=== PATIENT | female | born 1935 | race Caucasian/White ===

== ENCOUNTER 2016-03-25 11:39 | Emergency (ER) | payer MEDICARE ==
[~2016-03-25] VITALS: Ht 165.1 cm; Wt 92.7 kg
[~2016-03-25 11:39] MED LIST: ALBU8.5H2 INHALATION; DOCU250C2 PO; ESTR1TAB24 PO; HYDR25SU10 RC; LEVO175T5 PO; LORA0.5T PO; NYST1POW23 MC; OLME20TA3 PO; OMEP20CA11 PO; ONDA4TAB12 PO; OXYC10TA69 PO; OXYC30TA77 PO; POLY17PO6 PO; POTA20TA16 PO; RANI150T11 PO; SACC250C8 PO; SYMINH INHALATION; TORS10TA5 PO; VENL150C98 PO; ZOLP5TAB6 PO
[2016-03-25 11:41] VITALS: BP 115/54; PULSE 71; RESP 18; O2SAT 100
[2016-03-25] MEDS ORDERED: TORS20TA3 PO (12:02)
--- NOTE | 2016-03-25 13:01 | ED.REPORT ---
HPI-Trauma Minor / Fall Date of Service Mar 25, 2016 ED Provider: Henok Donato PA-C Ms. Spencer is a 80-year-old female who presents with a chief complaint of ground -level fall. Patient reports that she was brought in by brush maker following a ground -level fall at her assisted living facility. She reports that she stood up, became dizzy and fell over striking her face on a carpeted floor denies loss of consciousness, headache, dizziness, nausea/vomiting, seizure, behavior change, neck pain, numbness/tingling, use of blood thinners. She reports lacerations to her left knee and upper lip. History of CHF, nonhealing leg wounds, renal insufficiency, bilateral total knee arthroplasty, knee pain. Incidental complaint of abdominal pain, that has been ongoing, is being followed by her primary care physician, and is unchanged from baseline. Nursing Notes Stated Complaint: GLF Chief Complaint: Multiple Trauma/Fall Nursing Notes Reviewed: Yes Allergies: Coded Allergies: No Known Allergies (Unverified , 02/23/16) Scheduled Budesonide/Formoterol 160-4.5 mcg Inh (Symbicort 160-4.5 mcg Inh) 120 Puff Inhaler 2 PUFF INHALATION BID Estradiol (Estradiol) 1 Mg Tablet 1 MG PO DAILY Levothyroxine (Levothyroxine) 175 Mcg Tablet 175 MCG PO DAILY Olmesartan (Benicar) 20 Mg Tablet 20 MG PO DAILY Omeprazole (Omeprazole) 20 Mg Capsule.dr 20 MG PO BID Oxycodone ER (Oxycontin) 10 Mg Tab.er.12h 10 MG PO BID Oxycodone ER (Oxycontin) 30 Mg Tab.er.12h 30 MG PO BID Potassium Chloride (Potassium Chloride) 20 Meq Tab.er.prt 20 MEQ PO DAILY TAKE WITH FOOD Ranitidine (Zantac) 150 Mg Tablet 150 MG PO QPM Saccharomyces Boulardii (Digestive Probiotic) 250 Mg Capsule 250 MG PO BID Torsemide (Torsemide) 20 Mg Tablet 20 MG PO DAILY Venlafaxine ER (Venlafaxine ER) 150 Mg Cap.er.24h 150 MG PO DAILY Scheduled PRN Albuterol HFA (Proair HFA) 8.5 Gm Hfa.aer.ad 2 PUFFS INHALATION q4-6 hours PRN PRN For Shortness of Breath Docusate Sodium (Docusate Sodium) 250 Mg Capsule 250 MG PO BID PRN PRN For Constipation Hydrocortisone Acetate (Anucort-Hc) 25 Mg Supp.rect 25 MG RC DAILY PRN PRN For Pain Lorazepam (Lorazepam) 0.5 Mg Tablet 0.5 MG PO BID PRN PRN For Anxiety Nystatin (Nystatin) 1 Each Powder.ea. 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 Alcohol Use: Denies alcohol use Drug Use: Denies drug use Ambulatory Status Independent Review of Systems General: Denies fever, chills, malaise. HEENT: Denies congestion, headache, sore throat. Respiratory: Denies dyspnea, cough, shortness of breath, wheezing. Cardiovascular: Denies chest pain, palpitations. Gastrointestinal: Admits abdominal pain. Denies vomiting, diarrhea. Genitourinary: Denies frequency, urgency, dysuria, hematuria. Otherwise as noted in HPI. Physical Exam General: Well developed, well nourished, no acute distress. Head: Atraumatic, normocephalic. No mastoid tenderness. Eyes: No scleral icterus or injection. No discharge. PERRL. EOMI. Vision grossly intact. Ears: Pinna and tragus nontender with manipulation. External auditory canal patent, atraumatic and without discharge. Tympanic membrane harris, shiny and translucent without fluid, bulging, retraction or perforation. Hearing grossly intact. Nose: Symmetrical, nares patent without discharge. No frontal or maxillary sinus tenderness. Mouth/pharynx: normal dentition, mucus membranes moist. Tonsils 2+ and symmetrical, uvula midline. Pharynx noninjected, no cobblestoning or discharge. Voice clear. Neck: No tenderness or lymphadenopathy. Trachea midline. Respiratory: Regular rate and rhythm. Breath sounds present, clear to auscultation and equal bilaterally. Cardiovascular: Regular rate and rhythm, without murmur, gallop or rub. 1+ pedal edema bilaterally Gastrointestinal: Abdomen flat and non-tender without guarding or rebound. Bowel sounds normoactive. Skin: One and a half centimeter, through and through laceration to the midline upper lip. 3 cm laceration over the patella of left knee, with moderate hematoma inferior. Basic laceration visualized, no intrusion into the joint capsule. Left knee: Laceration and hematoma as noted above. No apprehension sign. Tender over patella, medial and lateral joint line, tibial tuberosity. Active range of motion limited. Neurological: Grossly nonfocal. Psychological: alert and oriented. Speech appropriate, linear and logical. Behavior appropriate. Initial Vital Signs Vital Signs (First) Date Time Temp Pulse Resp B/P Pulse Ox O2 Delivery O2 Flow Rate FiO2 03/25/16 11:41 36.5 71 18 115/54 100 Room Air Initial VS: Reviewed Interpretation & Diagnostics Lab Results Interpretation Test 03/25/16 13:30 Hold Urine Received (Received) Procedures Laceration Management Procedure Performed by: Allied health pract Consent / Setup / Site Prep: Informed consent provided, Consent from patient , Hand hygiene observed, Stand sterile technique Location of Wound: Center upper lip, through and through Wound Length: 2 cm Local Anesthesia: Lidocaine w epi 1%, 4cc, 27g needle Wound Preparation: Shurclens, Normal saline Irrigation: 50 cc Foreign Body Explore / Removal: Explored for foreign body Repair Skin: Prolene (6-0) # Sutures - Skin: 3 Closure Layers: 1 Suture Technique: Simple Post-Procedure / Complications: Antibiotic oint applied, Dressing applied, No complications, Condition improved, Tolerated procedure well, Patient stable Procedure Performed by: Allied health pract Consent / Setup / Site Prep: Informed consent provided, Consent from patient , Hand hygiene observed, Stand sterile technique Location of Wound: Midline patella left knee. Well-visualized no indication of intrusion into the joint capsule. Wound Length: 3 cm Local Anesthesia: Lidocaine w epi 1%, 4cc, 27g needle Wound Preparation: Shurclens, Normal saline Debridement: None Irrigation: 150 cc Foreign Body Explore / Removal: Explored for foreign body Repair Skin: Nylon (5-0) # Sutures - Skin: 3 Suture Technique: Mattress Post-Procedure / Complications: Antibiotic oint applied, Dressing applied, No complications, Condition improved, Tolerated procedure well, Patient stable Re-Eval/Medical Decision Med Decision/Clinical Course Discussed the case with Dr. Garza. Advised ordering knee x-rays based on Horner knee rules. Discussed the case with Dr. iqbal. He advised treating her pain with 10 mg of oxycodone by mouth, road testing to determine her confidence In brief this is a 80-year-old female with a history of CHF, nonhealing leg wounds, renal insufficiency, bilateral total knee arthroscopy, who presents today following a ground-level fall. She reports standing up becoming dizzy and falling down on a carpeted floor. Orthostatic hypotension thought to be more likely cause than MS, CVA, PE. She struck her face. No indication of intracranial or cervical injury. She has a 2 cm through and through laceration near the midline of her upper lip, and no dental trauma. She also has a 3 cm laceration over the patella left knee, with no indication of intrusion into the joint capsule. She reports significant bilateral knee pain. Performed three-view x-rays indicated by auto and knee rule (age>55 years, trauma, pain) which were negative. Successfully closed lacerations. Patient wasinitially hesitant to be discharged to home, but with sufficient pain control and successful ambulation in the emergency department she and her mother were comfortable with her being sent home. Provided wound care instructions, analgesics instructions and follow-up instructions. Discharge & Departure Impression: Primary Impression: Lip laceration Encounter type: initial encounter Qualified Code: S01.511A - Laceration without foreign body of lip, initial encounter Additional Impression: Laceration of knee, left Encounter type: initial encounter Qualified Code: S81.012A - Laceration without foreign body, left knee, initial encounter Disposition: Home Discharge Condition All VS Reviewed: Yes Condition: Stable Patient Instructions: Suture Care (ED) Additional Instructions: Evaluation following a ground level fall in the ED today. History physical are reassuring that there is no brain or neck injury. X-ray revealed no fractures or damage to your artificial knees. You did have 1 cm, through and through laceration to your upper lip, but no tenderness or looseness in front teeth or damage to your jaw. you also have a 3 cm laceration to right knee, with no indication of intrusion into the joint space. Pain is controlled and he were able to ambulate in the emergency department. You were given a tetanus booster because he could not remember when your last was. Stable and safe for discharge to home. I recommend keeping your wounds covered and dry for the next 24 hours. After that you can change the dressings and wash the areas with soap and water and reapply antibiotic ointment. Do not swim or soak in a bath until stitches are removed. I recommend rinsing your mouth with slightly salty water after eating to keep the laceration of your inner lip clean. Stick to your usual pain medication regimen to control pain, if he finds this is not enough I suggest adding 400 mg of ibuprofen up to every 6 hours. Please follow up with your primary care provider in 3 days to be sure the recovery is progressing as expected. Follow up with your primary care provider in 5 days to consider removing the stitches in your upper lip. The stitches in your left knee should stay in place for 10-14 days. Return to emergency department for any new or worsening symptoms including fever, increasing pain, redness, swelling or discharge from either injury. Referrals: NOPCP (PCP) EDSupervising Provider for APC: Eduard Iqbal MD Attending Statement Attending attestation: I saw this patient in conjunction with Henok Donato PA-C. I was present for all rose portions of the history taking and physical examination. I agree with the workup, evaluation, treatment and disposition. Henok Plasencia MD, PA-C Mar 25, 2016 13:00 Eduard Iqbal MD Mar 25, 2016 21:33
--- NOTE | 2016-03-25 14:07 | DRSVH ---
PROCEDURE: X-RAY LEFT KNEE, THREE VIEWS ([id number]) INDICATIONS: knee pain, fall, age greater than 55 years TECHNIQUE: 3 views of the knee were acquired. COMPARISON: 03/24/2016 FINDINGS: Bones: No fractures or dislocations. No suspicious bony lesions. Status post total knee arthroplast y, components appearing intact. Soft tissues: No joint effusion. No suspicious soft tissue calcifications. IMPRESSION: No acute bony abnormality. Postoperative changes. Dictated by: Jose Stern M.D. on 03/25/2016 at 14:05 Approved by: Jose Stern M.D. on 03/25/2016 at 14:05
--- NOTE | 2016-03-25 14:14 | DRSVH ---
PROCEDURE: X-RAY RIGHT KNEE, THREE VIEWS ([id number]) INDICATIONS: fall, knee pain, age>55yo TECHNIQUE: 3 views of the knee were acquired. COMPARISON: [facility], CR, XR KNEE 3VW LT, 03/25/2016, 13:28. FINDINGS: Bones: Postsurgical changes compatible prior right knee arthroplasty noted. Small bone fragment noted adjacent to the lateral margin of the femoral component of the knee prosthesis which could represent heterotopic ossification versus old avulsion injury. No acute fracture identified. Soft tissues: No joint effusion. No suspicious soft tissue calcifications. IMPRESSION: No acute fracture. No acute osseous lesion. If symptoms and/or clinical suspicion for pa thology persists, further assessment with repeat radiographs or advanced imaging (e.g. CT, MRI or bon e scan) may be helpful for further assessment. Dictated by: Karly Baker MD, PhD on 03/25/2016 at 14:12 Approved by: Karly Baker MD, PhD on 03/25/2016 at 14:12
[2016-03-25] MEDS ORDERED: TdaP Vaccine 0.5 mL Inj IM ONE (16:50)
[2016-03-25 17:23] VITALS: BP 115/49; PULSE 74; RESP 18; O2SAT 99
[2016-07-06] MEDS ORDERED: ZOLP5TAB6 PO (10:50)
[2016-07-08] MEDS ORDERED: RANI150T11 PO (17:57)
[2016-07-08] MEDS ORDERED: POLY17PO6 PO (17:57)
[2016-07-08] MEDS ORDERED: ONDA4TAB6 PO (17:57)
[2016-07-08] MEDS ORDERED: SACC250C9 PO (17:57)
[2016-07-08] MEDS ORDERED: QUET25TA73 PO (17:57)
[2016-07-08] MEDS ORDERED: HYDR-656 PO (17:57)
[2016-07-08] MEDS ORDERED: TORS10TA5 PO (17:57)
== END 2016-03-25 17:24 | disposition home or self-care (01) ==
LOC: SED 11:39 → EDUNIT# 11:39 → EDBD 11:39 → SED 17:24
DX: S01.511A Laceration without foreign body of lip, initial encounter (principal); S81.012A Laceration without foreign body, left knee, initial encounter; W18.30XA Fall on same level, unspecified, initial encounter; Y93.89 Activity, other specified; Y92.129 Unspecified place in nursing home as the place of occurrence of the external cause; Y99.8 Other external cause status; I11.0 Hypertensive heart disease with heart failure; I50.9 Heart failure, unspecified; I48.91 Unspecified atrial fibrillation; E07.9 Disorder of thyroid, unspecified; Z23 Encounter for immunization

== ENCOUNTER 2016-06-05 14:57 | Inpatient (IN) | payer MEDICARE ==
[~2016-06-05] VITALS: Ht 162.6 cm; Wt 100.5 kg
[2016-06-05] VITALS (8 sets, daily range): BP systolic 93–114; BP diastolic 52–70; PULSE 69–114; RESP 17–22; O2SAT 94–100
[~2016-06-05 14:57] MED LIST changes: -TORS10TA5 PO; +TORS20TA3 PO
--- NOTE | 2016-06-05 15:48 | DRSVH ---
PROCEDURE: X-RAY CHEST, TWO VIEWS ([id number]) INDICATIONS: shortness of breath TECHNIQUE: 2 views of the chest were acquired. COMPARISON: [facility], CR, XR CHEST 1VW (PORTABLE), 02/23/2016, 12:20. [facility], CR, XR CHEST 2VW, 02/18/2016, 10:44. FINDINGS: Surgical changes and devices: None. Lungs and pleura: Left basilar infiltrate suspicious for pneumonia. No pleural effusions or pneumoth orax. Mediastinum: Mediastinal contours are normal. Heart size is normal. Bones and chest wall: No suspicious bony abnormalities. Soft tissues appear unremarkable. IMPRESSION: Suspect left basilar pneumonia. Dictated by: Stephanie Escobar M.D. on 06/05/2016 at 15:45 Approved by: Stephanie Escobar M.D. on 06/05/2016 at 15:46
--- NOTE | 2016-06-05 16:12 | ED.REPORT ---
HPI-Dyspnea / Wheezing Date of Service Jun 05, 2016 ED Provider: Dr. Pearl Pt is a 80 y/o female w/ a hx of HTN, CHF, a-fib presenting to the ED c/o gradually worsening SOB onset about 1 week ago. She c/o associated productive cough, dyspnea on exertion, 8 lb weight gain in the last week which she attributes to lower extremity edema despite increased Torsemide treatment. Pt denies fever, chills, CP, abdominal pain, vomiting, diarrhea, dysuria, change in orthopnea, rash. Her BP normally runs about 120 systolic. Cardiology: Dr. Peck Nursing Notes Stated Complaint: SOB SENT FROM URGENT Chief Complaint: Respiratory Distress Nursing Notes Reviewed: Yes Allergies: Coded Allergies: No Known Allergies (Unverified , 06/05/16) Scheduled Budesonide/Formoterol 160-4.5 mcg Inh (Symbicort 160-4.5 mcg Inh) 120 Puff Inhaler 2 PUFF INHALATION BID Estradiol (Estradiol) 1 Mg Tablet 1 MG PO DAILY Levothyroxine (Levothyroxine) 175 Mcg Tablet 175 MCG PO DAILY Olmesartan (Benicar) 20 Mg Tablet 20 MG PO DAILY Omeprazole (Omeprazole) 20 Mg Capsule.dr 20 MG PO BID Oxycodone ER (Oxycontin) 10 Mg Tab.er.12h 10 MG PO BID Oxycodone ER (Oxycontin) 30 Mg Tab.er.12h 30 MG PO BID Potassium Chloride (Potassium Chloride) 20 Meq Tab.er.prt 20 MEQ PO DAILY TAKE WITH FOOD Ranitidine (Zantac) 150 Mg Tablet 150 MG PO QPM Saccharomyces Boulardii (Digestive Probiotic) 250 Mg Capsule 250 MG PO BID Torsemide (Torsemide) 20 Mg Tablet 20 MG PO DAILY Venlafaxine ER (Venlafaxine ER) 150 Mg Cap.er.24h 150 MG PO DAILY Scheduled PRN Albuterol HFA (Proair HFA) 8.5 Gm Hfa.aer.ad 2 PUFFS INHALATION q4-6 hours PRN PRN For Shortness of Breath Docusate Sodium (Docusate Sodium) 250 Mg Capsule 250 MG PO BID PRN PRN For Constipation Hydrocortisone Acetate (Anucort-Hc) 25 Mg Supp.rect 25 MG RC DAILY PRN PRN For Pain Lorazepam (Lorazepam) 0.5 Mg Tablet 0.5 MG PO BID PRN PRN For Anxiety Nystatin (Nystatin) 1 Each Powder.ea. 1 EACH MC BID PRN PRN rash Ondansetron ODT (Ondansetron ODT) 4 Mg Tab.rapdis 4 MG PO q4-6 hours PRN PRN For Nausea Polyethylene Glycol 3350 (Miralax) 17 Gm Powd.pack 17 GM PO BID PRN PRN For Constipation Zolpidem (Zolpidem) 5 Mg Tablet 5 MG PO HS PRN PRN For Insomnia General Time Seen by MD: 16:12 Chief Complaint Shortness of breath Hx Obtained From: Patient Arrived By: Walk-in Sudden in Onset?: No Onset Occurred: 1 week ago Symptom Duration: Since onset Severity: Current: No pain currently Severity: Maximum: No pain Recent Healthcare: Previous diagnosis Similar Sx Previous: Yes Past Medical History Past Medical History Notes: Cardiology: Dr. 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 Alcohol Use: Denies alcohol use Drug Use: Denies drug use Ambulatory Status Independent Review of Systems Constitutional: Denies: Chills, Fever Respiratory: Reports: Prod cough, green, Prod cough, yellow, Shortness of breath, Denies: Pleuritic pain Cardiovascular: Reports: Dyspnea on exertion, Edema, Denies: Chest pain, Orthopnea Skin: Denies Itching, Denies Rash Complete sys rev & neg: except as marked. GI: Denies: Abdominal pain, Diarrhea, Nausea, Vomiting Female: Denies: Dysuria, Urinary frequency Physical Exam Initial Vital Signs Vital Signs (First) Date Time Temp Pulse Resp B/P Pulse Ox O2 Delivery O2 Flow Rate FiO2 06/05/16 15:04 36.3 73 22 95/59 97 Room Air Initial VS: Reviewed, Vital signs abnormal Head / Eyes: Atraumatic, Normocephalic, PERRL ENT: Mucous membranes moist, Conjunctiva normal, No scleral icterus Abdomen / GI: Soft, Non-tender Extremities: Vascular intact, Neuro intact, No tenderness Skin: Warm, Dry, No cyanosis Neurologic: Alert, Oriented, Nonfocal Psychiatric: Mood/affect normal, Behavior normal, Normal thought content General/Constitutional: Awake, Alert, No acute distress, Cooperative, Not toxic appearing Neck: Atraumatic, Supple, No meningismus, Full range of motion, No JVD Respiratory / Chest: Atraumatic, No respiratory distress, No retractions, No stridor, No chest tenderness, No chest wall deformity, No crepitus Rales left lung base Cardiovascular: Heart rate NL, Regular rhythm, Heart sounds NL, No gallop, No murmurs, No rubs, Cap refill not delayed, Peripheral circulation NL Lower Ext Edema: Positive: Bilateral 3+ Interpretation & Diagnostics Lab Results Interpretation Result Diagram: 06/05/16 1619 06/05/16 1619 Test 06/05/16 16:19 06/05/16 17:49 White Blood Count 5.0th/mm3 (3.8-10.1) Red Blood Count 3.23mil/mm3 (3.90-5.20) Hemoglobin 9.2g/dL (12.0-15.6) Hematocrit 28.4% (35.0-46.0) Mean Corpuscular Volume 87.9fL (81-100) Mean Corpuscular Hemoglobin 28.5pg (27.0-35.0) Mean Corpuscular Hemoglobin Concent 32.4% (32.0-37.0) Red Cell Distribution Width 14.8% (12.3-15.4) Platelet Count 275bil/L (150-400) Neutrophils (%) (Auto) 58.4% (40-74) Lymphocytes (%) (Auto) 21.3% (14-46) Monocytes (%) (Auto) 12.1% (4-12) Eosinophils (%) (Auto) 6.6% (0-5) Basophils (%) (Auto) 1.6% (0-3) Sodium Level 126mEq/L (134-144) Potassium Level 4.5mEq/L (3.5-5.2) Chloride Level 90mEq/L (97-108) Carbon Dioxide Level 19mmol/L (18-29) Blood Urea Nitrogen 39mg/dL (8-27) Creatinine 1.43mg/dL (0.57-1.00) Estimat Glomerular Filtration Rate 51mL/min (>59) Glucose Level 118mg/dL (60-99) Calcium Level 8.5mg/dL (8.5-10.1) Total Bilirubin 0.3mg/dL (0.0-1.2) Aspartate Amino Transf (AST/SGOT) 32U/L (0-50) Alanine Aminotransferase (ALT/SGPT) 21U/L (0-32) Alkaline Phosphatase 99U/L (25-165) Troponin T < 0.010ug/L (0.0-0.011) Pro-B-Type Natriuretic Peptide 812.8pg/mL (0-738) Total Protein 7.5g/dL (6.4-8.4) Albumin 3.9g/dL (3.4-5.0) Hold Bhakta Top Tube Received (Received) ECG Interpretation ECG Interpretation: Sinus rhythm rate 67 RBBB Time: 16:00 Interpreted by: ED physician Normal ECG Interpretation: No acute ischemic changes X-Ray Chest Interpretation Chest Xray Interpretation: IMPRESSION: Suspect left basilar pneumonia. Dictated by: Stephanie Escobar M.D. on 06/05/2016 at 15:45 Approved by: Stephanie Escobar M.D. on 06/05/2016 at 15:46 View: Portable, AP & lat Interpretation / Wet Read by: Interpret - Radiologist Re-Eval/Medical Decision Med Decision/Clinical Course Likely pneumonia with profound hyponatremia and acute kidney injury. Mild hypotension that responded to IV fluids. Patient will be admitted. Re-Evaluation/Progress : Time of Eval: 17:12 Re-Evaluation/Progress Note: Pt rechecked. Informed pt of need for admission for further evaluation. Pt understands and agrees with plan for admission. All questions addressed. Consultation : Consulted With: Hospitalist Call Returned at: 17:13 Back Tender Fourdrinier: Will see patient, Agrees with eval, Agrees with plan, Accepts admit Counseled Regarding: Diagnosis, Lab results, Need for admission Discharge & Departure Impression: Primary Impression: Left lower lobe pneumonia Pneumonia type: due to unspecified organism Qualified Code: J18.9 - Pneumonia, unspecified organism Additional Impression: Dehydration Disposition: ADMITTED TO HOSPITAL Discharge Condition All VS Reviewed: Yes Condition: Stable Referrals: Enrique Muller DO (PCP) Tirso Peck MD Scribe Attestation Portions of this note were transcribed by Familia Kaiser. IDr. Pearl personally performed the history, physical exam and medical decision-making; I reviewed and confirmed the accuracy of the information in the transcribed note. Signed by Govind Abdul, 06/05/16 3 copies to: Tirso Peck MD; Enrique Muller Timothy S DO Jun 05, 2016 16:12 FAMILIA K[facility]ISER Jun 05, 2016 16:18
[2016-06-05 16:37] LABS: BASOPHILS % (AUTO) 1.6 % (0-3); EOSINOPHILS % (AUTO) 6.6 % (0-5); MONOCYTES % (AUTO) 12.1 % (4-12); Mean Corpuscular Hemoglobin 28.5 pg (27.0-35.0); Mean Corpuscular Volume 87.9 fL (81-100); NEUTROPHILS % (AUTO) 58.4 % (40-74); Platelet Count 275 bil/L (150-400)
[2016-06-05] MEDS ORDERED: 0.9% Sodium Chloride 1,000 ML IV ONE (16:55)
[2016-06-05 17:00] LABS: TROPONIN T < 0.010 ug/L (0.0-0.011)
[2016-06-05] MEDS ORDERED: cefTRIAXone Inj 2,000 MG in Dextrose 5% Minibag Plus 50 ML IV ONE (17:05)
[2016-06-05] MEDS ORDERED: Azithromycin Inj 500 MG in Dextrose 5% w/Vial Mate 250 ML IV ONE (17:05)
[2016-06-05] MEDS ORDERED: 0.9% Sodium Chloride 1,000 ML IV SCH (17:14)
[2016-06-05] MEDS ORDERED: Ondansetron 2 mg/mL 2 mL Inj IVPUSH PRN (17:15)
[2016-06-05] MEDS ORDERED: Alum-Mag Hydrox-Simeth 30 mL Suspension PO PRN ×2 (17:15→20:10)
[2016-06-05] MEDS ORDERED: Polyethylene Glycol (PEG) 17 Gm Powder PO PRN ×2 (20:10→20:40)
--- NOTE | 2016-06-05 20:24 | PCM.HPMED ---
Subjective Date of Service Jun 05, 2016 Primary Provider: Admitting Physician: Neelam Isaac MD Primary Care Physician: Enrique Muller DO Attending Physician: Neelam Isaac MD Admit Status: From the Emergency Department Chief Complaint: Fatigue, shortness of breath, weight gain, increasing edema, productive cough History of Present Illness: About a week ago she noted onset of shortness of breath which might have seemed somewhat sudden, it has been increasing since then. It is worse with exertion, does not occur at night but she has a hospital bed at home and raises the head of bed. She has done this for several months but now the last 2 weeks has increased it further but is attributing this to nasal congestion. She has gained 8 pounds in the last week which has not improved in spite of increasing her torsemide from 2 to 2 and a half tablets each day. She is also noting some increase in abdominal girth. 2 months ago her physician had instructed her to increase torsemide from 1 tablet to 2 tablets daily and told her if her swelling was worse, or weight increased, could increase to 2-1/2 tablets daily for a week at a time. She is also noting mild cough which is productive which is for her, the sputum is slightly yellow color. No fever chills or sweats. No chest pain or other pain. Review of Systems: Unremarkable except as above Allergies Coded Allergies: No Known Allergies (Unverified , 06/05/16) Home Medications Albuterol inhaler 2 puffs every 4-6 hours when necessary, usually twice a day before Symbicort Symbicort [id number] 2 puffs twice a day DOS 250 mg twice a day when necessary, usually daily Estradiol 1 mg daily AnuCort 25 mg daily when necessary usually twice a week Levothyroxine 175 g daily Benicar 20 mg daily Omeprazole 20 mg twice a day Zofran 4 mg every 4-6 hours when necessary Oxycodone ER 40 mg twice a day MiraLAX 17 g each evening Potassium chloride 20 mEq daily Zantac 150 mg each evening Venlafaxine ER 150 mg each morning Zolpidem 5 mg at bedtime when necessary but uses daily Coreg 6.25 mg twice a day Torsemide 10 mg, 2.5 tablets each morning PMH Congestive heart failure, was admitted in February with acute on chronic diastolic congestive heart failure Hyponatremia, sodium of 128 noted on the February 2016 admission for congestive heart failure and improved with treatment, 134 at the time of discharge Severe mitral regurgitation by echo February 2016 normal left ventricular function Hypertension Atrial fibrillation Cardiac ablation for some other type of tachycardia Hypothyroidism Surgical History Nodule removed from left elbow (CT follow-up scheduled tomorrow as outpatient) Bilateral knee replacement 2 C-sections and with the second one she states that she had a hysterectomy Appendectomy Cholecystectomy Family History Father Age 86 when he "gave up" Mother of a GI bleed related to long-term cortisone therapy No family history of heart disease cancer or diabetes Social History 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 Hx Alcohol Use: Yes (2 glasses of wine per day) Hx Substance Use: No Hx Tobacco Use: No Smoking Status: Never Smoker Living Arrangement: Independent Intermediate Additional Information Lives with her friend and reservoir caretaker in independent senior housing, is been living in a higher level of care, has been for 57 years Has 3 children all living in this area 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 [place] Exam Vital Signs Vital Sign - Last Date Time Temp Pulse Resp B/P Pulse Ox O2 Delivery O2 Flow Rate FiO2 06/05/16 18:51 35.5 78 18 106/70 98 Room Air Exam General: Alert and oriented, no acute distress HEENT: Unremarkable Neck: No JVD Heart: Regular Lungs: Clear except a few somewhat coarse crackles in the left base Abdomen: Soft, non-tender Extremities: Chronic stasis changes, 2+ pitting edema below the knee Neuro: Strong and equal, able to raise both legs off the bed against resistance Lab and Diagnostics Result Diagram: 06/05/16 1619 06/05/16 1619 Assessment & Plan # Pneumonia, recent increase in cough and left lower lobe infiltrate noted on chest x-ray - IV ceftriaxone and Zithromax - Blood Cultures were obtained # Dyspnea, weight gain, increased edema, elevated BNP (she is quite comfortable at rest in bed) - Probable subacute exacerbation of chronic diastolic congestive heart failure - Was felt to be volume depleted by ED physician and has received a liter of saline - Re-evaluate in the morning including labs, may need to change to IV diuretics instead of her usual oral dose # Hyponatremia, this was also noted during her February admission and with treatment of her CHF - Recheck in the morning # Elevated creatinine, has increased from 1.0-1.4 -Question of whether this is volume depletion from some increase in diuretic therapy versus related to CHF - Recheck in the morning, has gotten slightly over a liter of normal saline IV from what I can tell # Anemia, presumed chronic - Hemoglobin 9.2 today but had been 9.0 in February 2016 # History of Atrial fibrillation per chart - EKG today was normal sinus rhythm Neelam Isaac MD Jun 05, 2016 20:24
[2016-06-05] MEDS ORDERED: HYDROCORTISONE ACETATE 25 MG RC PRN (20:40)
[2016-06-05] MEDS ORDERED: OXYCODONE 30 MG PO SCH (20:40)
[2016-06-05] MEDS ORDERED: oxyCODONE ER 10 mg ER12 Tablet PO SCH ×2 (20:40→21:14)
[2016-06-05] MEDS ORDERED: Albuterol HFA 60 Puff 8 Gm Inhaler INHALATION PRN (20:40)
[2016-06-05] MEDS ORDERED: Non-Formulary Medication (Nystatin 1 EACH) MC PRN (20:40)
[2016-06-05] MEDS ORDERED: Non-Formulary Medication (Ranitidine (Zantac) 150 MG) PO SCH (20:40)
[2016-06-05] MEDS ORDERED: Albuterol 2.5 mg/3 mL Inhalation Solution NEB PRN (21:10)
[2016-06-05] MEDS ORDERED: Furosemide 10 mg/mL 4 mL Inj IVPUSH ONE (23:45)
[2016-06-06] VITALS (8 sets, daily range): BP systolic 92–119; BP diastolic 57–74; PULSE 74–85; RESP 18; O2SAT 93–99
[2016-06-06] MEDS: Ondansetron 2 mg/mL 2 mL Inj IVPUSH PRN ×2 (00:32→20:08)
[2016-06-06] MEDS: Sodium Chloride LOK Flush 10 mL Syringe IVFLUSH SCH ×4 (00:32→23:20)
[2016-06-06 00:47] LABS: APPEARANCE,URINE CLEAR (CLEAR,HAZY); COLOR,URINE STRAW (YELLOW); OCCULT BLOOD,URINE NEGATIVE (NEGATIVE); PH,URINE 5.5 (5.0-8.0); UROBILINOGEN,URINE NORMAL (NORMAL); YEAST,URINE FEW (NONE SEEN)
--- NOTE | 2016-06-06 06:19 | NUR ---
Anxiety/SOB Pt had an episode of anxiety that causes sob. Instruct pt of pursed lip breathing. Calm environment provided, HS meds administered as scheduled. Has been having episodes of back pain and leg pain and cramps. PRN morphine administered for control of pain. Hourly rounding done, VSS and has been afebrile overnight. Will continue to monitor.
[2016-06-06 06:52] LABS: Mean Corpuscular Hemoglobin 28.5 pg (27.0-35.0); Mean Corpuscular Volume 89.3 fL (81-100)
[2016-06-06] MEDS: Venlafaxine XR 75 mg ER24 Capsule PO SCH (08:24)
[2016-06-06] MEDS: Pantoprazole 20 mg ER24 Tablet PO SCH ×2 (08:24→16:48)
[2016-06-06] MEDS: Potassium Chloride 20 mEq SR Tablet PO SCH (08:25)
[2016-06-06] MEDS: Fluticasone-Salmererol 250-50 Inhaler INHALATION SCH ×2 (08:25→20:32)
[2016-06-06] MEDS: oxyCODONE ER 40 mg ER12 Tablet PO SCH ×2 (08:26→20:34)
[2016-06-06] MEDS ORDERED: OLMESARTAN 20 MG PO SCH (08:30)
[2016-06-06] MEDS ORDERED: Non-Formulary Medication (Venlafaxine ER 150 MG) PO SCH (08:30)
[2016-06-06] MEDS ORDERED: Non-Formulary Medication (Levothyroxine 175 MCG) PO SCH (08:30)
[2016-06-06] MEDS ORDERED: Budesonide-Formot 160-4.5 mCg 6.9 Gm Inhaler INHALATION SCH (08:30)
[2016-06-06] MEDS ORDERED: TORS10TA5 PO (09:40)
[2016-06-06] MEDS ORDERED: CARV6.252 PO (09:41)
--- NOTE | 2016-06-06 11:41 | NUR ---
Evaluation completed. Please go to "Notes" then click on "Assessments and Notes" (bottom left corner of screen). Then select appropriate discipline tab on top of screen.
[2016-06-06] MEDS: Furosemide 10 mg/mL 4 mL Inj IVPUSH SCH (13:06)
--- NOTE | 2016-06-06 14:38 | NUR ---
Back pain Pt reports back pain has increased. 650 mg PO Tylenol offered and administered. Pain reassessment, pt reports pain level decreased to tolerable level. Frequent rounding in place, will continue to monitor.
--- NOTE | 2016-06-06 15:08 | NUR ---
Social Work-initial assessment: Data:See initial assessment. Pt is a 80 y/o female who was admitted on 06/05/16 for Pneumonia, MICAH, Hyponatremia per H&P. Pt's insurance is Medicare and AARP Supplemental and PCP is Enrique Muller MD. EMR Reviewed. Pt's readmission score is 3-high risk. SW met with pt, Daughter Tania [phone] to discuss discharge planning, SW role explained. Pt is alert and oriented x3. Pt resides at home alone at [facility]. Pt remains independent with basic ADLs and has a caregiver Sultana [phone] who comes 5 days a week to assist patient. Home has no stairs. Pt uses a 4ww at baseline and does not drive. Pt has a history with [facility] but no SNF history. Pt reports she has completed DPOA/Advanced Directive paperwork and has provided hospital with a copy. Pt has no jail care or VA benefits. PT saw pt today and cleared pt to return home with no needs. Pt ambulated 300 feet with walker. Pt declines further home assistance at this time. Pt's caregiver Sultana will provide transport home at discharge. SW provided phone number and plan on white board in room. SW will continue to follow. Assessment:Pt who resides at home alone. Plan:Pt to likely discharge back to [facility] with no needs. Pt has a caregiver at home and declines further home assistance at this time. SW will continue to follow. CARL Leon Addendum: 06/06/16 at 1518 by JOHANN HARDIN Amended: Links added.
--- NOTE | 2016-06-06 15:48 | PCM.PNMED ---
Subjective Date of Service Jun 06, 2016 Subjective 80-year-old female with past medical history CHF, hypertension, A. fib, and hypothyroidism presents with progressively worsening shortness of breath over the last week. Hospital day 2 Overnight: The patient had an episode of anxiety that was treated nonpharmacologically. She complains of back pain, leg pain, and cramps; when necessary IV morphine given for pain control. This morning: Patient reports having an increase in her chronic back pain. She is still having SOB but no abdominal pain or chest pain. She is very pleased that she is down 6 lbs from her morning weight yesterday. Exam Vital Signs Vital Sign - Last Date Time Temp Pulse Resp B/P Pulse Ox O2 Delivery O2 Flow Rate FiO2 06/06/16 06:11 36.4 79 18 119/74 97 Nasal Cannula 2.00 Intake and Output 06/05/16 06/05/16 06/06/16 Cumulative From/Thru 15:00 23:00 07:00 06/05/16 15:04 - 06/06/16 06:12 Intake Total 1000 ml 1000 ml Balance 1000 ml 1000 ml Intake IV Total 1000 ml 1000 ml Exam General: No acute distress, well-developed, well-nourished, appropriately interactive HEENT: Normocephalic, atraumatic. External ears without defect. Anicteric sclerae, moist conjunctivae, and no lid lag. Oropharynx with moist mucosa. Neck: Supple with full range of motion. No lymphadenopathy or thyromegaly. Cardiovascular: Regular rate and rhythm with no murmurs, rubs, or gallops appreciated Pulmonary: bilateral diffuse crackles and wheezes, no rhonchi. Normal respiratory effort with no use of accessory muscles. Abdomen: Bowel tones present. Soft, nontender, nondistended. No hepatosplenomegaly or masses appreciated. Extremities: No clubbing or cyanosis, mild edema up to the knee with slight erythema and scaling of skin, no lymphadenopathy appreciated. Skin: Normal temperature, turgor, and texture; no rash, ulcers, or subcutaneous nodules appreciated other than noted above. Neurological: Cranial nerves grossly intact.No known gait impairment. Psychiatric: Normal mood and affect. Alert and oriented to person, place, and time. Lab and Diagnostics Result Diagram: 06/05/16 1619 06/05/16 1619 X-Rays, CTs and MRIs PROCEDURE: X-RAY CHEST, TWO VIEWS ([id number]) IMPRESSION: Suspect left basilar pneumonia. Dictated by: Stephanie Escobar M.D. on 06/05/2016 at 15:45 Assessment & Plan 80-year-old female with past medical history CHF, hypertension, A. fib, and hypothyroidism presents with progressively worsening shortness of breath over the last week. Hospital day 2 1. Unlikely Pneumonia, viral upper respiratory infection, present on admission , acute - recent increase in cough - suspect left lower lobe pneumonia on chest x-ray was not convincing in light of negative Procalcitonin and normal white blood cell count - IV ceftriaxone and Zithromax discontinued - Blood Cultures pending - Viral respiratory PCR positive for rhinovirus/enterovirus - Provide supportive management as needed - Continue Advair, when necessary albuterol nebulizer 2. Probable subacute exacerbation of chronic diastolic congestive heart failure - Dyspnea, weight gain, increased edema, elevated BNP (though she is quite comfortable at rest in bed) - Was felt to be volume depleted by ED physician and has received a liter of saline - Patient received 1 dose of IV Lasix overnight. This morning patient's status has improved with improved kidney function, decrease in weight by 2.8 kg - Patient given home dose of torsemide this a.m., IV Lasix given early in the afternoon. Continue IV Lasix daily, hold torsemide - Monitor ins and outs, daily standing weights, blood pressure 3. Hypervolemic Hyponatremia, this was also noted during her February admission and with treatment of her CHF - 126 upon presentation to the emergency department, 131 this morning. - Continue to follow CMP in the a.m. 4. Elevated creatinine, present on admission, acute - has increased from 1.0-1.4 upon presentation, down to 1.12 this morning - Question of whether this is volume depletion from some increase in diuretic therapy versus related to CHF - Recheck in the morning, has gotten slightly over a liter of normal saline. 5. Anemia, presumed chronic - Hemoglobin 9.2 today but had been 9.0 in February 2016 6. History of Atrial fibrillation per chart - EKG today was normal sinus rhythm - Patient on telemetry 7. Chronic low back pain, present on admission, active - Continue home dose of OxyContin for chronic pain - Pain has worsened since been in the hospital, likely related to being sedentary and primarily in bed for the last week - Physical therapy consultation for evaluation and treatment of low back pain Patient was admitted under inpatient status with expected length of stay greater than 2 midnights, likely to discharge in 1-3 days due to severity of presenting symptoms, risk of adverse event, and complexity of treatment plan. Pain Evaluation: Adequate Pain Control GI Prophylaxis: Proton Pump Inhibitor VTE Prophylaxis: Sub-Q Enoxaparin VTE Mechanical Devices: Intermittant Pneumatic CD Resuscitation Status: Limited Interventions Limited Interventions: Intubation w Mech Vent, BiPAP, Medications and IV Fluid Time spent 25 minutes Attending Statement I have seen and evaluated patient in addition to directly supervising care provided by resident physician. I agree with above documentation. Sherice Strong DO Jun 06, 2016 06:59 Jacinto Teixeira DO Jun 07, 2016 05:59
[2016-06-06] MEDS ORDERED: Azithromycin Inj 500 MG in Dextrose 5% w/Vial Mate 250 ML IV SCH (17:00)
[2016-06-06] MEDS ORDERED: cefTRIAXone Inj 1,000 MG in Dextrose 5% Minibag Plus 50 ML IV SCH (18:00)
--- NOTE | 2016-06-06 22:51 | NUR ---
Activity Pt up OOB with walker. Her legs are swollen and heavy. She is able to lift them in and out of the bed. Given oxycontin earlier for back pain. Pt states that the pain relief helps her "move a little more easily" Will cont to monitor
[2016-06-07] VITALS (10 sets, daily range): BP systolic 105–120; BP diastolic 55–74; PULSE 68–89; RESP 18–20; O2SAT 94–98
[2016-06-07] MEDS: Ondansetron 2 mg/mL 2 mL Inj IVPUSH PRN (04:17)
[2016-06-07 07:27] LABS: Mean Corpuscular Hemoglobin 28.4 pg (27.0-35.0); Mean Corpuscular Volume 90.7 fL (81-100)
[2016-06-07] MEDS: Venlafaxine XR 75 mg ER24 Capsule PO SCH (07:52)
[2016-06-07] MEDS: Furosemide 10 mg/mL 4 mL Inj IVPUSH SCH (07:52)
[2016-06-07] MEDS: Fluticasone-Salmererol 250-50 Inhaler INHALATION SCH ×2 (07:52→21:02)
[2016-06-07] MEDS: Potassium Chloride 20 mEq SR Tablet PO SCH (07:53)
[2016-06-07] MEDS: oxyCODONE ER 40 mg ER12 Tablet PO SCH ×2 (07:54→21:10)
[2016-06-07] MEDS: Pantoprazole 20 mg ER24 Tablet PO SCH ×2 (08:10→16:04)
[2016-06-07] MEDS: Sodium Chloride LOK Flush 10 mL Syringe IVFLUSH SCH ×2 (08:31→16:04)
[2016-06-07] MEDS ORDERED: Furosemide 10 mg/mL 2 mL Inj IVPUSH ONE (10:00)
--- NOTE | 2016-06-07 12:21 | NUR ---
Social Work-readiness for discharge: Data:EMR Reviewed. Pt is on day 2 of hospitalization for pneumonia per H&P. Pt is likely to be ready to discharge tomorrow. PT has cleared pt for home with no needs, ambulating 300ft. Pt resides at [facility] and uses a fww at baseline. Pt has caregiver that comes in to assist her 5 days a week. Pt's caregiver to provide transport home. No anticipated discharge needs. SW will continue to follow if needs arise. Assessment:Pt who is independent at baseline. Plan:Pt to discharge back to [facility] when medically stable via POV. No anticipated discharge needs. SW will continue to follow if needs arise. CARL Rodriguez
[2016-06-07] MEDS: guaiFENesin 600 mg ER12 Tablet PO SCH ×2 (12:44→21:11)
--- NOTE | 2016-06-07 17:59 | PCM.PNMED ---
Subjective Date of Service Jun 07, 2016 Subjective 80-year-old female with past medical history CHF, hypertension, A. fib, and hypothyroidism presents with progressively worsening shortness of breath over the last week. Hospital day 2 Overnight: No acute events reported This morning patient reports doing well, she is disappointed that she had only lost 1 pound overnight as opposed to this 6 she lost the prior night. She does complain of some cough and congestion. No worsening of her shortness of breath, her chronic back pain is stable. She feels as if though her legs are still swollen and they are less tight. Exam Vital Signs Vital Sign - Last Date Time Temp Pulse Resp B/P Pulse Ox O2 Delivery O2 Flow Rate FiO2 06/07/16 04:24 36.6 89 20 120/74 98 Nasal Cannula 1.00 Intake and Output 06/06/16 06/06/16 06/07/16 Cumulative From/Thru 15:00 23:00 07:00 06/05/16 15:04 - 06/07/16 05:01 Intake Total 960 ml 1400 ml 400 ml 3760 ml Output Total 2100 ml 1300 ml 3400 ml Balance -1140 ml 100 ml 400 ml 360 ml Intake Oral 960 ml 1400 ml 400 ml 2760 ml IV Total 1000 ml Output Urine Total 2100 ml 1300 ml 3400 ml # Voids 2 4 6 # Bowel Movements 0 0 Exam General: No acute distress, well-developed, well-nourished, appropriately interactive HEENT: Normocephalic, atraumatic. External ears without defect. Anicteric sclerae, moist conjunctivae, and no lid lag. Oropharynx with moist mucosa. Neck: Supple with full range of motion. No lymphadenopathy or thyromegaly. Cardiovascular: Regular rate and rhythm with no murmurs, rubs, or gallops appreciated Pulmonary: Bilateral diffuse crackles and wheezes primarily in the bases, no rhonchi. Normal respiratory effort with no use of accessory muscles. Abdomen: Bowel tones present. Soft, nontender, nondistended. No hepatosplenomegaly or masses appreciated. Extremities: No clubbing or cyanosis, mild edema up to the knee with slight erythema and scaling of skin, no lymphadenopathy appreciated. Skin: Normal temperature, turgor, and texture; no rash, ulcers, or subcutaneous nodules appreciated other than noted above. Neurological: Cranial nerves grossly intact.No known gait impairment. Psychiatric: Normal mood and affect. Alert and oriented to person, place, and time. Lab and Diagnostics Result Diagram: 06/07/16 0701 06/06/16 0625 X-Rays, CTs and MRIs PROCEDURE: X-RAY CHEST, TWO VIEWS ([id number]) IMPRESSION: Suspect left basilar pneumonia. Dictated by: Stephanie Escobar M.D. on 06/05/2016 at 15:45 Assessment & Plan 80-year-old female with past medical history CHF, hypertension, A. fib, and hypothyroidism presents with progressively worsening shortness of breath over the last week. Hospital day 2 1. Viral upper respiratory infection, present on admission, acute - Viral respiratory PCR positive for rhinovirus/enterovirus - recent increase in cough - suspect left lower lobe pneumonia on chest x-ray was not convincing in light of negative Procalcitonin and normal white blood cell count - IV ceftriaxone and Zithromax discontinued - Blood Cultures show no growth after 24 hours - Provide supportive management as needed including guaifenesin - Continue Advair, when necessary albuterol nebulizer 2. Congestive Heart Failure, Diastolic Dysfunction, Acute Exacerbation, Present on Admission - Dyspnea, weight gain, increased edema, elevated BNP (though she is quite comfortable at rest in bed) - Was felt to be volume depleted by ED physician and has received a liter of saline - Patient received 1 dose of IV Lasix overnight. This morning patient's status has improved with improved kidney function, decrease in weight by 2.8 kg - Patient given additional dose of IV Lasix, then discontinue - Restart home torsemide at 25 mg daily - Monitor ins and outs, daily standing weights, blood pressure 3. Hypervolemic Hyponatremia, present on admission, subacute - this was also noted during her February admission and with treatment of her CHF - 126 upon presentation to the emergency department, 136 this morning. - Continue to follow CMP in the a.m. 4. Elevated creatinine, present on admission, acute - has increased from 1.0-1.4 upon presentation, down to 1.12 this morning - Question of whether this is volume depletion from some increase in diuretic therapy versus related to CHF - Recheck in the morning, has gotten slightly over a liter of normal saline. 5. Anemia, presumed chronic - Hemoglobin 9.8 today but had been 9.0 in February 2016 - Stable, continue to monitor with CBC 6. History of Atrial fibrillation per chart - EKG today was normal sinus rhythm - Patient on telemetry 7. Chronic low back pain, present on admission, active - Continue home dose of OxyContin for chronic pain - Pain has worsened since been in the hospital, likely related to being sedentary and primarily in bed for the last week - Physical therapy consultation for evaluation and treatment of low back pain Patient was admitted under inpatient status with expected length of stay greater than 2 midnights, likely to discharge in 1-2 more days GI Prophylaxis: Proton Pump Inhibitor VTE Prophylaxis: Sub-Q Enoxaparin VTE Mechanical Devices: Intermittant Pneumatic CD Resuscitation Status: Limited Interventions Limited Interventions: Intubation w Mech Vent, BiPAP, Medications and IV Fluid Attending Statement The patient was seen and examined together with Dr. Strong on 06/07/2016 and I agree with the history, exam and plan as outlined in the note above. Sherice Strong DO Jun 07, 2016 07:52 Antwan Moartaya MD Jun 08, 2016 09:09
[2016-06-07] MEDS: Lidocaine Topical 5% Patch TOPICAL SCH (18:41)
[2016-06-07] MEDS ORDERED: guaiFENesin 600 mg ER12 Tablet PO SCH (20:30)
[2016-06-08] MEDS: Sodium Chloride LOK Flush 10 mL Syringe IVFLUSH SCH ×3 (00:30→17:05)
[2016-06-08 00:50] VITALS: BP 118/68; PULSE 76; RESP 18; O2SAT 97
[2016-06-08 05:10] VITALS: BP 131/72; PULSE 74; RESP 2; O2SAT 96
[2016-06-08 07:18] LABS: BASOPHILS % (AUTO) 1.1 % (0-3); EOSINOPHILS % (AUTO) 4.2 % (0-5); MONOCYTES % (AUTO) 12.9 % (4-12); Mean Corpuscular Hemoglobin 28.3 pg (27.0-35.0); Mean Corpuscular Volume 91.1 fL (81-100); NEUTROPHILS % (AUTO) 60.3 % (40-74); Platelet Count 237 bil/L (150-400)
[2016-06-08] MEDS: guaiFENesin 600 mg ER12 Tablet PO SCH ×2 (07:41→20:01)
[2016-06-08] MEDS: Pantoprazole 20 mg ER24 Tablet PO SCH ×2 (07:41→17:05)
[2016-06-08] MEDS: Potassium Chloride 20 mEq SR Tablet PO SCH (07:42)
[2016-06-08] MEDS: oxyCODONE ER 40 mg ER12 Tablet PO SCH ×2 (07:43→20:03)
[2016-06-08] MEDS: Fluticasone-Salmererol 250-50 Inhaler INHALATION SCH ×2 (07:53→20:01)
[2016-06-08] MEDS: Venlafaxine XR 75 mg ER24 Capsule PO SCH (07:54)
[2016-06-08] MEDS: Furosemide 10 mg/mL 4 mL Inj IVPUSH SCH (08:29)
--- NOTE | 2016-06-08 10:03 | NUR ---
anxiety pt states that she had a "terrible night"- she was quite upset about her husbands health and possible surgery. Caregiver stops this RN in the hallway to report that the pt usually drinks about one bottle of wine a night to "drown her sorrows". Caregiver is hoping we can treat pt's anxiety tonight
[2016-06-08 10:20] VITALS: BP 108/68; PULSE 79; RESP 18; O2SAT 95
[2016-06-08 11:31] VITALS: PULSE 80
--- NOTE | 2016-06-08 13:03 | PCM.PNMED ---
Subjective Date of Service Jun 08, 2016 Subjective 80-year-old female with past medical history CHF, hypertension, A. fib, and hypothyroidism presents with progressively worsening shortness of breath over the last week. Hospital day 3 Patient reports having a very difficult night with little sleep. This morning she states that she is tired. She continues to have some shortness of breath. She has chronic back pain. She appears emotional and per nursing notes her may need surgery which is upsetting to her. Exam Vital Signs Vital Sign - Last Date Time Temp Pulse Resp B/P Pulse Ox O2 Delivery O2 Flow Rate FiO2 06/08/16 12:18 Supplement Oxygen 06/08/16 11:31 80 06/08/16 10:20 36.4 18 108/68 95 06/07/16 04:24 1.00 Intake and Output 06/07/16 06/07/16 06/08/16 Cumulative From/Thru 15:00 23:00 07:00 06/05/16 15:04 - 06/08/16 06:36 Intake Total 836 ml 700 ml 5296 ml Output Total 2 ml 3402 ml Balance 834 ml 700 ml 1894 ml Intake Oral 836 ml 700 ml 4296 ml IV Total 1000 ml Output Urine Total 3400 ml Stool Total 2 ml 2 ml # Voids 2 4 12 # Bowel Movements 0 Exam General: Tired, no acute distress, well-developed, well-nourished, appropriately interactive HEENT: Normocephalic, atraumatic. External ears without defect. Anicteric sclerae, moist conjunctivae, and no lid lag. Oropharynx with moist mucosa. Neck: Supple with full range of motion. No lymphadenopathy or thyromegaly. Cardiovascular: Regular rate and rhythm with no murmurs, rubs, or gallops appreciated Pulmonary: Bilateral diffuse crackles and wheezes in the bases, no rhonchi. Normal respiratory effort with no use of accessory muscles. Abdomen: Bowel tones present. Soft, nontender, nondistended. No hepatosplenomegaly or masses appreciated. Extremities: No clubbing or cyanosis, mild edema up to the knee with slight erythema and scaling of skin, no lymphadenopathy appreciated. Skin: Normal temperature, turgor, and texture; no rash, ulcers, or subcutaneous nodules appreciated other than noted above. Neurological: Cranial nerves grossly intact.No known gait impairment. Psychiatric: Normal mood and affect. Alert and oriented to person, place, and time. Lab and Diagnostics Result Diagram: 06/08/16 0649 06/08/16 0649 X-Rays, CTs and MRIs PROCEDURE: X-RAY CHEST, TWO VIEWS ([id number]) IMPRESSION: Suspect left basilar pneumonia. Dictated by: Stephanie Escobar M.D. on 06/05/2016 at 15:45 Assessment & Plan 80-year-old female with past medical history CHF, hypertension, A. fib, and hypothyroidism presents with progressively worsening shortness of breath over the last week. Hospital day 2 1. Viral upper respiratory infection, present on admission, acute - Viral respiratory PCR positive for rhinovirus/enterovirus - recent increase in cough - suspect left lower lobe pneumonia on chest x-ray was not convincing in light of negative Procalcitonin and normal white blood cell count - IV ceftriaxone and Zithromax discontinued - Blood Cultures show no growth after 24 hours - Provide supportive management as needed including guaifenesin, Acapella, discussed stretching and mobilizing rib cage with patient. - Continue Advair, when necessary albuterol nebulizer - titrate O2 down 2. Congestive Heart Failure, Diastolic Dysfunction, Acute Exacerbation, Present on Admission - Dyspnea, weight gain, increased edema, elevated BNP (though she is quite comfortable at rest in bed) - Was felt to be volume depleted by ED physician and has received a liter of saline - Patient received 1 dose of IV Lasix overnight. This morning patient's status has improved with improved kidney function, decrease in weight by 2.8 kg - Patient given additional dose of IV Lasix this morning, then discontinue - Restart home torsemide at 25 mg daily - Monitor ins and outs, daily standing weights, blood pressure - CXR this morning- final read pending 3. Hypervolemic Hyponatremia, present on admission, subacute - this was also noted during her February admission and with treatment of her CHF - 126 upon presentation to the emergency department, 131 this morning. - Continue to follow CMP in the a.m. 4. Elevated creatinine, present on admission, acute - has increased from 1.0-1.4 upon presentation, down to 1.03 this morning - Question of whether this is volume depletion from some increase in diuretic therapy versus related to CHF - Recheck in the morning, has gotten slightly over a liter of normal saline upon admission but continues to diurese 5. Anemia, presumed chronic - Hemoglobin 9.8 today but had been 9.0 in February 2016 - Stable, continue to monitor with CBC 6. History of Atrial fibrillation per chart - EKG today was normal sinus rhythm - Patient on telemetry 7. Chronic low back pain, present on admission, active - Continue home dose of OxyContin for chronic pain - Pain has worsened since been in the hospital, likely related to being sedentary and primarily in bed for the last week - Physical therapy consultation for evaluation and treatment of low back pain 8. Probable obstructive sleep apnea, present on admission - Recommend outpatient sleep study evaluation for HERRERA Patient was admitted under inpatient status with expected length of stay greater than 2 midnights, likely to discharge tomorrow. Pain Evaluation: Adequate Pain Control GI Prophylaxis: Proton Pump Inhibitor VTE Prophylaxis: Sub-Q Enoxaparin VTE Mechanical Devices: Venous Foot Pump Resuscitation Status: Limited Interventions Limited Interventions: Intubation w Mech Vent, BiPAP, Medications and IV Fluid Attending Statement The patient was seen and examined together with Dr. Strong on 06/08/2016 and I agree with the history, exam and plan as outlined in the note above. Sherice Strong DO Jun 08, 2016 13:03 Antwan Morataya MD Jun 09, 2016 09:20
--- NOTE | 2016-06-08 13:27 | DRSVH ---
PROCEDURE: X-RAY CHEST ONE VIEW, PORTABLE ([id number]) INDICATIONS: CHF exacerbation status TECHNIQUE: One view of the chest was acquired. COMPARISON: [facility], CR, XR CHEST 1VW (PORTABLE), 02/23/2016, 12:20. 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 Lungs and pleura: No pleural effusions or pneumothorax. Lungs are clear. Mediastinum: Mediastinal contours appear normal. Heart size is moderately increased. Bones and chest wall: No suspicious bony lesions. Overlying soft tissues appear unremarkable. Super ior left shoulder joint degeneration. IMPRESSION: Cardiomegaly redemonstrated. No definite acute cardiopulmonary process seen. Dictated by: Foster العلي RRA Interpreted: Karly Baker MD on 06/08/2016 at 13:26 Transcribed by: CHAU on 06/08/2016 at 13:27 Approved by: Karly Baker MD, PhD on 06/08/2016 at 16:15
--- NOTE | 2016-06-08 15:48 | NUR ---
ambulating pt walking the halls with [employer], tolerating well.
[2016-06-08] MEDS ORDERED: LORazepam 0.5 mg Tablet PO ONE (17:40)
--- NOTE | 2016-06-08 18:20 | NUR ---
Ativan/Lidocaine patch pt would like to wait until closer to her bedtime to take these two medications. Advised pt to let the night nurse know when she would like to take these medications.
[2016-06-08 18:35] VITALS: BP 134/77; PULSE 77; RESP 20; O2SAT 95
[2016-06-08 20:23] VITALS: BP 127/81; PULSE 67; RESP 18; O2SAT 96
[2016-06-09 00:30] VITALS: BP 132/76; PULSE 62; RESP 18; O2SAT 97
[2016-06-09] MEDS: Ondansetron 2 mg/mL 2 mL Inj IVPUSH PRN (02:08)
[2016-06-09 06:04] VITALS: PULSE 78
--- NOTE | 2016-06-09 06:44 | NUR ---
HEADACHE/NAUSEA Pt complained of headache 6/10 during the night. Administered Tylenol 650mg PO and Zofran 4mg IV push. Headache pain decreased 5/10. Nausea resolved. Will continue to monitor. Pt in bed resting eyes. No s/sx of pain or discomfort at this time. Pt reports, "feeling better tonight." Call light within reach, using appropriately. Pleasant and cooperative with care.
[2016-06-09 07:15] LABS: BASOPHILS % (AUTO) 1.1 % (0-3); EOSINOPHILS % (AUTO) 6.3 % (0-5); MONOCYTES % (AUTO) 15.2 % (4-12); Mean Corpuscular Hemoglobin 28.7 pg (27.0-35.0); Mean Corpuscular Volume 91.8 fL (81-100); NEUTROPHILS % (AUTO) 52.3 % (40-74); Platelet Count 261 bil/L (150-400)
[2016-06-09] MEDS: Lidocaine Topical 5% Patch TOPICAL SCH ×2 (07:45→09:07)
[2016-06-09 08:00] VITALS: PULSE 81
[2016-06-09] MEDS: Sodium Chloride LOK Flush 10 mL Syringe IVFLUSH SCH ×2 (08:30→09:04)
[2016-06-09 08:54] VITALS: BP 133/67; PULSE 68; RESP 21; O2SAT 95
[2016-06-09] MEDS: Fluticasone-Salmererol 250-50 Inhaler INHALATION SCH (09:01)
[2016-06-09] MEDS: Pantoprazole 20 mg ER24 Tablet PO SCH (09:02)
[2016-06-09] MEDS: guaiFENesin 600 mg ER12 Tablet PO SCH (09:02)
[2016-06-09] MEDS: Venlafaxine XR 75 mg ER24 Capsule PO SCH (09:03)
[2016-06-09] MEDS: Potassium Chloride 20 mEq SR Tablet PO SCH (09:03)
[2016-06-09] MEDS: oxyCODONE ER 40 mg ER12 Tablet PO SCH (09:04)
--- NOTE | 2016-06-09 12:26 | NUR ---
Social Work: Discharge Data: Pt is on day 4 of hospitalization. EMR reviewed. D/C orders are in. No d/c planning needs at this time. ANTIQUE FINISHER will continue to follow if needs arise. Assessment: Pt who is independent at baseline. Plan: Pt will d/c home via POV today. No d/c planning needs at this time. ANTIQUE FINISHER will continue to follow if needs arise. CARL Cornejo
[2016-06-09] MEDS ORDERED: TORS10TA5 PO (12:35)
[2016-06-09] MEDS ORDERED: GUAI600T86 PO (12:35)
[2016-06-09] MEDS ORDERED: GABA-500 PO (12:35)
--- NOTE | 2016-06-09 12:46 | PCM.DIMED ---
Sherice Strong DO 06/08/16 0700: Discharge Instructions Date of Service Jun 09, 2016 Dates of Hospitalization Jun 05, 2016 at 18:06 Discharge Diagnosis Discharge Diagnosis 1. Viral upper respiratory infection, present on admission, acute 2. Exacerbation of chronic diastolic congestive heart failure 3. Hypervolemic Hyponatremia, present on admission, subacute 4. Elevated creatinine, present on admission, acute 5. Anemia, presumed chronic 6. History of Atrial fibrillation 7. Chronic low back pain, present on admission, active Medication Instructions Continue to take the medication with the exception of: Torsemide has been increased to 25 mg daily I recommended you not take the zolpidem at night especially if you are also drinking alcohol. You had been given a dose of gabapentin for nerve pain which was very helpful for you. You will be given a prescription for this medication to take in the evening. You have been given a prescription for 5 more days of Mucinex tablets. Diet Heart Healthy Activity Home Health Phyical Therapy Call your provider Fever or Chills, Shortness of breath, Chest pain, Excessive diarrhea, Weakness ( unilateral) Patient Instructions Follow-up with your primary care provider within the next 2 weeks. Continue to elevate your legs while at rest, continue to point and flex them. Continue to stretch and exercise to keep yourself strong. Follow-up Provider: Enrique Muller DO Follow-up with PCP in: 1 week CHF Clinic: 1 week Antwan Morataya MD 06/10/16 1132: Sherice Strong DO Jun 08, 2016 07:00 Antwan Morataya MD Jun 10, 2016 11:32
[2016-06-09 12:52] VITALS: BP 104/60; PULSE 82; RESP 20; O2SAT 93
--- NOTE | 2016-06-09 14:46 | NUR ---
Discharge Reviewed d/c instructions with pt and caregiver in room including new prescriptions and care notes, pt signed and given original, copies to chart. IV d/c intact, tele removed. VS stable at d/c. All belongings packed by pt and cargiver in room and taken with them. Pt taken off unit via WC by MAINT MECHANIC to car below where caregiver will drive home.
--- NOTE | 2016-06-09 20:07 | PCM.DC.MED ---
Discharge Summary Date of Service Jun 09, 2016 Dates of Hospitalization Date of Hospital Admission Jun 05, 2016 at 18:06 Date of Discharge: Jun 09, 2016 Providers: Admitting Physician: Neelam Isaac MD Primary Care Physician: Enrique Muller DO Attending Physician: Neelam Isaac MD Diagnosis at Time of Discharge Diagnosis at Time of Discharge 1. Viral upper respiratory infection, present on admission, acute 2. Exacerbation of chronic diastolic congestive heart failure 3. Hypervolemic Hyponatremia, present on admission, subacute 4. Elevated creatinine, present on admission, acute 5. Anemia, presumed chronic 6. History of Atrial fibrillation 7. Chronic low back pain, present on admission, active Procedures XRay, CTs & MRIs PROCEDURE: X-RAY CHEST, TWO VIEWS ([id number]) IMPRESSION: Suspect left basilar pneumonia. Dictated by: Stephanie Escobar M.D. on 06/05/2016 at 15:45 PROCEDURE: X-RAY CHEST ONE VIEW, PORTABLE ([id number]) IMPRESSION: Cardiomegaly redemonstrated. No definite acute cardiopulmonary process seen. Dictated by: Foster العلي [facility] Interpreted: Karly Baker MD on 06/08/2016 at 13:26 Brief History History of present illness upon admission by Dr. Isaac: About a week ago she noted onset of shortness of breath which might have seemed somewhat sudden, it has been increasing since then. It is worse with exertion, does not occur at night but she has a hospital bed at home and raises the head of bed. She has done this for several months but now the last 2 weeks has increased it further but is attributing this to nasal congestion. She has gained 8 pounds in the last week which has not improved in spite of increasing her torsemide from 2 to 2 and a half tablets each day. She is also noting some increase in abdominal girth. 2 months ago her physician had instructed her to increase torsemide from 1 tablet to 2 tablets daily and told her if her swelling was worse, or weight increased, could increase to 2-1/2 tablets daily for a week at a time. She is also noting mild cough which is productive which is for her, the sputum is slightly yellow color. No fever chills or sweats. No chest pain or other pain. Hospital Course 80-year-old female with past medical history CHF, hypertension, A. fib, and hypothyroidism presents with progressively worsening shortness of breath over the last week. 1. Viral upper respiratory infection, present on admission, acute - Viral respiratory PCR positive for rhinovirus/enterovirus - recent increase in cough - suspect left lower lobe pneumonia on chest x-ray was not convincing in light of negative Procalcitonin and normal white blood cell count - IV ceftriaxone and Zithromax given for one dose and then discontinued - Blood Cultures show no growth at 2 days - Provided supportive management as needed including guaifenesin, Acapella, discussed stretching and mobilizing rib cage with patient. - Continued Advair, when necessary albuterol nebulizer - titrated O2 down 2. Congestive Heart Failure, Diastolic Dysfunction, Acute Exacerbation, Present on Admission - Dyspnea, weight gain, increased edema, elevated BNP (though she is quite comfortable at rest in bed) - Was felt to be volume depleted by ED physician and has received a liter of saline - Patient received 1 dose of IV Lasix overnight. - Patient given 2 additional doses of IV Lasix - Restart home torsemide at 25 mg daily - Monitored ins and outs, daily standing weights, blood pressure - Patient's weight decreased the 3 kg over the course of her stay 3. Hypervolemic Hyponatremia, present on admission, subacute - this was also noted during her February admission and with treatment of her CHF - 126 upon presentation to the emergency department, 135 the morning of discharge. 4. Elevated creatinine, present on admission, acute - has increased from 1.0-1.4 upon presentation, down to 1.03 the day of discharge - Question of whether this was volume depletion from some increase in diuretic therapy versus related to CHF - Recheck in the morning, has gotten slightly over a liter of normal saline upon admission but continues to diurese 5. Anemia, presumed chronic - Hemoglobin 9.5 today but had been 9.0 in February 2016 6. History of Atrial fibrillation per chart - EKG today was normal sinus rhythm - Patient on telemetry 7. Chronic low back pain, present on admission, active - Continue home dose of OxyContin for chronic pain - Patient started on 200 mg by mouth nightly gabapentin, she had good response to 300 mg in the hospital. - Pain has worsened since been in the hospital, likely related to being sedentary and primarily in bed for the last week - Physical therapy consultation for evaluation and treatment of low back pain 8. Probable obstructive sleep apnea, present on admission - Recommend outpatient sleep study evaluation for HERRERA Patient was discharged home in stable condition Exam Vital Signs (Last) Date Time Temp Pulse Resp B/P Pulse Ox O2 Delivery O2 Flow Rate FiO2 06/09/16 12:52 36.4 82 20 104/60 93 Room Air 06/07/16 04:24 1.00 Exam General: Awake and alert, no acute distress, well-developed, well-nourished, appropriately interactive HEENT: Normocephalic, atraumatic. External ears without defect. Anicteric sclerae, moist conjunctivae, and no lid lag. Oropharynx with moist mucosa. Neck: Supple with full range of motion. No lymphadenopathy or thyromegaly. Cardiovascular: Regular rate and rhythm with no murmurs, rubs, or gallops appreciated Pulmonary: Lungs clear to auscultation bilaterally, no rhonchi, wheezes, or crackles. Normal respiratory effort with no use of accessory muscles. Abdomen: Bowel tones present. Soft, nontender, nondistended. No hepatosplenomegaly or masses appreciated. Extremities: No clubbing or cyanosis, mild edema up to the knee with slight erythema and scaling of skin, no lymphadenopathy appreciated. Skin: Normal temperature, turgor, and texture; no rash, ulcers, or subcutaneous nodules appreciated other than noted above. Neurological: Cranial nerves grossly intact. No known gait impairment. Psychiatric: Normal mood and affect. Alert and oriented to person, place, and time. Test 06/05/16 16:19 06/05/16 17:49 06/06/16 00:20 06/06/16 06:25 Troponin T < 0.010ug/L (0.0-0.011) Hold Bhakta Top Tube Received (Received) Lactic Acid Level 1.0mmol/L (0.4-2.0) Urine Color Straw (YELLOW) Urine Appearance Clear (CLEAR,HAZY) Urine pH 5.5 (5.0-8.0) Urine Specific [place] 1.005 (1.003-1.035) Urine Protein Negativemg/dL (NEG,TRACE) Urine Glucose (UA) Negativemg/dL (NEGATIVE) Urine Ketones Negativemg/dL (NEGATIVE) Urine Occult Blood Negative (NEGATIVE) Urine Nitrite Negative (NEGATIVE) Urine Bilirubin Negative (NEGATIVE) Urine Urobilinogen Normalmg/dL (NORMAL) Urine Leukocyte Esterase Negative (NEGATIVE) Urine RBC 0-2/hpf (0-2) Urine WBC 0-5/hpf (0-5) Urine Epithelial Cells Few/hpf (NONE-MOD) Urine Crystals None seen (NONE SEEN) Urine Bacteria None/hpf (NONE-FEW) Urine Hyaline Casts None/lpf (NONE) Urine Granular Casts None seen (NONE SEEN) Urine Waxy Casts None seen (NONE SEEN) Urine Red Blood Cell Casts None seen (NONE SEEN) Urine White Blood Cell Casts None seen (NONE SEEN) Urine Mucus None seen (None Seen) Urine Trichomonas None seen (NONE SEEN) Urine Yeast Few (NONE SEEN) Urinalysis Comment None Urine Culture Reflexed Not indicated Pro-B-Type Natriuretic Peptide 805.2pg/mL (0-738) Test 06/08/16 06:49 06/09/16 06:45 Procalcitonin 0.05ng/mL (0.00-0.08) White Blood Count 4.4th/mm3 (3.8-10.1) Red Blood Count 3.31mil/mm3 (3.90-5.20) Hemoglobin 9.5g/dL (12.0-15.6) Hematocrit 30.4% (35.0-46.0) Mean Corpuscular Volume 91.8fL (81-100) Mean Corpuscular Hemoglobin 28.7pg (27.0-35.0) Mean Corpuscular Hemoglobin Concent 31.3% (32.0-37.0) Red Cell Distribution Width 15.2% (12.3-15.4) Platelet Count 261bil/L (150-400) Neutrophils (%) (Auto) 52.3% (40-74) Lymphocytes (%) (Auto) 24.9% (14-46) Monocytes (%) (Auto) 15.2% (4-12) Eosinophils (%) (Auto) 6.3% (0-5) Basophils (%) (Auto) 1.1% (0-3) Sodium Level 135mEq/L (134-144) Potassium Level 4.5mEq/L (3.5-5.2) Chloride Level 96mEq/L (97-108) Carbon Dioxide Level 27mmol/L (18-29) Blood Urea Nitrogen 21mg/dL (8-27) Creatinine 1.03mg/dL (0.57-1.00) Estimat Glomerular Filtration Rate 74mL/min (>59) Glucose Level 111mg/dL (60-99) Calcium Level 8.9mg/dL (8.5-10.1) Total Bilirubin 0.2mg/dL (0.0-1.2) Aspartate Amino Transf (AST/SGOT) 30U/L (0-50) Alanine Aminotransferase (ALT/SGPT) 21U/L (0-32) Alkaline Phosphatase 91U/L (25-165) Total Protein 6.9g/dL (6.4-8.4) Albumin 3.7g/dL (3.4-5.0) Microbiology Results Viral respiratory PCR positive for rhinovirus/enterovirus Discharge Medications Discharge Medications Budesonide/Formoterol 160-4.5 mcg Inh (Symbicort 160-4.5 mcg Inh) 120 Puff Inhaler 2 PUFF INHALATION BID (Reported) Carvedilol (Carvedilol) 6.25 Mg Tablet 6.25 MG PO BID (Reported) Docusate Sodium (Docusate Sodium) 250 Mg Capsule 250 MG PO HS (Reported) Estradiol (Estradiol) 1 Mg Tablet 1 MG PO QAM (Reported) Gabapentin (Gabapentin) 100 Mg Capsule 200 MG PO HS Prescribed by: NERIS BRANDT DO Guaifenesin (Guaifenesin ER) 600 Mg Tab.er.12h 1,200 MG PO Q12 Prescribed by: NERIS BRANDT DO Levothyroxine (Levothyroxine) 175 Mcg Tablet 175 MCG PO QAM (Reported) Olmesartan (Benicar) 20 Mg Tablet 20 MG PO DAILY (Reported) Omeprazole (Omeprazole) 20 Mg Capsule.dr 20 MG PO BID (Reported) Oxycodone ER (Oxycontin) 10 Mg Tab.er.12h 10 MG PO BID (Reported) Oxycodone ER (Oxycontin) 30 Mg Tab.er.12h 30 MG PO BID (Reported) Polyethylene Glycol 3350 (Miralax) 17 Gm Powd.pack 17 GM PO HS (Reported) Potassium Chloride (Potassium Chloride) 20 Meq Tab.er.prt 20 MEQ PO DAILY ( Reported) TAKE WITH FOOD Ranitidine (Zantac) 150 Mg Tablet 150 MG PO DAILYWD (Reported) Saccharomyces Boulardii (Digestive Probiotic) 250 Mg Capsule 250 MG PO BID ( Reported) Torsemide (Torsemide) 10 Mg Tablet 25 MG PO DAILY Prescribed by: NERIS BRANDT DO Venlafaxine ER (Venlafaxine ER) 150 Mg Cap.er.24h 150 MG PO QAM (Reported) As needed Albuterol HFA (Proair HFA) 8.5 Gm Hfa.aer.ad 2 PUFFS INHALATION q4-6 hours PRN PRN For Shortness of Breath (Reported) Hydrocortisone Acetate (Anucort-Hc) 25 Mg Supp.rect 25 MG RC DAILY PRN PRN For Pain (Reported) Nystatin (Nystatin) 1 Each Powder.ea. 1 EACH MC BID PRN PRN rash (Reported) Ondansetron ODT (Ondansetron ODT) 4 Mg Tab.rapdis 4 MG PO q4-6 hours PRN PRN For Nausea (Reported) Additional med instructions Continue to take the medication with the exception of: Torsemide has been increased to 25 mg daily I recommended you not take the zolpidem at night especially if you are also drinking alcohol. You had been given a dose of gabapentin for nerve pain which was very helpful for you. You will be given a prescription for this medication to take in the evening. You have been given a prescription for 5 more days of Mucinex tablets. Followup Plan Disposition: Patient discharged home in stable condition Follow-up plan Follow-up at the residency clinic within 2 weeks, monitor daily weight, continue to keep leg elevated while seated. Notify your primary care provider if you have any concerns or have weight gain. Discharge Diet: Heart Healthy Discharge Activity: Home Health Phyical Therapy Patient Instructions Follow-up with your primary care provider within the next 2 weeks. Continue to elevate your legs while at rest, continue to point and flex them. Continue to stretch and exercise to keep yourself strong. Follow-up Provider: Enrique Muller DO Follow-up with PCP in: 1 week CHF Clinic: 1 week Time spent 40 minutes Attending Statement The patient was seen and examined together with Dr. Brandt on 06/09/2016 and I agree with the history, exam and plan as outlined in the note above. copies to: Enrique Muller Erika R DO Jun 09, 2016 16:37 Antwan Morataya MD Jun 10, 2016 11:32
[2016-07-06] MEDS ORDERED: ZOLP5TAB6 PO (10:50)
[2016-07-08] MEDS ORDERED: TORS10TA5 PO (17:57)
[2016-07-08] MEDS ORDERED: QUET25TA73 PO (17:57)
[2016-07-08] MEDS ORDERED: HYDR-656 PO (17:57)
[2016-07-08] MEDS ORDERED: ONDA4TAB6 PO (17:57)
[2016-07-08] MEDS ORDERED: RANI150T11 PO (17:57)
[2016-07-08] MEDS ORDERED: POLY17PO6 PO (17:57)
[2016-07-08] MEDS ORDERED: SACC250C9 PO (17:57)
== END 2016-06-09 14:34 | disposition home or self-care (01) | DRG 292 ==
LOC: SED 14:57 → MPC 18:06
PROVIDERS: ADMIT Internal Medicine; ATTEND Internal Medicine
DX: I50.33 Acute on chronic diastolic (congestive) heart failure (principal); E87.1 Hypo-osmolality and hyponatremia; E86.0 Dehydration; R63.5 Abnormal weight gain; M54.5 Low back pain; J06.9 Acute upper respiratory infection, unspecified; B97.10 Unspecified enterovirus as the cause of diseases classified elsewhere; G47.33 Obstructive sleep apnea (adult) (pediatric); D53.9 Nutritional anemia, unspecified

== ENCOUNTER 2016-06-23 06:52 | Emergency (ER) | payer MEDICARE ==
[~2016-06-23] VITALS: Ht 165.1 cm; Wt 101.4 kg
[~2016-06-23 06:52] MED LIST changes: +CARV6.252 PO; +GABA-500 PO; +GUAI600T86 PO; -LORA0.5T PO; +TORS10TA5 PO; -TORS20TA3 PO; -ZOLP5TAB6 PO
--- NOTE | 2016-06-23 06:54 | ED.REPORT ---
HPI-General Illness Date of Service Jun 23, 2016 ED Provider: Victor M Vergara MD The patient is a 80 year old female with history of chronic back pain, hypertension, congestive heart failure, atrial fibrillation, thyroid disease, and chronic lower extremity edema/erythema, who presents to the emergency department by EMS complaining of anxiety and shortness of breath that started earlier this morning. She has been out of her OxyContin for the last 4 days. She normally takes 40 mg twice daily. Her prescription was not refilled on Monday like she had expected. Her caregiver went to the clinic to get the prescription on Monday but the prescription was not ready. She has called the clinic everyday this week and they have told her that they are working on it and it will be filled soon. She has also noticed shakiness and abdominal cramping. She denies diarrhea, vomiting or diaphoresis. Nursing Notes Stated Complaint: ANXIETY Nursing Notes Reviewed: Yes Allergies: Coded Allergies: No Known Allergies (Unverified , 06/05/16) Scheduled Budesonide/Formoterol 160-4.5 mcg Inh (Symbicort 160-4.5 mcg Inh) 120 Puff Inhaler 2 PUFF INHALATION BID Carvedilol (Carvedilol) 6.25 Mg Tablet 6.25 MG PO BID Docusate Sodium (Docusate Sodium) 250 Mg Capsule 250 MG PO HS Estradiol (Estradiol) 1 Mg Tablet 1 MG PO QAM Gabapentin (Gabapentin) 100 Mg Capsule 200 MG PO HS Guaifenesin (Guaifenesin ER) 600 Mg Tab.er.12h 1,200 MG PO Q12 Levothyroxine (Levothyroxine) 175 Mcg Tablet 175 MCG PO QAM Olmesartan (Benicar) 20 Mg Tablet 20 MG PO DAILY Omeprazole (Omeprazole) 20 Mg Capsule.dr 20 MG PO BID Oxycodone ER (Oxycontin) 10 Mg Tab.er.12h 10 MG PO BID Oxycodone ER (Oxycontin) 30 Mg Tab.er.12h 30 MG PO BID Polyethylene Glycol 3350 (Miralax) 17 Gm Powd.pack 17 GM PO HS Potassium Chloride (Potassium Chloride) 20 Meq Tab.er.prt 20 MEQ PO DAILY TAKE WITH FOOD Ranitidine (Zantac) 150 Mg Tablet 150 MG PO DAILYWD Saccharomyces Boulardii (Digestive Probiotic) 250 Mg Capsule 250 MG PO BID Torsemide (Torsemide) 10 Mg Tablet 25 MG PO DAILY Venlafaxine ER (Venlafaxine ER) 150 Mg Cap.er.24h 150 MG PO QAM Scheduled PRN Albuterol HFA (Proair HFA) 8.5 Gm Hfa.aer.ad 2 PUFFS INHALATION q4-6 hours PRN PRN For Shortness of Breath Hydrocortisone Acetate (Anucort-Hc) 25 Mg Supp.rect 25 MG RC DAILY PRN PRN For Pain Nystatin (Nystatin) 1 Each Powder.ea. 1 EACH MC BID PRN PRN rash Ondansetron ODT (Ondansetron ODT) 4 Mg Tab.rapdis 4 MG PO q4-6 hours PRN PRN For Nausea General Time Seen by MD: 06:54 Chief Complaint Other (anxiety) Hx Obtained From: Patient, EMS Arrived By: Ambulance Sudden in Onset?: Yes Onset Occurred: 1 - 4 hours ago Context of Onset: Ran out of medication Symptom Duration: Since onset Severity: Current: Moderate Severity: Maximum: Moderate Recent Healthcare: No recent hospitalization Similar Sx Previous: Yes Past Medical History Past Medical History Notes: Cardiology: Dr. Peck Past Medical History Chronic lower extremity edema and erythema of unclear etiology Chronic back pain from a skiing injury Arthritis Reports: Congestive heart failure, Hypertension Reports: Atrial fibrillation, Thyroid disease Past Surgical History Lung nodule removal on left lung Bilateral knee surgery Ablation Family History Noncontributory Smoking History Never Smoker Social History Resides at [facility], independent living with postpartum rn caregiver. Alcohol Use: Denies alcohol use Drug Use: Denies drug use Other Social History: Local resident Ambulatory Status Independent Review of Systems Full Review of Systems Respiratory: Reports: Shortness of breath GI: Reports: Abdominal pain (cramping), Denies: Diarrhea, Vomiting Musculoskeletal: Reports: Extremity pain (chronic), Extremity swelling (chronic ) Skin: Denies Diaphoresis Neurologic: Reports: Shaking Psychiatric: Reports: Anxiety Complete sys rev & neg: except as marked. Physical Exam Vital Signs Vital Signs Date Time Temp Pulse Resp B/P Pulse Ox O2 Delivery O2 Flow Rate FiO2 06/23/16 07:33 81 21 122/61 95 Room Air 06/23/16 06:56 36.5 79 21 114/69 98 Room Air Initial VS: Reviewed Head / Eyes: Atraumatic, Normocephalic, PERRL ENT: Mucous membranes moist, Conjunctiva normal, No scleral icterus Neck: Supple, Non-tender, Full range of motion Respiratory: Breath sounds normal, Clear to auscultation, No respiratory distress Cardiovascular: Regular rate & rhythm, Heart sounds normal, Intact distal pulses Abdomen / GI: Soft, Non-tender, No guarding, No rebound, No distention Lymphatic: No lymphadenopathy Extremities: Vascular intact, Neuro intact, No tenderness Skin: Warm, Dry, No cyanosis Neurologic: Alert, Oriented, Nonfocal Psychiatric: Mood/affect normal, Behavior normal, Normal thought content General/Constitutional: Awake, Alert, Cooperative Lower Extremity / Pelvis / MS: Neurologic intact, Vascular intact Chronic 2+ lower extremity edema. Interpretation & Diagnostics Lab Results Interpretation Test 06/23/16 07:20 Hold Urine Received (Received) Re-Eval/Medical Decision Source of Hx: Old records, EMS Re-Evaluation/Progress Note: Rechecked the patient. Discussed plan for discharge. All questions were addressed. Consultation : Referral / Consult Name: Enrique Muller DO Consulted With: Primary care physician Call Returned at: 09:36 Note: The patient's prescriptions are available at the residency clinic as of this morning. There is no phone record of her calling for the prescriptions. Counseled Regarding: Diagnosis, Need for follow-up, When/why to return to ED Discharge & Departure Primary Impression: Has run out of medications Disposition: Home Discharge Condition All VS Reviewed: Yes Condition: Stable Additional Instructions: Thank you for entrusting us with your care today. Your symptoms are most likely due to being out of your OxyContin. Your prescriptions are available at the residency clinic. Followup with your primary care provider as needed. Return to the emergency department for any new or concerning symptoms. Referrals: Enrique Muller DO (PCP) Scribe Attestation Portions of this note were transcribed by Rebekah Cummings. I, Dr. Vergara personally performed the history, physical exam and medical decision-making; I reviewed and confirmed the accuracy of the information in the transcribed note. Signed by: Govind Brice, 06/23/2016 at 1000. copies to: Enrique Muller Kirk H MD Jun 23, 2016 06:54 Rebekah Cummings Jun 23, 2016 07:03
[2016-06-23 06:56] VITALS: BP 114/69; PULSE 79; RESP 21; O2SAT 98
[2016-06-23 07:33] VITALS: BP 122/61; PULSE 81; RESP 21; O2SAT 95
[2016-06-23 09:51] VITALS: BP 130/87; PULSE 80; RESP 20; O2SAT 95
[2016-07-06] MEDS ORDERED: ZOLP5TAB6 PO (10:50)
[2016-07-08] MEDS ORDERED: HYDR-656 PO (17:57)
[2016-07-08] MEDS ORDERED: TORS10TA5 PO (17:57)
[2016-07-08] MEDS ORDERED: ONDA4TAB6 PO (17:57)
[2016-07-08] MEDS ORDERED: RANI150T11 PO (17:57)
[2016-07-08] MEDS ORDERED: SACC250C9 PO (17:57)
[2016-07-08] MEDS ORDERED: POLY17PO6 PO (17:57)
[2016-07-08] MEDS ORDERED: QUET25TA73 PO (17:57)
== END 2016-06-23 09:52 | disposition home or self-care (01) ==
LOC: SED 06:52
DX: R06.02 Shortness of breath (principal); F41.9 Anxiety disorder, unspecified; R10.9 Unspecified abdominal pain; M54.9 Dorsalgia, unspecified; G89.29 Other chronic pain; I10 Essential (primary) hypertension; I50.9 Heart failure, unspecified; I48.91 Unspecified atrial fibrillation; E07.9 Disorder of thyroid, unspecified; R60.0 Localized edema

== ENCOUNTER 2016-07-01 18:51 | Emergency (ER) | payer MEDICARE ==
[~2016-07-01] VITALS: Ht 165.1 cm; Wt 99.1 kg
[2016-07-01 18:55] VITALS: BP 103/61; PULSE 74; RESP 16; O2SAT 99
[2016-07-01 20:03] LABS: EOSINOPHILS % (AUTO) 5.6 % (0-5); MONOCYTES % (AUTO) 11.6 % (4-12); Mean Corpuscular Hemoglobin 28.3 pg (27.0-35.0); Mean Corpuscular Volume 89.1 fL (81-100); NEUTROPHILS % (AUTO) 65.8 % (40-74); Platelet Count 273 bil/L (150-400)
--- NOTE | 2016-07-01 21:33 | ED.REPORT ---
HPI-Extremity Problem Lower Date of Service Jul 01, 2016 ED Provider: Shelton Rivera MD Lupe Spencer is a pleasant 80-year-old woman with history of congestive heart failure, hypertension, lower extremity edema, severe mitral regurgitation, occipital neuralgia, presents to the [facility] emergency department from urgent care with a complaint of worsening pain in her right lower extremity, increased warmth and redness over the last 24 hours. Over the past couple of months she has claimed to been having bugs crawling on her at her residence at [facility] and being bitten, which she has been picking at , her room has been clogged twice, patient states that others have seen bugs, but according to outpatient record staff at her assisted living community save that it was black lint and other debris not past and has been given the diagnosis of formication. Yesterday evening she states she began to feel pain at the anterior distal tibia area, and the appearance of what appeared to be a small abscess, she states that it remains very tender without being touched, her caregiver said yesterday there was no redness or warmth, and over the course of today the redness has increased, and ascended to her mid pretibial area. She denies fevers, chills, lightheadedness, dizziness, nausea/vomiting/ diarrhea, no constipation, no dysuria, she states she is on a diuretic and this causes her to have polyuria, she denies any weight gain, any known allergies. Nursing Notes Stated Complaint: SKIN ISSUES Chief Complaint: Skin Rash/Abscess Nursing Notes Reviewed: Yes Allergies: Coded Allergies: No Known Allergies (Unverified , 07/01/16) Scheduled Budesonide/Formoterol 160-4.5 mcg Inh (Symbicort 160-4.5 mcg Inh) 120 Puff Inhaler 2 PUFF INHALATION BID Carvedilol (Carvedilol) 6.25 Mg Tablet 6.25 MG PO BID Docusate Sodium (Docusate Sodium) 250 Mg Capsule 250 MG PO HS Estradiol (Estradiol) 1 Mg Tablet 1 MG PO QAM Gabapentin (Gabapentin) 100 Mg Capsule 200 MG PO HS Guaifenesin (Guaifenesin ER) 600 Mg Tab.er.12h 1,200 MG PO Q12 Levothyroxine (Levothyroxine) 175 Mcg Tablet 175 MCG PO QAM Olmesartan (Benicar) 20 Mg Tablet 20 MG PO DAILY Omeprazole (Omeprazole) 20 Mg Capsule.dr 20 MG PO BID Oxycodone ER (Oxycontin) 10 Mg Tab.er.12h 10 MG PO BID Oxycodone ER (Oxycontin) 30 Mg Tab.er.12h 30 MG PO BID Polyethylene Glycol 3350 (Miralax) 17 Gm Powd.pack 17 GM PO HS Potassium Chloride (Potassium Chloride) 20 Meq Tab.er.prt 20 MEQ PO DAILY TAKE WITH FOOD Ranitidine (Zantac) 150 Mg Tablet 150 MG PO DAILYWD Saccharomyces Boulardii (Digestive Probiotic) 250 Mg Capsule 250 MG PO BID Torsemide (Torsemide) 10 Mg Tablet 25 MG PO DAILY Venlafaxine ER (Venlafaxine ER) 150 Mg Cap.er.24h 150 MG PO QAM Scheduled PRN Albuterol HFA (Proair HFA) 8.5 Gm Hfa.aer.ad 2 PUFFS INHALATION q4-6 hours PRN PRN For Shortness of Breath Hydrocortisone Acetate (Anucort-Hc) 25 Mg Supp.rect 25 MG RC DAILY PRN PRN For Pain Nystatin (Nystatin) 1 Each Powder.ea. 1 EACH MC BID PRN PRN rash Ondansetron ODT (Ondansetron ODT) 4 Mg Tab.rapdis 4 MG PO q4-6 hours PRN PRN For Nausea General Time Seen by MD: 20:47 Chief Complaint Other (skin infection to right foot) Similar Sx Previous: No Past Medical History Past Medical History Notes: Cardiology: Dr. 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 Alcohol Use: Denies alcohol use Drug Use: Denies drug use Other Social History: Local resident Ambulatory Status Independent Review of Systems Complete sys rev & neg: except as marked. Physical Exam General: Laying in bed, no apparent distress. Obese HEENT: Normocephalic, atraumatic, EOMI grossly, there is red annular lesions, vesicles on roof of mouth/hard palate. Mucous membranes moist, neck supple without lymphadenopathy, conjunctiva pink. Cardiovascular: Regular rate and rhythm, 3 out of 6 blowing systolic murmur. Radial pulses 2/4 equal bilaterally, unable to appreciate dorsal pedalis BL. Pulmonary: Clear to auscultation bilaterally, no W/R/R. Abdominal: Soft to palpation, bowel sounds present 4, no hepatosplenomegaly. Negative rebound. Extremities: Bilateral lower extremity edema, right greater than left, right lower extremity has redness and warmth from the mid pretibial down extending into the distal phalanges, there is tenderness to palpation, severe pitting bilaterally to the level of the knee. No crepitus appreciated. Multiple lesions , granulation tissue and excoriations. Neuro: Neurologically grossly intact, strength is equal bilaterally upper and lower extremities. MSK: Uses walker, 5 out of 5 strength upper and lower extremities, right lower extremity MSK exam limited by tenderness to ankle. Initial Vital Signs Vital Signs (First) Date Time Temp Pulse Resp B/P Pulse Ox O2 Delivery O2 Flow Rate FiO2 07/01/16 18:55 36.0 74 16 103/61 99 Room Air Initial VS: Reviewed Interpretation & Diagnostics Lab Results Interpretation Result Diagram: 07/01/16192907/01/161929 Test 07/01/16 19:30 White Blood Count 6.1th/mm3 (3.8-10.1) Red Blood Count 3.50mil/mm3 (3.90-5.20) Hemoglobin 9.9g/dL (12.0-15.6) Hematocrit 31.2% (35.0-46.0) Mean Corpuscular Volume 89.1fL (81-100) Mean Corpuscular Hemoglobin 28.3pg (27.0-35.0) Mean Corpuscular Hemoglobin Concent 31.7% (32.0-37.0) Red Cell Distribution Width 14.2% (12.3-15.4) Platelet Count 273bil/L (150-400) Neutrophils (%) (Auto) 65.8% (40-74) Lymphocytes (%) (Auto) 15.8% (14-46) Monocytes (%) (Auto) 11.6% (4-12) Eosinophils (%) (Auto) 5.6% (0-5) Basophils (%) (Auto) 1.0% (0-3) Sodium Level 132mEq/L (134-144) Potassium Level 4.7mEq/L (3.5-5.2) Chloride Level 94mEq/L (97-108) Carbon Dioxide Level 23mmol/L (18-29) Blood Urea Nitrogen 35mg/dL (8-27) Creatinine 1.29mg/dL (0.57-1.00) Estimat Glomerular Filtration Rate 57mL/min (>59) Glucose Level 101mg/dL (60-99) Calcium Level 9.2mg/dL (8.5-10.1) Hold Bhakta Top Tube Received (Received) Lab Results Interpretation: Anemia Mild hyponatremia Elevated creatinine and BUN Normal white count without left shift X-Ray Interpretation Xray Interpretation: Right tibia/fibula x-ray IMPRESSION: No fractures. Diffuse soft tissue swelling. Dictated by: Stephanie Escobar M.D. on 07/01/2016 at 22:01 Right foot x-ray IMPRESSION: 1. No acute fractures of the second, third, and fourth metatarsal necks. 2. Hallux valgus and metatarsus adductus. 3. Marked dorsal soft tissue swelling and possible soft tissue gas in the distal right foot. 4. Irregular Achilles tendon suspicious for tendon tear. Recommend clinical correlation. Dictated by: Stephanie Escobar M.D. on 07/01/2016 at 21:57 Interpretation / Wet Read by: Interpret - Radiologist Re-Eval/Medical Decision Med Decision/Clinical Course History and presentation consistent with cellulitis, x-rays of the right lower extremity did not demonstrate any signs of osteomyelitis or necrotizing fasciitis. Line of demarcation was drawn at beginning of visit and stamped with date and time. There was no progression past the line during time in the emergency department. Patient was given 500 mL of normal saline for elevated creatinine, and mildly decreased sodium, is given 900 mg of clindamycin IV, with 10 day prescription of oral clindamycin with strict return precautions, and follow-up at the residency clinic. Patient and caregiver both stated understanding and agreement. Discharge & Departure Impression: Primary Impression: Cellulitis Site of cellulitis: extremity Site of cellulitis of extremity: lower extremity Laterality: right Qualified Code: L03.115 - Cellulitis of right lower limb Disposition: Home Discharge Condition All VS Reviewed: Yes Condition: Stable Patient Instructions: Cellulitis (ED) Additional Instructions: Thank you for entrusting us with her care. Evaluation today is consistent with cellulitis. This is an infection of your skin. We evaluated the underlying tissues of the leg to make sure that it was isolated to your skin, which it was. He received IV antibiotics in the emergency department, you are to take the medication you are being given to take home, clindamycin, as prescribed. I have marked your legs at the area of current infection, if the redness goes above that line please return to the emergency department immediately. Please make sure you are staying hydrated drinking at least 2 L of water a day, it is also necessary that you continue to take your furosemide religiously. If you develop a fever, chills, lightheadedness or dizziness, chest pain, shortness of breath, or you start to become confused her very tired please return to the emergency department immediately or call 911. It is essential that you stop picking at your skin. Breaks in her skin can give the opportunity for bacteria to get into the tissues under your skin, which can cause disease to the rest your body which may require hospitalization to treat. Please follow-up with the residency clinic. Referrals: Enrique Muller DO (PCP) Attending Statement The patient was seen and examined together with Dr. Enrique Muller and I agree with the history, exam and plan as outlined in the note above. copies to: [facility] Enrique Muller DO Jul 01, 2016 21:33 Shelton Rivera MD Jul 02, 2016 05:10
[2016-07-01] MEDS ORDERED: 0.9% Sodium Chloride 500 ML IV ONE (21:40)
--- NOTE | 2016-07-01 22:02 | DRSVH ---
PROCEDURE: X-RAY RIGHT FOOT, TWO VIEWS ([id number]) INDICATIONS: Cellulitis/Ankle pain TECHNIQUE: 2 views of the foot were acquired. COMPARISON: None. FINDINGS: Bones: There are no acute fractures involving the second, third, and fourth metatarsal necks with lat eral angulation. There is metatarsus adductus and hallux valgus deformity. No suspicious bony lesion s. Soft tissues: No tibiotalar joint effusion. Achilles tendon appears thickened and irregular. There is marked dorsal soft tissue swelling and possible soft tissue gas in the distal right foot. IMPRESSION: 1. No acute fractures of the second, third, and fourth metatarsal necks. 2. Hallux valgus and metatarsus adductus. 3. Marked dorsal soft tissue swelling and possible soft tissue gas in the distal right foot. 4. Irregular Achilles tendon suspicious for tendon tear. Recommend clinical correlation. Dictated by: Stephanie Escobar M.D. on 07/01/2016 at 21:57 Approved by: Stephanie Escobar M.D. on 07/01/2016 at 22:00
--- NOTE | 2016-07-01 22:02 | DRSVH ---
PROCEDURE: X-RAY RIGHT TIBIA/FIBULA, TWO VIEWS ([id number]) INDICATIONS: Cellulitis/Ankle pain TECHNIQUE: 2 views of the tibia and fibula were acquired. COMPARISON: None. FINDINGS: Bones: No fractures or dislocations. No suspicious bony lesions. There is a right knee prosthesis. Soft tissues: No suspicious soft tissue calcifications or masses. Diffuse soft tissue swelling. IMPRESSION: No fractures. Diffuse soft tissue swelling. Dictated by: Stephanie Escobar M.D. on 07/01/2016 at 22:01 Approved by: Stephanie Escobar M.D. on 07/01/2016 at 22:01
[2016-07-01] MEDS ORDERED: Clindamycin Inj 900 MG in IV Premix 1 EACH IV ONE (22:45)
[2016-07-01 23:40] VITALS: BP 124/86; PULSE 83; RESP 16; O2SAT 97
[2016-07-02] MEDS ORDERED: _Clindamycin 150 mg Capsule PO SCH (08:30)
[2016-07-06] MEDS ORDERED: ZOLP5TAB6 PO (10:50)
[2016-07-08] MEDS ORDERED: ONDA4TAB6 PO (17:57)
[2016-07-08] MEDS ORDERED: QUET25TA73 PO (17:57)
[2016-07-08] MEDS ORDERED: RANI150T11 PO (17:57)
[2016-07-08] MEDS ORDERED: HYDR-656 PO (17:57)
[2016-07-08] MEDS ORDERED: TORS10TA5 PO (17:57)
[2016-07-08] MEDS ORDERED: SACC250C9 PO (17:57)
[2016-07-08] MEDS ORDERED: POLY17PO6 PO (17:57)
== END 2016-07-01 23:40 | disposition home or self-care (01) ==
LOC: SED 18:51
DX: L03.115 Cellulitis of right lower limb (principal); I11.0 Hypertensive heart disease with heart failure; I48.91 Unspecified atrial fibrillation
CPT/HCPCS: 36415; 73590; 73620; 80048; 85025; 96365; 99284; G0463; J7040

== ENCOUNTER 2016-07-07 10:42 | Day surgery (SDC) | payer MEDICARE ==
[~2016-07-07] VITALS: Ht 165.1 cm; Wt 96.0 kg
[~2016-07-07 10:42] MED LIST changes: +Lactated Ringer's 1,000 ML IV SCH; +MetoCLOpramide 5 mg/mL 2 mL Inj IVPUSH PRN; +Ondansetron 2 mg/mL 2 mL Inj IVPUSH PRN; +ZOLP5TAB6 PO
[2016-07-07] MEDS ORDERED: Propofol 10,000 mCg/mL 20 mL Inj ONE (10:43)
[2016-07-07 11:06] VITALS: BP 119/59; PULSE 72; RESP 16; O2SAT 67
--- NOTE | 2016-07-07 11:50 | PCM.HPANE ---
Patient Data Surgeon Admitting Provider: Attending Provider:Candace Ruiz MD Primary Care Physician:Enrique Muller DO Other Provider:Vesna Machado Anesthesia Reason for Visit Adenomatous Polyp Of Colon Ht/WT & BMI Height (Feet): 5 Height (Inches): 5 Weight (Kilograms): 96 Body Mass Index 35.00 Allergies Coded Allergies: No Known Allergies (Unverified , 07/07/16) Past Anesthesia History Anesthesia History: Denies:: Abnormal Airway, Anesthesia Reactions (Yvette), Difficult Intubation, Fam Anesthesia Reaction, Fam Malignant Hypertherm, Malignant Hyperthermia Diabetes History Hx Diabetes?: No MRSA MRSA: No Medications Home Meds Incl Beta Lexie: Yes Date Beta Lexie Taken: Jul 07, 2016 Time Beta Lexie Taken: 0600 Active Scripts Torsemide 10 Mg Ptmudf43 Mg PO DAILY #75 TABLET Prov:Sherice Strong DO 06/09/16 Reported Medications Zolpidem 5 Mg Tablet5 Mg PO HS PRN For Insomnia Ref 0 07/06/16 Carvedilol 6.25 Mg Tablet6.25 Mg PO BID 06/06/16 Saccharomyces Boulardii (Digestive Probiotic)250 Mg Nxhvjwq012 Mg PO BID 02/23/16 Nystatin 1 Each Powder.ea.1 Each MC BID PRN rash 02/23/16 Venlafaxine ER 150 Mg Cap.er.56h693 Mg PO QAM 02/23/16 Budesonide/Formoterol 160-4.5 mcg Inh (Symbicort 160-4.5 mcg Inh)120 Puff Inhaler2 Puff INHALATION BID 02/23/16 Potassium Chloride 20 Meq Tab.er.prt20 Meq PO DAILY TAKE WITH FOOD 02/23/16 Oxycodone ER (Oxycontin)30 Mg Tab.er.12h30 Mg PO BID 02/23/16 Oxycodone ER (Oxycontin)10 Mg Tab.er.12h10 Mg PO BID 02/23/16 Omeprazole 20 Mg Capsule.dr20 Mg PO BID 02/23/16 Levothyroxine 175 Mcg Yxkegn122 Mcg PO QAM 02/23/16 Estradiol 1 Mg Tablet1 Mg PO QAM 02/23/16 Docusate Sodium 250 Mg Cbiadjn452 Mg PO HS 02/23/16 Olmesartan (Benicar)20 Mg Uufxnx08 Mg PO DAILY 02/23/16 Hydrocortisone Acetate (Anucort-Hc)25 Mg Supp.rect25 Mg RC DAILY PRN For Pain 02/23/16 Albuterol HFA (Proair HFA)8.5 Gm Hfa.aer.ad2 Puffs INHALATION q4-6 hours PRN For Shortness of Breath 02/23/16 Discontinued Reported Medications Ondansetron ODT 4 Mg Tab.rapdis4 Mg PO q4-6 hours PRN For Nausea 02/23/16 Ranitidine (Zantac)150 Mg Kvkikv358 Mg PO DAILYWD 02/23/16 Polyethylene Glycol 3350 (Miralax)17 Gm Powd.pack17 Gm PO HS For Constipation 02/23/16 Discontinued Scripts Gabapentin 100 Mg Ipwstnf142 Mg PO HS #30 CAPSULE Ref 0 Prov:Sherice Strong DO 06/09/16 Guaifenesin (Guaifenesin ER)600 Mg Tab.er.12h1,200 Mg PO Q12 #10 TABLET Prov:Sherice Strong DO 06/09/16 Last Time Dose Received Took oxycontin and carvedilol today History History of ENT Problems?: Yes HEENT History: Positive for:: Cataracts (Cataract removed ) Denies:: Abnormal Airway Difficult Intubation Dysphagia Hearing Problem Sinus Problem Denture Type: None Teeth Condition: Within Normal Limits Hx of Heart Problems?: Yes Cardiovascular History: Positive for:: Atrial Fibrillation (Hx of afib with ablation) Cardiac Surgery (ablasion for rhythm) Congestive Heart Failure Edema (lower extremety edema ) Hypertension Valvular Heart Disease (Mitral valve regurgitation) Denies:: AICD Chest Pain Heart Murmur Pacemaker Thrombophlebitis Other History/Comments TTE reviewed Hx of Respiratory Problem?: Yes Respiratory History: Positive for:: Asthma COPD Chest Surgery (encapsulated lung surgery - 5 years ago) Dyspnea Pneumonia Denies:: Emphysema Hemoptysis Tuberculosis Other History/Comment Pulmonary status stable. Hx Neurologic Problems?: No Neurological History: Positive for:: Dizziness Headaches Denies:: Alzheimer's Disease CVA Dementia Parkinson's Disease Seizures Hx of GI Problems?: Yes Gastrointestinal History: Positive for:: Gall Bladder Disease (Yvette) Gastroesphageal Reflux Heartburn Denies:: Gastrointestinal Bleeding Hepatitis Hiatal Hernia Rectal Bleeding Hx of Problems?: No Genitourinary History: Denies:: HX of Hemodialysis Kidney Stones Urinary Tract Infection HX of Peritoneal Dialysis: No Female Hx: Denies:: Currently Pelvic Inflammatory Problems with Breasts? Hx Musculoskeletal Problems?: Yes Musculoskeletal History: Positive for:: Back Injury (Chronic back pain, ) Joint Replacement (Bilateral knees TKA) Denies:: Fibromyalgia Hx of Psycho/Social Problems?: Yes Psycho Social History: Positive for:: Anxiety Hx Depression Hx Surgeries?: Yes (C sections, right shoulder, tin TKA, heart ablation, tonsils, cataracts, ) Hx Any Other Health Problems?: Yes Other History: Positive for:: Thyroid Disease Denies:: Cancer History Blood Transfusions: Denies:: Blood Transfuse Reaction Blood Transfusions Hx Diabetes: No Hx Alcohol Use: Yes (2 glasses of wine daily)Hx Substance Use: No Smoking Status: Never Smoker Have You Smoked inLast 12 mo: No Stop/Bang Treated for Sleep Apnea?: No Do You Have a CPAP Machine?: No S-Snoring: Do You Snore Loudly: Yes T-Tired: feel tired, fatigued: Yes O-Obsered: Observed not breath: Yes P-Blood Pressure: treated: Yes B- Body Mass Index > 35 kg/m2: Yes A- Age over 50: Yes N- Neck Large Circumference: Yes G- Gender Male: No HERRERA Total Score: 7 Risk Assessment Category Category 1A: Patient has history of documented sleep apnea, and HAS NOT received any narcotic, sedative or anesthesia administration during this stay. Category 1B: Patient has history of documented sleep apnea, and HAS received any narcotic , sedative or anesthesia administration during this stay Category 2: Patient has SUSPECTED Obstructive Sleep Apnea, and HAS received any narcotic , sedative or anesthesia administration during this stay. Category 3: Patient has SUSPECTED Obstructive Sleep Apnea and HAS NOT received narcotic, sedative or anesthesia administration during this stay. Category 4: Outpatient in Procedural Areas with known sleep apnea or who screen positive for High Risk via the STOP/BANG questionnaire. Exam Exam Vital Signs Vital Signs Date Time Temp Pulse Resp B/P Pulse Ox O2 Delivery O2 Flow Rate FiO2 07/07/16 11:06 36.1 72 16 119/59 67 Room Air General Appearance: Alert, Oriented X3 HEENT/AIRWAY: MP 3, Neck Movement (FROM) Lungs: Clear to Auscultation, Clear to Percussion Heart: Exam Unremarkable, Regular Rate/Rhythm Plan Impression Patient chart reviewed, patient interviewed and anesthestic plan with risks, benefits, and alternatives discussed, and informed consent obtained. ASA Physical Status: ASA3 Severe Disease Anesthetic Plan: MAC Bene/Risks/Altern/Consents: Yes HP Complete Prior to Induction: Yes Jaden Mayo MD Jul 07, 2016 11:50
[2016-07-07] MEDS: Lactated Ringer's 1,000 ML IV ONE ×2 (12:02→12:03)
[2016-07-07 12:27] VITALS: BP 109/65; PULSE 70; RESP 14; O2SAT 95
--- NOTE | 2016-07-07 12:28 | PCM.ANEP1 ---
Post Anesthesia Phase 1 PACU Phase 1 Assessment Vital Signs Vital Signs Date Time Temp Pulse Resp B/P Pulse Ox O2 Delivery O2 Flow Rate FiO2 07/07/16 12:27 36.3 70 14 109/65 95 Room Air 07/07/16 11:06 36.1 72 16 119/59 67 Room Air Anesthetic Administered: MAC Level of Alertness: Awake, talking VALENCIA's with Equal Strength: Yes Pain: No Nausea or Vomiting: No Oxygen Delivery: Room Air Lungs: Clear to Auscultation, Clear to Percussion Comments See anesth record for PACU VS. PACU VSS Jaden Mayo MD Jul 07, 2016 12:28
[2016-07-07 12:37] VITALS: BP 111/58; PULSE 68; RESP 16; O2SAT 97
[2016-07-07 12:47] VITALS: BP 106/68; PULSE 68; RESP 16; O2SAT 93
[2016-07-07 12:57] VITALS: BP 111/61; PULSE 74; RESP 16; O2SAT 92
--- NOTE | 2016-07-07 22:32 | ENDO ---
[address] [address] ENDOSCOPY PROCEDURE PATIENT: JOHANN PETERSON : 1935 MR#: [id number] ADMIT: 07/07/2016 JOB ID: [id number] INDICATIONS: Patient with a history of colon polyps. The patient's ASA classification and Mallampati score and medications are as per anesthesia note. INSTRUMENT USED: PCF H 180 AL. PREPARATION QUALITY: Fair. PROCEDURE DETAILS: After informed consent was obtained, the patient was brought into the GI suite, where she was placed on oxygen via nasal cannula and monitored with continuous pulse oximeter, telemetry, and blood pressure monitoring. A time-out was performed. Then, she was placed in the left lateral decubitus position and medications were administered for sedation. Digital rectal exam was performed and was unremarkable. The colonoscope was then inserted into the rectum and advanced under direct visualization to the cecum, which was identified by the presence of the ileocecal valve and appendiceal orifice. Once the cecum was reached, the colonoscope was withdrawn back into the rectum and mucosa and lumen were examined. In the rectum, retroflexion was performed. Following retroflexion, remaining air in the rectum was suctioned and procedure was completed. FINDINGS: 1. In the transverse colon, there were two polyps. The larger polyp measured approximately 8 mm and was removed with a hot snare. 2. The smaller polyp measured approximately 4-5 mm and was sessile and was removed with a hot snare. IMPRESSION: Two transverse colon polyps. RECOMMENDATIONS: 1. No NSAIDs or anticoagulants for 72 hours. 2. Repeat colonoscopy pending polyp pathology results. COMPLICATIONS: None. ESTIMATED BLOOD LOSS: Less than 5 mL.
--- NOTE | 2016-07-08 15:51 | PATH ---
SURGICAL PATHOLOGY Attending Physician:Weston Sandoval CASE STATUS: Signed Out PATIENT NAME: JOHANN PETERSON PID: [id number] : 1935 DATE COLLECTED:07/07/2016 20:21 SPECIMEN: Colon, Biopsy CLINICAL HISTORY: COLON POLYPS 1). TRANSVERSE COLON POLYPS FINAL DIAGNOSIS: Transverse Colon, Polyps, Biopsy: Portions of tubular adenoma x4; negative for high-grade dysplasia. Superficial portions of colorectal mucosa x2 with no significant histomorphologic abnormality. ICD10: K63.5 GROSS DESCRIPTION: The specimen is received in one formalin filled container labeled with the patient's name, sublabeled "transverse colon polyps" and consists of multiple portions of tissue which aggregate to 0.5 x 0.5 x 0.5 CM. The specimen is entirely submitted in one cassette. 07/07/2016 [facility] ICD-9 CODES: CPT CODES: 1: 64302 Electronically Signed Out Chelo Hatch MD [facility] Pathology [facility] [address], [place] [address] Technical component performed at [facility], [facility] [address], [place], [address]
[2016-07-08] MEDS ORDERED: QUET25TA73 PO (17:57)
[2016-07-08] MEDS ORDERED: TORS10TA5 PO (17:57)
[2016-07-08] MEDS ORDERED: SACC250C9 PO (17:57)
[2016-07-08] MEDS ORDERED: HYDR-656 PO (17:57)
[2016-07-08] MEDS ORDERED: RANI150T11 PO (17:57)
[2016-07-08] MEDS ORDERED: POLY17PO6 PO (17:57)
[2016-07-08] MEDS ORDERED: ONDA4TAB6 PO (17:57)
== END 2016-07-07 23:59 | disposition home or self-care (01) ==
LOC: END 10:42
PROVIDERS: ATTEND Internal Medicine Gastroenterology
DX: Z12.11 Encounter for screening for malignant neoplasm of colon (principal); D12.3 Benign neoplasm of transverse colon; Z86.010 Personal history of colon polyps; I11.0 Hypertensive heart disease with heart failure; I50.32 Chronic diastolic (congestive) heart failure; J44.9 Chronic obstructive pulmonary disease, unspecified; F41.9 Anxiety disorder, unspecified; E03.9 Hypothyroidism, unspecified; I27.2 Other secondary pulmonary hypertension; Z79.891 Long term (current) use of opiate analgesic; Z79.51 Long term (current) use of inhaled steroids
CPT/HCPCS: 45385; 88305; J2405; J7120

== ENCOUNTER 2016-10-04 13:57 | Inpatient (IN) | payer MEDICARE ==
[2016-10-04] VITALS (8 sets, daily range): BP systolic 99–118; BP diastolic 61–67; PULSE 61–74; RESP 14–20; O2SAT 95–99
[~2016-10-04] VITALS: Ht 157.5 cm; Wt 96.4 kg
[~2016-10-04 13:57] MED LIST changes: -GABA-500 PO; -GUAI600T86 PO; +HYDR-656 PO; -Lactated Ringer's 1,000 ML IV SCH; -MetoCLOpramide 5 mg/mL 2 mL Inj IVPUSH PRN; -ONDA4TAB12 PO; +ONDA4TAB6 PO; -Ondansetron 2 mg/mL 2 mL Inj IVPUSH PRN; +QUET25TA73 PO; +SACC250C9 PO
[2016-10-04 14:56] LABS: BASOPHILS % (AUTO) 0.6 % (0-3); EOSINOPHILS % (AUTO) 3.4 % (0-5); MONOCYTES % (AUTO) 8.5 % (4-12); Mean Corpuscular Hemoglobin 27.3 pg (27.0-35.0); Mean Corpuscular Volume 83.1 fL (81-100); NEUTROPHILS % (AUTO) 71.4 % (40-74); Platelet Count 232 bil/L (150-400)
--- NOTE | 2016-10-04 15:04 | DRSVH ---
PROCEDURE: X-RAY CHEST, TWO VIEWS ([id number]) INDICATIONS: dyspnea TECHNIQUE: 2 views of the chest were acquired. COMPARISON: [facility], CR, XR CHEST 1VW (PORTABLE), 06/08/2016, 9:12. FINDINGS: Surgical changes and devices: Right humeral arthroplasty. Lungs and pleura: No pleural effusions or pneumothorax. Lungs are clear. Mediastinum: Mediastinal contours are normal. Heart size is normal. Bones and chest wall: No suspicious bony abnormalities. Soft tissues appear unremarkable. IMPRESSION: No acute pulmonary process. Dictated by: Myra Castro M.D. on 10/04/2016 at 15:02 Approved by: Myra Castro M.D. on 10/04/2016 at 15:02
--- NOTE | 2016-10-04 15:30 | ED.REPORT ---
HPI-General Illness Date of Service Oct 04, 2016 ED Provider: RyanenIsaiah Mora DO 81 y/o female with a hx of pulmonary hypertension, CHF and severe mitral regurgitation is sent to the ED by her strapping machine tender due to fluid retention despite being on a high furosemide dose for a few days. She has gained 8 pounds in the past 4 days. Associated sx include shortness of breath, fatigue and somnolence. The pt sleeps with her bed propped up due to dyspnea. She denies chest pain, abdominal pain, vomiting, diarrhea and cough. The pt states she is able to walk about 12 steps maximum without feeling exhausted. Her labs at [facility] show BUN of 41 and Creatinine of 1.17. Nursing Notes Stated Complaint: WEIGHT GAIN Chief Complaint: General Complaint Nursing Notes Reviewed: Yes Allergies: Coded Allergies: No Known Allergies (Unverified , 10/04/16) Scheduled Budesonide/Formoterol 160-4.5 mcg Inh (Symbicort 160-4.5 mcg Inh) 120 Puff Inhaler 2 PUFF INHALATION BID Carvedilol (Carvedilol) 6.25 Mg Tablet 6.25 MG PO BID Docusate Sodium (Docusate Sodium) 250 Mg Capsule 250 MG PO HS Estradiol (Estradiol) 1 Mg Tablet 1 MG PO QAM Levothyroxine (Levothyroxine) 175 Mcg Tablet 175 MCG PO QAM Olmesartan (Benicar) 20 Mg Tablet 20 MG PO DAILY Omeprazole (Omeprazole) 20 Mg Capsule.dr 20 MG PO BID Oxycodone ER (Oxycontin) 10 Mg Tab.er.12h 10 MG PO BID Oxycodone ER (Oxycontin) 30 Mg Tab.er.12h 30 MG PO BID Polyethylene Glycol 3350 (Miralax) 17 Gm Powd.pack 17 GM PO BID Potassium Chloride (Potassium Chloride) 20 Meq Tab.er.prt 20 MEQ PO DAILY TAKE WITH FOOD Quetiapine Fumarate (Quetiapine Fumarate) 25 Mg Tablet 12.5 MG PO HS Ranitidine (Zantac) 150 Mg Tablet 150 MG PO DAILY Saccharomyces Boulardii (Digestive Probiotic) 250 Mg Capsule 250 MG PO BID Saccharomyces Boulardii (Probiotic) 250 Mg Capsule 250 MG PO DAILY Torsemide (Torsemide) 10 Mg Tablet 30 MG PO DAILY Venlafaxine ER (Venlafaxine ER) 150 Mg Cap.er.24h 150 MG PO QAM Scheduled PRN Albuterol HFA (Proair HFA) 8.5 Gm Hfa.aer.ad 2 PUFFS INHALATION q4-6 hours PRN PRN For Shortness of Breath Hydrocortisone Acetate (Anucort-Hc) 25 Mg Supp.rect 25 MG RC DAILY PRN PRN For Pain Nystatin (Nystatin) 1 Each Powder.ea. 1 EACH MC BID PRN PRN rash Ondansetron (Zofran) 4 Mg Tablet 4 MG PO Q4H PRN PRN For Nausea Zolpidem (Zolpidem) 5 Mg Tablet 5 MG PO HS PRN PRN For Insomnia hydrOXYzine Hcl (HydrOXYzine Hcl) 25 Mg Tablet 25 MG PO HS PRN PRN Insomnia General Time Seen by MD: 15:29 Chief Complaint Other (fluid retention) Hx Obtained From: Patient Sudden in Onset?: No Onset Occurred: 4 days ago Symptom Duration: Since onset Severity: Current: No pain currently Severity: Maximum: No pain Recent Healthcare: Recent doctor visit Past Medical History Past Medical History Notes: Cardiology: Dr. 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 Alcohol Use: Denies alcohol use Drug Use: Denies drug use Other Social History: Local resident Ambulatory Status Independent Review of Systems Reports: weight gain due to fluid retention Reports: somnolence Full Review of Systems Constitutional: Reports: Fatigue Respiratory: Reports: Shortness of breath, Denies: Non-productive cough Cardiovascular: Denies: Chest pain GI: Denies: Abdominal pain, Diarrhea, Vomiting Complete sys rev & neg: except as marked. Physical Exam Vital Signs Vital Signs Date Time Temp Pulse Resp B/P Pulse Ox O2 Delivery O2 Flow Rate FiO2 10/04/16 17:35 73 16 99/63 98 Room Air 10/04/16 16:31 61 18 99/63 96 Room Air 10/04/16 14:05 36.3 69 20 109/67 95 Room Air Initial VS: Reviewed Head / Eyes: Atraumatic, Normocephalic Neck: Supple, Non-tender, Full range of motion Respiratory: Breath sounds normal, Clear to auscultation, No respiratory distress Abdomen / GI: Soft, Non-tender Extremities: Vascular intact, Neuro intact, No swelling, No tenderness Skin: Warm, Dry, No cyanosis Neurologic: Alert, Oriented, Nonfocal General/Constitutional: Awake, Alert, Cooperative Cardiovascular: Heart rate NL, Regular rhythm, Heart sounds NL, No gallop, No rubs Heart Sounds / Murmur: Positive: Systolic murmur present.. (I/; most prominent at the apex of the heart) Lower Ext Edema: Positive: Bilateral 2+, Pitting Venous stenosis changes. Interpretation & Diagnostics Lab Results Interpretation Result Diagram: 10/04/16 1452 10/04/16 1452 Test 10/04/16 14:52 White Blood Count 6.2th/mm3 (3.8-10.1) Red Blood Count 3.55mil/mm3 (3.90-5.20) Hemoglobin 9.7g/dL (12.0-15.6) Hematocrit 29.5% (35.0-46.0) Mean Corpuscular Volume 83.1fL (81-100) Mean Corpuscular Hemoglobin 27.3pg (27.0-35.0) Mean Corpuscular Hemoglobin Concent 32.9% (32.0-37.0) Red Cell Distribution Width 16.6% (12.3-15.4) Platelet Count 232bil/L (150-400) Neutrophils (%) (Auto) 71.4% (40-74) Lymphocytes (%) (Auto) 15.9% (14-46) Monocytes (%) (Auto) 8.5% (4-12) Eosinophils (%) (Auto) 3.4% (0-5) Basophils (%) (Auto) 0.6% (0-3) Sodium Level 133mEq/L (134-144) Potassium Level 4.3mEq/L (3.5-5.2) Chloride Level 94mEq/L (97-108) Carbon Dioxide Level 22mmol/L (18-29) Blood Urea Nitrogen 47mg/dL (8-27) Creatinine 1.34mg/dL (0.57-1.00) Estimat Glomerular Filtration Rate 55mL/min (>59) Glucose Level 115mg/dL (60-99) Calcium Level 8.6mg/dL (8.5-10.1) Total Bilirubin 0.2mg/dL (0.0-1.2) Aspartate Amino Transf (AST/SGOT) 21U/L (0-50) Alanine Aminotransferase (ALT/SGPT) 17U/L (0-32) Alkaline Phosphatase 98U/L (25-165) Troponin T < 0.010ug/L (0.0-0.011) Pro-B-Type Natriuretic Peptide 942.4pg/mL (0-738) Total Protein 7.4g/dL (6.4-8.4) Albumin 3.8g/dL (3.4-5.0) Hold Bhakta Top Tube Received (Received) Lab Results Interpretation: From [facility]: BUN = 41 Creatinine = 1.17 ECG Interpretation ECG Interpretation: Normal sinus rhythm. Rate 62 IVCD, consider atypical RBBB Time: 15:21 Interpreted by: ED physician X-Ray Chest Interpretation Chest Xray Interpretation: IMPRESSION: No acute pulmonary process. Dictated by: Myra Castro M.D. on 10/04/2016 at 15:02 Approved by: yMra Castro M.D. on 10/04/2016 at 15:02 View: Portable, AP & lat Interpretation / Wet Read by: Interpret - ED physician Re-Eval/Medical Decision Med Decision/Clinical Course Findings suggestive of CHF despite increasing both beta tsering and diuretic therapy, will plan to admit the patient for IV diuretics. Time of Eval: 15:41 Re-Evaluation/Progress Note: Discussed the plan to consult the strapping machine tender and discharge or admit the pt accordingly. She understands and agrees with the plan. All questions answered. Time of Eval: 17:07 Re-Evaluation/Progress Note: Rechecked pt. Discussed lab results, imaging results, diagnosis and plan to admit. Pt understands and agrees with the plan for admission. All questions addressed. Consultation #1: Referral / Consult Name: Asiya Armas MD Consulted With: Cardiology Call Returned at: 16:18 Note: Recommends consulting Dr. Peck Consultation #2: Referral / Consult Name: Tirso Peck MD Consulted With: Cardiology Call Returned at: 16:38 Supervisor Product Inspection: Agrees with eval, Agrees with plan Note: Dr. Peck states she has severe mitral regurgitation and will eventualy need a mitral valve clip. She should be admitted and diuresed with IV diuretics. Consultation #3: Referral / Consult Name: Ryen Robbins MD Consulted With: Hospitalist Call Returned at: 16:55 Supervisor Product Inspection: Will see patient, Agrees with eval, Agrees with plan, Accepts admit Note: Dr. Robbins accepted the admit but noted that the pt's care would go to the night hospitalist. Counseled Regarding: Diagnosis, Lab results, Need for admission Discharge & Departure Primary Impression: Fluid retention Disposition: ADMITTED TO HOSPITAL Discharge Condition All VS Reviewed: Yes Referrals: Enrique Muller DO (PCP) Scribe Attestation Portions of this note were transcribed by Anrulfo Rodriguez. I,, personally performed the history, physical exam and medical decision-making;I reviewed and confirmed the accuracy of the information in the transcribed note. Signed by Govind Bazan. 10/04/16 18:07 copies to: Enrique Muller Timothy S DO Oct 04, 2016 15:30 Arnulfo Rodriguez Oct 04, 2016 15:41
[2016-10-04 15:31] LABS: TROPONIN T < 0.010 ug/L (0.0-0.011)
[2016-10-04] MEDS ORDERED: Furosemide 10 mg/mL 4 mL Inj IVPUSH ONE (16:40)
[2016-10-04] MEDS ORDERED: Ondansetron 2 mg/mL 2 mL Inj IVPUSH PRN ×2 (18:15→20:10)
[2016-10-04] MEDS ORDERED: Alum-Mag Hydrox-Simeth 30 mL Suspension PO PRN ×2 (18:15→20:10)
[2016-10-04] MEDS ORDERED: CARV12.5 PO (19:49)
[2016-10-04] MEDS ORDERED: RANI150T11 PO (19:49)
[2016-10-04] MEDS ORDERED: OXYC40TA46 PO (19:49)
[2016-10-04] MEDS ORDERED: OXYC30TA77 PO (19:49)
[2016-10-04] MEDS ORDERED: OLME20TA3 PO (19:49)
[2016-10-04] MEDS ORDERED: Polyethylene Glycol (PEG) 17 Gm Powder PO PRN (20:10)
[2016-10-04] MEDS ORDERED: Senna-Docusate 8.6-50 mg Tablet PO PRN (20:10)
[2016-10-04] MEDS ORDERED: Non-Formulary Medication (Venlafaxine ER 150 MG) PO SCH (20:20)
[2016-10-04] MEDS ORDERED: Non-Formulary Medication (Levothyroxine 175 MCG) PO SCH (20:20)
[2016-10-04] MEDS ORDERED: Albuterol HFA 60 Puff 8 Gm Inhaler INHALATION PRN (20:20)
--- NOTE | 2016-10-04 20:20 | PCM.HPMED ---
Subjective Date of Service Oct 04, 2016 Primary Provider: Admitting Physician: Primary Care Physician: Enrique Muller DO Attending Physician: Chief Complaint: Shortness of breath History of Present Illness: Lindy Spencer is an 81 year old woman with past medical history significant for pulmonary hypertension, severe mitral regurgitation currently under evaluation at [facility] for a clip, diastolic heart failure who presented to the [facility] emergency department today at the behest of her pearl fisherman due to continuing fluid retention despite increased dose of diuretic for the last few days. The patient also notes worsening shortness of breath, fatigue and somnolence. Patient also notes orthopnea and needs to nearly sit up to avoid dyspnea. She denies any chest pain, vomiting, nausea, diarrhea, cough. Patient is unable to walk 12 steps before becoming short of breath and fatigued. The patient has gained 8 pounds over this week. Patient weighs herself every morning to keep track of her dry weight. The patient has also noticed increased abdominal girth which was of great concern to her. Patient denies any recent changes in diet, any increased salt intake, any missed medications. Patient is under evaluation for a mitral valve clip due to severe regurgitation and per patient it appears that the plan is to proceed with surgery after more information is gathered by . In emergency department vital signs were notable for blood pressure 109/67 and 95% saturation on room air. She was given 40 mg of IV Lasix. She feels that her breathing has improved since the dose of IV Lasix was given. Emergency department physician contacted Dr. Peck physician the patient be admitted for IV diuresis. Review of Systems: A comprehensive review of systems was conducted with the patient and found to be negative except as above in the History of Present Illness. Allergies Coded Allergies: No Known Allergies (Unverified , 10/04/16) Home Medications Lindy Spencer [phone] 1935 08/17/2016 02:10 PM 03/25 Start Date Medication Directions Stop Date 02/05/2016 albuterol sulfate HFA 90 mcg/actuation aerosol inhaler inhale 2 puff by inhalation route every 4 - 6 hours as needed 04/27/2016 Anucort-HC 25 mg suppository insert 1 suppository by rectal route 2 times every day for 2 weeks prn 04/28/2016 Benicar 20 mg tablet take 1 tablet by oral route every day 04/28/2016 carvedilol 6.25 mg tablet take 1 tablet by oral route 2 times every day with food clindamycin 75 mg capsule take 2 capsule by oral route every 6 hours 01/29/2016 docusate sodium 250 mg capsule take 1 capsule by oral route two times every day as needed 06/12/2016 Estradiol Oral Tablet 1 MG TAKE ONE TABLET BY MOUTH ONE TIME DAILY 05/26/2016 levothyroxine 175 mcg tablet take 1 tablet by oral route every day 01/29/2016 Miralax 17 gram oral powder packet take 1 packet by oral route 2 times every day mixed with 8 oz. water, juice, soda, coffee or tea 06/10/2016 Mucus Relief ER 600 mg tablet,extended release take 2 tablet by oral route every 12 hours as needed nystatin apply by topical route 2 times every day to the affected area(s) 05/30/2016 omeprazole 20 mg capsule,delayed release take 1 capsule by oral route 2 times every day before a meal (Hold 40 mg daily dose for now) 03/02/2016 ondansetron HCl 4 mg tablet take 1 Tablet by oral route every 4 - 6 hours as needed for nausea and vomiting 08/17/2016 OxyContin 10 mg tablet,crush resistant,extended release take 1 tablet by oral route once a day as needed for pain. 09/13/2016 08/17/2016 OxyContin 30 mg tablet,crush resistant,extended release take 1 tablet by oral route every 12 hours 09/13/2016 08/09/2016 potassium chloride ER 20 mEq tablet,extended release take 1 tablet by oral route every day with food Probiotic (S.boulardii) 250 mg capsule 02/05/2016 Space Chamber Plus Use as directed with inhalers 07/05/2016 Suprep Bowel Prep Kit 17.5 gram-3.13 gram-1.6 gram oral solution take as directed by Oral route 05/30/2016 Symbicort 160 mcg-4.5 mcg/actuation HFA aerosol inhaler inhale 2 puff by inhalation route 2 times every day in the morning and evening 06/15/2016 torsemide 10 mg tablet take 3 tablet by oral route every morning venlafaxine ER 150 mg tablet,extended release 24 hr take 1 tablet by oral route every day in the morning at the same time each day with food 06/12/2016 Zantac Oral Tablet 150 MG TAKE ONE TABLET BY MOUTH ONE TIME DAILY 07/26/2016 zolpidem 5 mg tablet take 1 tablet by ORAL route every day at bedtime as needed PMH 1. Mitral regurgitation. Transesophageal echocardiogram on July 11 showed moderately thickened mitral valve leaflets, with moderate to severe regurgitation including two regurgitant jets. 2. Pulmonary hypertension. 3. Atrial fibrillation, status post ablation. 4. Congestive heart failure. 5. Hypothyroidism. 6. Chronic anxiety. 7. Essential hypertension. 8. Chronic bilateral leg edema, occasionally associated with intermittent cellulitis. Surgical History 1. VATS superior segmentectomy of left lower lobe in June 2015, for lung cancer. 2. Atrial fibrillation ablation. 3. Cholecystectomy. 4. Bilateral knee replacements. Family History Mother had blood disorder. Social History Hx Alcohol Use: Yes (2 GLASSES FOR 40+YEARS) Hx Substance Use: No Hx Tobacco Use: No Smoking Status: Never Smoker Exam Vital Signs Vital Sign - Last Date Time Temp Pulse Resp B/P Pulse Ox O2 Delivery O2 Flow Rate FiO2 10/04/16 17:35 73 16 99/63 98 Room Air 10/04/16 14:05 36.3 Exam General: No acute distress, well-developed, well-nourished, appropriately interactive HEENT: Normocephalic, atraumatic. External ears without defect. Pupils equal, round, and reactive to light and accommodation. Anicteric sclerae, moist conjunctivae, and no lid lag. Oropharynx free of erythema and cobble stoning with moist mucosa. Neck: Supple with full range of motion. No jugular venous distension. No lymphadenopathy or thyromegaly. Cardiovascular: Regular rate and rhythm with holosystolic murmur appreciated Pulmonary: Clear to auscultation bilaterally with no crackles, wheezes, or rhonchi. Normal respiratory effort with no use of accessory muscles. Abdomen: Bowel tones present. Soft, nontender, nondistended. No hepatosplenomegaly or masses appreciated. Extremities: No clubbing, cyanosis. Significant bilateral lower extremity edema that is pitting up to mid thigh. Associated stasis dermatitis. Skin: Normal temperature, turgor, and texture; no rash, ulcers, or subcutaneous nodules appreciated. Neurological: Cranial nerves grossly intact. Normal muscle strength, tone, and bulk. Reflexes, coordination, and sensory function within normal limits. No known gait impairment. Psychiatric: Normal mood and affect. Alert and oriented to person, place, and time. Lab and Diagnostics Result Diagram: 10/04/16 1452 10/04/16 1452 X-Rays, CTs and MRIs X-RAY CHEST, TWO VIEWS IMPRESSION: No acute pulmonary process. Dictated by: Myra Castro M.D. on 10/04/2016 at 15:02 Assessment & Plan Lindy Spencer is an 81 year old woman with past medical history significant for pulmonary hypertension, severe mitral regurgitation currently under evaluation at [facility] for a clip, diastolic heart failure who presented to the [facility] emergency department today at the behest of her pearl fisherman due to continuing fluid retention despite increased dose of diuretic for the last few days. Acute on chronic congestive diastolic heart failure, present on admission, active -Likely complicated by patient's severe MR. No other exacerbating factors are identified. -Daily weights, strict I&O's, low-salt diet, fluid restriction to 2 L -Continue diuresis with 40 mg IV Lasix 4 times a day -Continue outpatient medications: Benicar, Carvedilol -Telemetry Chronic issues, present remission, stable: Mitral regurgitation, pulmonary admission, active -Under evaluation by [facility] for mitral clip Chronic anxiety -Continue patient's home medications GERD -Continue patient's home medications Hypothyroidism -Continue levothyroxine Chronic pain -Continue patient's OxyContin Hypertension -Medication as above CODE STATUS: Patient's pulse form apparently states that she is DO NOT RESUSCITATE/DO NOT INTUBATE however upon discussing CODE STATUS with patient she decided to continue to be full code at this time. Patient is admitted under inpatient status with expected length of stay greater than 2 midnights due to severity of presenting symptoms, risk of adverse event, and complexity of treatment plan. VTE Prophylaxis: Sub-Q Heparin (Unfractionated) Resuscitation Status: CPR: Attempt Resuscitation Attending Statement The patient was seen and examined together with Dr. Han on 10/04 and I agree with the history, exam and plan as outlined in the note above. Ana Han DO Oct 04, 2016 19:05 Suraj Whitlock MD Oct 04, 2016 20:45
[2016-10-04] MEDS ORDERED: Budesonide-Formot 160-4.5 mCg 6.9 Gm Inhaler INHALATION SCH (20:30)
[2016-10-04] MEDS ORDERED: Albuterol 2.5 mg/3 mL Inhalation Solution NEB PRN (20:35)
[2016-10-04] MEDS: oxyCODONE ER 10 mg ER12 Tablet PO SCH (21:00)
[2016-10-04] MEDS ORDERED: OXYCODONE 30 MG PO SCH (21:00)
[2016-10-04 22:18] LABS: APPEARANCE,URINE CLEAR (CLEAR,HAZY); COLOR,URINE YELLOW (YELLOW); OCCULT BLOOD,URINE NEGATIVE (NEGATIVE); PH,URINE 5.5 (5.0-8.0); UROBILINOGEN,URINE NORMAL (NORMAL)
[2016-10-04] MEDS: Furosemide 10 mg/mL 4 mL Inj IVPUSH SCH (22:37)
[2016-10-05] VITALS (10 sets, daily range): BP systolic 87–113; BP diastolic 46–75; PULSE 60–78; RESP 16–18; O2SAT 96–100
[2016-10-05] MEDS: Heparin 5,000 Unit/mL Inj SUBQ SCH ×3 (01:03→16:30)
[2016-10-05] MEDS: Sodium Chloride LOK Flush 10 mL Syringe IVFLUSH SCH ×4 (01:04→23:31)
--- NOTE | 2016-10-05 01:24 | NUR ---
Pt rec'd from ED by this designer writer at 1999, having taken evening dose of oxycontin from personal supply as OK'd by Dr. Singh. Pt walked from [facility] to bed with personal FWW. VS, height, standing wt obtained. VS WNL. Pt oriented to call light/menu/visiting hours. Pt had a ziploc bag of assorted loose pills in her purse, sent to pharmacy by this designer writer with pt signature. PM meds given, care continues.
[2016-10-05] MEDS: Furosemide 10 mg/mL 4 mL Inj IVPUSH SCH ×4 (06:31→21:06)
[2016-10-05] MEDS ORDERED: OLMESARTAN 20 MG PO SCH (08:00)
[2016-10-05] MEDS ORDERED: oxyCODONE ER 40 mg ER12 Tablet PO SCH (08:30)
[2016-10-05] MEDS: Fluticasone-Salmeterol 500-50 Inhaler INHALATION SCH ×2 (08:30→21:03)
[2016-10-05] MEDS: Venlafaxine XR 75 mg ER24 Capsule PO SCH (08:36)
[2016-10-05] MEDS: oxyCODONE ER 20 mg ER12 Tablet PO SCH (08:36)
[2016-10-05] MEDS: Pantoprazole 20 mg ER24 Tablet PO SCH ×2 (08:37→21:15)
[2016-10-05] MEDS: Potassium Chloride 20 mEq SR Tablet PO SCH (08:37)
--- NOTE | 2016-10-05 15:05 | PCM.PNMED ---
Subjective Date of Service Oct 05, 2016 Subjective Overnight there were no acute events. Ms. Spencer says her breathing is getting better but she feels as if her legs are still swollen. She denies any fever/chills, chest pain, palpitations, nausea /vomiting, dysuria. Exam Vital Signs Vital Sign - Last Date Time Temp Pulse Resp B/P Pulse Ox O2 Delivery O2 Flow Rate FiO2 10/05/16 12:44 36.4 60 18 102/69 99 Room Air Intake and Output 10/04/16 10/04/16 10/05/16 Cumulative From/Thru 15:00 23:00 07:00 10/04/16 14:05 - 10/05/16 06:01 Intake Total 400 ml 558 ml 958 ml Output Total 350 ml 1600 ml 1950 ml Balance 50 ml -1042 ml -992 ml Intake Oral 400 ml 558 ml 958 ml Output Urine Total 350 ml 1600 ml 1950 ml Exam General: Age-appropriate female in NAD, well-developed, well-nourished, appropriately interactive HEENT: Normocephalic, atraumatic. External ears without defect. Pupils equal, round, and reactive to light and accommodation. Oropharynx free of erythema and cobble stoning with moist mucosa. Neck: Supple with full range of motion. No jugular venous distension or thyromegaly. Cardiovascular: RRR with holosystolic murmur, no rubs/clicks/gallops Pulmonary: Coarse breath sounds at the bases bilaterally but otherwise clear; no wheezing/rales/rhonchi Abdomen: Soft, nontender, nondistended. No hepatosplenomegaly or masses appreciated.Bowel tones present. Extremities: No clubbing, cyanosis. Severely edematous to just above her knees bilaterally, with associated chronic skin stasis changes Skin: Normal temperature, turgor, and texture; no rash, ulcers, or subcutaneous nodules appreciated. Neurological: Cranial nerves grossly intact. Normal muscle strength, tone, and bulk. Reflexes, coordination, and sensory function within normal limits. No known gait impairment. Psychiatric: Normal mood and affect. Alert and oriented to person, place, and time. IVs and Medications Medications Reviewed: Medications were reviewed in detail Lab and Diagnostics Result Diagram: 10/04/16 1452 10/05/16 0400 X-Rays, CTs and MRIs X-RAY CHEST, TWO VIEWS IMPRESSION: No acute pulmonary process. Dictated by: Myra Castro M.D. 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 Acute on chronic congestive diastolic heart failure, present on admission, active -Likely complicated by patient's severe MR -Daily weights, strict I&O's, low-salt diet, fluid restriction to 2 L -Continue diuresis with 40 mg IV Lasix 4 times a day; consider Torsemide if she is not responding appropriately -Continue outpatient medications: Benicar, Carvedilol -Ongoing telemetry monitoring Chronic issues, present remission, stable: Mitral regurgitation, present on admission, active -Under evaluation by [facility] for mitral clip procedure Chronic anxiety -Continue patient's home medications GERD -Continue patient's home medications Hypothyroidism -Continue levothyroxine Chronic pain -Continue patient's OxyContin Hypertension -Medication as above Disposition: Patient will likely be here for the next couple days depending on her response to diuresis and continued improvement medically. VTE Prophylaxis: Sub-Q Heparin (Unfractionated) Resuscitation Status: CPR: Attempt Resuscitation Attending Statement The patient was seen and examined together with Dr. Juarez on 10/05/2016 and I agree with the history, exam and plan as outlined in the note above. . Seth Juarez DO Oct 05, 2016 15:05 Ryne Robbins MD Oct 08, 2016 16:42
[2016-10-05] MEDS ORDERED: HYDROmorphone 0.5 mg/0.5 mL iSecure Syringe IVPUSH PRN (16:35)
--- NOTE | 2016-10-05 18:03 | NUR ---
Pain/Mobility The pt reports consistent pain partially relieved by scheduled PO pain meds BID. An order for 0.5 dilaudid has been ordered for breakthrough pain with good results. A new bed was obtained for the pt, and the pt reports a reduction in pain. The new bed is higher than the old one, and the pt now requires assistance getting in and out. A stepstool is at the bedside. IV lasix is being administered with good effects.
[2016-10-05] MEDS: oxyCODONE ER 10 mg ER12 Tablet PO SCH (21:04)
[2016-10-06] VITALS (9 sets, daily range): BP systolic 97–119; BP diastolic 63–76; PULSE 66–75; RESP 16–18; O2SAT 94–99
[2016-10-06] MEDS: Heparin 5,000 Unit/mL Inj SUBQ SCH ×3 (00:30→18:20)
[2016-10-06 02:47] LABS: BASOPHILS % (AUTO) 0.9 % (0-3); EOSINOPHILS % (AUTO) 4.9 % (0-5); MONOCYTES % (AUTO) 11.9 % (4-12); Mean Corpuscular Hemoglobin 26.9 pg (27.0-35.0); Mean Corpuscular Volume 85.2 fL (81-100); NEUTROPHILS % (AUTO) 63.2 % (40-74); Platelet Count 212 bil/L (150-400)
--- NOTE | 2016-10-06 06:15 | NUR ---
Pain/cardiac Pt denies pain this shift, reports restful sleep after switch to bariatric bed. AM weight indicates 3kg loss since admit, pt states abdominal girth has improved. No hypotension this shift, urine output responsive to IVP lasix. Care continues.
[2016-10-06] MEDS: Furosemide 10 mg/mL 4 mL Inj IVPUSH SCH ×4 (06:26→21:05)
--- NOTE | 2016-10-06 09:55 | PCM.PNMED ---
Subjective Date of Service Oct 06, 2016 Subjective Overnight there were no acute events. Ms. Spencer is feeling better in regards to her breathing and her lower extremity swelling. She denies any further shortness of breath, chest pain, palpitations, dysuria, orthopnea, fever/chills. Exam Vital Signs Vital Sign - Last Date Time Temp Pulse Resp B/P Pulse Ox O2 Delivery O2 Flow Rate FiO2 10/06/16 05:33 70 10/06/16 04:07 16 119/76 94 Room Air 10/05/16 23:44 36.2 Intake and Output 10/05/16 10/05/16 10/06/16 Cumulative From/Thru 15:00 23:00 07:00 10/04/16 14:05 - 10/06/16 06:22 Intake Total 1217 ml 580 ml 2755 ml Output Total 1900 ml 2380 ml 6230 ml Balance -683 ml -1800 ml -3475 ml Intake Oral 1217 ml 580 ml 2755 ml Output Urine Total 1900 ml 2380 ml 6230 ml Exam General: Age-appropriate female in NAD, well-developed, well-nourished, appropriately interactive sitting upright eating breakfast HEENT: Normocephalic, atraumatic. External ears without defect. Pupils equal, round, and reactive to light and accommodation. Oropharynx free of erythema and cobble stoning with moist mucosa. Neck: Supple with full range of motion. No jugular venous distension or thyromegaly. Cardiovascular: RRR with holosystolic murmur, no rubs/clicks/gallops Pulmonary: CTA bilaterally; no wheezing/rales/rhonchi Abdomen: Soft, nontender, nondistended. No hepatosplenomegaly or masses appreciated.Bowel tones present. Extremities: No clubbing, cyanosis. Severely edematous up to her knees, with associated chronic skin changes Skin: Normal temperature, turgor, and texture; no rash, ulcers, or subcutaneous nodules appreciated. Neurological: Cranial nerves grossly intact. Normal muscle strength, tone, and bulk. Reflexes, coordination, and sensory function within normal limits. No known gait impairment. Psychiatric: Normal mood and affect. Alert and oriented to person, place, and time. IVs and Medications Medications Reviewed: Medications were reviewed in detail Lab and Diagnostics Result Diagram: 10/06/16 0230 10/06/16 0230 X-Rays, CTs and MRIs X-RAY CHEST, TWO VIEWS IMPRESSION: No acute pulmonary process. Dictated by: Myra Castro M.D. 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 Acute on chronic congestive diastolic heart failure, present on admission, active -Likely complicated by patient's severe MR -Daily weights, strict I&O's, low-salt diet, fluid restriction to 2 L -Continue diuresis with 40 mg IV Lasix 4 times a day as she is responding adequately (-1.8L since yesterday) -Continue outpatient medications: Benicar, Carvedilol -Ongoing telemetry monitoring - Will discuss case with Cardiology as to plans/medications needed to bridge her until the mitral clip procedure Chronic issues, present remission, stable: Mitral regurgitation, pulmonary admission, active -Under evaluation by [facility] for mitral clip procedure - I will contact to see when the procedure is scheduled Chronic anxiety -Continue patient's home medications GERD -Continue patient's home medications Hypothyroidism -Continue levothyroxine Chronic pain -Continue patient's OxyContin - Discontinued breakthrough pain medication to get back to home regimen only Hypertension - Pressures continue to be stable with diuresis - Continue medications as above Disposition: Patient will likely be here for the next couple days depending on her response to diuresis and continued improvement medically. Pain Evaluation: Adequate Pain Control VTE Prophylaxis: Sub-Q Heparin (Unfractionated) Resuscitation Status: CPR: Attempt Resuscitation Attending Statement The patient was seen and examined together with Dr. Juarez on 10/06/2016 and I agree with the history, exam and plan as outlined in the note above. . Seth Juarez DO Oct 06, 2016 09:55 Ryne Robbins MD Oct 08, 2016 16:43
[2016-10-06] MEDS: oxyCODONE ER 20 mg ER12 Tablet PO SCH (10:33)
--- NOTE | 2016-10-06 10:33 | NUR ---
Social Work: Initial Assessment/Multidisciplinary Rounds D: Per EMR review, pt is an 81 year old female admitted for CHF. Pt is Medicare with AARP supplement; pt has no LTC insurance or VA benefits. PCP is Enrique Muller DO. NOK is Denver Spencer, son [phone]. Advanced directives requested for chart. Readmit score is high, 5/8. Pt discussed in am rounds. Pt anticipated to require admission for 1-2 more days. Pt is followed by Cardiology as an outpatient and may require follow up at the CHF clinic as an outpatient. No other d/c needs identified. No concerns about pt's capacity for self care. BARN OPERATOR met with the patient at bedside. Sw role explained, contact information and discharge planning checklist provided. Pt lives at [facility]. pt has a PP Caregiver who assists her with chores, medications and showers. Pt uses a 4WW at baseline, does not drive and has never had HH or skilled rehab. Pt anticipates discharge home when ready and is receptive to d/c planning if needed. Pt states that her CG comes 5x a week and she has no concerns about discharge back home. A: Pt who lives at [facility] P: Anticipate pt to discharge back to [facility] once medically stable; BARN OPERATOR to continue to follow to assess for needs. CARL Rodriguez Addendum: 10/06/16 at 1039 by MAGGI PORTILLO Amended: Links added.
[2016-10-06] MEDS: Sodium Chloride LOK Flush 10 mL Syringe IVFLUSH SCH ×3 (10:42→21:06)
[2016-10-06] MEDS: Fluticasone-Salmeterol 500-50 Inhaler INHALATION SCH ×2 (10:42→21:05)
[2016-10-06] MEDS: Potassium Chloride 20 mEq SR Tablet PO SCH (10:43)
[2016-10-06] MEDS: Venlafaxine XR 75 mg ER24 Capsule PO SCH (10:43)
[2016-10-06] MEDS: Pantoprazole 20 mg ER24 Tablet PO SCH ×2 (10:43→21:04)
--- NOTE | 2016-10-06 19:38 | NUR ---
Ativan 0930 - Discussed her care with Dr. Fisher, Dr. Robbins, and the rest of the multidisciplinary care team during morning rounds. 1100 - Spoke to Dr. Juarez who said she would likely discharge tomorrow when her caregiver returned from a trip. 1223 - She had been complaining since earlier in the morning of tingling that started in her toes and jeannette to her head. She was visibly distraught about this as she was crying. She was also talking about family issues at home she was struggling with. Called Pharmacist Valdo Vaz who did a medication check at 1340 and could not find any medication that would be causing the tingling. Paged Dr. Juarez and asked if Ativan might be tried. It was ordered and she was given 0.5 mg of IV Ativan. Upon rechecking her she said she was feeling much better and appeared calm and relaxed. 1345 - Updated Dr. Juarez who then ordered Ativan as a prn medication. She has not complained of the tingling since. Care continues.
[2016-10-06] MEDS: oxyCODONE ER 10 mg ER12 Tablet PO SCH (21:04)
[2016-10-07] VITALS (7 sets, daily range): BP systolic 91–119; BP diastolic 58–71; PULSE 60–74; RESP 16–18; O2SAT 97–99
[2016-10-07] MEDS: Heparin 5,000 Unit/mL Inj SUBQ SCH ×3 (00:30→18:39)
--- NOTE | 2016-10-07 03:02 | NUR ---
IV for Lasix/Pain/Mobility Pt's IV access had to be redressed due to the catheter coming out and being bent. The IV access site is now patent and working again with smooth flow. Pt continues to respond well to the IVP Lasix diuresis. Pt still continues to c/o pain which was relieved by the scheduled oxycontin. Pt mobility improving. Pt says it is not as hard to get up and move around as it had before and pt's SOB with activity has improved.
[2016-10-07 03:06] LABS: BASOPHILS % (AUTO) 0.9 % (0-3); EOSINOPHILS % (AUTO) 4.9 % (0-5); MONOCYTES % (AUTO) 16.3 % (4-12); Mean Corpuscular Volume 85.6 fL (81-100); NEUTROPHILS % (AUTO) 54.6 % (40-74); Platelet Count 217 bil/L (150-400)
[2016-10-07] MEDS: Furosemide 10 mg/mL 4 mL Inj IVPUSH SCH ×3 (06:32→18:39)
[2016-10-07] MEDS: Potassium Chloride 20 mEq SR Tablet PO SCH (08:07)
[2016-10-07] MEDS: Sodium Chloride LOK Flush 10 mL Syringe IVFLUSH SCH ×2 (08:07→14:10)
[2016-10-07] MEDS: Pantoprazole 20 mg ER24 Tablet PO SCH ×2 (08:07→21:39)
[2016-10-07] MEDS: Venlafaxine XR 75 mg ER24 Capsule PO SCH (08:07)
[2016-10-07] MEDS: oxyCODONE ER 20 mg ER12 Tablet PO SCH (08:07)
[2016-10-07] MEDS: Fluticasone-Salmeterol 500-50 Inhaler INHALATION SCH ×2 (08:12→21:38)
--- NOTE | 2016-10-07 13:06 | NUR ---
Social Work: Multidisciplinary Rounds Pt discussed in am rounds; sw status remains unchanged. Anticipate discharge back to [facility] when medically stable. SLEEVE SEWER to continue to follow to assess for further d/c needs CARL Rodriguez
--- NOTE | 2016-10-07 17:46 | PCM.PNMED ---
Subjective Date of Service Oct 07, 2016 Subjective Overnight there was some anxiety about her heart situation but otherwise stable. Ms. Spencer continues to diurese well and her only complaint is that it feels like her legs are heavy. She denies any fever/chills, nausea/vomiting, chest pain, palpitations or weakness. Exam Vital Signs Vital Sign - Last Date Time Temp Pulse Resp B/P Pulse Ox O2 Delivery O2 Flow Rate FiO2 10/07/16 16:22 36.6 72 18 99/63 99 Room Air Intake and Output 10/06/16 10/06/16 10/07/16 Cumulative From/Thru 15:00 23:00 07:00 10/04/16 14:05 - 10/07/16 03:37 Intake Total 976 ml 3731 ml Output Total 1700 ml 7930 ml Balance -724 ml -4199 ml Intake Oral 976 ml 3731 ml Output Urine Total 1700 ml 7930 ml Exam General: Age-appropriate female in NAD, well-developed, well-nourished, appropriately interactive HEENT: Normocephalic, atraumatic. External ears without defect. Pupils equal, round, and reactive to light and accommodation. Oropharynx free of erythema and cobble stoning with moist mucosa. Neck: Supple with full range of motion. No jugular venous distension or thyromegaly. Cardiovascular: RRR with holosystolic murmur, no rubs/clicks/gallops Pulmonary: CTA bilaterally; no wheezing/rales/rhonchi Abdomen: Soft, nontender, nondistended. No hepatosplenomegaly or masses appreciated.Bowel tones present. Extremities: No clubbing, cyanosis. Severely edematous to her knees, with associated chronic skin changes Skin: Normal temperature, turgor, and texture; no rash, ulcers, or subcutaneous nodules appreciated. Neurological: Cranial nerves grossly intact. Normal muscle strength, tone, and bulk. Reflexes, coordination, and sensory function within normal limits. No known gait impairment. Psychiatric: Normal mood and affect. Alert and oriented to person, place, and time. IVs and Medications Medications Reviewed: Medications were reviewed in detail Lab and Diagnostics Result Diagram: 10/07/1624410/07/16244 X-Rays, CTs and MRIs X-RAY CHEST, TWO VIEWS IMPRESSION: No acute pulmonary process. Dictated by: Myra Castro M.D. on 10/04/2016 at 15:02 Assessment & Plan Lindy Spencer is an 81 year old woman with past medical history significant for pulmonary hypertension, severe mitral regurgitation currently under evaluation at [facility] for a clip, and diastolic heart failure who presented to the [facility] emergency department at the behest of her graduate fellow due to continuing fluid retention despite increased doses of her diuretic for the last few days. Acute on chronic congestive diastolic heart failure, present on admission. Improving. - Likely complicated by patient's severe MR - Daily weights, strict I&O's, low-salt diet, fluid restriction to 2 L - Continue diuresis with 40 mg IV Lasix 4 times a day as she is responding adequately (-2.5L since yesterday, 4.1L total) - Continue outpatient medications: Benicar, Carvedilol - Continue telemetry monitoring - Will discuss case with Cardiology as to plans/medications needed to bridge her until the mitral clip procedure Chronic issues, present remission, stable: Mitral regurgitation, pulmonary admission, active -Under evaluation by [facility] for mitral clip procedure -Contact was made with Dr. Mitchell's office via his RN; as he is out of the office, she will contact me for medication changes as her procedure is tentatively scheduled for the first week of October Chronic anxiety -Continue Ativan 0.5-1mg PRN GERD -Continue patient's home medications Hypothyroidism -Continue levothyroxine Chronic pain -Continue patient's OxyContin - Discontinued breakthrough pain medication to get back to home regimen only Hypertension - Pressures continue to be stable with diuresis - Continue medications as above Disposition: Patient will likely be here for the next couple days depending on her response to diuresis and continued improvement medically. Pain Evaluation: Adequate Pain Control VTE Prophylaxis: Sub-Q Heparin (Unfractionated) Resuscitation Status: CPR: Attempt Resuscitation Attending Statement The patient was seen and examined together with Dr. Juarez on 10/07/2016 and I agree with the history, exam and plan as outlined in the note above. . Seth Juarez DO Oct 07, 2016 17:46 Ryne Robbins MD Oct 08, 2016 16:44
--- NOTE | 2016-10-07 18:47 | NUR ---
Multidisciplinary Communication [id number] - Discussed her care with Dr. Pinedo, Dr. Robbins, and the rest of the multidisciplinary care team during morning rounds. Care continues.
[2016-10-07] MEDS: oxyCODONE ER 10 mg ER12 Tablet PO SCH (21:38)
[2016-10-08] MEDS: Furosemide 10 mg/mL 4 mL Inj IVPUSH SCH ×3 (00:20→11:30)
[2016-10-08] MEDS: Heparin 5,000 Unit/mL Inj SUBQ SCH ×2 (00:21→09:21)
[2016-10-08] MEDS: Sodium Chloride LOK Flush 10 mL Syringe IVFLUSH SCH ×2 (00:21→09:19)
[2016-10-08 02:30] VITALS: BP 123/80; PULSE 76; RESP 24; O2SAT 97
[2016-10-08 03:26] VITALS: BP 98/63; PULSE 67; RESP 22; O2SAT 94
[2016-10-08 04:10] LABS: MONOCYTES % (AUTO) 11.9 % (4-12); Mean Corpuscular Volume 85.6 fL (81-100); NEUTROPHILS % (AUTO) 60.1 % (40-74); Platelet Count 232 bil/L (150-400)
[2016-10-08 06:13] VITALS: PULSE 70
--- NOTE | 2016-10-08 08:17 | NUR ---
Fall/Skin/PT Request Pt had a fall when trying to get back into the bed. Pt did not use call light to get assistance out of and into bed and when pt tried to get back into the bed after going to the restroom the pt lost balance and fell. Fall was witnessed by pit laborer and pit laborer tried to catch pt and assist the pt in falling but was unsuccessful. Pt did get an abrasion on her left elbow as a result from the fall. Pt said that they felt that they had hit their head on something but was unsure. Pt's head was checked out and there is no bruise, abrasion, or swelling where pt said that they bumped their head. Pt did not c/o pain when the site where they said their head was bumped was touched while being examined. Per pit laborer the pit laborer was able to get her legs behind the pt to prevent the pt's head and back from hitting on the floor. Pt has been rechecked for any s/s of headache, pain, or dizziness. Pt does not c/o a headache, pain, or dizziness. was notified and a form was filled out.
[2016-10-08 08:53] VITALS: PULSE 76
[2016-10-08 08:56] VITALS: BP 122/80; PULSE 73; RESP 20; O2SAT 96
[2016-10-08] MEDS: Fluticasone-Salmeterol 500-50 Inhaler INHALATION SCH (09:19)
[2016-10-08] MEDS: Potassium Chloride 20 mEq SR Tablet PO SCH (09:20)
[2016-10-08] MEDS: Pantoprazole 20 mg ER24 Tablet PO SCH (09:20)
[2016-10-08] MEDS: oxyCODONE ER 20 mg ER12 Tablet PO SCH (09:20)
[2016-10-08] MEDS: Venlafaxine XR 75 mg ER24 Capsule PO SCH (09:20)
--- NOTE | 2016-10-08 10:48 | PCM.DIMED ---
Seth Juarez DO 10/08/16 1040: Discharge Instructions Date of Service Oct 08, 2016 Dates of Hospitalization Oct 04, 2016 at 20:11 Discharge Diagnosis Discharge Diagnosis Acute on chronic congestive diastolic heart failure Mitral regurgitation Chronic anxiety GERD Hypothyroidism Chronic pain Hypertension Diet Discharge Diet: Low fat, Low Sodium, Heart Healthy Call your provider Call your provider for: Shortness of breath, Chest pain, Other (Wt gain) Patient Instructions Patient Instructions I discussed your medication with Dr. Peck, who recommended the following: Increase Torsemide to 40mg daily Start Spironolactone 12.5mg daily I want you to call the [facility] Residency clinic ([phone]) on Monday to check your potassium and kidney function with a BMP. I'd also recommend a repeat BMP on Sunday 10/15 to ensure smooth transition to your mitral clip procedure the following week. Please call Dr. Mitchell's office ([phone]) on Monday for information regarding your upcoming mitral clip procedure and any further medication adjustment they may find necessary beforehand. Follow-up Provider: [facility] Follow-up with PCP in: 1 week ([facility] residency clinic TI[place] (Monday if poss) with BMP prior; usually sees Dr. Muller) Provider: Jimmy Mitchell MD Follow-up in: 2 weeks (Mitral clip procedure; call office monday) Ryne Robbins MD 10/08/16 1645: Discharge Instructions Attending's Statement The patient was seen and examined together with Dr. Juarez on 10/08/2016 and I agree with the history, exam and plan as outlined in the note above. . Seth Juarez DO Oct 08, 2016 10:40 Ryne Robbins MD Oct 08, 2016 16:45
[2016-10-08] MEDS ORDERED: TORS10TA5 PO (10:50)
[2016-10-08] MEDS ORDERED: SPIR25TA3 PO (10:50)
[2016-10-08] MEDS ORDERED: TORS20TA3 PO (10:55)
--- NOTE | 2016-10-08 12:43 | PCM.DC.MED ---
Discharge Summary Date of Service Oct 08, 2016 Dates of Hospitalization Date of Hospital Admission Oct 04, 2016 at 20:11 Date of Discharge: Oct 08, 2016 Providers: Admitting Physician: Suraj Whitlock MD Primary Care Physician: Enrique Muller DO Attending Physician: Ryne Robbins MD Diagnosis at Time of Discharge Diagnosis at Time of Discharge Acute on chronic congestive diastolic heart failure Mitral regurgitation Chronic anxiety GERD Hypothyroidism Chronic pain Hypertension Procedures XRay, CTs & MRIs X-RAY CHEST, TWO VIEWS IMPRESSION: No acute pulmonary process. Dictated by: Myra Castro M.D. on 10/04/2016 at 15:02 Brief History Lindy Spencer is an 81 year old woman with past medical history significant for pulmonary hypertension, severe mitral regurgitation currently under evaluation at [facility] for a clip, diastolic heart failure who presented to the [facility] emergency department after speaking with her barn and property manager, Dr. Peck, due to continuing fluid retention despite increased dose of diuretic for the last few days. The patient also notes worsening shortness of breath unless sitting upright, being unable to walk 12 steps before becoming short of breath and fatigued. She has gained 8 pounds over this week. Patient denies any recent changes in diet, any increased salt intake, any missed medications.She denied any chest pain, vomiting, nausea, diarrhea, cough. Ms. Spencer was admitted to the hospital for aggressive diuresis. She was put on 40mg IV Lasix four times daily with eventual diuresis of over 6L. Her breathing , mobility, and kidney function improved daily. I contacted her physician's office, Dr. Mitchell, for any medication recommendations prior to her procedure (scheduled for October) but did not receive any specific instructions at this time. After a discussion with her Assistant Women'S Soccer Coach here, Dr. Peck, he recommended transitioning her to 40mg PO Torsemide daily and 12.5mg Spironolactone. She will follow up in the [facility] Residency clinic on Monday for a BMP with another BMP to be done Sunday 10/15 so that any abnormalities can be evaluated prior to her procedure the following week. Hospital Course Lindy Spencer is an 81 year old woman with past medical history significant for pulmonary hypertension, severe mitral regurgitation currently under evaluation at [facility] for a clip, and diastolic heart failure who presented to the [facility] emergency department per Dr. Peck's recommendation due to continuing fluid retention and weight gain despite increased doses of her diuretic. Acute on chronic congestive diastolic heart failure, present on admission. Improved. - Likely complicated by patient's severe MR - Recommend she continue 2L fluid restriction up until her procedure date - Continue home Benicar, Carvedilol - Increased Torsemide to 40mg daily and started Spironolactone 12.5mg daily - Follow up with [facility] Residency clinic Monday for BMP (kidney function, potassium ) with another BMP to be done on Sunday 10/15 Mitral regurgitation, pulmonary admission, active -Under evaluation by [facility] for mitral clip procedure -Patient will contact Dr. Mitchell on Monday for further medication recommendations prior to her procedure Chronic anxiety - Continue home regimen GERD -Continue home reigmen Hypothyroidism -Continue levothyroxine Chronic pain -Continue patient's OxyContin regimen Hypertension - Spironolactone, Torsemide as above - BMP follow up as above Disposition: Patient was discharged in stable and improved condition. She expressed understanding of her medication changes, ongoing treatment plan, and under what conditions she is to return to the hospital. PCP FOLLOW UP: Blood pressure, potassium, and kidney function TIARA; if borderline, consider another BMP Monday Exam Vital Signs (Last) Date Time Temp Pulse Resp B/P Pulse Ox O2 Delivery O2 Flow Rate FiO2 10/08/16 08:56 36.4 73 20 122/80 96 Room Air Exam General: Age-appropriate female in NAD, well-developed, well-nourished, appropriately interactive HEENT: Normocephalic, atraumatic. External ears without defect. Pupils equal, round, and reactive to light and accommodation. Oropharynx free of erythema and cobble stoning with moist mucosa. Neck: Supple with full range of motion. No jugular venous distension or thyromegaly. Cardiovascular: RRR with holosystolic murmur, no rubs/clicks/gallops Pulmonary: CTA bilaterally; no wheezing/rales/rhonchi Abdomen: Soft, nontender, nondistended. No hepatosplenomegaly or masses appreciated.Bowel tones present. Extremities: No clubbing, cyanosis. Severely edematous to just below her knees with chronic skin stasis changes. Skin: Normal temperature, turgor, and texture; no rash, ulcers. Neurological: Cranial nerves grossly intact. Normal muscle strength, tone, and bulk. Reflexes, coordination, and sensory function within normal limits. No known gait impairment. Psychiatric: Normal mood and affect. Alert and oriented to person, place, and time. Test 10/04/16 14:52 10/04/16 19:18 10/04/16 21:13 10/05/16 04:00 Magnesium Level 2.0mg/dL (1.6-2.6) Troponin T < 0.010ug/L (0.0-0.011) Pro-B-Type Natriuretic Peptide 942.4pg/mL (0-738) Hold Bhakta Top Tube Received (Received) Hold Urine Received (Received) Urine Color Yellow (YELLOW) Urine Appearance Clear (CLEAR,HAZY) Urine pH 5.5 (5.0-8.0) Urine Specific [place] 1.007 (1.003-1.035) Urine Protein Negativemg/dL (NEG,TRACE) Urine Glucose (UA) Negativemg/dL (NEGATIVE) Urine Ketones Negativemg/dL (NEGATIVE) Urine Occult Blood Negative (NEGATIVE) Urine Nitrite Negative (NEGATIVE) Urine Bilirubin Negative (NEGATIVE) Urine Urobilinogen Normalmg/dL (NORMAL) Urine Leukocyte Esterase Negative (NEGATIVE) Urine RBC 0-2/hpf (0-2) Urine WBC 0-5/hpf (0-5) Urine Epithelial Cells Occasional/hpf (NONE-MOD) Urine Crystals None seen (NONE SEEN) Urine Bacteria None/hpf (NONE-FEW) Urine Hyaline Casts None/lpf (NONE) Urine Granular Casts None seen (NONE SEEN) Urine Waxy Casts None seen (NONE SEEN) Urine Red Blood Cell Casts None seen (NONE SEEN) Urine White Blood Cell Casts None seen (NONE SEEN) Urine Mucus None seen (None Seen) Urine Trichomonas None seen (NONE SEEN) Urine Yeast None (NONE SEEN) Urinalysis Comment None Urine Culture Reflexed Not indicated Triglycerides Level 128mg/dL (0-149) Cholesterol Level 165mg/dL (100-199) LDL Cholesterol, Calculated 52.400mg/dL (0-99) VLDL Cholesterol 25.600mg/dL HDL Cholesterol 87mg/dL (>39) Cholesterol/HDL Ratio 1.90 (0.0-4.4) Test 10/08/16 03:50 White Blood Count 5.2th/mm3 (3.8-10.1) Red Blood Count 3.82mil/mm3 (3.90-5.20) Hemoglobin 10.3g/dL (12.0-15.6) Hematocrit 32.7% (35.0-46.0) Mean Corpuscular Volume 85.6fL (81-100) Mean Corpuscular Hemoglobin 27.0pg (27.0-35.0) Mean Corpuscular Hemoglobin Concent 31.5% (32.0-37.0) Red Cell Distribution Width 16.6% (12.3-15.4) Platelet Count 232bil/L (150-400) Neutrophils (%) (Auto) 60.1% (40-74) Lymphocytes (%) (Auto) 21.8% (14-46) Monocytes (%) (Auto) 11.9% (4-12) Eosinophils (%) (Auto) 5.0% (0-5) Basophils (%) (Auto) 1.0% (0-3) Sodium Level 136mEq/L (134-144) Potassium Level 4.0mEq/L (3.5-5.2) Chloride Level 93mEq/L (97-108) Carbon Dioxide Level 28mmol/L (18-29) Blood Urea Nitrogen 37mg/dL (8-27) Creatinine 1.05mg/dL (0.57-1.00) Estimat Glomerular Filtration Rate 72mL/min (>59) Glucose Level 116mg/dL (60-99) Calcium Level 8.8mg/dL (8.5-10.1) Total Bilirubin 0.2mg/dL (0.0-1.2) Aspartate Amino Transf (AST/SGOT) 43U/L (0-50) Alanine Aminotransferase (ALT/SGPT) 24U/L (0-32) Alkaline Phosphatase 100U/L (25-165) Total Protein 7.6g/dL (6.4-8.4) Albumin 3.6g/dL (3.4-5.0) Discharge Medications Discharge Medications Budesonide/Formoterol 160-4.5 mcg Inh (Symbicort 160-4.5 mcg Inh) 120 Puff Inhaler 2 PUFF INHALATION BID (Reported) Carvedilol (Coreg) 12.5 Mg Tablet 12.5 MG PO BID (Reported) Estradiol (Estradiol) 1 Mg Tablet 1 MG PO QAM (Reported) Levothyroxine (Levothyroxine) 175 Mcg Tablet 175 MCG PO QAM (Reported) Olmesartan (Benicar) 20 Mg Tablet 20 MG PO DAILYWM (Reported) Omeprazole (Omeprazole) 20 Mg Capsule.dr 20 MG PO BID (Reported) Oxycodone ER (Oxycontin) 30 Mg Tab.er.12h 30 MG PO HS (Reported) Oxycodone ER (Oxycontin) 40 Mg Tab.er.12h 40 MG PO MORNING (Reported) Potassium Chloride (Potassium Chloride) 20 Meq Tab.er.prt 20 MEQ PO DAILY ( Reported) TAKE WITH FOOD Ranitidine (Zantac) 150 Mg Tablet 150 MG PO DAILYWD (Reported) Saccharomyces Boulardii (Digestive Probiotic) 250 Mg Capsule 250 MG PO BID ( Reported) Spironolactone (Spironolactone) 25 Mg Tablet 12.5 MG PO DAILY Prescribed by: ALE JUAREZ DO Torsemide (Torsemide) 20 Mg Tablet 40 MG PO DAILY Prescribed by: ALE JUAREZ DO Venlafaxine ER (Venlafaxine ER) 150 Mg Cap.er.24h 150 MG PO QAM (Reported) As needed Albuterol HFA (Proair HFA) 8.5 Gm Hfa.aer.ad 2 PUFFS INHALATION q4-6 hours PRN PRN For Shortness of Breath (Reported) Zolpidem (Zolpidem) 5 Mg Tablet 5 MG PO HS PRN PRN For Insomnia (Reported) Followup Plan Discharge Diet: Low fat, Low Sodium, Heart Healthy Patient Instructions I discussed your medication with Dr. Peck, who recommended the following: Increase Torsemide to 40mg daily Start Spironolactone 12.5mg daily I want you to call the [facility] Residency clinic ([phone]) on Monday to check your potassium and kidney function with a BMP. I'd also recommend a repeat BMP on Sunday 10/15 to ensure smooth transition to your mitral clip procedure the following week. Please call Dr. Mitchell's office ([phone]) on Monday for information regarding your upcoming mitral clip procedure and any further medication adjustment they may find necessary beforehand. Follow-up Provider: [facility] Follow-up with PCP in: 1 week ([facility] residency clinic [place] (Monday if poss) with BMP prior; usually sees Dr. Muller) Provider: Jimmy Mitchell MD Follow-up in: 2 weeks (Mitral clip procedure; call office monday) Time spent Greater than 30 minutes was spent in preparation of discharge with greater than 50% of that time dedicated to patient counseling and coordination of care. . Attending Statement The patient was seen and examined together with Dr. Juarez on 10/08/2016 and I agree with the history, exam and plan as outlined in the note above. . copies to: Tirso Peck MD; Enrique Muller Jeffery S DO Oct 08, 2016 12:43 Ryne Robbins MD Oct 08, 2016 16:48
--- NOTE | 2016-10-08 14:21 | NUR ---
Social Work- Discharge/Multidisciplinary Rounds Data: EMR reviewed. Pt is medically ready for discharge. MD feels that HH is not medically indicated at this time. SW met with pt at bedside. Pt agreeable to return home today. Pt's caregiver will transport. No additional needs. Assessment: Pt who has caregivers at home. Plan: Pt to discharge home today with caregiver to transport via POV. No additional needs. CARL Cerda
--- NOTE | 2016-10-08 14:46 | NUR ---
Discharge pt ordered for discharge, pt aware and agreeable. discharge instructions and medications reviewed with patient. home medications retrieved from pharmacy and given to patient. pt escorted to front lobby via wheelchair at about 1430 with all belongings.
== END 2016-10-08 14:25 | disposition home or self-care (01) | DRG 292 ==
LOC: SED 13:57 → PCC 20:11
PROVIDERS: ADMIT Hospitalist; ATTEND Internal Medicine
DX: I50.33 Acute on chronic diastolic (congestive) heart failure (principal); F11.20 Opioid dependence, uncomplicated; I34.0 Nonrheumatic mitral (valve) insufficiency; I10 Essential (primary) hypertension; F41.8 Other specified anxiety disorders; F41.9 Anxiety disorder, unspecified; E03.9 Hypothyroidism, unspecified; Z79.51 Long term (current) use of inhaled steroids; Z86.03 Personal history of neoplasm of uncertain behavior

== ENCOUNTER 2016-10-26 13:38 | Inpatient (IN) | payer MEDICARE ==
[~2016-10-26] VITALS: Ht 165.1 cm; Wt 95.5 kg
[~2016-10-26 13:38] MED LIST changes: +CARV12.5 PO; -CARV6.252 PO; -DOCU250C2 PO; -HYDR-656 PO; -HYDR25SU10 RC; -NYST1POW23 MC; -ONDA4TAB6 PO; -OXYC10TA69 PO; +OXYC40TA46 PO; -POLY17PO6 PO; -QUET25TA73 PO; -SACC250C9 PO; +SPIR25TA3 PO; -TORS10TA5 PO; +TORS20TA3 PO
[2016-10-26 13:49] VITALS: BP 101/43; PULSE 79; RESP 18; O2SAT 96
--- NOTE | 2016-10-26 14:06 | ED.REPORT ---
HPI-General Illness Date of Service Oct 26, 2016 ED Provider: Eduard Iqbal MD The patient is an 81 year old female with a history of pulmonary hypertension, lung cancer (in remission), atrial fibrillation, CHF and severe mitral regurgitation who presents to the ED with SOB that became increasingly worse this afternoon. She was recently seen in the ED for fluid retention and was admitted discharged with 30mg of Torsemide QD and spirolactone on 10/08. Patient reports recent weight gain (approx. 13 lbs)and lower leg edema that began 10 days ago but has become increasingly worse since discharge. Patient currently has a mitral valve clip placement scheduled for later this month. She denies cough, fever, chest pain, or urinary retention. Nursing Notes Stated Complaint: SOB Chief Complaint: Respiratory Distress Nursing Notes Reviewed: Yes Allergies: Coded Allergies: No Known Allergies (Unverified , 10/04/16) Scheduled Budesonide/Formoterol 160-4.5 mcg Inh (Symbicort 160-4.5 mcg Inh) 120 Puff Inhaler 2 PUFF INHALATION BID Carvedilol (Coreg) 12.5 Mg Tablet 12.5 MG PO BID Estradiol (Estradiol) 1 Mg Tablet 1 MG PO QAM Levothyroxine (Levothyroxine) 175 Mcg Tablet 175 MCG PO QAM Olmesartan (Benicar) 20 Mg Tablet 20 MG PO DAILY Omeprazole (Omeprazole) 20 Mg Capsule.dr 20 MG PO BID Oxycodone ER (Oxycontin) 30 Mg Tab.er.12h 30 MG PO HS Oxycodone ER (Oxycontin) 40 Mg Tab.er.12h 40 MG PO MORNING Potassium Chloride (Potassium Chloride) 20 Meq Tab.er.prt 20 MEQ PO DAILY TAKE WITH FOOD Ranitidine (Zantac) 150 Mg Tablet 150 MG PO DAILYWD Saccharomyces Boulardii (Digestive Probiotic) 250 Mg Capsule 250 MG PO BID Spironolactone (Spironolactone) 25 Mg Tablet 12.5 MG PO HS Torsemide (Torsemide) 10 Mg Tablet 30 MG PO DAILY Venlafaxine ER (Venlafaxine ER) 150 Mg Cap.er.24h 150 MG PO QAM Zolpidem (Zolpidem) 5 Mg Tablet 5 MG PO HS Scheduled PRN Albuterol HFA (Proair HFA) 8.5 Gm Hfa.aer.ad 2 PUFFS INHALATION q4-6 hours PRN PRN For Shortness of Breath Docusate Sodium (Docusate Sodium) 250 Mg Capsule 250 MG PO BID PRN PRN For Constipation Hydrocortisone Acetate (Anucort-Hc) 25 Mg Supp.rect 25 MG HI BID PRN PRN HEMORRHOIDS Nystatin (Nystatin) 1 Each Powder.ea. 1 APPLIC TOP DAILY PRN PRN YEAST INFECTION Polyethylene Glycol 3350 (Miralax) 17 Gm Powd.pack 17 GM PO DAILY PRN PRN For Constipation General Time Seen by MD: 13:59 Chief Complaint Other (SOB) Hx Obtained From: Patient Arrived By: Walk-in Sudden in Onset?: No Onset Occurred: Just prior to arrival Symptom Duration: Since onset Associated with: Reports: Shortness of breath Pertinent Negative: Pt denies other symptoms Recent Healthcare: Recent doctor visit, Recent hospitalization (10/08 ) Past Medical History Past Medical History Notes: Cardiology: Dr. 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 Alcohol Use: Denies alcohol use Drug Use: Denies drug use Other Social History: Good social support, Local resident Ambulatory Status Independent Review of Systems + 13 lbs weight gain + Abdominal distention Full Review of Systems Respiratory: Reports: Shortness of breath, Denies: Non-productive cough Cardiovascular: Reports: Edema (LE), Denies: Chest pain Female: Denies: Urination decreased Complete sys rev & neg: except as marked. Physical Exam Vital Signs Vital Signs Date Time Temp Pulse Resp B/P Pulse Ox O2 Delivery O2 Flow Rate FiO2 10/26/16 15:02 73 20 95/49 94 Room Air 10/26/16 13:49 36.8 79 18 101/43 96 Room Air Initial VS: Reviewed Neck: Supple, Non-tender, Full range of motion Skin: Warm, Dry, No cyanosis Neurologic: Alert, Oriented, Nonfocal Psychiatric: Mood/affect normal, Behavior normal, Normal thought content General/Constitutional: Awake, Alert, No acute distress, Well appearing, Well developed Head / Eyes: Atraumatic, Normocephalic, PERRL ENT: Atraumatic, Airway patent Mouth: Positive: Mucous membranes dry Respiratory / Chest: Atraumatic, Breath sounds = bilat, No respiratory distress Bibaisilar crackles Good air movement Cardiovascular: Heart rate NL, Regular rhythm, Heart sounds NL, No gallop, No murmurs, No rubs Lower Ext Edema: Positive: Pitting (Severe pitting edema - Extends up to the thighs) Abdomen: Atraumatic, Soft, Non-tender, BS normoactive, No distention Upper Extremities Upper Extremity / MS: Atraumatic, Non-tender, Neurologic intact, Vascular intact Lower Extremity / Pelvis / MS: Atraumatic, Non-tender, Neurologic intact, Vascular intact Interpretation & Diagnostics Lab Results Interpretation Result Diagram: 10/26/16 1440 10/26/16 1440 Test 10/26/16 14:40 White Blood Count 6.3th/mm3 (3.8-10.1) Red Blood Count 3.50mil/mm3 (3.90-5.20) Hemoglobin 9.3g/dL (12.0-15.6) Hematocrit 29.4% (35.0-46.0) Mean Corpuscular Volume 84.0fL (81-100) Mean Corpuscular Hemoglobin 26.6pg (27.0-35.0) Mean Corpuscular Hemoglobin Concent 31.6% (32.0-37.0) Red Cell Distribution Width 16.6% (12.3-15.4) Platelet Count 243bil/L (150-400) Neutrophils (%) (Auto) 69.0% (40-74) Lymphocytes (%) (Auto) 16.4% (14-46) Monocytes (%) (Auto) 10.7% (4-12) Eosinophils (%) (Auto) 3.3% (0-5) Basophils (%) (Auto) 0.6% (0-3) Sodium Level 132mEq/L (134-144) Potassium Level 4.7mEq/L (3.5-5.2) Chloride Level 94mEq/L (97-108) Carbon Dioxide Level 20mmol/L (18-29) Blood Urea Nitrogen 43mg/dL (8-27) Creatinine 1.59mg/dL (0.57-1.00) Estimat Glomerular Filtration Rate 45mL/min (>59) Glucose Level 107mg/dL (60-99) Calcium Level 8.3mg/dL (8.5-10.1) Total Bilirubin 0.2mg/dL (0.0-1.2) Aspartate Amino Transf (AST/SGOT) 20U/L (0-50) Alanine Aminotransferase (ALT/SGPT) 12U/L (0-32) Alkaline Phosphatase 94U/L (25-165) Troponin T < 0.010ug/L (0.0-0.011) Pro-B-Type Natriuretic Peptide 1140pg/mL (0-738) Total Protein 7.4g/dL (6.4-8.4) Albumin 3.6g/dL (3.4-5.0) Hold Bhakta Top Tube Received (Received) ECG Interpretation ECG Interpretation: Sinus Rhythm Rate 68 Normal axis Normal intervals No acute ST changes Unchanged from prior dated 10/04/16 Time: 14:01 Interpreted by: ED physician X-Ray Chest Interpretation Chest Xray Interpretation: IMPRESSION: No acute pulmonary process. Dictated by: Myra Castro M.D. on 10/26/2016 at 13:59 Interpretation / Wet Read by: Interpret - Radiologist Re-Eval/Medical Decision Med Decision/Clinical Course The patient is an 81 year old female with a history of pulmonary hypertension, lung cancer (in remission), atrial fibrillation, CHF and severe mitral regurgitation who presents to the ED with SOB that became increasingly worse this afternoon. She was recently seen in the ED for fluid retention and was admitted discharged with 30mg of Torsemide QD and spirolactone on 10/08. Patient reports recent weight gain (approx. 13 lbs)and lower leg edema that began 10 days ago but has become increasingly worse since discharge. Patient currently has a mitral valve clip placement scheduled for later this month. She denies cough, fever, chest pain, or urinary retention. Here in the emergency department the patient is hemodynamically stable and afebrile with examination as above. Interventions: 80 mg IV Lasix EKG Sinus Rhythm Rate 68 Normal axis Normal intervals No acute ST changes Unchanged from prior dated 10/04/16 Labs CBC no leukocytosis Hct - 29.4 (near baseline) BUN - 43 Creat 1.59 elevated from base Na 140.2 K 4.7 Trop neg BNP 1140 Chest IMPRESSION: No acute pulmonary process. Overall presentation consistent with acute congestive heart failure exacerbation. Overall presentation unconvincing for acute coronary syndrome or pulmonary embolism. Patient has been treated with IV diuretics though she is also noted to have some acute kidney injury. She was discussed with admitting hospitalist and accepted for further management. Time of Eval: 14:13 Re-Evaluation/Progress Note: She is informed of the likely plan to admit for IV diuretics. Consultation : Referral / Consult Name: Mauro Ambrose Consulted With: Hospitalist Call Returned at: 15:43 Sack Cleaning Hand: Will see patient, Agrees with eval, Agrees with plan, Accepts admit Counseled Regarding: Diagnosis, Lab results, Need for admission Discharge & Departure Primary Impression: CHF exacerbation Congestive heart failure type: unspecified congestive heart failure type Qualified Code: I50.9 - Heart failure, unspecified Additional Impressions: Respiratory distress Bilateral lower extremity edema Acute kidney injury Disposition: ADMITTED TO HOSPITAL Discharge Condition All VS Reviewed: Yes Condition: Stable Referrals: Enrique Muller DO (PCP) Crit Care Except Billable Proc Time Spent: 75-104 minutes Services Performed: Patient management by me, Time spent at bedside, Reviewing test results, Reviewing imaging, Discussing patient care, Documentation in record, Time with fam/surrogate Scribe Attestation Portions of this note were transcribed by Michelle Magana. I, Dr. Iqbal personally performed the history, physical exam and medical decision-making; I reviewed and confirmed the accuracy of the information in the transcribed note. copies to: Tirso Peck MD; Enrique Muller Beck O MD Oct 26, 2016 14:06 MICHELLE MAGANA Oct 26, 2016 14:12
[2016-10-26] MEDS ORDERED: Alum-Mag Hydrox-Simeth 30 mL Suspension PO PRN ×2 (14:30→15:05)
[2016-10-26] MEDS ORDERED: Ondansetron 2 mg/mL 2 mL Inj IVPUSH PRN ×2 (14:30→15:05)
[2016-10-26] MEDS ORDERED: Furosemide 10 mg/mL 10 mL Inj IVPUSH ONE (14:30)
[2016-10-26 14:44] LABS: BASOPHILS % (AUTO) 0.6 % (0-3); EOSINOPHILS % (AUTO) 3.3 % (0-5); MONOCYTES % (AUTO) 10.7 % (4-12); Mean Corpuscular Hemoglobin 26.6 pg (27.0-35.0); Platelet Count 243 bil/L (150-400)
[2016-10-26 15:02] VITALS: BP 95/49; PULSE 73; RESP 20; O2SAT 94
--- NOTE | 2016-10-26 15:02 | DRSVH ---
PROCEDURE: X-RAY CHEST ONE VIEW, PORTABLE ([id number]) INDICATIONS: dyspnea TECHNIQUE: One view of the chest was acquired. COMPARISON: [facility], CR, XR CHEST 2VW, 10/04/2016, 14:39. FINDINGS: Surgical changes and devices: Right humeral arthroplasty. Lungs and pleura: No pleural effusions or pneumothorax. Lungs are clear. Mediastinum: Mediastinal contours appear normal. Heart size is normal. Bones and chest wall: No suspicious bony lesions. Overlying soft tissues appear unremarkable. IMPRESSION: No acute pulmonary process. Dictated by: Myra Castro M.D. on 10/26/2016 at 13:59 Approved by: Myra Castro M.D. on 10/26/2016 at 14:00
[2016-10-26] MEDS ORDERED: Senna-Docusate 8.6-50 mg Tablet PO PRN (15:05)
[2016-10-26] MEDS ORDERED: TORS10TA5 PO (15:07)
[2016-10-26] MEDS ORDERED: SPIR25TA3 PO (15:07)
[2016-10-26] MEDS ORDERED: POLY17PO6 PO (15:07)
[2016-10-26] MEDS ORDERED: NYST1POW23 TOP (15:07)
[2016-10-26] MEDS ORDERED: HYDR25SU10 PR (15:07)
[2016-10-26] MEDS ORDERED: DOCU250C2 PO (15:07)
[2016-10-26 15:10] LABS: TROPONIN T < 0.010 ug/L (0.0-0.011)
--- NOTE | 2016-10-26 15:17 | PCM.HPMED ---
Subjective Date of Service Oct 26, 2016 Primary Provider: Admitting Physician: Primary Care Physician: Enrique Muller DO Attending Physician: Admit Status: From the Emergency Department, Admit to [place] Team Chief Complaint: Shortness of breath and lower extremity edema History of Present Illness: Lindy Spencer is an 81 year old woman with past medical history significant for pulmonary hypertension, severe mitral regurgitation currently under evaluation at [facility] for a clip, HFpEF who presented to the [facility] emergency department at the advise of her caregiver, who reports increased lower extremity edema for the past week and increased fatigue and shortness of breath the last 3 days. Patient reports her blood pressure has been running low for the past week at 100's / 70's and was 80's / 50's today. She was recently seen in the ED for fluid retention and was admitted discharged with 30mg of Torsemide QD and spirolactone on 10/08. She reports some mild dizziness, increased lower extremity edema that is 2x normal size and difficulty putting on shoes for the past week, 13 lb weight gain since previous admission, and increased fatigue and mild decreased urination. She reports being fully compliant with medication regimen. She denies syncope, chest pain, cough, nausea, vomiting, fever, chills, abdominal pain, dysuria, constipation diarrhea. 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 Patient and caregiver note that her Torsemide was adjusted to 30 mg QD following her discharge from the hosp last time. Pt felt better initially but her symptoms have gotten worse for the last one week or so. Vitals in the ED. She was given 80 mg of IV Lasix. Review of Systems: A comprehensive review of systems was conducted with the patient and found to be negative except as above in the History of Present Illness. Allergies Coded Allergies: No Known Allergies (Unverified , 10/04/16) Home Medications Scheduled Budesonide/Formoterol 160-4.5 mcg Inh (Symbicort 160-4.5 mcg Inh) 120 Puff Inhaler 2 PUFF INHALATION BID Carvedilol (Coreg) 12.5 Mg Tablet 12.5 MG PO BID Estradiol (Estradiol) 1 Mg Tablet 1 MG PO QAM Levothyroxine (Levothyroxine) 175 Mcg Tablet 175 MCG PO QAM Olmesartan (Benicar) 20 Mg Tablet 20 MG PO DAILY Spironolactone (Spironolactone) 25 Mg Tablet 12.5 MG PO HS Torsemide (Torsemide) 10 Mg Tablet 30 MG PO DAILY Potassium Chloride (Potassium Chloride) 20 Meq Tab.er.prt 20 MEQ PO DAILY TAKE WITH FOOD Oxycodone ER (Oxycontin) 30 Mg Tab.er.12h 30 MG PO HS Oxycodone ER (Oxycontin) 40 Mg Tab.er.12h 40 MG PO MORNING Ranitidine (Zantac) 150 Mg Tablet 150 MG PO DAILYWD Omeprazole (Omeprazole) 20 Mg Capsule.dr 20 MG PO BID Saccharomyces Boulardii (Digestive Probiotic) 250 Mg Capsule 250 MG PO BID Venlafaxine ER (Venlafaxine ER) 150 Mg Cap.er.24h 150 MG PO QAM Zolpidem (Zolpidem) 5 Mg Tablet 5 MG PO HS Scheduled PRN Albuterol HFA (Proair HFA) 8.5 Gm Hfa.aer.ad 2 PUFFS INHALATION q4-6 hours PRN PRN For Shortness of Breath Docusate Sodium (Docusate Sodium) 250 Mg Capsule 250 MG PO BID PRN PRN For Constipation Hydrocortisone Acetate (Anucort-Hc) 25 Mg Supp.rect 25 MG [place] BID PRN PRN HEMORRHOIDS Nystatin (Nystatin) 1 Each Powder.ea. 1 APPLIC TOP DAILY PRN PRN YEAST INFECTION Polyethylene Glycol 3350 (Miralax) 17 Gm Powd.pack 17 GM PO DAILY PRN PRN For Constipation PMH Mitral regurgitation. Transesophageal echocardiogram on July 11 showed moderately thickened mitral valve leaflets, with moderate to severe regurgitation including two regurgitant jets. Pulmonary hypertension. Atrial fibrillation, status post ablation. Congestive heart failure. Hypothyroidism. Chronic anxiety. Essential hypertension. Chronic bilateral leg edema, occasionally associated with intermittent cellulitis. Surgical History VATS superior segmentectomy of left lower lobe in June 2015, for lung cancer. Atrial fibrillation ablation. cholecystectomy. Bilateral knee replacements. Family History Mother had blood disorder. Social History Hx Alcohol Use: Yes Hx Substance Use: No Hx Tobacco Use: No Smoking Status: Never Smoker Exam Vital Signs Vital Sign - Last Date Time Temp Pulse Resp B/P Pulse Ox O2 Delivery O2 Flow Rate FiO2 10/26/16 15:02 73 20 95/49 94 Room Air 10/26/16 13:49 36.8 Exam General: No acute distress, well-developed, well-nourished, appropriately interactive HEENT: Normocephalic, atraumatic. External ears without defect. Pupils equal, round, and reactive to light and accommodation. Anicteric sclerae, moist conjunctivae, and no lid lag. Oropharynx free of erythema and cobble stoning with moist mucosa. Neck: Supple with full range of motion. jugular venous distension R>L. No lymphadenopathy or thyromegaly. Cardiovascular: Regular rate and rhythm with holosystolic murmur appreciated Pulmonary: Clear to auscultation bilaterally with no crackles, wheezes, or rhonchi. Normal respiratory effort with no use of accessory muscles. Abdomen: Bowel tones present. Soft, nontender, nondistended. No hepatosplenomegaly or masses appreciated. Extremities: No clubbing, cyanosis. Significant bilateral lower extremity edema that is pitting up to mid thigh. Associated stasis dermatitis. Skin: Normal temperature, turgor, and texture; no rash, ulcers, or subcutaneous nodules appreciated. Neurological: Cranial nerves grossly intact. Normal muscle strength, tone, and bulk. Reflexes, coordination, and sensory function within normal limits. No known gait impairment. Psychiatric: Normal mood and affect. Alert and oriented to person, place, and time. Lab and Diagnostics Result Diagram: 10/26/16 1440 Cardiac Echo Impressions Echocardiogram Report Interpretation Summary The left ventricle is normal in size. Left ventricular systolic function is normal without focal wall motion abnormalities. The ejection fraction is estimated to be 65-70%. There is moderate tricuspid regurgitation. The right ventricular systolic pressure is estimated at 74 mmHg assuming a right atrial pressure of 8 mm Hg. Compared to the prior echo exam, there has been no change in the severity of pulmonary hypertension. Echocardiogram Report Interpretation Summary The mitral valve leaflets appear moderately thickened, but open well. There is moderate to severe mitral regurgitation. There are two regurgitant jets with one more severe than the other. The left ventricle is normal in size, wall thickness, and systolic function without any focal wall motion abnormalities. The ejection fraction is estimated to be 65-70%. The right ventricular systolic pressure is estimated at 66 mmHg assuming a right atrial pressure of 8 mm Hg. CVP was determined to be 8 mmHg during a limited echocardiogram which followed the SARA. The tricuspid valve is normal in structure but is abnormal in function. There is moderate tricuspid regurgitation. There is no other significant valvular heart disease. The aortic root is normal size. The dimensions of the ascending aorta are normal. Assessment & Plan Ms. Lindy Spencer is an 81 year old woman with past medical history significant for pulmonary hypertension, severe mitral regurgitation currently scheduled for Mitral clip 11/15 at [facility], diastolic heart failure who presented to the [facility] emergency department today for CHF exacerbation. Acute on chronic HFpEF, present on admission, active - Likely complicated by patient's severe MR. 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 - Daily weights, strict I&O's, low-salt diet, fluid restriction to 2 L - 80 IV Lasix received in the ED. - Lasix 40 mg IV Q8H ordered by Dr. Sofia - Nitro PRN - Holding home antihypertensives for now with the exception of coreg. - On Remote Telemetry - Prior ECHO and SARA from 07/11/16 as above. - Cardiology consulted, recommendations and expertise appreciated. Acute Kidney Injury, present on admission. Active. - Suspect early Cardiorenal, decreased urination, Creatnine on admission 1.59, baseline ~ 1.1. - Nephrology consulted, recommendations and expertise appreciated. Chronic issues, present remission, stable: Mitral regurgitation, present on admission, active - Under evaluation by [facility] for mitral clip, scheduled for November 15. - Will obtain records from Dr. Duran Hypothyroidism chronic stable -Continue levothyroxine Chronic pain chronic stable -Continue patient's OxyContin (~ 70mg Oxy daily) Chronic anxiety chronic stable -Continue patient's home medications chronic Depression stable- Continue home med Effexor GERD chronic stable -Continue patient's home medications Hypertension chronic stable -Medication as above Insomnia chronic stable - Continue Ambien home med CODE STATUS: Full code. POA: Son and Daughter Patient is admitted under inpatient status with expected length of stay greater than 2 midnights due to severity of presenting symptoms, risk of adverse event, and complexity of treatment plan. Pain Evaluation: Adequate Pain Control Resuscitation Status: CPR: Attempt Resuscitation Time spent 40 min Attending Statement The patient was seen and examined together with Dr. Mendoza on 10/26/16 and I agree with the history, exam and plan as outlined in the note above. . SENAIT MENDOZA DO Oct 26, 2016 15:17 Dee Velez DO Oct 26, 2016 19:02
[2016-10-26 15:49] VITALS: PULSE 75
[2016-10-26 15:53] VITALS: BP 119/73; PULSE 76; RESP 20; O2SAT 98
[2016-10-26] MEDS: Sodium Chloride LOK Flush 10 mL Syringe IVFLUSH SCH (16:34)
--- NOTE | 2016-10-26 16:36 | NUR ---
Admit Patient admitted to room via [facility] from ED accompanied by friend/caregiver. Admission documentation completed including med rec. Patient is saline locked-IV is intact and patent. Telemetry is in place. Patient was able to void and UA was sent to lab. Transferred from [facility] to bed SBA/1 person with the use of her personal four wheeled walker. Resident in to see patient. Call light within reach, patient oriented to room, career development director/friend at bedside.
[2016-10-26 16:40] LABS: COLOR,URINE STRAW (YELLOW)
[2016-10-26 16:41] LABS: APPEARANCE,URINE CLEAR (CLEAR,HAZY); OCCULT BLOOD,URINE NEGATIVE (NEGATIVE); PH,URINE 5.5 (5.0-8.0); UROBILINOGEN,URINE NORMAL (NORMAL)
[2016-10-26] MEDS ORDERED: Non-Formulary Medication (Levothyroxine 175 MCG) PO SCH (18:50)
[2016-10-26] MEDS ORDERED: Albuterol 2.5 mg/3 mL Inhalation Solution NEB PRN (19:09)
[2016-10-26 19:26] VITALS: BP 108/65; PULSE 80; RESP 20; O2SAT 97
[2016-10-26] MEDS: oxyCODONE ER 10 mg ER12 Tablet PO SCH (21:30)
[2016-10-26] MEDS: Pantoprazole 40 mg ER24 Tablet PO SCH (21:34)
[2016-10-26] MEDS: Fluticasone-Salmeterol 500-50 Inhaler INHALATION SCH (22:25)
[2016-10-27] VITALS (8 sets, daily range): BP systolic 95–138; BP diastolic 51–81; PULSE 62–80; RESP 18–21; O2SAT 96–99
[2016-10-27] MEDS: Sodium Chloride LOK Flush 10 mL Syringe IVFLUSH SCH ×3 (00:47→18:15)
[2016-10-27] MEDS: Furosemide 10 mg/mL 4 mL Inj IVPUSH SCH ×3 (00:47→21:07)
--- NOTE | 2016-10-27 05:42 | NUR ---
NOC/Activity Pt denies chest pain, sob, n/v or abd discomfort. Has been pleasant and cooperative with care. VSS and is WNL. IV lasix administered as ordered. HS meds administered as scheduled. Intentional hourly rounding done and pt has slept most of the night.
[2016-10-27] MEDS: Pantoprazole 40 mg ER24 Tablet PO SCH (07:51)
[2016-10-27] MEDS: oxyCODONE ER 40 mg ER12 Tablet PO SCH (08:30)
[2016-10-27] MEDS: Potassium Chloride 20 mEq SR Tablet PO SCH (08:31)
[2016-10-27] MEDS: Venlafaxine XR 75 mg ER24 Capsule PO SCH (08:34)
[2016-10-27] MEDS: Fluticasone-Salmeterol 500-50 Inhaler INHALATION SCH ×2 (08:35→21:06)
[2016-10-27] MEDS ORDERED: Darbepoetin Alfa 60 mCg/0.3 mL Inj SUBQ ONE (11:05)
--- NOTE | 2016-10-27 11:50 | NUR ---
Social Work-initial assessment: Data:See initial assessment. P tis a 81 y/o female who was admitted on 10/26/16 for CHF exacerbation per H&P. Pt's insurance is [employer] and PCP Is Enrique Muller. EMR reviewed. Pt's readmission score is 5-high risk. SW met with pt at bedside, SW role explained. Pt is alert and oriented x3. Pt resides at [facility] where she remains independent with basic ADLS. Pt does not drive and uses a fww at baseline. Pt has history with , but has never been to SNF. Pt has caregiver Sultana [phone] who assists pt 5 days a week. Pt has no long-term care insurance or VA benefit. SW discussed DPOA/ advanced directive, pt confirms this has been completed, SW encouraged a copy to be brought in. Pt discussed in morning rounds, pt does have caregiver support to assist with her own ability for self care. Pt confirms her caregiver will likely provide transport home. SW provided discharge planning checklist and encouraged them to call with any questions, phone number provided. SW will continue to follow. Assessment:Pt who has caregiver support. Plan:Pt to discharge back to [facility] when medically stable. Pt has caregiver support 5 days a week. SW will continue to follow. CARL Rodriguez Addendum: 10/27/16 at 1155 by ELLIS ANGULO SS Amended: Links added.
--- NOTE | 2016-10-27 11:51 | CONS ---
[address] [address] CONSULTATION REPORT PATIENT: JOHANN PETERSON : 1935 MR#: [id number] ADMIT: 10/26/2016 JOB ID: [id number] DATE OF SERVICE: 10/27/2016 PRIMARY CARE PHYSICIAN: Enrique Muller DO HISTORY OF PRESENT ILLNESS: The patient is a very pleasant 81-year-old white female, who was well known to me from a previous consultation in February 2016. She was admitted to [facility] for acute decompensated congestive heart failure with preserved ejection fraction and acute kidney injury. Renal consultation is being sought for further evaluation of her acute kidney injury. She has a very extensive past medical history including severe mitral regurgitation, and tricuspid regurgitation. She is scheduled to have a clip procedure on her mitral valve later in this month in [place]. I had seen the patient in February when she presented with a similar picture and hyponatremia. At that time she was also found to be anemic, and I started her on Aranesp. There was no follow up in our office and this is the first time I have seen her since February. She states that over the last month or so she has had progressive increase in the size of her legs, increasing abdominal girth, severe orthopnea, resting dyspnea and dyspnea with minimal exertion. She has also had episodes of paroxysmal nocturnal dyspnea, but denies any chest pain. She states that she has been compliant with her medication and sodium restriction. On further questioning, she denies the intake of any nonsteroidal anti-inflammatories, uhmh-juz-vyrftuh medications, or herbal preparations. On admission, she was started on intravenous furosemide and has had a prompt diuresis with 1800 mL of urine out this morning. At time of admission her creatinine was 1.59 and this is also improved to a level of 1.29. She has been taking omeprazole for some time, and I am concerned that this may be adding to her chronic kidney disease. She denies any difficulty with urination, hematuria, proteinuria, recurrent urinary tract infection, renal lithiasis, history of diabetes or lupus. PAST MEDICAL HISTORY: Significant for mitral regurgitation and acute decompensated congestive heart failure with a preserved ejection fraction as detailed above. She also has a history of hypertension which had been under good control, COPD, hypothyroidism, GERD, atrial fibrillation, status post ablation, pulmonary hypertension, chronic lower extremity edema. She also was recently diagnosed with stage 1 adenocarcinoma of the lung and underwent a resection. She states that she did not require any followup radiation or chemotherapy. PAST SURGICAL HISTORY: Significant for a VATS procedure of the left lower lobe is detailed above, ablation of atrial fibrillation, cholecystectomy, bilateral knee replacements. ALLERGIES: She is not allergic to food or any medication. SOCIAL HISTORY: She denies use of tobacco or illicit drugs. She states she drinks 1-2 glasses of wine per evening. FAMILY HISTORY: Noncontributory. REVIEW OF SYSTEMS: As detailed above. Otherwise, she states that she has had some nausea and anorexia, but no vomiting, constipation, diarrhea, fever, or chills. PHYSICAL EXAMINATION: Revealed a mildly obese, 81-year-old, white female, who was alert and oriented x3, in no distress at time of my evaluation. Her blood pressure was 97/63 with a pulse rate of 80. HEENT examination is remarkable for pale sclerae. Cornea, conjunctiva, pupils, and extraocular muscles were within normal limits. Neck is supple without adenopathy or thyromegaly. There was some moderate jugular venous distention at 45 degrees elevation. Lungs showed a few bibasilar rales. Heart was irregular with a questionable diastolic rumble noted. Abdomen is distended with a free fluid wave noted. There was no tenderness, rebound, or guarding noted. There were some hepatic fullness and the liver was pulsatile with a mild hepatojugular reflux noted. Extremities showed extensive mild to moderate pitting edema in both proximal and distal lower extremities. There is also some evidence of solar keratosis along with almost cobblestone-like appearance of the subcutaneous tissue. She also has multiple excoriations on her distal lower extremities with circumferential erythema. There is also evidence of half and half nails, but no clubbing or cyanosis is noted. Skin turgor is good. IMPRESSION: 1. Acute kidney injury secondary to acute decompensated congestive heart failure with preserved ejection fraction, which is resolving. 2. Mitral regurgitation and tricuspid regurgitation. 3. Anasarca. 4. Cardiorenal syndrome. 5. Acute interstitial nephritis versus chronic interstitial nephritis secondary to proton pump inhibitor use. 6. Anemia which appears to be multifactorial. RECOMMENDATION: I would like to get an ultrasound of both kidneys. I would also like a survey of the abdomen to evaluate the ascites. I would also recommend bilateral venous Dopplers of the lower extremities. I would also like to get an iron, TIBC. I would also urge stopping any and all of the proton pump inhibitors as I feel this may be aggravating her acute and chronic kidney issues. I would also recommend cutting back on her furosemide to every 12 hours and adding 12.5 mg of chlorthalidone. I will also give her a dose of 60 mg of Aranesp. Once again, I would like to thank you for allowing me to participate in the care of this most pleasant, but somewhat unfortunate patient. I will be following her closely with you.
--- NOTE | 2016-10-27 12:07 | DRSVH ---
[facility] [address] [place] [address] Echocardiogram Report Name: JOHANN PETERSON HStlorenzo Vega e: 10/27/2016 Height: 65 in Hospital Exam Location: [facility] Weight: 223 lb Gender: Female BSA: 2.1 m2 : 1935 Age: 81 yrs BP: 131/81 mmHg Reason For Study: MR, PHTN Ordering Physician: Performed By: Josue Hidalgo Interpretation Summary The left ventricle is normal in size. Left ventricular systolic function is normal. The ejection fraction is estimated to be 60-65%. There has been no significant change since the previous study. Paradoxical septal motion is consistent with right ventricular volume overload. The right ventricle is mildly dilated. The right ventricular systolic function is normal. The right ventricular systolic pressure is estimated at 53 mmHg assuming a right atrial pressure of 8 mm Hg. Compared to the prior echo exam, there has been a decrease in the severity of pulmonary hypertension. The left atrium is moderately dilated. The right atrium is mildly dilated. There is moderate to severe mitral regurgitation. Compared to the prior echo study, there has been no change in the severity of mitral regurgitation. There is moderate tricuspid regurgitation. There is no other significant valvular heart disease. The ascending aorta is mild-moderately enlarged. Procedure: A two-dimensional transthoracic echocardiogram with color flow and Doppler was performed. The study quality was technically adequate. Comparison is made with the echocardiogram of 07/11/16. The patient was in normal sinus rhythm during the exam. Left Ventricle: The left ventricle is normal in size. Left ventricular systolic function is normal. The ejection fraction is estimated to be 60-65%. There has been no significant change since the previous study. Paradoxical septal motion is consistent with right ventricular volume overload. Diastolic function could not be accurately assessed due to confounding valvular disease. Right Ventricle: The right ventricle is mildly dilated. The right ventricular systolic function is normal. Atria: The left atrium is moderately dilated. The right atrium is mildly dilated. The interatrial septum is intact with no evidence for an atrial septal defect. Mitral Valve: The mitral valve leaflets are mildly calcified. The mitral valve mean gradient is 6 mmHg. There is moderate to severe mitral regurgitation. Compared to the prior echo study, there has been no change in the severity of mitral regurgitation. Aortic Valve: The aortic valve is not well visualized. There is no hemodynamically significant valvular aortic stenosis. No aortic regurgitation is present. Tricuspid Valve: The tricuspid valve is not well visualized, but is grossly normal. There is moderate tricuspid regurgitation. The right ventricular systolic pressure is estimated at 53 mmHg assuming a right atrial pressure of 8 mm Hg. Compared to the prior echo exam, there has been a decrease in the severity of pulmonary hypertension. Pulmonic Valve: The pulmonic valve is not well visualized. There is a trace or physiologic amount of pulmonic regurgitation. There is no other significant valvular heart disease. Great Vessels: The aortic root is normal size. The ascending aorta is mild- moderately enlarged. The pulmonary artery is not well visualized, but is probably normal size. The IVC is of normal diameter and collapses less than 50% with a sniff. This suggests a right atrial pressure of 8 mm Hg. Pericardium/ Pleura There is no pericardial effusion. There is no pleural effusion. MMode/2D Measurements & Calculations LVIDd: 5.4 cm RA long axis asc Aorta LVIDs: 4.2 cm LA A2 area: 29.0 cm Diam: 4.0 cm FS: 23.4 % LA A4 area: 28.3 cm RA area LA length (vol): 6.9 cm LA vol: 101.8 ml : 20.9 cm LA vol index RA vol: 64.1 ml RA : 31.0 mm2 IVC diam: 2.0 cm LV leong. diameter/BSA LV sys. diameter/BSA TAPSE: 2.1 cm (cm/m^2): 2.6 (cm/m^2): 2.0 Doppler Measurements & Calculations Ao V2 max MV E max gideon MV E/A: 1.4 TR max gideon : 161.6 cm/sec : 191.1 cm/sec Med Peak E' Gideon : 335.6 cm/sec Ao max PG MV A max gideon TR max P.0 mmHg : 10.4 mmHg : 141.4 cm/sec E/E' med: 33.7 Ao mean PG Lat Peak E' Gideon MR ERO: 0.41 cm2 LVOT Max Gideon E/E' lat: 37.6 : 127.4 cm/sec E/e' average sev ratio: 0.85 MV V2 mean Ao V2 mean LV V1 max PG MR flow rate : 118.6 cm/sec : 107.6 cm/sec MV mean PG Ao V2 VTI: 31.6 cm LV V1 VTI: 27.0 cm : 173.3 cm3/sec MR PISA radius MV V2 VTI: 53.7 cm : 0.89 cm MV dec time : 0.31 sec Reading Physician:SABRINA
--- NOTE | 2016-10-27 14:46 | DRSVH ---
PROCEDURE: US VENOUS LEG DUPLEX BILATERAL INDICATIONS: Venous stasis, edema TECHNIQUE: Real-time imaging, as well as color and pulse Doppler interrogation, were performed of the deep veins of both legs from the inguinal ligament to the popliteal fossa. COMPARISON: None. FINDINGS: The deep veins are normally compressible, and free of intraluminal thrombus. Color and pu lse Doppler demonstrate normal phasic intravascular flow. There is normal augmentation response to d istal compression maneuver. IMPRESSION: No DVT found. Dictated by: Valdo Nieto M.D. on 10/27/2016 at 14:45 Approved by: Valdo Nieto M.D. on 10/27/2016 at 14:45
--- NOTE | 2016-10-27 16:14 | PCM.PNMED ---
Subjective Date of Service Oct 27, 2016 Subjective Patient is getting an KYLEE study in the room, she states that she is feeling fine. She has no complaints. Exam Vital Signs Vital Sign - Last Date Time Temp Pulse Resp B/P Pulse Ox O2 Delivery O2 Flow Rate FiO2 10/27/16 12:26 35.6 71 20 108/70 96 Room Air Intake and Output 10/26/16 10/26/16 10/27/16 Cumulative From/Thru 15:00 23:00 07:00 10/26/16 13:49 - 10/27/16 06:33 Intake Total 600 ml 380 ml 980 ml Output Total 800 ml 1800 ml 2600 ml Balance -200 ml -1420 ml -1620 ml Intake Oral 600 ml 380 ml 980 ml Output Urine Total 800 ml 1800 ml 2600 ml # Bowel Movements 0 0 Exam General: No acute distress, well-developed, well-nourished, appropriately interactive HEENT: Normocephalic, atraumatic. External ears without defect. Cardiovascular: Regular rate and rhythm with holosystolic murmur appreciated Pulmonary: Clear to auscultation bilaterally with no crackles, wheezes, or rhonchi. Normal respiratory effort with no use of accessory muscles. Abdomen: Bowel tones present. Soft, nontender, nondistended. No hepatosplenomegaly or masses appreciated. Extremities: No clubbing, cyanosis. Significant bilateral lower extremity edema that is pitting. Associated stasis dermatitis. Skin: Normal temperature Neurological: No focal deficits Psychiatric: Normal mood and affect. Alert and oriented to person, place, and time. IVs and Medications IV Fluids None Medications Reviewed: Medications were reviewed in detail Lab and Diagnostics Result Diagram: 10/26/16 1440 10/27/16 0640 Cardiac Echo Impressions Echocardiogram Report Interpretation Summary The left ventricle is normal in size. Left ventricular systolic function is normal without focal wall motion abnormalities. The ejection fraction is estimated to be 65-70%. There is moderate tricuspid regurgitation. The right ventricular systolic pressure is estimated at 74 mmHg assuming a right atrial pressure of 8 mm Hg. Compared to the prior echo exam, there has been no change in the severity of pulmonary hypertension. Echocardiogram Report Interpretation Summary The mitral valve leaflets appear moderately thickened, but open well. There is moderate to severe mitral regurgitation. There are two regurgitant jets with one more severe than the other. The left ventricle is normal in size, wall thickness, and systolic function without any focal wall motion abnormalities. The ejection fraction is estimated to be 65-70%. The right ventricular systolic pressure is estimated at 66 mmHg assuming a right atrial pressure of 8 mm Hg. CVP was determined to be 8 mmHg during a limited echocardiogram which followed the SARA. The tricuspid valve is normal in structure but is abnormal in function. There is moderate tricuspid regurgitation. There is no other significant valvular heart disease. The aortic root is normal size. The dimensions of the ascending aorta are normal. Assessment & Plan Ms. Lindy Spencer is an 81 year old woman with past medical history significant for pulmonary hypertension, severe mitral regurgitation currently scheduled for Mitral clip 11/15 at [facility], diastolic heart failure who presented to the [facility] emergency department today for CHF exacerbation. Acute on chronic HFpEF, present on admission, active - Likely complicated by patient's severe MR. 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 - Daily weights, strict I&O's, low-salt diet, fluid restriction to 2 L. patient is adequately diuresing based on ins and outs - 80 IV Lasix received in the ED. - Lasix 40 mg IV Q8H ordered by Dr. Sofia, dose changed to every [address] Burrell - Nitro PRN - Holding home antihypertensives for now with the exception of coreg. - On Remote Telemetry - Prior ECHO and SARA from 07/11/16 as above. - Cardiology consulted, recommendations and expertise appreciated. Acute Kidney Injury, present on admission. Active. - Suspect early Cardiorenal, decreased urination, Creatnine on admission 1.59, baseline ~ 1.1. - Nephrology consulted, recommendations and expertise appreciated. -- Nephrology has changed Lasix dose as above, added chlorthalidone, they would like for us to avoid omeprazole -- "I would like to get an ultrasound of both kidneys. I would also like a survey of the abdomen to evaluate the ascites. I would also recommend bilateral venous Dopplers of the lower extremities. I would also like to get an iron, TIBC. I would also urge stopping any and all of the proton pump inhibitors as I feel this may be aggravating her acute and chronic kidney issues. I would also recommend cutting back on her furosemide to every 12 hours and adding 12.5 mg of chlorthalidone. I will also give her a dose of 60 mg of Aranesp. Chronic issues, present remission, stable: Mitral regurgitation, present on admission, active - Under evaluation by [facility] for mitral clip, scheduled for November 15. - Obtained and reviewed records from Dr. Duran, Dr. Yarbrough also reviewed the records states that there is no definite reason to believe that her mitral valve regurgitation is severe. He would like for cardiology to reevaluate right heart catheter procedure probably on Monday. Hypothyroidism chronic stable -Continue levothyroxine Chronic pain chronic stable -Continue patient's OxyContin (~ 70mg Oxy daily) Chronic anxiety chronic stable -Continue patient's home medications chronic Depression stable- Continue home med Effexor GERD chronic stable -Continue patient's home medications Hypertension chronic stable -Medication as above Insomnia chronic stable - Continue Ambien home med CODE STATUS: Full code. POA: Son and Daughter Patient is admitted under inpatient status with expected length of stay greater than 2 midnights due to severity of presenting symptoms, risk of adverse event, and complexity of treatment plan. Resuscitation Status: CPR: Attempt Resuscitation Time spent 20 minutes Dee Velez DO Oct 27, 2016 14:47
--- NOTE | 2016-10-27 16:27 | CONS ---
[address] [address] CONSULTATION REPORT PATIENT: JOHANN PETERSON : 1935 MR#: [id number] ADMIT: 10/26/2016 JOB ID: [id number] DATE OF SERVICE: 10/27/2016 CARDIOLOGY CONSULTATION: The patient is an 88-year-old with a complex history over the last couple of years that I have been asked to see to evaluate recurrent issues with progressive weight gain associated with progressively severe dyspnea, orthopnea, PND and anasarca. This patient had an echocardiogram in April of 2015 which demonstrated mild mitral insufficiency and normal pulmonary artery pressures as well as normal left and right heart function. 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 Over the course of the last eight months, she has had problems with recurrent severe lower extremity edema associated with symptoms of weight gain and dyspnea. She presented to the emergency department initially in January 2016 with dyspnea and severe lower extremity edema with some venous ulcerations. Notable at that time was the fact that her BNP was only 366 and her creatinine was normal. She returned to the emergency department in February 2016 with weight gain, lower extremity edema, dyspnea and orthopnea. She was notably anemic at that time with a hemoglobin of 8.7, and her creatinine was 1.1. ProBNP again was only mildly abnormal at 1025 with an upper limits of normal of 738. Notable is the fact that she had an echocardiogram in the hospital showing normal ventricular function but her right ventricular systolic pressure was estimated at 70 mmHg. Her echo suggested the presence of significant mitral regurgitation but the left atrium was reportedly only mildly enlarged. She was sent home on torsemide and her weight during the hospitalization fell from 105 kg down to 98 kg. She has had recurrent hospitalizations since treated with variable doses of torsemide. She has had variations in her serum creatinine and significant intermittent hyponatremia but has had a persistent moderate anemia, and despite all of these symptoms, again her BNP value has not been significantly elevated. A transesophageal echocardiogram was performed in June of this year by Dr. Peck. Mitral valve leaflets appeared fairly unremarkable but there was evidence of moderate or moderately severe mitral regurgitation with two separate regurgitant jets associated with a slight amount of prolapse of anterior leaflets. Right ventricular systolic pressure again estimated at 66 mmHg and there was evidence of moderate tricuspid regurgitation. Left ventricular chamber size was normal with normal ventricular function. An etiology of the mitral regurgitation has never been very clearly defined. Based on that, she was sent to the [facility] for evaluation and was seen by Dr. Mitchell and Dr. Hernandez in September of this year. A repeat echocardiogram done at the [facility] reported only moderate amount of mitral regurgitation and certainly not severe mitral regurgitation, but because of this patient's compelling symptoms and history, it was felt that the echocardiogram may well have underestimated the severity of mitral regurgitation and that she may be indeed a good candidate to consider for mitral clip procedure. She was readmitted to the hospital yesterday again because of progressive dyspnea and edema and a reported weight gain of about 13 pounds over the past week or two weeks. MEDICATIONS ON ADMISSION: Included: 1. Carvedilol 12.5 mg b.i.d. 2. Estradiol. 3. Levothyroxine. 4. Olmesartan 20 mg daily. 5. Omeprazole 20 mg b.i.d. 6. She takes oxycodone for chronic pain in addition to potassium 20 mEq daily. 7. Torsemide 30 mg daily. 8. Spironolactone 12.5 mg daily. 9. She also takes venlafaxine 150 mg daily. 10. Zolpidem 5 mg at h.s. in addition to some inhalers. 11. She has been treated with intravenous diuretics over the course of the past 24 hours and is diuresing nicely with a negative 1400 cc yesterday and a weight reduction of about 2 kg. Her breathing is better. The patient is lying comfortably in bed during my visit today with her head up about 30 degrees. Her heart rates have been in the 60s and 70s and normal sinus rhythm with a right bundle branch block and her blood pressures have been ranging in the low 100 range. Her examination is notable for prominent jugular venous distention with the neck veins visible at the earlobe in the sitting position with a CVP probably at least 15-20 mmHg. Lungs do not demonstrate any obvious rales or rhonchi or wheezing. Heart tones are somewhat distant. S2 is very slightly split. P2 is somewhat prominent. There is a soft murmur of mitral insufficiency audible at the apex and a soft tricuspid regurgitation murmur at the left lower sternal border. I do not feel a right ventricular heave. The patient is obese and is 5 feet 5 inches tall and weighs 223 pounds for a body mass index of 37.9. She has a somewhat diffuse macular papular rash over most of her body it seems, but her legs show scaling and a prominent maculopapular irritation as well as chronic venous stasis changes and 4+ edema up to her hips. Abdomen is obese. I am not sure that I can detect any evidence of ascites. No obvious organomegaly. No focal musculoskeletal or neurologic findings. She has no evidence of acrocyanosis or clubbing. LABORATORY: Her laboratory again is notable for a ProBNP of 1140 and again the upper limits of normal is around 738, so this is a very modest elevation compared with her symptoms and her fluid congestion. Blood work is also notable for her chronic anemia and her hemoglobin measures 9.3. She has a normal white cell count and normal platelet count. Her creatinine on admission was 1.59, but that has improved to 1.29 today. Blood sugar is mildly elevated. Liver function tests are normal and troponin is normal. A 12-lead EKG shows normal sinus rhythm with a right bundle branch block. Chest x-ray is reviewed and shows her heart size not significantly enlarged. Pulmonary vasculature is somewhat prominent but I do not see much in the way of redistribution. Chest CT scan is reviewed from October of 2015, May of 2016 and July of 2016. She has some nodular scarring in the right upper lobe. Her most recent CT scan from July shows fairly significant ground glass interstitial changes at both lung bases, perhaps more prominent at the left lung base. Pulmonary function studies were done by Dr. Morales who saw this patient in consultation in July. The pulmonary function studies from June of this year demonstrate some degree of restrictive pulmonary disease but also show a reduced diffusion capacity of just 53% of normal. DISCUSSION: This patient presents with symptoms of progressive exertional dyspnea, functional class III with nocturnal pulmonary congestion, weight gain and severe edema. She appears to have developed significant pulmonary hypertension between April 2015 and February 2016 when her echocardiogram showed marked increase in right ventricular systolic pressure and evidence at that time of significant mitral regurgitation. It is difficult for me to blame all of this on her mitral regurgitation, and on my review of her echocardiograms including her transesophageal echocardiogram, I get the impression that her mitral regurgitation is moderately severe but not severe. This would correspond with the echocardiogram done at the [facility] as well. In addition, what is notable is the fact that she has had this now for close to eight months or longer and her left atrium is not significantly enlarged, and on each of her hospital admissions, her BNP value was only minimally elevated and not substantially elevated as we might expect. With her abnormal pulmonary function studies and previous lung cancer diagnosis and surgery, I just am puzzled as to whether or not she may have some intrinsic interstitial pulmonary disease to account for her reduced diffusion capacity and secondary pulmonary hypertension and whether or not that has a lot to do with her symptomatic dyspnea. PLAN: I am going to recommend that this patient continue with intravenous diuretic therapy over the weekend with the hope of getting her down about 10 kg from her admission weight. I would send her home at least on 40 mg of torsemide daily. It is reasonable to consider the possibility of cardiac catheterization perhaps by Dr. Peck on Monday with a right heart catheter to look at pulmonary capillary wedge pressure tracings to determine if that is consistent with severe mitral regurgitation and to review thermodilution cardiac outputs and right heart pressures, and at the same time, a ventriculogram with cardiac output calculated by ventriculography might give you some impression of what the regurgitant volume truly is and a ventriculogram could also demonstrate angiographically the severity of the mitral regurgitation. If these are all consistent with severe mitral regurgitation, then it may be perfectly reasonable for this patient to undergo the proposed mitral clip procedure at the [facility]. If there is evidence to suggest that the mitral regurgitation is not severe, then I would be interested in Dr. Morales's followup to determine if there is some intrinsic pulmonary component to her right heart failure and symptoms of dyspnea and it may be also that a three dimensional SARA examination at the [facility] could be helpful in better or clearly defining the severity of her mitral regurgitation. I will speak with Dr. Peck about these thoughts and recommendations. Dr. Armas will be assuming the hospital service tomorrow and I will ask him to followup on her progress.
[2016-10-27] MEDS: Polyethylene Glycol (PEG) 17 Gm Powder PO PRN (18:26)
--- NOTE | 2016-10-27 18:37 | NUR ---
Pain Pt c/o 09/26 left shoulder and back pain X2. Administered 650mg Tylenol and then scheduled oxy which brought patients pain level to 4/10.
--- NOTE | 2016-10-27 20:42 | DRSVH ---
PROCEDURE: US ABDOMEN, LIMITED ([id number]) INDICATIONS: MICAH with probable ascities TECHNIQUE: Real-time focused scanning was performed of the abdomen, with image documentation. COMPARISON: [facility], , ABDOMEN LTD, 02/25/2016, 14:03. FINDINGS: No ascites within all 4 quadrants of the abdomen. IMPRESSION: No ascites. Dictated by: Foster العلي RRAsh Interpreted: Jaden Ortiz MD on 10/27/2016 at 15:28 Approved by: Jaden Ortiz M.D. on 10/27/2016 at 20:41
--- NOTE | 2016-10-27 20:51 | DRSVH ---
PROCEDURE: US RENAL SONOGRAM INDICATIONS: MICAH with probable ascities TECHNIQUE: Real-time scanning was performed of the kidneys and bladder, with image documentation. COMPARISON: None. FINDINGS: Kidneys: Kidneys are normal in size. Right kidney measures 9.7 cm long; left kidney measures 11.0 c m long. Right renal cortical thickness is 1.0 cm; left renal cortical thickness is 1.5 cm. Renal co rtical echotexture is normal. No hydronephrosis or nephrolithiasis. No suspicious solid mass lesion s. Bladder: Pre-void bladder volume is 124 mL. Post-void residual cannot be assessed as the patient wa s unable to void. Pre-void images demonstrate no intraluminal masses or stones. On pre-void images, neither ureteral jets are noted with color Doppler interrogation. (Of note, ureteral jets may not b e detectable in up to 25% of cases due to insufficient differences in specific gravity between ureter al and bladder urine). Miscellaneous: No free pelvic fluid. IMPRESSION: 1. Minimal renal cortical thinning involving the right kidney, otherwise grossly normal appearance of the kidneys. Dictated by: Foster العلي [facility] Interpreted: Jaden Ortiz MD on 10/27/2016 at 15:41 Approved by: Jaden Ortiz M.D. on 10/27/2016 at 20:49
[2016-10-27] MEDS: oxyCODONE ER 10 mg ER12 Tablet PO SCH (21:15)
[2016-10-28] VITALS (8 sets, daily range): BP systolic 93–134; BP diastolic 60–81; PULSE 65–86; RESP 18–20; O2SAT 94–97
[2016-10-28] MEDS: Sodium Chloride LOK Flush 10 mL Syringe IVFLUSH SCH ×3 (00:30→16:38)
[2016-10-28 07:51] LABS: Unsaturated Iron Binding 465.7 ug/dL
[2016-10-28] MEDS: Fluticasone-Salmeterol 500-50 Inhaler INHALATION SCH ×2 (09:07→21:48)
[2016-10-28] MEDS: Furosemide 10 mg/mL 4 mL Inj IVPUSH SCH ×2 (09:08→18:01)
[2016-10-28] MEDS: Venlafaxine XR 75 mg ER24 Capsule PO SCH (09:10)
[2016-10-28] MEDS: Potassium Chloride 20 mEq SR Tablet PO SCH (09:10)
[2016-10-28] MEDS: oxyCODONE ER 40 mg ER12 Tablet PO SCH (09:11)
--- NOTE | 2016-10-28 09:30 | DRSVH ---
PROCEDURE: US DUPLEX DOPPLER BILATERAL LEG ARTERIES ([id number]) INDICATIONS: EDEMA TECHNIQUE: Color and pulse Doppler interrogation was performed of both lower extremity arterial systems, with im age documentation. COMPARISON: None. FINDINGS: Right lower extremity: Vascular Ultrasound Procedure Report Findings(Artery of Lower Extremity)(Right) Common Femoral Artery(Distal) Velocity: 104.10 cm/s Profunda Femoris Artery(Proximal) Velocity: 66.50 cm/s Superficial Femoral Artery(Proximal) Velocity: 86.80 cm/s Superficial Femoral Artery(Mid-longitudinal) Velocity: 101.20 cm/s Superficial Femoral Artery(Distal) Velocity: 109.90 cm/s, 97.60 cm/s Popliteal Artery(Mid-longitudinal) Velocity: 120.70 cm/s Posterior Tibial Artery(Distal) Velocity: 131.40 cm/s Dorsalis Pedis Artery(Distal) Velocity: 59.80 cm/s Greyscale findings: Minimal plaque. Left lower extremity: Vascular Ultrasound Procedure Report Findings(Artery of Lower Extremity)(Left) Common Femoral Artery(Distal) Velocity: 92.50 cm/s Profunda Femoris Artery(Proximal) Velocity: 54.70 cm/s Superficial Femoral Artery(Proximal) Velocity: 115 cm/s, 134.20 cm/s Superficial Femoral Artery(Mid-longitudinal) Velocity: 149.90 cm/s Superficial Femoral Artery(Distal) Velocity: 129.60 cm/s Popliteal Artery(Mid-longitudinal) Velocity: 93.50 cm/s Posterior Tibial Artery(Distal) Velocity: 92.50 cm/s Dorsalis Pedis Artery(Distal) Velocity: 81.60 cm/s Greyscale findings: Minimal plaque. IMPRESSION: Minimal plaque and no hemodynamically significant peripheral arterial stenosis. Dictated by: Foster RODRIGUEZ Interpreted: Lillian Garcia MD on 10/28/2016 at 8:54 Approved by: Lillian Garcia M.D. on 10/28/2016 at 9:20
--- NOTE | 2016-10-28 11:36 | PCM.PNNEPH ---
AMANDO CHAVIS DO 10/28/16 1136: Subjective Date of Service Oct 28, 2016 Subjective Overnight patient complained of some left shoulder and back pain which was relieved with pain medications. Vital signs remained stable, continues to have good urinary output 3.4 L yesterday 1.6 L thus far today. Overall patient states she feels much improved, is able to breathe without difficulty as her primary concern. Continues to receive IV diuretics, spironolactone and chlorthalidone. Sodium levels normalized, BUN and creatinine continued to trend down. Iron studies showed 5% saturation Exam Vital Signs Vital Sign - Last Date Time Temp Pulse Resp B/P Pulse Ox O2 Delivery O2 Flow Rate FiO2 10/28/16 09:49 86 10/28/16 09:15 36.1 111/72 96 Room Air 111/72 10/28/16 05:45 20 Intake and Output 10/27/16 10/27/16 10/28/16 Cumulative From/Thru 15:00 23:00 07:00 10/26/16 13:49 - 10/28/16 05:38 Intake Total 1500 ml 2480 ml Output Total 1575 ml 4175 ml Balance -75 ml -1695 ml Intake Oral 1500 ml 2480 ml Output Urine Total 1575 ml 4175 ml # Bowel Movements 0 0 Exam General: Awake and alert standing next to hospital bed in no acute distress, well-developed, well-nourished, appropriately interactive HEENT: Normocephalic, atraumatic. External ears without defect. Pupils equal, round, and reactive to light and accommodation. Moist mucosa. Neck: Supple with full range of motion. No jugular venous distension. Cardiovascular: Regular rate and rhythm with soft systolic murmur Pulmonary: Clear to auscultation bilaterally with no crackles. Normal respiratory effort with no use of accessory muscles. Abdomen: Soft, nontender, nondistended. Extremities: No clubbing, cyanosis. Bilateral lower extremity pitting edema extending to mid thigh. Skin: Diffuse macular papular rash over upper and lower extremities as well as the neck. Excoriations on the lower extremities. Venous stasis changes Neurological: Cranial nerves grossly intact. Psychiatric: Normal mood and affect. Alert and oriented to person, place, and time. Lab and Diagnostics Result Diagram: 10/26/16 1440 10/28/16 0702 X-Rays, CTs and MRIs . X-RAY CHEST ONE VIEW, PORTABLE IMPRESSION: No acute pulmonary process. Dictated by: Myra Castro M.D US VENOUS LEG DUPLEX BILATERAL IMPRESSION: No DVT found. Dictated by: Valdo Nieto M.D. US RENAL SONOGRAM IMPRESSION: 1. Minimal renal cortical thinning involving the right kidney, otherwise grossly normal appearance of the kidneys. Dictated by: Foster RODRIGUEZ Interpreted: Jaden Ortiz MD US ABDOMEN, LIMITED IMPRESSION: No ascites. Dictated by: Foster RODRIGUEZ Interpreted: Jaden Ortiz MD US DUPLEX DOPPLER BILATERAL LEG ARTERIES IMPRESSION: Minimal plaque and no hemodynamically significant peripheral arterial stenosis. Dictated by: Fsoter RODRIGUEZ Interpreted: Lillian Garcia MD Cardiac Echo Impressions Echocardiogram Report Interpretation Summary The left ventricle is normal in size. Left ventricular systolic function is normal without focal wall motion abnormalities. The ejection fraction is estimated to be 65-70%. There is moderate tricuspid regurgitation. The right ventricular systolic pressure is estimated at 74 mmHg assuming a right atrial pressure of 8 mm Hg. Compared to the prior echo exam, there has been no change in the severity of pulmonary hypertension. Echocardiogram Report Interpretation Summary The mitral valve leaflets appear moderately thickened, but open well. There is moderate to severe mitral regurgitation. There are two regurgitant jets with one more severe than the other. The left ventricle is normal in size, wall thickness, and systolic function without any focal wall motion abnormalities. The ejection fraction is estimated to be 65-70%. The right ventricular systolic pressure is estimated at 66 mmHg assuming a right atrial pressure of 8 mm Hg. CVP was determined to be 8 mmHg during a limited echocardiogram which followed the SARA. The tricuspid valve is normal in structure but is abnormal in function. There is moderate tricuspid regurgitation. There is no other significant valvular heart disease. The aortic root is normal size. The dimensions of the ascending aorta are normal. Plan Impression 1. Acute kidney injury secondary to acute decompensated congestive heart failure with preserved ejection fraction, which is resolving. 2. Mitral regurgitation and tricuspid regurgitation. 3. Anasarca. 4. Cardiorenal syndrome. 5. Acute interstitial nephritis versus chronic interstitial nephritis secondary to proton pump inhibitor use. 6. Anemia which appears to be multifactorial. Plan: Continue furosemide 40 mg IV every 12 Continue chlorthalidone 12.5 mg daily Continue Aldactone 12.5 mg daily Continue potassium replacement Patient received 1 dose of Aranesp, repeat H&H Continue to monitor Fluid status and urinary output Jimmy Burrell DO 10/28/16 1204: Exam Lab and Diagnostics Result Diagram: 10/26/16 1440 10/28/16 0702 Plan Plan: Nephrology attending: Patient has continued to improve with adjustments in her diuretic therapy. I have thoroughly reviewed the note and discussed the case with Dr. Chavis as detailed above. Her transferrin saturation is 5% and I will go ahead and order also hasresolved. Intravenous iron. She will need ongoing erythropoietin therapy and follow up in our office. AMANDO CHAVIS DO Oct 28, 2016 11:36 Jimmy Burrell DO Oct 28, 2016 12:04
[2016-10-28] MEDS ORDERED: Ferric Sod Gluc Complex Inj 125 MG in 0.9% Sodium Chloride 100 ML IV ONE (12:05)
[2016-10-28] MEDS ORDERED: 0.9% Sodium Chloride 250 ML ONE (13:40)
--- NOTE | 2016-10-28 17:46 | NUR ---
Respiratory Woke up with brief SOB. AM inhalers admin. Distress relieved. HOB slightly elevated. Reports tolerating diureses well and overall improvement.
--- NOTE | 2016-10-28 20:43 | PCM.PNMED ---
Subjective Date of Service Oct 28, 2016 Subjective Patient is seen and examined. She complained of cellulitis in her legs but they appeared to be improved. Exam Vital Signs Vital Sign - Last Date Time Temp Pulse Resp B/P Pulse Ox O2 Delivery O2 Flow Rate FiO2 10/28/16 20:36 36.1 71 18 134/81 96 Room Air Intake and Output 10/27/16 10/27/16 10/28/16 Cumulative From/Thru 15:00 23:00 07:00 10/26/16 13:49 - 10/28/16 05:38 Intake Total 1500 ml 2480 ml Output Total 1575 ml 4175 ml Balance -75 ml -1695 ml Intake Oral 1500 ml 2480 ml Output Urine Total 1575 ml 4175 ml # Bowel Movements 0 0 Exam General: No acute distress, well-developed, well-nourished, appropriately interactive HEENT: Normocephalic, atraumatic. External ears without defect. Cardiovascular: Regular rate and rhythm with holosystolic murmur appreciated Pulmonary: left lobe lobar crackles. Normal respiratory effort with no use of accessory muscles. Abdomen: Bowel tones present. Soft, nontender, nondistended. No hepatosplenomegaly or masses appreciated. Extremities: No clubbing, cyanosis. Significant bilateral lower extremity edema that is pitting. Associated stasis dermatitis. Negative for cellulitic changes and warmth and tenderness Skin: Normal temperature Neurological: No focal deficits Psychiatric: Normal mood and affect. Alert and oriented to person, place, and time. IVs and Medications Medications Reviewed: Medications were reviewed in detail Lab and Diagnostics Result Diagram: 10/28/16 1213 10/28/16 0702 X-Rays, CTs and MRIs . X-RAY CHEST ONE VIEW, PORTABLE IMPRESSION: No acute pulmonary process. Dictated by: Myra Castro M.D US VENOUS LEG DUPLEX BILATERAL IMPRESSION: No DVT found. Dictated by: Valdo Nieto M.D. US RENAL SONOGRAM IMPRESSION: 1. Minimal renal cortical thinning involving the right kidney, otherwise grossly normal appearance of the kidneys. Dictated by: Foster RODRIGUEZ Interpreted: Jaden Ortiz MD US ABDOMEN, LIMITED IMPRESSION: No ascites. Dictated by: Foster RODRIGUEZ Interpreted: Jaden Ortiz MD US DUPLEX DOPPLER BILATERAL LEG ARTERIES IMPRESSION: Minimal plaque and no hemodynamically significant peripheral arterial stenosis. Dictated by: Foster RODRIGUEZ Interpreted: Lillian Garcia MD Cardiac Echo Impressions Echocardiogram Report Interpretation Summary The left ventricle is normal in size. Left ventricular systolic function is normal without focal wall motion abnormalities. The ejection fraction is estimated to be 65-70%. There is moderate tricuspid regurgitation. The right ventricular systolic pressure is estimated at 74 mmHg assuming a right atrial pressure of 8 mm Hg. Compared to the prior echo exam, there has been no change in the severity of pulmonary hypertension. Echocardiogram Report Interpretation Summary The mitral valve leaflets appear moderately thickened, but open well. There is moderate to severe mitral regurgitation. There are two regurgitant jets with one more severe than the other. The left ventricle is normal in size, wall thickness, and systolic function without any focal wall motion abnormalities. The ejection fraction is estimated to be 65-70%. The right ventricular systolic pressure is estimated at 66 mmHg assuming a right atrial pressure of 8 mm Hg. CVP was determined to be 8 mmHg during a limited echocardiogram which followed the SARA. The tricuspid valve is normal in structure but is abnormal in function. There is moderate tricuspid regurgitation. There is no other significant valvular heart disease. The aortic root is normal size. The dimensions of the ascending aorta are normal. Assessment & Plan Ms. Lindy Spencer is an 81 year old woman with past medical history significant for pulmonary hypertension, severe mitral regurgitation currently scheduled for Mitral clip 11/15 at [facility], diastolic heart failure who presented to the [facility] emergency department today for CHF exacerbation. Acute on chronic HFpEF, present on admission, active - Likely complicated by patient's severe MR. Dr. Peck is patients dixonac operator. - Daily weights, strict I&O's, low-salt diet, fluid restriction to 2 L. patient is adequately diuresing based on ins and outs - 80 IV Lasix received in the ED. - Lasix 40 mg IV Q8H ordered by Dr. Sofia, dose changed to every [address] Burrell - Nitro PRN - Holding home antihypertensives for now with the exception of coreg. - On Remote Telemetry - Prior ECHO and SARA from 07/11/16 as above. - Cardiology consulted, recommendations and expertise appreciated. -- "It is reasonable to consider the possibility of cardiac catheterization perhaps by Dr. Peck on Monday with a right heart catheter to look at pulmonary capillary wedge pressure tracings to determine if that is consistent with severe mitral regurgitation and to review thermodilution cardiac outputs andright heart pressures, and at the same time, a ventriculogram with cardiac output calculated by ventriculography might give you some impression of whatthe regurgitant volume truly is and a ventriculogram could also demonstrate angiographically the severity of the mitral regurgitation. If these are all consistent with severe mitral regurgitation, then it may be perfectly reasonable for this patient to undergo the proposed mitral clip procedure atthe [facility]. If there is evidence to suggest that the mitral regurgitation is not severe, then I would be interested in Dr. Morales's followup to determine if there is some intrinsic pulmonary component to her right heart failure and symptoms of dyspnea and it may be also that a threedimensional SARA examination at the [facility] could be helpful in better or clearly defining the severity of her mitral regurgitation. I will speak with Dr. Peck about these thoughts and recommendations. Dr. Zheng be assuming the hospital service tomorrow and I will ask him to followup on her progress. Acute Kidney Injury, present on admission. Active. - Suspect early Cardiorenal, decreased urination, Creatnine on admission 1.59, baseline ~ 1.1. - Nephrology consulted, recommendations and expertise appreciated. -- "Continue furosemide 40 mg IV every 12 Continue chlorthalidone 12.5 mg daily Continue Aldactone 12.5 mg daily Continue potassium replacement Patient received 1 dose of Aranesp, repeat H&H Continue to monitor Fluid status and urinary output Patient has continued to improve with adjustments in her diuretic therapy. I have thoroughly reviewed the note and discussed the case with Dr. Chavis as detailed above. Her transferrin saturation is 5% and I will go ahead and order also Intravenous iron. She will need ongoing erythropoietin therapy and follow up in our office." Chronic issues, present remission, stable: Mitral regurgitation, present on admission, active - Under evaluation by [facility] for mitral clip, scheduled for November 15. - Obtained and reviewed records from Dr. Duran, Dr. Yarbrough also reviewed the records states that there is no definite reason to believe that her mitral valve regurgitation is severe. He would like for cardiology to reevaluate right heart catheter procedure probably on Sumit. Hypothyroidism chronic stable -Continue levothyroxine Chronic pain chronic stable -Continue patient's OxyContin (~ 70mg Oxy daily) Chronic anxiety chronic stable -Continue patient's home medications chronic Depression stable- Continue home med Effexor GERD chronic stable -Continue patient's home medications Hypertension chronic stable -Medication as above Insomnia chronic stable - Continue Ambien home med CODE STATUS: Full code. POA: Son and Daughter Patient is admitted under inpatient status with expected length of stay greater than 2 midnights due to severity of presenting symptoms, risk of adverse event, and complexity of treatment plan. Disposition: Patient will be kept through Monday reach Dr. Peck can come and address possible right heart catheterization make a decision on whether she actually needs mitral valve clip procedure Pain Evaluation: Adequate Pain Control Resuscitation Status: CPR: Attempt Resuscitation Time spent 25 minutes Dee Velez DO Oct 28, 2016 20:43
[2016-10-28] MEDS: oxyCODONE ER 10 mg ER12 Tablet PO SCH (21:48)
[2016-10-29] VITALS (7 sets, daily range): BP systolic 99–121; BP diastolic 61–76; PULSE 66–83; RESP 18–20; O2SAT 94–97
[2016-10-29] MEDS: Sodium Chloride LOK Flush 10 mL Syringe IVFLUSH SCH ×3 (03:58→16:36)
[2016-10-29] MEDS: Potassium Chloride 20 mEq SR Tablet PO SCH (08:28)
[2016-10-29] MEDS: oxyCODONE ER 40 mg ER12 Tablet PO SCH (08:28)
[2016-10-29] MEDS: Fluticasone-Salmeterol 500-50 Inhaler INHALATION SCH ×2 (08:29→21:09)
[2016-10-29] MEDS: Furosemide 10 mg/mL 4 mL Inj IVPUSH SCH ×2 (08:29→15:19)
[2016-10-29] MEDS: Venlafaxine XR 75 mg ER24 Capsule PO SCH (08:30)
--- NOTE | 2016-10-29 09:05 | NUR ---
ABEL signed CARL Cornejo
--- NOTE | 2016-10-29 11:28 | PCM.PNNEPH ---
Subjective Date of Service Oct 29, 2016 Subjective Patient's urine output continues to do well. In the last 24 hour she has had a 35 in and 2650 out. Blood pressures ranged in the 90s to low 130s. She is breathing considerably better and overall feels well. There is no current lab on the chart today. Exam Vital Signs Vital Sign - Last Date Time Temp Pulse Resp B/P Pulse Ox O2 Delivery O2 Flow Rate FiO2 10/29/16 06:17 77 10/29/16 04:23 36.4 18 114/72 97 Room Air Intake and Output 10/28/16 10/28/16 10/29/16 Cumulative From/Thru 15:00 23:00 07:00 10/26/16 13:49 - 10/29/16 06:13 Intake Total 75 ml 460 ml 3015 ml Output Total 1650 ml 1000 ml 6825 ml Balance -1575 ml -540 ml -3810 ml Intake Oral 75 ml 400 ml 2955 ml IV Total 60 ml 60 ml Output Urine Total 1650 ml 1000 ml 6825 ml # Bowel Movements 1 1 Exam HEENT examination is remarkable for pale sclera. Neck is supple without adenopathy, thyromegaly, or jugular venous distention. Lungs are clear with somewhat diminished. Heart is regular and rhythmical with a soft systolic murmur. Abdomen is soft without any tenderness rebound guarding masses or hepatosplenomegaly. Abdomen is soft without any tenderness, rebound, guarding, masses, or hepatosplenomegaly. Extremities still show some generalized edema but this appears to be somewhat less. Lab and Diagnostics Result Diagram: 10/28/16 1213 10/29/16 0755 X-Rays, CTs and MRIs . X-RAY CHEST ONE VIEW, PORTABLE IMPRESSION: No acute pulmonary process. Dictated by: Myra Castro M.D US VENOUS LEG DUPLEX BILATERAL IMPRESSION: No DVT found. Dictated by: Valdo Nieto M.D. US RENAL SONOGRAM IMPRESSION: 1. Minimal renal cortical thinning involving the right kidney, otherwise grossly normal appearance of the kidneys. Dictated by: Foster RODRIGUEZ Interpreted: Jaden Ortiz MD US ABDOMEN, LIMITED IMPRESSION: No ascites. Dictated by: Foster RODRIGUEZ Interpreted: Jaden Ortiz MD US DUPLEX DOPPLER BILATERAL LEG ARTERIES IMPRESSION: Minimal plaque and no hemodynamically significant peripheral arterial stenosis. Dictated by: Foster RODRIGUEZ Interpreted: Lillian Garcia MD Cardiac Echo Impressions Echocardiogram Report Interpretation Summary The left ventricle is normal in size. Left ventricular systolic function is normal without focal wall motion abnormalities. The ejection fraction is estimated to be 65-70%. There is moderate tricuspid regurgitation. The right ventricular systolic pressure is estimated at 74 mmHg assuming a right atrial pressure of 8 mm Hg. Compared to the prior echo exam, there has been no change in the severity of pulmonary hypertension. Echocardiogram Report Interpretation Summary The mitral valve leaflets appear moderately thickened, but open well. There is moderate to severe mitral regurgitation. There are two regurgitant jets with one more severe than the other. The left ventricle is normal in size, wall thickness, and systolic function without any focal wall motion abnormalities. The ejection fraction is estimated to be 65-70%. The right ventricular systolic pressure is estimated at 66 mmHg assuming a right atrial pressure of 8 mm Hg. CVP was determined to be 8 mmHg during a limited echocardiogram which followed the SARA. The tricuspid valve is normal in structure but is abnormal in function. There is moderate tricuspid regurgitation. There is no other significant valvular heart disease. The aortic root is normal size. The dimensions of the ascending aorta are normal. Plan Impression Impression #1 acute on chronic kidney injury which is resolving. #2 acute decompensated congestive heart failure with preserved ejection fraction #3 mitral regurg and tricuspid regurgitation number for anasarca #5 coronary renal syndrome #6 anemia which is probably multifactorial. Recommendations number 1O Adam for another dose of IV iron. From my point of view she can probably go in a day or so on depending upon the primary team. This is important that she does follow up in office in about a month. However continue to follow her during this admission. Jimmy Burrell DO Oct 29, 2016 11:28
[2016-10-29] MEDS ORDERED: Ferric Sod Gluc Complex Inj 125 MG in 0.9% Sodium Chloride 100 ML IV ONE (11:30)
--- NOTE | 2016-10-29 12:12 | PCM.PNCARD ---
Subjective Date of service Oct 29, 2016 Chief Complaint dyspnea, anasarca History of Present Illness 81-year-old woman admitted history of resected left lower lung adenocarcinoma in 2016 admitted with right-sided heart failure in the setting of moderate mitral regurgitation. Subjective: In the past 24 hours, patient continued to diurese well. She feels better but still not back to her baseline from breathing standpoint. Her legs feel less heavy and have less edema. 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 Exam Vital Signs Vital Sign - Last Date Time Temp Pulse Resp B/P Pulse Ox O2 Delivery O2 Flow Rate FiO2 10/29/16 06:17 77 10/29/16 04:23 36.4 18 114/72 97 Room Air Intake and Output 10/28/16 10/28/16 10/29/16 Cumulative From/Thru 14:59 22:59 06:59 10/26/16 13:49 - 10/29/16 06:13 Intake Total 75 ml 460 ml 3015 ml Output Total 1650 ml 1000 ml 6825 ml Balance -1575 ml -540 ml -3810 ml Intake Oral 75 ml 400 ml 2955 ml IV Total 60 ml 60 ml Output Urine Total 1650 ml 1000 ml 6825 ml # Bowel Movements 1 1 General appearance: No apparent distress, well-nourished, pleasant, cooperative HEET: Normocephalic atraumatic, no scleral icterus, tongue midline, mucous membranes moist Neck: supple Cardiovascular: RRR, normal S1 and normal S2, 3/6 systolic murmur, no rubs/ gallops, PMI nondisplaced, JVP 11cm H20, 2 to 3+ peripheral edema b/l with some leg remodelling Respiratory: Good aeration, CTAB Abdomen: Soft, nontender, obese, + bowel sounds Neuro: Alert, no facial droop, tongue midline, no gross motor deficits Psych: appropriate affect Lab and Diagnostics Result Diagram: 10/28/16 1213 10/29/16 0755 X-Rays, CTs and MRIs Echo 10/27/2016: The left ventricle is normal in size. Left ventricular systolic function is normal. The ejection fraction is estimated to be 60-65%. There has been no significant change since the previous study. Paradoxical septal motion is consistent with right ventricular volume overload. The right ventricle is mildly dilated. The right ventricular systolic function is normal. The right ventricular systolic pressure is estimated at 53 mmHg assuming a right atrial pressure of 8 mm Hg. Compared to the prior echo exam, there has been a decrease in the severity of pulmonary hypertension. The left atrium is moderately dilated. The right atrium is mildly dilated. There is moderate to severe mitral regurgitation. Compared to the prior echo study, there has been no change in the severity of mitral regurgitation. There is moderate tricuspid regurgitation. There is no other significant valvular heart disease. The ascending aorta is mild-moderately enlarged. Assessment & Plan Assessment 81-year-old woman admitted history of resected left lower lung adenocarcinoma in 2016 admitted with right-sided heart failure in the setting of moderate mitral regurgitation: # Right sided heart failure: etiology unclear. It has been suspected to be related to mitral regurgitation and has had evaluation for mitraclip at but they felt that the mitral regurgitation is moderate. I have reviewed the echo images and I also feel that the mitral regurgitation is moderate. The other possibility to consider for cause of right-sided heart failure is a pulmonary etiology, especially with left lobe resection in July 2015 for adenocarcinoma. Patient remains hypervolemic on exam but is diuresing well with IV furosemide. She is NYHA class IIIB, ACC stage C. Recommendations as below: - Continue furosemide 40mg IV bid - Increase spironolactone from 12.5mg daily to 25mg daily and make potassium supplementation PRN - I would strongly recommend the patient for R and LHC once euvolemic clinically to assess source of her pulmonary hypertension and RV failure # Pulm HTN: - Management as above # Mitral regurgitation: moderate on my review of echo. - If R and LHC show no significant CAD and no pulmonary etiology of pulmonary hypertension, she can be considered for MitraClip at # [facility]: likely was related to high venous pressures as it is resolving with diuresis. - Continue to monitor Thank you for the interesting consultation. Cardiology will continue to follow. Problems: Pain Evaluation: Adequate Pain Control Resuscitation Status: CPR: Attempt Resuscitation Asiya Armas MD Oct 29, 2016 12:12
--- NOTE | 2016-10-29 16:10 | PCM.PNMED ---
Subjective Date of Service Oct 29, 2016 Subjective Patient is seen and examined, doing well. Discussing discontinuing estrogen supplementation. Exam Vital Signs Vital Sign - Last Date Time Temp Pulse Resp B/P Pulse Ox O2 Delivery O2 Flow Rate FiO2 10/29/16 12:07 36.4 66 20 99/62 95 10/29/16 04:23 Room Air Intake and Output 10/28/16 10/28/16 10/29/16 Cumulative From/Thru 15:00 23:00 07:00 10/26/16 13:49 - 10/29/16 06:13 Intake Total 75 ml 460 ml 3015 ml Output Total 1650 ml 1000 ml 6825 ml Balance -1575 ml -540 ml -3810 ml Intake Oral 75 ml 400 ml 2955 ml IV Total 60 ml 60 ml Output Urine Total 1650 ml 1000 ml 6825 ml # Bowel Movements 1 1 Exam General: No acute distress, well-developed, well-nourished, appropriately interactive HEENT: Normocephalic, atraumatic. External ears without defect. Cardiovascular: Regular rate and rhythm with holosystolic murmur appreciated Pulmonary: left lobe lobar crackles. Normal respiratory effort with no use of accessory muscles. Abdomen: Bowel tones present. Soft, nontender, nondistended. No hepatosplenomegaly or masses appreciated. Extremities: No clubbing, cyanosis. Significant bilateral lower extremity edema that is pitting. Associated stasis dermatitis. Negative for cellulitic changes and warmth and tenderness Skin: Normal temperature Neurological: No focal deficits Psychiatric: Normal mood and affect. Alert and oriented to person, place, and time. Lab and Diagnostics Result Diagram: 10/28/16 1213 10/29/16 0755 X-Rays, CTs and MRIs . X-RAY CHEST ONE VIEW, PORTABLE IMPRESSION: No acute pulmonary process. Dictated by: Myra Castro M.D US VENOUS LEG DUPLEX BILATERAL IMPRESSION: No DVT found. Dictated by: Valdo Nieto M.D. US RENAL SONOGRAM IMPRESSION: 1. Minimal renal cortical thinning involving the right kidney, otherwise grossly normal appearance of the kidneys. Dictated by: Foster RODRIGUEZ Interpreted: Jaden Ortiz MD US ABDOMEN, LIMITED IMPRESSION: No ascites. Dictated by: Foster RODRIGUEZ Interpreted: Jaden Ortiz MD US DUPLEX DOPPLER BILATERAL LEG ARTERIES IMPRESSION: Minimal plaque and no hemodynamically significant peripheral arterial stenosis. Dictated by: Foster العلي [facility] Interpreted: Lillian Garcia MD Cardiac Echo Impressions Echocardiogram Report Interpretation Summary The left ventricle is normal in size. Left ventricular systolic function is normal without focal wall motion abnormalities. The ejection fraction is estimated to be 65-70%. There is moderate tricuspid regurgitation. The right ventricular systolic pressure is estimated at 74 mmHg assuming a right atrial pressure of 8 mm Hg. Compared to the prior echo exam, there has been no change in the severity of pulmonary hypertension. Echocardiogram Report Interpretation Summary The mitral valve leaflets appear moderately thickened, but open well. There is moderate to severe mitral regurgitation. There are two regurgitant jets with one more severe than the other. The left ventricle is normal in size, wall thickness, and systolic function without any focal wall motion abnormalities. The ejection fraction is estimated to be 65-70%. The right ventricular systolic pressure is estimated at 66 mmHg assuming a right atrial pressure of 8 mm Hg. CVP was determined to be 8 mmHg during a limited echocardiogram which followed the SARA. The tricuspid valve is normal in structure but is abnormal in function. There is moderate tricuspid regurgitation. There is no other significant valvular heart disease. The aortic root is normal size. The dimensions of the ascending aorta are normal. Assessment & Plan Ms. Lindy Spencer is an 81 year old woman with past medical history significant for pulmonary hypertension, severe mitral regurgitation currently scheduled for Mitral clip 11/15 at [facility], diastolic heart failure who presented to the [facility] emergency department today for CHF exacerbation. Acute on chronic HFpEF, present on admission, active - Likely complicated by patient's severe MR. Dr. Peck is patients campus administrative assistant. - Daily weights, strict I&O's, low-salt diet, fluid restriction to 2 L. patient is adequately diuresing based on ins and outs - 80 IV Lasix received in the ED. - Lasix 40 mg IV Q8H ordered by Dr. Sofia, dose changed to every [address] Burrell - Nitro PRN - Holding home antihypertensives for now with the exception of coreg. - On Remote Telemetry - Prior ECHO and SARA from 07/11/16 as above. - Cardiology consulted, recommendations and expertise appreciated. -- "It is reasonable to consider the possibility of cardiac catheterization perhaps by Dr. Peck on Monday with a right heart catheter to look at pulmonary capillary wedge pressure tracings to determine if that is consistent with severe mitral regurgitation and to review thermodilution cardiac outputs andright heart pressures, and at the same time, a ventriculogram with cardiac output calculated by ventriculography might give you some impression of whatthe regurgitant volume truly is and a ventriculogram could also demonstrate angiographically the severity of the mitral regurgitation. If these are all consistent with severe mitral regurgitation, then it may be perfectly reasonable for this patient to undergo the proposed mitral clip procedure atthe [facility]. If there is evidence to suggest that the mitral regurgitation is not severe, then I would be interested in Dr. Morales's followup to determine if there is some intrinsic pulmonary component to her right heart failure and symptoms of dyspnea and it may be also that a threedimensional SARA examination at the [facility] could be helpful in better or clearly defining the severity of her mitral regurgitation. I will speak with Dr. Peck about these thoughts and recommendations. Dr. Zheng be assuming the hospital service tomorrow and I will ask him to followup on her progress. -- Dr. Armas has seen the patient on 10/29, increased spironolactone to 25 mg QD. We appreciate his time and recommendations Acute Kidney Injury, present on admission. Active. - Suspect early Cardiorenal, decreased urination, Creatnine on admission 1.59, baseline ~ 1.1. - Nephrology consulted, recommendations and expertise appreciated. -- "Continue furosemide 40 mg IV every 12 Continue chlorthalidone 12.5 mg daily Continue Aldactone 12.5 mg daily Continue potassium replacement Patient received 1 dose of Aranesp, repeat H&H Continue to monitor Fluid status and urinary output Recommendations number 1O Adam for another dose of IV iron. From my point of view she can probably go in a day or so on depending upon the primary team. This is important that she does follow up in office in about a month. However continue to follow her during this admission. Chronic issues, present remission, stable: Mitral regurgitation, present on admission, active - Under evaluation by [facility] for mitral clip, scheduled for November 15. - Obtained and reviewed records from Dr. Duran, Dr. Yarbrough also reviewed the records states that there is no definite reason to believe that her mitral valve regurgitation is severe. He would like for cardiology to reevaluate right heart catheter procedure probably on Monday. Hypothyroidism chronic stable -Continue levothyroxine Chronic pain chronic stable -Continue patient's OxyContin (~ 70mg Oxy daily) Chronic anxiety chronic stable -Continue patient's home medications chronic Depression stable- Continue home med Effexor GERD chronic stable -Continue patient's home medications Hypertension chronic stable -Medication as above Insomnia chronic stable - Continue Ambien home med CODE STATUS: Full code. POA: Son and Daughter Patient is admitted under inpatient status with expected length of stay greater than 2 midnights due to severity of presenting symptoms, risk of adverse event, and complexity of treatment plan. Disposition: Patient will be kept through Monday reach Dr. Peck can come and address possible right heart catheterization make a decision on whether she actually needs mitral valve clip procedure Resuscitation Status: CPR: Attempt Resuscitation Time spent 25 min Dee Velez DO Oct 29, 2016 16:10
--- NOTE | 2016-10-29 16:58 | NUR ---
Social Work: Continued d/c planning Data: Pt is on day 3 of hospitalization. EMR reviewed. Pt discussed in multidisciplinary rounds. MD states pt not yet ready for d/c. REPLENISHER met with pt at bedside. Pt states that she has been up and walking the halls with her walker. REPLENISHER will continue to follow for possible d/c planning needs. Plan: Pt will d/c back to [facility] living with her caregiver Sultana [phone]. REPLENISHER will continue to follow for possible d/c planning needs. CARL Cornejo
--- NOTE | 2016-10-29 17:35 | NUR ---
Discharge Pt discharged at this time, all belongings gathered and returned to pt, VSS. No complains of increased pain, vertigo or weakness. No new scripts given. Discharge packet printed and reviewed with pt. [place] [facility] [place] [facility] in wheelchair, to front entrance to be transported home by partner in private vehicle. Addendum: 10/29/16 at 1826 by NERIS HAIRSTON RN Documented on incorrect pt
--- NOTE | 2016-10-29 18:29 | NUR ---
Pain/activity Pain has been well managed with scheduled narcotics and PRN Tylenol. Pain is mainly in the shoulder and the lower back. Pt has ambulated to the bathroom with personal walker with steady stable gait. Call light in reach, will continue to monitor.
[2016-10-29] MEDS: oxyCODONE ER 10 mg ER12 Tablet PO SCH (21:11)
[2016-10-30] VITALS (11 sets, daily range): BP systolic 92–131; BP diastolic 58–74; PULSE 69–82; RESP 18; O2SAT 93–97
[2016-10-30] MEDS: Sodium Chloride LOK Flush 10 mL Syringe IVFLUSH SCH ×3 (04:18→17:44)
[2016-10-30] MEDS: Fluticasone-Salmeterol 500-50 Inhaler INHALATION SCH ×2 (08:39→20:28)
[2016-10-30] MEDS: Furosemide 10 mg/mL 4 mL Inj IVPUSH SCH (08:39)
[2016-10-30] MEDS: Venlafaxine XR 75 mg ER24 Capsule PO SCH (08:40)
[2016-10-30] MEDS: oxyCODONE ER 40 mg ER12 Tablet PO SCH (08:41)
[2016-10-30 09:22] LABS: Magnesium 2.1 mg/dL (1.6-2.6); Phosphorus 3.8 mg/dL (2.5-4.9)
--- NOTE | 2016-10-30 12:19 | PCM.PNCARD ---
Subjective Date of service Oct 30, 2016 Chief Complaint dyspnea, anasarca History of Present Illness 81-year-old woman admitted history of resected left lower lung adenocarcinoma in 2016 admitted with right-sided heart failure in the setting of moderate mitral regurgitation. Subjective: In the past 24 hours, patient has continued to diurese well. She feels better but still not back to her baseline from breathing standpoint. Her legs feel less heavy and have less edema. She has dyspnea while walking to the bathroom. 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 Exam Vital Signs Vital Sign - Last Date Time Temp Pulse Resp B/P Pulse Ox O2 Delivery O2 Flow Rate FiO2 10/30/16 08:22 36.4 78 18 111/70 97 Room Air Intake and Output 10/29/16 10/29/16 10/30/16 Cumulative From/Thru 14:59 22:59 06:59 10/26/16 13:49 - 10/30/16 06:24 Intake Total 800 ml 474 ml 4289 ml Output Total 1950 ml 700 ml 9475 ml Balance -1150 ml -226 ml -5186 ml Intake Oral 800 ml 474 ml 4229 ml IV Total 60 ml Output Urine Total 1950 ml 700 ml 9475 ml # Bowel Movements 1 General appearance: No apparent distress, well-nourished, pleasant, cooperative HEET: Normocephalic atraumatic, no scleral icterus, tongue midline, mucous membranes moist Neck: supple Cardiovascular: RRR, normal S1 and normal S2, 3/6 systolic murmur, no rubs/ gallops, PMI nondisplaced, JVP 10cm H20, 2+ peripheral edema b/l with some leg remodelling Respiratory: Good aeration, CTAB Abdomen: Soft, nontender, obese, + bowel sounds Neuro: Alert, no facial droop, tongue midline, no gross motor deficits Lab and Diagnostics Result Diagram: 10/28/16 1213 10/30/16 0755 X-Rays, CTs and MRIs Echo 10/27/2016: The left ventricle is normal in size. Left ventricular systolic function is normal. The ejection fraction is estimated to be 60-65%. There has been no significant change since the previous study. Paradoxical septal motion is consistent with right ventricular volume overload. The right ventricle is mildly dilated. The right ventricular systolic function is normal. The right ventricular systolic pressure is estimated at 53 mmHg assuming a right atrial pressure of 8 mm Hg. Compared to the prior echo exam, there has been a decrease in the severity of pulmonary hypertension. The left atrium is moderately dilated. The right atrium is mildly dilated. There is moderate to severe mitral regurgitation. Compared to the prior echo study, there has been no change in the severity of mitral regurgitation. There is moderate tricuspid regurgitation. There is no other significant valvular heart disease. The ascending aorta is mild-moderately enlarged. Assessment & Plan Assessment 81-year-old woman admitted history of resected left lower lung adenocarcinoma in 2016 admitted with right-sided heart failure in the setting of moderate mitral regurgitation: # Right sided heart failure: etiology unclear. It has been suspected to be related to mitral regurgitation and has had evaluation for mitraclip at but they felt that the mitral regurgitation is moderate. I have reviewed the echo images and I also feel that the mitral regurgitation is moderate. The other possibility to consider for cause of right-sided heart failure is a pulmonary etiology, especially with left lobe resection in July 2015 for adenocarcinoma. Patient remains hypervolemic on exam but is diuresing well with IV furosemide. She is NYHA class IIIB, ACC stage C. Recommendations as below: - Continue furosemide 40mg IV bid - Continue spironolactone 25mg daily - Potassium supplementation PRN - I would strongly recommend the patient for R and LHC once euvolemic clinically to assess source of her pulmonary hypertension and RV failure. Patient claims to have had a heart cath but doesn't know where and when. She will get us the information tomorrow. I have been unable to find the cath records in [facility], [place], and [place]. # Pulm HTN: - Management as above # Mitral regurgitation: moderate on my review of echo. - If R and LHC show no significant CAD and no pulmonary etiology of pulmonary hypertension, she can be considered for MitraClip at # MICAH: improving. Likely was related to high venous pressures as it is resolving with diuresis. - Continue to monitor Thank you for the interesting consultation. Cardiology will continue to follow. Problems: Pain Evaluation: Adequate Pain Control Resuscitation Status: CPR: Attempt Resuscitation Asiya Armas MD Oct 30, 2016 12:19
--- NOTE | 2016-10-30 12:23 | PCM.PNNEPH ---
Subjective Date of Service Oct 30, 2016 Subjective Patient continues to improve. Her blood pressure is good and she has some improved exercise tolerance. Her intake and output for 24 hour shows 119 100. This morning her sodium is 135, potassium 3.8, chloride 94, bicarbonate 27, BUN and creatinine were 36 and 0.9. Exam Vital Signs Vital Sign - Last Date Time Temp Pulse Resp B/P Pulse Ox O2 Delivery O2 Flow Rate FiO2 10/30/16 08:22 36.4 78 18 111/70 97 Room Air Intake and Output 10/29/16 10/29/16 10/30/16 Cumulative From/Thru 15:00 23:00 07:00 10/26/16 13:49 - 10/30/16 06:24 Intake Total 800 ml 474 ml 4289 ml Output Total 1950 ml 700 ml 9475 ml Balance -1150 ml -226 ml -5186 ml Intake Oral 800 ml 474 ml 4229 ml IV Total 60 ml Output Urine Total 1950 ml 700 ml 9475 ml # Bowel Movements 1 Exam Lungs are clear to auscultation. Diminished in the bases. Heart is regular and rhythmical with a soft systolic. Abdomen soft without any tenderness rebound guarding masses or hepatosplenomegaly. Extremities symmetric any evidence of any clubbing or cyanosis however some mild edema is noted. Lab and Diagnostics Result Diagram: 10/28/16 1213 10/30/16 0755 X-Rays, CTs and MRIs . X-RAY CHEST ONE VIEW, PORTABLE IMPRESSION: No acute pulmonary process. Dictated by: Myra Castro M.D US VENOUS LEG DUPLEX BILATERAL IMPRESSION: No DVT found. Dictated by: Valdo Nieto M.D. US RENAL SONOGRAM IMPRESSION: 1. Minimal renal cortical thinning involving the right kidney, otherwise grossly normal appearance of the kidneys. Dictated by: Foster RODRIGUEZ Interpreted: Jaden Ortiz MD US ABDOMEN, LIMITED IMPRESSION: No ascites. Dictated by: Foster RODRIGUEZ Interpreted: Jaden Ortiz MD US DUPLEX DOPPLER BILATERAL LEG ARTERIES IMPRESSION: Minimal plaque and no hemodynamically significant peripheral arterial stenosis. Dictated by: Foster RODRIGUEZ Interpreted: Lillian Garcia MD Cardiac Echo Impressions Echocardiogram Report Interpretation Summary The left ventricle is normal in size. Left ventricular systolic function is normal without focal wall motion abnormalities. The ejection fraction is estimated to be 65-70%. There is moderate tricuspid regurgitation. The right ventricular systolic pressure is estimated at 74 mmHg assuming a right atrial pressure of 8 mm Hg. Compared to the prior echo exam, there has been no change in the severity of pulmonary hypertension. Echocardiogram Report Interpretation Summary The mitral valve leaflets appear moderately thickened, but open well. There is moderate to severe mitral regurgitation. There are two regurgitant jets with one more severe than the other. The left ventricle is normal in size, wall thickness, and systolic function without any focal wall motion abnormalities. The ejection fraction is estimated to be 65-70%. The right ventricular systolic pressure is estimated at 66 mmHg assuming a right atrial pressure of 8 mm Hg. CVP was determined to be 8 mmHg during a limited echocardiogram which followed the SARA. The tricuspid valve is normal in structure but is abnormal in function. There is moderate tricuspid regurgitation. There is no other significant valvular heart disease. The aortic root is normal size. The dimensions of the ascending aorta are normal. Plan Impression Impression #1 acute on chronic kidney injury secondary acute decompensated congestive heart failure with preserved ejection fraction #2 tricuspid and mitral regurgitation #3 anasarca which is resolving #4 anemia which is multifactorial #4 chronic interstitial nephritis Recommendations #1 I would like to discontinue the intravenous Lasix and switch her to torsemide 20 mg morning. If a heart catheterization is planned please Jimmy Burrell DO Oct 30, 2016 12:23
--- NOTE | 2016-10-30 16:53 | PCM.PNMED ---
Subjective Date of Service Oct 30, 2016 Subjective pt is still sob with ambulaiton but much better at rest. she feels that she has had a cath but can not recall when. She feels that it was in [facility]. 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 No other concerns Exam Vital Signs Vital Sign - Last Date Time Temp Pulse Resp B/P Pulse Ox O2 Delivery O2 Flow Rate FiO2 10/30/16 14:02 36.4 71 18 92/58 97 Room Air Intake and Output 10/29/16 10/29/16 10/30/16 Cumulative From/Thru 15:00 23:00 07:00 10/26/16 13:49 - 10/30/16 06:24 Intake Total 800 ml 474 ml 4289 ml Output Total 1950 ml 700 ml 9475 ml Balance -1150 ml -226 ml -5186 ml Intake Oral 800 ml 474 ml 4229 ml IV Total 60 ml Output Urine Total 1950 ml 700 ml 9475 ml # Bowel Movements 1 Exam General: No acute distress, well-developed, well-nourished, appropriately interactive HEENT: Normocephalic, atraumatic. External ears without defect. Cardiovascular: Regular rate and rhythm with holosystolic murmur appreciated Pulmonary: left lobe lobar crackles. Normal respiratory effort with no use of accessory muscles. Abdomen: Bowel tones present. Soft, nontender, nondistended. No hepatosplenomegaly or masses appreciated. Extremities: No clubbing, cyanosis. Significant bilateral lower extremity edema that is pitting. Associated stasis dermatitis. Negative for cellulitic changes and warmth and tenderness Skin: Normal temperature Neurological: No focal deficits Psychiatric: Normal mood and affect. Alert and oriented to person, place, and time. Lab and Diagnostics Result Diagram: 10/28/16 1213 10/30/16 0755 X-Rays, CTs and MRIs . X-RAY CHEST ONE VIEW, PORTABLE IMPRESSION: No acute pulmonary process. Dictated by: Myra Castro M.D US VENOUS LEG DUPLEX BILATERAL IMPRESSION: No DVT found. Dictated by: Valdo Nieto M.D. US RENAL SONOGRAM IMPRESSION: 1. Minimal renal cortical thinning involving the right kidney, otherwise grossly normal appearance of the kidneys. Dictated by: Foster RODRIGUEZ Interpreted: Jaden Ortiz MD US ABDOMEN, LIMITED IMPRESSION: No ascites. Dictated by: Foster RODRIGUEZ Interpreted: Jaden Ortiz MD US DUPLEX DOPPLER BILATERAL LEG ARTERIES IMPRESSION: Minimal plaque and no hemodynamically significant peripheral arterial stenosis. Dictated by: Foster RODRIGUEZ Interpreted: Lillian Garcia MD Cardiac Echo Impressions Echocardiogram Report Interpretation Summary The left ventricle is normal in size. Left ventricular systolic function is normal without focal wall motion abnormalities. The ejection fraction is estimated to be 65-70%. There is moderate tricuspid regurgitation. The right ventricular systolic pressure is estimated at 74 mmHg assuming a right atrial pressure of 8 mm Hg. Compared to the prior echo exam, there has been no change in the severity of pulmonary hypertension. Echocardiogram Report Interpretation Summary The mitral valve leaflets appear moderately thickened, but open well. There is moderate to severe mitral regurgitation. There are two regurgitant jets with one more severe than the other. The left ventricle is normal in size, wall thickness, and systolic function without any focal wall motion abnormalities. The ejection fraction is estimated to be 65-70%. The right ventricular systolic pressure is estimated at 66 mmHg assuming a right atrial pressure of 8 mm Hg. CVP was determined to be 8 mmHg during a limited echocardiogram which followed the SARA. The tricuspid valve is normal in structure but is abnormal in function. There is moderate tricuspid regurgitation. There is no other significant valvular heart disease. The aortic root is normal size. The dimensions of the ascending aorta are normal. Assessment & Plan Ms. Lindy Spencer is an 81 year old woman with past medical history significant for pulmonary hypertension, severe mitral regurgitation currently scheduled for Mitral clip 11/15 at [facility], diastolic heart failure who presented to the [facility] emergency department today for CHF exacerbation. Acute on chronic HFpEF, present on admission, active - Likely complicated by patient's severe MR. 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 - Daily weights, strict I&O's, low-salt diet, fluid restriction to 2 L. patient is adequately diuresing based on ins and outs - 80 IV Lasix received in the ED. - Lasix 40 mg IV Q8H ordered by Dr. Sofia, dose changed to every [address] Burrell - Nitro PRN - Holding home antihypertensives for now with the exception of coreg. - On Remote Telemetry - Prior ECHO and SARA from 07/11/16 as above. - Cardiology consulted, recommendations and expertise appreciated. -- "It is reasonable to consider the possibility of cardiac catheterization perhaps by Dr. Peck on Monday with a right heart catheter to look at pulmonary capillary wedge pressure tracings to determine if that is consistent with severe mitral regurgitation and to review thermodilution cardiac outputs andright heart pressures, and at the same time, a ventriculogram with cardiac output calculated by ventriculography might give you some impression of whatthe regurgitant volume truly is and a ventriculogram could also demonstrate angiographically the severity of the mitral regurgitation. If these are all consistent with severe mitral regurgitation, then it may be perfectly reasonable for this patient to undergo the [facility]. If there is evidence to suggest that the mitral regurgitation is not severe, then I would be interested in Dr. Morales's followup to determine if there is some intrinsic pulmonary component to her right heart failure and symptoms of dyspnea and it may be also that a threedimensional SARA examination at the [facility] could be helpful in better or clearly defining the severity of her mitral regurgitation. I will speak with Dr. Peck about these thoughts and recommendations. Dr. Zheng be assuming the hospital service tomorrow and I will ask him to followup on her progress. -- Dr. Armas has seen the patient on 10/29, increased spironolactone to 25 mg QD. We appreciate his time and recommendations -- On 10/30, Dr. Burrell has stopped IV Lasix, he put her on torsemide 20 mg twice a day Acute Kidney Injury, present on admission. Resolved - Suspect early Cardiorenal, decreased urination, Creatnine on admission 1.59, baseline ~ 1.1. - Nephrology consulted, recommendations and expertise appreciated. -- "Continue furosemide 40 mg IV every 12 Continue chlorthalidone 12.5 mg daily Continue Aldactone 12.5 mg daily Continue potassium replacement Anemia of chronic disease, present on admission She was given 1 dose of anaresp, 1 dose of IV iron of IV iron Chronic issues, present remission, stable: Mitral regurgitation, present on admission, active - Under evaluation by [facility] for mitral clip, scheduled for November 15. - Obtained and reviewed records from Dr. Duran, Dr. Yarbrough also reviewed the records states that there is no definite reason to believe that her mitral valve regurgitation is severe. He would like for cardiology to reevaluate right heart catheter procedure probably on Monday. -- Plan to contact Dr. San on Mon a.m. Hypothyroidism chronic stable -Continue levothyroxine Chronic pain chronic stable -Continue patient's OxyContin (~ 70mg Oxy daily) Chronic anxiety chronic stable -Continue patient's home medications chronic Depression stable- Continue home med Effexor GERD chronic stable -Continue patient's home medications Hypertension chronic stable -Medication as above Insomnia chronic stable - Continue Ambien home med CODE STATUS: Full code. POA: Son and Daughter Patient is admitted under inpatient status with expected length of stay greater than 2 midnights due to severity of presenting symptoms, risk of adverse event, and complexity of treatment plan. Disposition: Patient will be kept through Monday Dr. Peck can come and address possible right heart catheterization make a decision on whether she actually needs mitral valve clip procedure Resuscitation Status: CPR: Attempt Resuscitation Time spent 25 minutes Dee Velez DO Oct 30, 2016 16:53
--- NOTE | 2016-10-30 19:26 | NUR ---
Uneventful shift Pt has rested quietly through out the shift, shoulder/ arm pain has been well managed with scheduled narcotics and PRN Tylenol. Pt has been up to the chair for meals and visited with family in the afternoon. Pt reports is continuing to feel more improved, is awaiting a decision from cardiology regarding plan of care. Call light in place, frequent rounding in place.
[2016-10-30] MEDS: oxyCODONE ER 10 mg ER12 Tablet PO SCH (20:29)
[2016-10-31] VITALS (9 sets, daily range): BP systolic 97–113; BP diastolic 64–71; PULSE 72–80; RESP 18–20; O2SAT 94–98
[2016-10-31] MEDS: Sodium Chloride LOK Flush 10 mL Syringe IVFLUSH SCH ×3 (01:18→17:21)
--- NOTE | 2016-10-31 03:29 | NUR ---
Shift report Pt A/O x3, making needs known. Pt stated at start of shift that she often cries at night and not to worry. No crying noted this shift, Pt very pleasant and talkative. Up to BR independently using FWW, with steady gait. IV failed at start of shift and new IV started, flushed and SL. Pt sleeping on and off, watching TV and snacking. Has anticipation regarding if she is having a procedure or not but understands MD will see her in AM to discuss. Pain controlled with routine oxycontin and PRN tylenol. Pt is on tele and has been SR 70's. Call light in reach, care continues
[2016-10-31] MEDS: Fluticasone-Salmeterol 500-50 Inhaler INHALATION SCH ×2 (08:41→20:49)
[2016-10-31] MEDS: oxyCODONE ER 40 mg ER12 Tablet PO SCH (08:45)
[2016-10-31] MEDS: Venlafaxine XR 75 mg ER24 Capsule PO SCH (08:45)
--- NOTE | 2016-10-31 11:34 | PCM.PNNEPH ---
AMANDO CHAVIS DO 10/31/16 1134: Subjective Date of Service Oct 31, 2016 Subjective No reports overnight, able ambulate independently using commode without difficulty. Vital signs stable, maintains good urinary output. Currently on triple diuretic therapy. Overall she states her swelling has gone down, she feels much better no return of shortness of breath while laying flat. She still does get short of breath when exerting herself down hallways Exam Vital Signs Vital Sign - Last Date Time Temp Pulse Resp B/P Pulse Ox O2 Delivery O2 Flow Rate FiO2 10/31/16 10:18 35.9 75 18 97/64 97 Room Air Intake and Output 10/30/16 10/30/16 10/31/16 Cumulative From/Thru 15:00 23:00 07:00 10/26/16 13:49 - 10/31/16 06:13 Intake Total 1080 ml 373 ml 5742 ml Output Total 1100 ml 850 ml 15804 ml Balance -20 ml -477 ml -5683 ml Intake Oral 1080 ml 373 ml 5682 ml IV Total 60 ml Output Urine Total 1100 ml 850 ml 81480 ml # Bowel Movements 1 Exam General: Awake and alert laying in hospital bed, caregiver present at bedside, well-developed, well-nourished, appropriately interactive HEENT: Normocephalic, atraumatic. External ears without defect. Pupils equal, round, and reactive to light and accommodation. Moist mucosa. Neck: Supple with full range of motion. No jugular venous distension. No hepatojugular reflex Cardiovascular: Regular rate and rhythm with soft systolic murmur Pulmonary: Mild Expiratory crackles bilateral bases heard best at left lower lung base. Abdomen: Soft, nontender, nondistended. Extremities: No clubbing, cyanosis. Mild Bilateral lower extremity edema, much improved nonpitting Skin: Diffuse macular papular rash over upper and lower extremities as well as the neck. Excoriations on the lower extremities. Venous stasis changes Neurological: Cranial nerves grossly intact. Psychiatric: Normal mood and affect. Alert and oriented to person, place, and time. Lab and Diagnostics Result Diagram: 10/28/16 1213 10/31/16 0645 X-Rays, CTs and MRIs . X-RAY CHEST ONE VIEW, PORTABLE IMPRESSION: No acute pulmonary process. Dictated by: Myra Castro M.D VENOUS LEG DUPLEX BILATERAL IMPRESSION: No DVT found. Dictated by: Valdo Nieto M.D. US RENAL SONOGRAM IMPRESSION: 1. Minimal renal cortical thinning involving the right kidney, otherwise grossly normal appearance of the kidneys. Dictated by: Foster RODRIGUEZ Interpreted: Jaden Ortiz MD US ABDOMEN, LIMITED IMPRESSION: No ascites. Dictated by: Foster ORDRIGUEZ Interpreted: Jaden Ortiz MD US DUPLEX DOPPLER BILATERAL LEG ARTERIES IMPRESSION: Minimal plaque and no hemodynamically significant peripheral arterial stenosis. Dictated by: Foster RODRIGUEZ Interpreted: Lillian Garcia MD Cardiac Echo Impressions Echocardiogram Report Interpretation Summary The left ventricle is normal in size. Left ventricular systolic function is normal without focal wall motion abnormalities. The ejection fraction is estimated to be 65-70%. There is moderate tricuspid regurgitation. The right ventricular systolic pressure is estimated at 74 mmHg assuming a right atrial pressure of 8 mm Hg. Compared to the prior echo exam, there has been no change in the severity of pulmonary hypertension. Echocardiogram Report Interpretation Summary The mitral valve leaflets appear moderately thickened, but open well. There is moderate to severe mitral regurgitation. There are two regurgitant jets with one more severe than the other. The left ventricle is normal in size, wall thickness, and systolic function without any focal wall motion abnormalities. The ejection fraction is estimated to be 65-70%. The right ventricular systolic pressure is estimated at 66 mmHg assuming a right atrial pressure of 8 mm Hg. CVP was determined to be 8 mmHg during a limited echocardiogram which followed the SARA. The tricuspid valve is normal in structure but is abnormal in function. There is moderate tricuspid regurgitation. There is no other significant valvular heart disease. The aortic root is normal size. The dimensions of the ascending aorta are normal. Plan Impression Acute kidney injury -Most likely secondary to decompensated congestive heart failure with preserved ejection fraction fraction -Creatinine has trended down to baseline -Patient continues to make good urine -Currently on triple diuretic therapy, continue chlorthalidone 12.5 mg daily, torsemide 20 mg daily, spironolactone 25 mg daily -Continue with strict monitoring of urinary output Mitral regurgitation, tricuspid regurgitation -Cardiology following -Patient may receive additional studies while in hospital -Currently scheduled for mitral valve clip procedure at the end of the month Anasarca -Improving with diuresis -Continue to monitor as above Anemia -Etiology is Multifactorial -Has received 1 dose of Arancep and IV iron -H&H improving -Continue to monitor Eunice Arriaza MD 11/01/16 0746: Exam Lab and Diagnostics Result Diagram: 10/28/16 1213 10/31/16 0645 Plan Impression Patient was seen and examined. Case discussed with Dr. Chavis. Agree with assessment and plan as above. MD JENNIFER Graff GILES A DO Oct 31, 2016 11:34 Eunice Arriaza MD Nov 01, 2016 07:46
--- NOTE | 2016-10-31 14:37 | NUR ---
PT NOTE-- Nrsg and patient report no PT needs. Up with 4 wheeled walker and is at baseline for mobility per patient.
--- NOTE | 2016-10-31 17:50 | NUR ---
Skin Pt reports discomfort bilaterally under tele monitor stickers on upper chest. Area reddened, irritated and painful. Area cleaned, adaptic placed over area covered by transparent dressing. Pt reports discomfort much improved.
[2016-10-31] MEDS: oxyCODONE ER 10 mg ER12 Tablet PO SCH (20:48)
[2016-10-31] MEDS: Polyethylene Glycol (PEG) 17 Gm Powder PO PRN (21:01)
--- NOTE | 2016-10-31 21:24 | PROG NOTE ---
[address] [address] PROGRESS NOTE PATIENT: JOHANN PETERSON : 1935 MR#: [id number] ADMIT: 10/26/2016 JOB ID: [id number] DATE: 10/31/2016 CHIEF COMPLAINT: The patient came in with increased shortness of breath. He was felt to be in heart failure. She has been getting diuresed with some improvement although she still says he feels short of breath when she walks. She is felt to have severe mitral regurgitation which was then reassessed and felt to be closer to moderate. An echocardiogram performed on October 27, 2016, at the time of admission showed that her estimated right atrial pressures were within normal limits. Right ventricular systolic function was normal as well as normal left ventricular systolic function. She said she had chronic swelling of her legs. PHYSICAL EXAM: Her blood pressure is 97/64. It was 113/71 earlier. She is afebrile. Sats are 97% on room air. General: In no acute distress. Speaking in full sentences without apparent shortness of breath. Head and neck exam: Normocephalic, atraumatic. Heart exam: Regular rate and rhythm. Lungs sound clear: Abdomen soft. Extremities: She has some chronic changes in the lower legs. Looks like she swelling has gone down ands he has some wrinkling of the skin. She has studies which ruled out DVT but has not ruled out venous insufficiency. Apparently she had a study that ruled out significant arterial insufficiency. IMPRESSION: The patient is doing better with diuresis. This certainly could be alleviating her left-sided pressures. Right thyroid function is good and even on admission her estimated right atrial pressures were normal. PLAN: 1. I would get a venous insufficiency study to reassess to see if venous insufficiency is also contributory to lower extremity edema. 2. Now that she has diuresed well and we may have improved her left-sided filling pressures, I would have her walk around and assess her in terms of her oxygen needs. Given a history of a nodule that was removed, it might be helpful to speak with Pulmonary. 30 minutes was spent reviewing the patient's records, her echo report, examination and discussion with the hospital [facility]
--- NOTE | 2016-10-31 23:02 | PCM.PNMED ---
Subjective Date of Service Oct 31, 2016 Subjective Patient is seen and examined. No new complaints. Exam Vital Signs Vital Sign - Last Date Time Temp Pulse Resp B/P Pulse Ox O2 Delivery O2 Flow Rate FiO2 10/31/16 16:12 36.1 80 20 106/65 98 Room Air Intake and Output 10/30/16 10/30/16 10/31/16 Cumulative From/Thru 15:00 23:00 07:00 10/26/16 13:49 - 10/31/16 06:13 Intake Total 1080 ml 373 ml 5742 ml Output Total 1100 ml 850 ml 03369 ml Balance -20 ml -477 ml -5683 ml Intake Oral 1080 ml 373 ml 5682 ml IV Total 60 ml Output Urine Total 1100 ml 850 ml 70971 ml # Bowel Movements 1 Exam General: No acute distress, well-developed, well-nourished, appropriately interactive HEENT: Normocephalic, atraumatic. External ears without defect. Cardiovascular: Regular rate and rhythm with holosystolic murmur appreciated Pulmonary: left lobe lobar crackles. Normal respiratory effort with no use of accessory muscles. Abdomen: Bowel tones present. Soft, nontender, nondistended. No hepatosplenomegaly or masses appreciated. Extremities: No clubbing, cyanosis. Much improved bilateral lower extremity edema that is pitting. Associated stasis dermatitis. Negative for cellulitic changes and warmth and tenderness Skin: Normal temperature Neurological: No focal deficits Psychiatric: Normal mood and affect. Alert and oriented to person, place, and time. Lab and Diagnostics Result Diagram: 10/28/16 1213 10/31/16 0645 X-Rays, CTs and MRIs . X-RAY CHEST ONE VIEW, PORTABLE IMPRESSION: No acute pulmonary process. Dictated by: Myra Castro M.D US VENOUS LEG DUPLEX BILATERAL IMPRESSION: No DVT found. Dictated by: Valdo Nieto M.D. US RENAL SONOGRAM IMPRESSION: 1. Minimal renal cortical thinning involving the right kidney, otherwise grossly normal appearance of the kidneys. Dictated by: Foster RODRIGUEZ Interpreted: Jaden Ortiz MD US ABDOMEN, LIMITED IMPRESSION: No ascites. Dictated by: Foster RODRIGUEZ Interpreted: Jaden Ortiz MD US DUPLEX DOPPLER BILATERAL LEG ARTERIES IMPRESSION: Minimal plaque and no hemodynamically significant peripheral arterial stenosis. Dictated by: Foster RODRIGUEZ Interpreted: Lillian Garcia MD Cardiac Echo Impressions Echocardiogram Report Interpretation Summary The left ventricle is normal in size. Left ventricular systolic function is normal without focal wall motion abnormalities. The ejection fraction is estimated to be 65-70%. There is moderate tricuspid regurgitation. The right ventricular systolic pressure is estimated at 74 mmHg assuming a right atrial pressure of 8 mm Hg. Compared to the prior echo exam, there has been no change in the severity of pulmonary hypertension. Echocardiogram Report Interpretation Summary The mitral valve leaflets appear moderately thickened, but open well. There is moderate to severe mitral regurgitation. There are two regurgitant jets with one more severe than the other. The left ventricle is normal in size, wall thickness, and systolic function without any focal wall motion abnormalities. The ejection fraction is estimated to be 65-70%. The right ventricular systolic pressure is estimated at 66 mmHg assuming a right atrial pressure of 8 mm Hg. CVP was determined to be 8 mmHg during a limited echocardiogram which followed the SARA. The tricuspid valve is normal in structure but is abnormal in function. There is moderate tricuspid regurgitation. There is no other significant valvular heart disease. The aortic root is normal size. The dimensions of the ascending aorta are normal. Assessment & Plan Ms. Lindy Spencer is an 81 year old woman with past medical history significant for pulmonary hypertension, severe mitral regurgitation currently scheduled for Mitral clip 11/[address] [facility], diastolic heart failure who presented to the [facility] emergency department today for CHF exacerbation. Acute on chronic HFpEF, present on admission, active - Likely complicated by patient's severe MR. Dr. Peck is patients personnel training officer. - Daily weights, strict I&O's, low-salt diet, fluid restriction to 2 L. patient is adequately diuresing based on ins and outs - 80 IV Lasix received in the ED. She was on IV Lasix till 10/30 - Nitro PRN - Holding home antihypertensives for now with the exception of coreg. - On Remote Telemetry - Prior ECHO and SARA from 07/11/16 as above. - Cardiology consulted, recommendations and expertise appreciated. -- "It is reasonable to consider the possibility of cardiac catheterization perhaps by Dr. Peck on Monday with a right heart catheter to look at pulmonary capillary wedge pressure tracings to determine if that is consistent with severe mitral regurgitation and to review thermodilution cardiac outputs andright heart pressures, and at the same time, a ventriculogram with cardiac output calculated by ventriculography might give you some impression of whatthe regurgitant volume truly is and a ventriculogram could also demonstrate angiographically the severity of the mitral regurgitation. If these are all consistent with severe mitral regurgitation, then it may be perfectly reasonable for this patient to undergo the proposed mitral clip procedure atthe [facility]. If there is evidence to suggest that the mitral regurgitation is not severe, then I would be interested in Dr. Morales's followup to determine if there is some intrinsic pulmonary component to her right heart failure and symptoms of dyspnea and it may be also that a threedimensional SARA examination at the [facility] could be helpful in better or clearly defining the severity of her mitral regurgitation. I will speak with Dr. Peck about these thoughts and recommendations. Dr. Zheng be assuming the hospital service tomorrow and I will ask him to followup on her progress. -- Currently on triple diuretic therapy, continue chlorthalidone 12.5 mg daily, torsemide 20 mg daily, spironolactone 25 mg daily -- On 10/31 Dr. San has seen the patient, recommended PT/OT and venous reflex US. However, US called me back saying this will not be covered as an inpt procedure. -- I have consulted pulmonology to understand if her lung findings from 08/03 CTA could be contributing to her resp distress. Dr. Morales will see the patient. We appreciate her time and recommendations. Acute Kidney Injury, present on admission. Resolved - Suspect early Cardiorenal, decreased urination, Creatnine on admission 1.59, baseline ~ 1.1. - Nephrology consulted, recommendations and expertise appreciated. Anemia of chronic disease, present on admission She was given 1 dose of anaresp, 1 dose of IV iron of IV iron Chronic issues, present remission, stable: Mitral regurgitation, present on admission, active - Under evaluation by [facility] for mitral clip, scheduled for November 15. - Obtained and reviewed records from Dr. Duran, Dr. Yarbrough also reviewed the records states that there is no definite reason to believe that her mitral valve regurgitation is severe. He would like for cardiology to reevaluate right heart catheter procedure probably on Monday. -- Dr. San has seen the patient, she feels patient's CVP and pulm HTN have actually improved from prior. Requests PT/OT and pulm consult. Hypothyroidism chronic stable -Continue levothyroxine Chronic pain chronic stable -Continue patient's OxyContin (~ 70mg Oxy daily) Chronic anxiety chronic stable -Continue patient's home medications chronic Depression stable- Continue home med Effexor GERD chronic stable -Continue patient's home medications Hypertension chronic stable -Medication as above Insomnia chronic stable - Continue Ambien home med CODE STATUS: Full code. POA: Son and Daughter Patient is admitted under inpatient status with expected length of stay greater than 2 midnights due to severity of presenting symptoms, risk of adverse event, and complexity of treatment plan. Disposition: Patient will be kept through Monday Dr. Peck can come and address possible right heart catheterization make a decision on whether she actually needs mitral valve clip procedure Resuscitation Status: CPR: Attempt Resuscitation Time spent 25 min Dee Velez DO Oct 31, 2016 16:53
[2016-11-01] VITALS (10 sets, daily range): BP systolic 106–121; BP diastolic 67–76; PULSE 72–80; RESP 18–20; O2SAT 95–99
[2016-11-01] MEDS: Sodium Chloride LOK Flush 10 mL Syringe IVFLUSH SCH ×3 (03:49→16:55)
[2016-11-01] MEDS: oxyCODONE ER 40 mg ER12 Tablet PO SCH (08:10)
[2016-11-01] MEDS: Fluticasone-Salmeterol 500-50 Inhaler INHALATION SCH ×2 (08:10→20:51)
[2016-11-01] MEDS: Venlafaxine XR 75 mg ER24 Capsule PO SCH (08:11)
--- NOTE | 2016-11-01 09:01 | PCM.PNMED ---
Subjective Date of Service Nov 01, 2016 Subjective Patient states that she has been switched to IV Lasix again. She heard of no plans for cardiac cath. She denies change in her breathing status. Exam Vital Signs Vital Sign - Last Date Time Temp Pulse Resp B/P Pulse Ox O2 Delivery O2 Flow Rate FiO2 11/01/16 08:30 36.5 75 20 113/76 96 Room Air Intake and Output 10/31/16 10/31/16 11/01/16 Cumulative From/Thru 15:00 23:00 07:00 10/26/16 13:49 - 11/01/16 05:51 Intake Total 850 ml 873 ml 7465 ml Output Total 350 ml 1150 ml 45957 ml Balance 500 ml -277 ml -5460 ml Intake Oral 850 ml 873 ml 7405 ml IV Total 60 ml Output Urine Total 350 ml 1150 ml 57408 ml # Bowel Movements 0 1 Exam General: No acute distress, well-developed, well-nourished, appropriately interactive HEENT: Normocephalic, atraumatic. External ears without defect. Cardiovascular: Regular rate and rhythm with holosystolic murmur appreciated Pulmonary: left lobe lobar crackles. Normal respiratory effort with no use of accessory muscles. Abdomen: Bowel tones present. Soft, nontender, nondistended. No hepatosplenomegaly or masses appreciated. Extremities: No clubbing, cyanosis. Much improved bilateral lower extremity edema that is pitting. Associated stasis dermatitis. Negative for cellulitic changes and warmth and tenderness Skin: Normal temperature Neurological: No focal deficits Psychiatric: Normal mood and affect. Alert and oriented to person, place, and time. IVs and Medications IV Fluids none Medications Reviewed: Medications were reviewed in detail Lab and Diagnostics Result Diagram: 11/01/1662411/01/16624 X-Rays, CTs and MRIs . X-RAY CHEST ONE VIEW, PORTABLE IMPRESSION: No acute pulmonary process. Dictated by: Myra Castro M.D US VENOUS LEG DUPLEX BILATERAL IMPRESSION: No DVT found. Dictated by: Valdo Nieto M.D. US RENAL SONOGRAM IMPRESSION: 1. Minimal renal cortical thinning involving the right kidney, otherwise grossly normal appearance of the kidneys. Dictated by: Foster RODRIGUEZ Interpreted: Jaden Ortiz MD US ABDOMEN, LIMITED IMPRESSION: No ascites. Dictated by: Foster RODRIGUEZ Interpreted: Jaden Ortiz MD US DUPLEX DOPPLER BILATERAL LEG ARTERIES IMPRESSION: Minimal plaque and no hemodynamically significant peripheral arterial stenosis. Dictated by: Foster [facility] Interpreted: Lillian Garcia MD Cardiac Echo Impressions Echocardiogram Report Interpretation Summary The left ventricle is normal in size. Left ventricular systolic function is normal without focal wall motion abnormalities. The ejection fraction is estimated to be 65-70%. There is moderate tricuspid regurgitation. The right ventricular systolic pressure is estimated at 74 mmHg assuming a right atrial pressure of 8 mm Hg. Compared to the prior echo exam, there has been no change in the severity of pulmonary hypertension. Echocardiogram Report Interpretation Summary The mitral valve leaflets appear moderately thickened, but open well. There is moderate to severe mitral regurgitation. There are two regurgitant jets with one more severe than the other. The left ventricle is normal in size, wall thickness, and systolic function without any focal wall motion abnormalities. The ejection fraction is estimated to be 65-70%. The right ventricular systolic pressure is estimated at 66 mmHg assuming a right atrial pressure of 8 mm Hg. CVP was determined to be 8 mmHg during a limited echocardiogram which followed the SARA. The tricuspid valve is normal in structure but is abnormal in function. There is moderate tricuspid regurgitation. There is no other significant valvular heart disease. The aortic root is normal size. The dimensions of the ascending aorta are normal. Assessment & Plan Ms. Lindy Spencer is an 81 year old woman with past medical history significant for pulmonary hypertension, severe mitral regurgitation currently scheduled for Mitral clip 11/15 at [facility], diastolic heart failure who presented to the [facility] emergency department today for CHF exacerbation. Acute on chronic HFpEF, present on admission, active - Likely complicated by patient's severe MR. Dr. Peck is patients internal medicine specialist. - Daily weights, strict I&O's, low-salt diet, fluid restriction to 2 L. patient is adequately diuresing based on ins and outs - 80 IV Lasix received in the ED. She was on IV Lasix till 10/30 - Nitro PRN - Holding home antihypertensives for now with the exception of coreg. - On Remote Telemetry - Prior ECHO and SARA from 07/11/16 as above. - Cardiology consulted, recommendations and expertise appreciated. -- "It is reasonable to consider the possibility of cardiac catheterization perhaps by Dr. Peck on Monday with a right heart catheter to look at pulmonary capillary wedge pressure tracings to determine if that is consistent with severe mitral regurgitation and to review thermodilution cardiac outputs andright heart pressures, and at the same time, a ventriculogram with cardiac output calculated by ventriculography might give you some impression of whatthe regurgitant volume truly is and a ventriculogram could also demonstrate angiographically the severity of the mitral regurgitation. If these are all consistent with severe mitral regurgitation, then it may be perfectly reasonable for this patient to undergo the proposed mitral clip procedure atthe [facility]. If there is evidence to suggest that the mitral regurgitation is not severe, then I would be interested in Dr. Morales's followup to determine if there is some intrinsic pulmonary component to her right heart failure and symptoms of dyspnea and it may be also that a threedimensional SARA examination at the [facility] could be helpful in better or clearly defining the severity of her mitral regurgitation. I will speak with Dr. Peck about these thoughts and recommendations. Dr. Zheng be assuming the hospital service tomorrow and I will ask him to followup on her progress. -- Currently on triple diuretic therapy, continue chlorthalidone 12.5 mg daily, torsemide 20 mg daily, spironolactone 25 mg daily -- On 10/31 Dr. San has seen the patient, recommended PT/OT and venous reflex US. However, US called me back saying this will not be covered as an inpt procedure. -- I have consulted pulmonology to understand if her lung findings from 08/03 CTA could be contributing to her resp distress. Dr. Morales will see the patient. We appreciate her time and recommendations. -- 11/[address] ross from nephrology has seen the patient, put her back on IV Lasix due to increased weight Acute Kidney Injury, present on admission. Resolved - Suspect early Cardiorenal, decreased urination, Creatnine on admission 1.59, baseline ~ 1.1. - Nephrology consulted, recommendations and expertise appreciated. Anemia of chronic disease, present on admission She was given 1 dose of anaresp, 1 dose of IV iron of IV iron Chronic issues, present remission, stable: Mitral regurgitation, present on admission, active - Under evaluation by [facility] for mitral clip, scheduled for November 15. - Obtained and reviewed records from Dr. Duran, Dr. Yarbrough also reviewed the records states that there is no definite reason to believe that her mitral valve regurgitation is severe. He would like for cardiology to reevaluate right heart catheter procedure probably on Monday. -- Dr. San has seen the patient, she feels patient's CVP and pulm HTN have actually improved from prior. Requests PT/OT and pulm consult. Hypothyroidism chronic stable -Continue levothyroxine Chronic pain chronic stable -Continue patient's OxyContin (~ 70mg Oxy daily) Chronic anxiety chronic stable -Continue patient's home medications chronic Depression stable- Continue home med Effexor GERD chronic stable -Continue patient's home medications Hypertension chronic stable -Medication as above Insomnia chronic stable - Continue Ambien home med CODE STATUS: Full code. POA: Son and Daughter Patient is admitted under inpatient status with expected length of stay greater than 2 midnights due to severity of presenting symptoms, risk of adverse event, and complexity of treatment plan. Disposition: Per Cardiology, the initial plan was to keep patient at [facility] through Monday. At this time it is unclear if cardiology wants to do a Procedure on this patient as Dr. San is not convinced she would need it. Nephrology has been managing diuretics. Please touch base with Dr. San on . Also touch base with Dr. Morales to see if she had a chance to review patient's case. Resuscitation Status: CPR: Attempt Resuscitation Time spent 25 min Dee Velez DO Nov 01, 2016 09:01
--- NOTE | 2016-11-01 11:24 | PCM.PNNEPH ---
AMANDO CHAVIS DO 11/01/16 1124: Subjective Date of Service Nov 01, 2016 Subjective At time of interview patient extremely upset about recent passing of close friend. Overall she is feeling that she is still retaining fluids, she is becoming short of breath while ambulating even to the restroom only a few feet from her hospital bed. She asked the nurse to hold her morning diuretic medications for a little while secondary to fatigue and "not feeling well". Creatinine has normalized, sodium 132. Urinary output remains over 1 L per day , standing scale shows weight reduction of 0.3 kg over the last 24 hours. She is having regular bowel movements and reports no difficulty in urination. Exam Vital Signs Vital Sign - Last Date Time Temp Pulse Resp B/P Pulse Ox O2 Delivery O2 Flow Rate FiO2 11/01/16 10:50 72 11/01/16 08:30 36.5 20 113/76 96 Room Air Intake and Output 10/31/16 10/31/16 11/01/16 Cumulative From/Thru 15:00 23:00 07:00 10/26/16 13:49 - 11/01/16 05:51 Intake Total 850 ml 873 ml 7465 ml Output Total 350 ml 1150 ml 33953 ml Balance 500 ml -277 ml -5460 ml Intake Oral 850 ml 873 ml 7405 ml IV Total 60 ml Output Urine Total 350 ml 1150 ml 57020 ml # Bowel Movements 0 1 Exam General: Awake and alert laying in hospital bed, well-developed, well-nourished , emotionally distraught. HEENT: Normocephalic, atraumatic. Neck: Supple with full range of motion. No jugular venous distension. Cardiovascular: Regular rate and rhythm with soft systolic murmur Pulmonary: Mild bilateral expiratory crackles in lower lung crespo Abdomen: Obese. Soft, nontender, nondistended. Extremities: No clubbing, cyanosis. Bilateral lower extremity edema to pretibial area. Pain on palpation chronic in nature Skin: Diffuse macular papular rash over upper and lower extremities as well as the neck. Excoriations on the lower extremities. Venous stasis changes Neurological: Cranial nerves grossly intact. Psychiatric: Normal mood and affect. Alert and oriented to person, place, and time. IVs and Medications Medications Reviewed: Medications were reviewed in detail Lab and Diagnostics Result Diagram: 11/01/1662411/01/16624 X-Rays, CTs and MRIs . X-RAY CHEST ONE VIEW, PORTABLE IMPRESSION: No acute pulmonary process. Dictated by: Myra Castro M.D US VENOUS LEG DUPLEX BILATERAL IMPRESSION: No DVT found. Dictated by: Valdo Nieto M.D. US RENAL SONOGRAM IMPRESSION: 1. Minimal renal cortical thinning involving the right kidney, otherwise grossly normal appearance of the kidneys. Dictated by: Foster RODRIGUEZ Interpreted: Jaden Ortiz MD US ABDOMEN, LIMITED IMPRESSION: No ascites. Dictated by: Foster RODRIGUEZ Interpreted: Jaden Ortiz MD US DUPLEX DOPPLER BILATERAL LEG ARTERIES IMPRESSION: Minimal plaque and no hemodynamically significant peripheral arterial stenosis. Dictated by: Foster RODRIGUEZ Interpreted: Lillian Garcia MD Cardiac Echo Impressions Echocardiogram Report Interpretation Summary: The left ventricle is normal in size. Left ventricular systolic function is normal without focal wall motion abnormalities. The ejection fraction is estimated to be 65-70%. There is moderate tricuspid regurgitation. The right ventricular systolic pressure is estimated at 74 mmHg assuming a right atrial pressure of 8 mm Hg. Compared to the prior echo exam, there has been no change in the severity of pulmonary hypertension. Echocardiogram Report Interpretation Summary: The left ventricle is normal in size. Left ventricular systolic function is normal. The ejection fraction is estimated to be 60-65%. There has been no significant change since the previous study. Paradoxical septal motion is consistent with right ventricular volume overload. The right ventricle is mildly dilated. The right ventricular systolic function is normal. The right ventricular systolic pressure is estimated at 53 mmHg assuming a right atrial pressure of 8 mm Hg. Compared to the prior echo exam, there has been a decrease in the severity of pulmonary hypertension. The left atrium is moderately dilated. The right atrium is mildly dilated. There is moderate to severe mitral regurgitation. Compared to the prior echo study, there has been no change in the severity of mitral regurgitation. There is moderate tricuspid regurgitation. There is no other significant valvular heart disease. The ascending aorta is mild-moderately enlarged. Plan Impression Acute kidney injury -Most likely secondary to decompensated congestive heart failure with preserved ejection fraction fraction -Creatinine has trended down to baseline -Increased fluid retention -Stop torsemide -Start furosemide 40 mg IV twice a day -Increase chlorthalidone 25 mg daily, continue spironolactone 25 mg daily -Continue with strict monitoring of urinary output Mitral regurgitation, tricuspid regurgitation -Cardiology following, awaiting recommendations -Currently scheduled for mitral valve clip procedure at the end of the month Anasarca -Improving with diuresis -Continue to monitor as above Anemia -Etiology is Multifactorial -Has received 1 dose of Arancep and IV iron -H&H improving -Continue to monitor Eunice Arriaza MD 11/02/16 1203: Exam Lab and Diagnostics Result Diagram: 11/01/16 0625 11/01/16 0625 Plan Impression Patient was seen and examined. Case discussed with Dr. Chavis. Agree as detailed above. MD JENNIFER Graff GILES A DO Nov 01, 2016 11:24 Eunice Arriaza MD Nov 02, 2016 12:03
[2016-11-01] MEDS: Furosemide 10 mg/mL 4 mL Inj IVPUSH SCH ×2 (11:53→16:55)
--- NOTE | 2016-11-01 14:20 | NUR ---
Social Work-readiness for discharge: Data:EMR reviewed. Pt is on day 6 of hospitalization for CHF exacerbation per H&P. Pt is not medically stable at this time anticipate 1-2 more days. Pt resides at [facility] and has caregivers 5 days a week. Per RN notes, pt has been up independent in her room. No anticipated discharge needs. SW will continue to follow if needs arise. Assessment:pt who resides at [facility] I Plan:Pt to discharge back to [facility] when medically stable. Pt has Caregivers at home. No anticipated discharge needs. SW will continue to follow if needs arise. CARL Rodriguez
--- NOTE | 2016-11-01 14:35 | PCM.HPMED ---
Subjective Date of Service Nov 01, 2016 Primary Provider: Admitting Physician: Dee Velez DO Primary Care Physician: Enrique Muller DO Attending Physician: Dee Velez DO Chief Complaint: dyspnea, anasarca, diastolic CHF History of Present Illness: Pulmonary and critical care consult: Requesting physician: Dr. 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 She has hx of Atrial fibrillation s/p ablation without recurrence, and diastolic CHF with moderately severe mitral regurgitation who presented with worsening SOB that has progressively worsened for the last 6 months or so and more recently became increasingly worse in the two weeks prior to admission requiring her to double her daily use of her Albuterol inhaler. She was also experiencing a weight gain of 13 lbs with additional B/L LE edema that increased over about 10 days to 2 weeks after having been stable for a couple weeks on outpatient diuretics. The course the patient's hospital stay patients respiratory status has continued to improve with by mouth and now IV diuretics. Patient reports no recent travel and has lived primarily in [place] and [place] all her life. She spent some time as a child in [facility]. She has traveled to [place], [place], and [place] but not for many years. She has vacationed in [facility], but only briefly again many years ago. She denies pets other then dogs, denies contact with farm animals. 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 She does report a random cough daily that is productive for small amount of white mucus. Recent chills and sweats over past 2 days since her hormone therapy was discontinued. Reports mild scratchy throat. Denies Fevers, AMBROSIO, TB exposure, N, V, Abdominal pain. Of note echo was significant for moderately severe mitral regurgitation on most recent and previous echo in June of this year. Patient is scheduled for mitral valve clip procedure at the on November 15. Patient was seen in the ED in October 042017 for CHF related exacerbation. She was admitted discharged on 30mg of Torsemide QD and spirolactone on 10/08. Patient currently has a mitral valve clip placement scheduled for later this month. She denies cough, fever, chest pain, or urinary retention.81-year-old woman admitted history of resected left lower lung adenocarcinoma in 2016 admitted with right-sided heart failure in the setting of moderate mitral regurgitation. Patient established care with [facility] Pulmonology (Dr. Morales) July 18, 2016 and was worked up at that time for possible PE with CT Angio 07/26/2016 that returned negative for PE, but re-demonstrated an atypical nodular consolidation involving the Rt upper lung, suggestive atypical infection such as Mycobacterial or fungal. Neoplastic process not ruled out. Presence of a large pulmonary Artery, and RLL granuloma. At that time patient was referred to oncology and is now being followed by Dr. Dean who the patient has repeat appointment with near the end of October. Per patient Dr. Dean does not plan and future treatments at this time. CT chest non contrast from 06/13/16 showed Increased Rt UL lesion, possible malignancy and or atypical infection. 2.) LLL airspace opacity. PFTs 06/23/2016 showed FVC 61%, FEV1 65%, FEV1 FVC ratio 0.8, total lung capacity of 62%, RV 62%, DLCO 53% As an outpatient patient takes Symbicort twice per day as well as her albuterol inhaler prior to each dose of Symbicort. Patient's access control officer is Dr. Peck who is recommending cardiac cath to evaluate severity of MR and pulmonary catheter wedge pressures. Review of Systems: Complete review of systems conducted and found negative with exception of noted above. Allergies Coded Allergies: No Known Allergies (Unverified , 10/04/16) Home Medications Scheduled Budesonide/Formoterol 160-4.5 mcg Inh (Symbicort 160-4.5 mcg Inh) 120 Puff Inhaler 2 PUFF INHALATION BID Carvedilol (Coreg) 12.5 Mg Tablet 12.5 MG PO BID Estradiol (Estradiol) 1 Mg Tablet 1 MG PO QAM Levothyroxine (Levothyroxine) 175 Mcg Tablet 175 MCG PO QAM Olmesartan (Benicar) 20 Mg Tablet 20 MG PO DAILY Spironolactone (Spironolactone) 25 Mg Tablet 12.5 MG PO HS Torsemide (Torsemide) 10 Mg Tablet 30 MG PO DAILY Potassium Chloride (Potassium Chloride) 20 Meq Tab.er.prt 20 MEQ PO DAILY TAKE WITH FOOD Oxycodone ER (Oxycontin) 30 Mg Tab.er.12h 30 MG PO HS Oxycodone ER (Oxycontin) 40 Mg Tab.er.12h 40 MG PO MORNING Ranitidine (Zantac) 150 Mg Tablet 150 MG PO DAILYWD Omeprazole (Omeprazole) 20 Mg Capsule.dr 20 MG PO BID Saccharomyces Boulardii (Digestive Probiotic) 250 Mg Capsule 250 MG PO BID Venlafaxine ER (Venlafaxine ER) 150 Mg Cap.er.24h 150 MG PO QAM Zolpidem (Zolpidem) 5 Mg Tablet 5 MG PO HS Scheduled PRN Albuterol HFA (Proair HFA) 8.5 Gm Hfa.aer.ad 2 PUFFS INHALATION q4-6 hours PRN PRN For Shortness of Breath Docusate Sodium (Docusate Sodium) 250 Mg Capsule 250 MG PO BID PRN PRN For Constipation Hydrocortisone Acetate (Anucort-Hc) 25 Mg Supp.rect 25 MG TX BID PRN PRN HEMORRHOIDS Nystatin (Nystatin) 1 Each Powder.ea. 1 APPLIC TOP DAILY PRN PRN YEAST INFECTION Polyethylene Glycol 3350 (Miralax) 17 Gm Powd.pack 17 GM PO DAILY PRN PRN For Constipation PMH Mitral regurgitation. Transesophageal echocardiogram on July 11 showed moderately thickened mitral valve leaflets, with moderate to severe regurgitation including two regurgitant jets. Pulmonary hypertension. Atrial fibrillation, status post ablation. Congestive heart failure. Hypothyroidism. Chronic anxiety. Essential hypertension. Chronic bilateral leg edema, occasionally associated with intermittent cellulitis. Surgical History VATS superior segmentectomy of left lower lobe in June 2015, for lung cancer. Atrial fibrillation ablation. cholecystectomy. Bilateral knee replacements. Family History blood disorder mother Social History Hx Alcohol Use: Yes Hx Substance Use: No Hx Tobacco Use: No Smoking Status: Never Smoker Living Arrangement: with Family ( Ed) Exam Vital Signs Vital Sign - Last Date Time Temp Pulse Resp B/P Pulse Ox O2 Delivery O2 Flow Rate FiO2 11/01/16 13:11 36.6 75 19 107/70 98 Room Air Intake and Output 10/31/16 10/31/16 11/01/16 Cumulative From/Thru 15:00 23:00 07:00 10/26/16 13:49 - 11/01/16 05:51 Intake Total 850 ml 873 ml 7465 ml Output Total 350 ml 1150 ml 09755 ml Balance 500 ml -277 ml -5460 ml Intake Oral 850 ml 873 ml 7405 ml IV Total 60 ml Output Urine Total 350 ml 1150 ml 45026 ml # Bowel Movements 0 1 Exam General: No acute distress, obese, appropriately interactive and pleasant in no acute distress, taking full sentences. HEENT: Normocephalic, atraumatic. External ears without defect. PERRLA, EOMI. moist conjunctivae erythema or icterus, throat noninjected, no exudates, mucous membranes pink and moist. Neck: Supple with full range of motion. No JVD. No lymphadenopathy or thyromegaly. Cardiovascular: Regular rate and rhythm without murmur. Long: Left midlung field to base crackles heard, with reduced lung sounds compared to right. No wheezes, or rhonchi. Normal respiratory effort. No retractions, no use of extra respiratory musculature Abdomen: Bowel tones present. Soft, nontender, nondistended. No hepatosplenomegaly or masses appreciated. Extremities: No clubbing, cyanosis. Bilateral lower extremity edema, with evidence of significant stasis dermatitis. Skin: Normal temperature, turgor, and texture; rash present on the dorsal upper extremity digits, no evidence of subcutaneous nodules.. Neurological: Grossly neurologically intact,. Patient speaking in full sentences. Signs of neurological disorder Psychiatric: Normal mood and affect. Alert and oriented to person, place, and time. Lab and Diagnostics Result Diagram: 11/01/1662411/01/16624 X-Rays, CTs and MRIs . X-RAY CHEST ONE VIEW, PORTABLE IMPRESSION: No acute pulmonary process. Dictated by: Myra Castro M.D US VENOUS LEG DUPLEX BILATERAL IMPRESSION: No DVT found. Dictated by: Valdo Nieto M.D. US RENAL SONOGRAM IMPRESSION: 1. Minimal renal cortical thinning involving the right kidney, otherwise grossly normal appearance of the kidneys. Dictated by: Fsoter RODRIGUEZ Interpreted: Jaden Ortiz MD US ABDOMEN, LIMITED IMPRESSION: No ascites. Dictated by: Foster RODRIGUEZ Interpreted: Jaden Ortiz MD US DUPLEX DOPPLER BILATERAL LEG ARTERIES IMPRESSION: Minimal plaque and no hemodynamically significant peripheral arterial stenosis. Dictated by: Foster RODRIGUEZ Interpreted: Lillian Garcia MD Cardiac Echo Impressions Echocardiogram Report Interpretation Summary: The left ventricle is normal in size. Left ventricular systolic function is normal without focal wall motion abnormalities. The ejection fraction is estimated to be 65-70%. There is moderate tricuspid regurgitation. The right ventricular systolic pressure is estimated at 74 mmHg assuming a right atrial pressure of 8 mm Hg. Compared to the prior echo exam, there has been no change in the severity of pulmonary hypertension. Echocardiogram Report Interpretation Summary: The left ventricle is normal in size. Left ventricular systolic function is normal. The ejection fraction is estimated to be 60-65%. There has been no significant change since the previous study. Paradoxical septal motion is consistent with right ventricular volume overload. The right ventricle is mildly dilated. The right ventricular systolic function is normal. The right ventricular systolic pressure is estimated at 53 mmHg assuming a right atrial pressure of 8 mm Hg. Compared to the prior echo exam, there has been a decrease in the severity of pulmonary hypertension. The left atrium is moderately dilated. The right atrium is mildly dilated. There is moderate to severe mitral regurgitation. Compared to the prior echo study, there has been no change in the severity of mitral regurgitation. There is moderate tricuspid regurgitation. There is no other significant valvular heart disease. The ascending aorta is mild-moderately enlarged. Assessment & Plan Ms. Lindy Spencer is an 81 year old woman with past medical history significant for pulmonary hypertension, severe mitral regurgitation currently scheduled for Mitral clip 11/15 at [facility], diastolic heart failure who presented to the [facility] emergency department today for CHF exacerbation. # Acute on chronic respiratory failure and Exertional dyspnea secondary to pulmonary hypertension, diastolic heart failure and mitral regurg, present admission, improving - Patient was not on home oxygen and was not candidate for home oxygen per her O2 sats of 94% on a road test during her pulmonology visit 08/06/2016. - Patient shortness of breath and dyspnea as well as LE edema has considerably improved on PO and IV diuretics. - Patient's white blood cell count is within normal limits and there is no left shift. There is no evidence of acute pulmonary infection. - Prior CT chest with contrast 06/13/[address] Angio 07/26/2016 negative for PE but showed evidence right upper lung lobe nodular consolidation consistent with atypical infectious (bacterial or fungal) process or neoplastic process. - PFTs on 06/23/2016 showed: FVC 61%, FEV1 65%, FEV1/FVC ratio 0.8, TLC 62, RV 62%, and DLCO 53 - We will obtain TB QuantiFERON gold - Patient is pending cardiac catheter procedure for evaluation of mitral regurg and pulmonary capillary wedge pressure cardiology. 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 Dean oncology was follow-up appointment end of October - Patient currently in remission and no chemotherapy is planned at this time. - Recommend patient have close follow up as out patient in pulmonology clinic # Acute on chronic HFpEF, present on admission, active - Likely complicated by patient's severe MR. Dr. Peck is patients access control officer. - Daily weights, strict I&O's, low-salt diet, fluid restriction to 2 L. patient is adequately diuresing based on ins and outs - 80 IV Lasix received in the ED. She was on IV Lasix till 10/30 - Nitro PRN - Holding home antihypertensives for now with the exception of coreg. - On Remote Telemetry - Echo on this admission showed LVEF of 65-70%, right ventricular pressures 53% , enlarged pulmonary artery # Acute Kidney Injury, present on admission. Resolved - Suspect early Cardiorenal, decreased urination, Creatnine on admission 1.59, baseline ~ 1.1. - Nephrology consulted, recommendations and expertise appreciated. Chronic issues, present remission, stable: # Mitral regurgitation, present on admission, active - Under evaluation by [facility] for mitral clip, scheduled for November 15. - Obtained and reviewed records from Dr. Duran, Dr. Yarbrough also reviewed the records states that there is no definite reason to believe that her mitral valve regurgitation is severe. He would like for cardiology to reevaluate right heart catheter procedure probably on Monday. - Dr. San has seen the patient, she feels patient's CVP and pulm HTN have actually improved from prior. Anemia of chronic disease, present on admission She was given 1 dose of anaresp, 1 dose of IV iron of IV iron Hypothyroidism chronic stable -Continue levothyroxine Chronic pain chronic stable -Continue patient's OxyContin (~ 70mg Oxy daily) Chronic anxiety chronic stable -Continue patient's home medications chronic Depression stable- Continue home med Effexor GERD chronic stable -Continue patient's home medications Hypertension chronic stable -Medication as above Insomnia chronic stable - Continue Ambien home med CODE STATUS: Full code. POA: Son and Daughter Patient is admitted under inpatient status with expected length of stay greater than 2 midnights due to severity of presenting symptoms, risk of adverse event, and complexity of treatment plan. Pain Evaluation: Adequate Pain Control VTE Mechanical Devices: Venous Foot Pump Resuscitation Status: CPR: Attempt Resuscitation Attending Statement I have seen and examined this patient with the resident physician. Vital signs , labs, imaging have been reviewed. I agree with the assessment and plan above. Please refer to my separately dictated progress note for any modifications to above. Maryellen Morales M.D. Pulmonary and Critical Care medicine Pager [phone] Jacinto Oden DO Nov 01, 2016 14:35 Maryellen Morales MD Nov 04, 2016 08:09
[2016-11-01] MEDS: oxyCODONE ER 10 mg ER12 Tablet PO SCH (20:51)
[2016-11-02] VITALS (8 sets, daily range): BP systolic 101–124; BP diastolic 64–79; PULSE 67–76; RESP 18–20; O2SAT 95–97
[2016-11-02] MEDS: Sodium Chloride LOK Flush 10 mL Syringe IVFLUSH SCH ×3 (00:44→17:52)
[2016-11-02] MEDS: Furosemide 10 mg/mL 4 mL Inj IVPUSH SCH (08:07)
[2016-11-02] MEDS: Fluticasone-Salmeterol 500-50 Inhaler INHALATION SCH ×2 (08:10→20:33)
[2016-11-02] MEDS: Venlafaxine XR 75 mg ER24 Capsule PO SCH (08:10)
[2016-11-02] MEDS: oxyCODONE ER 40 mg ER12 Tablet PO SCH (08:21)
--- NOTE | 2016-11-02 11:38 | PCM.PNNEPH ---
AMANDO RODRIGUEZ DO 11/02/16 1138: Subjective Date of Service Nov 02, 2016 Subjective After restarting IV furosemide patient had significant increase in urinary output and decrease in her extremity swelling and shortness of breath. She has put out 3 L of urine yesterday and 1 L of urine so far today. Standing scale shows a 2 KG reduction from yesterday. She states she feels much better and denies any shortness of breath on ambulating around the room. Caregiver Sultana present in room and both are very curious as to current cardiology plan, if she is to receive right heart catheterization or further diagnostic studies. Her vital signs have remained stable, creatinine has normalized and BUN continues to trend down. Exam Vital Signs Vital Sign - Last Date Time Temp Pulse Resp B/P Pulse Ox O2 Delivery O2 Flow Rate FiO2 11/02/16 10:53 69 11/02/16 08:58 36.4 20 124/79 96 Room Air Intake and Output 11/01/16 11/01/16 11/02/16 Cumulative From/Thru 15:00 23:00 07:00 10/26/16 13:49 - 11/02/16 06:06 Intake Total 940 ml 268 ml 8673 ml Output Total 1875 ml 925 ml 70426 ml Balance -935 ml -657 ml -7052 ml Intake Oral 940 ml 268 ml 8613 ml IV Total 60 ml Output Urine Total 1875 ml 925 ml 50250 ml # Bowel Movements 1 Exam General: Awake and alert laying in hospital bed, well-developed, well-nourished. HEENT: Normocephalic, atraumatic. Neck: Supple with full range of motion. No jugular venous distension. Cardiovascular: Regular rate and rhythm with soft systolic murmur Pulmonary: Mild bilateral expiratory crackles in lower lung crespo, improved from yesterday Abdomen: Obese. Soft, nontender, nondistended. Extremities: No clubbing, cyanosis. Decreased skin turgor over lower extremities, very mild edema to ankles improved from yesterday Skin: Diffuse macular papular rash over upper and lower extremities as well as the neck. Excoriations on the lower extremities. Venous stasis changes Neurological: Cranial nerves grossly intact. Psychiatric: Normal mood and affect. Alert and oriented to person, place, and time. IVs and Medications Medications Reviewed: Medications were reviewed in detail Lab and Diagnostics Result Diagram: 11/01/16 0625 11/01/16 0625 X-Rays, CTs and MRIs . X-RAY CHEST ONE VIEW, PORTABLE IMPRESSION: No acute pulmonary process. Dictated by: Myra Castro M.D US VENOUS LEG DUPLEX BILATERAL IMPRESSION: No DVT found. Dictated by: Valdo Nieto M.D. US RENAL SONOGRAM IMPRESSION: 1. Minimal renal cortical thinning involving the right kidney, otherwise grossly normal appearance of the kidneys. Dictated by: Foster RODRIGUEZ Interpreted: Jaden Ortiz MD US ABDOMEN, LIMITED IMPRESSION: No ascites. Dictated by: Foster RODRIGUEZ Interpreted: Jaden Ortiz MD US DUPLEX DOPPLER BILATERAL LEG ARTERIES IMPRESSION: Minimal plaque and no hemodynamically significant peripheral arterial stenosis. Dictated by: Foster RODRIGUEZ Interpreted: Lillian Garcia MD Cardiac Echo Impressions Echocardiogram Report Interpretation Summary: The left ventricle is normal in size. Left ventricular systolic function is normal without focal wall motion abnormalities. The ejection fraction is estimated to be 65-70%. There is moderate tricuspid regurgitation. The right ventricular systolic pressure is estimated at 74 mmHg assuming a right atrial pressure of 8 mm Hg. Compared to the prior echo exam, there has been no change in the severity of pulmonary hypertension. Echocardiogram Report Interpretation Summary: The left ventricle is normal in size. Left ventricular systolic function is normal. The ejection fraction is estimated to be 60-65%. There has been no significant change since the previous study. Paradoxical septal motion is consistent with right ventricular volume overload. The right ventricle is mildly dilated. The right ventricular systolic function is normal. The right ventricular systolic pressure is estimated at 53 mmHg assuming a right atrial pressure of 8 mm Hg. Compared to the prior echo exam, there has been a decrease in the severity of pulmonary hypertension. The left atrium is moderately dilated. The right atrium is mildly dilated. There is moderate to severe mitral regurgitation. Compared to the prior echo study, there has been no change in the severity of mitral regurgitation. There is moderate tricuspid regurgitation. There is no other significant valvular heart disease. The ascending aorta is mild-moderately enlarged. Plan Impression Acute kidney injury -Most likely secondary to decompensated congestive heart failure with preserved ejection fraction fraction -Creatinine has trended down to baseline -Stop IV Lasix -Restart torsemide at crease dose to 40 mg daily -Continue chlorthalidone 25 mg daily -Increase spironolactone to 50 mg daily -Continue with strict monitoring of urinary output Mitral regurgitation, tricuspid regurgitation -Cardiology following, awaiting recommendations -Currently scheduled for mitral valve clip procedure at the end of the month Anasarca -Improved with diuresis -Continue to monitor as above Anemia -Etiology is Multifactorial -Has received 1 dose of Arancep and IV iron -H&H improving -Continue to monitor As patient's kidney function has normalized and current diuretic regimen seems to be at its maximum effective range, we will follow peripherally for an additional day and will most likely sign off if oral diuretic regimen maintains euvolemia Eunice Arriaza MD 11/03/16 1238: Exam Lab and Diagnostics Result Diagram: 11/01/16 0625 11/01/16 0625 Plan Impression Patient was seen and examined. Agree with assessment and plan as above. Todd Reina MD. AMANDO RODRIGUEZ DO Nov 02, 2016 11:38 Eunice Arrizaa MD Nov 03, 2016 12:38
--- NOTE | 2016-11-02 13:51 | PCM.PNMED ---
Subjective Date of Service Nov 02, 2016 Subjective Exam Vital Signs Vital Sign - Last Date Time Temp Pulse Resp B/P Pulse Ox O2 Delivery O2 Flow Rate FiO2 11/02/16 12:31 36.7 74 18 115/68 95 Room Air Intake and Output 11/01/16 11/01/16 11/02/16 Cumulative From/Thru 15:00 23:00 07:00 10/26/16 13:49 - 11/02/16 06:06 Intake Total 940 ml 268 ml 8673 ml Output Total 1875 ml 925 ml 62208 ml Balance -935 ml -657 ml -7052 ml Intake Oral 940 ml 268 ml 8613 ml IV Total 60 ml Output Urine Total 1875 ml 925 ml 16913 ml # Bowel Movements 1 Exam IVs and Medications Medications Reviewed: Medications were reviewed in detail Lab and Diagnostics Result Diagram: 11/01/1625 11/01/16 0625 X-Rays, CTs and MRIs . X-RAY CHEST ONE VIEW, PORTABLE IMPRESSION: No acute pulmonary process. Dictated by: Myra Castro M.D US VENOUS LEG DUPLEX BILATERAL IMPRESSION: No DVT found. Dictated by: Valdo Nieto M.D. US RENAL SONOGRAM IMPRESSION: 1. Minimal renal cortical thinning involving the right kidney, otherwise grossly normal appearance of the kidneys. Dictated by: Foster RODRIGUEZ Interpreted: Jaden Ortiz MD US ABDOMEN, LIMITED IMPRESSION: No ascites. Dictated by: Foster RODRIGUEZ Interpreted: Jaden Ortiz MD US DUPLEX DOPPLER BILATERAL LEG ARTERIES IMPRESSION: Minimal plaque and no hemodynamically significant peripheral arterial stenosis. Dictated by: Foster RODRIGUEZ Interpreted: Lillian Garcia MD Cardiac Echo Impressions Echocardiogram Report Interpretation Summary: The left ventricle is normal in size. Left ventricular systolic function is normal without focal wall motion abnormalities. The ejection fraction is estimated to be 65-70%. There is moderate tricuspid regurgitation. The right ventricular systolic pressure is estimated at 74 mmHg assuming a right atrial pressure of 8 mm Hg. Compared to the prior echo exam, there has been no change in the severity of pulmonary hypertension. Echocardiogram Report Interpretation Summary: The left ventricle is normal in size. Left ventricular systolic function is normal. The ejection fraction is estimated to be 60-65%. There has been no significant change since the previous study. Paradoxical septal motion is consistent with right ventricular volume overload. The right ventricle is mildly dilated. The right ventricular systolic function is normal. The right ventricular systolic pressure is estimated at 53 mmHg assuming a right atrial pressure of 8 mm Hg. Compared to the prior echo exam, there has been a decrease in the severity of pulmonary hypertension. The left atrium is moderately dilated. The right atrium is mildly dilated. There is moderate to severe mitral regurgitation. Compared to the prior echo study, there has been no change in the severity of mitral regurgitation. There is moderate tricuspid regurgitation. There is no other significant valvular heart disease. The ascending aorta is mild-moderately enlarged. Assessment & Plan See other progress note. VTE Mechanical Devices: Venous Foot Pump Resuscitation Status: CPR: Attempt Resuscitation Mau Noble MD Nov 02, 2016 13:51 Assessment & Plan See other progress note. VTE Mechanical Devices: Venous Foot Pump Resuscitation Status: CPR: Attempt Resuscitation Mau Noble MD Nov 02, 2016 13:51 # Acute on chronic respiratory failure and Exertional dyspnea secondary to pulmonary hypertension, diastolic heart failure and mitral regurg, present admission, improving - Patient was not on home oxygen and was not candidate for home oxygen per her O2 sats of 94% on a road test during her pulmonology visit 08/06/2016. - Patient shortness of breath and dyspnea as well as LE edema has considerably improved on PO and IV diuretics. - Patient's white blood cell count is within normal limits and there is no left shift. There is no evidence of acute pulmonary infection. - Prior CT chest with contrast 06/13/[address] Angio 07/26/2016 negative for PE but showed evidence right upper lung lobe nodular consolidation consistent with atypical infectious (bacterial or fungal) process or neoplastic process. - PFTs on 06/23/2016 showed: FVC 61%, FEV1 65%, FEV1/FVC ratio 0.8, TLC 62, RV 62%, and DLCO 53 - We will obtain TB QuantiFERON gold - Patient is pending cardiac catheter procedure for evaluation of mitral regurg and pulmonary capillary wedge pressure cardiology. 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 Dean oncology was follow-up appointment end of October - Patient currently in remission and no chemotherapy is planned at this time. - Recommend patient have close follow up as out patient in pulmonology clinic # Acute on chronic HFpEF, present on admission, active - Likely complicated by patient's severe MR. Dr. Peck is patients youth counselor. - Daily weights, strict I&O's, low-salt diet, fluid restriction to 2 L. patient is adequately diuresing based on ins and outs - 80 IV Lasix received in the ED. She was on IV Lasix till 10/30 - Nitro PRN - Holding home antihypertensives for now with the exception of coreg. - On Remote Telemetry - Echo on this admission showed LVEF of 65-70%, right ventricular pressures 53% , enlarged pulmonary artery # Acute Kidney Injury, present on admission. Resolved - Suspect early Cardiorenal, decreased urination, Creatnine on admission 1.59, baseline ~ 1.1. - Nephrology consulted, recommendations and expertise appreciated. Chronic issues, present remission, stable: # Mitral regurgitation, present on admission, active - Under evaluation by [facility] for mitral clip, scheduled for November 15. - Obtained and reviewed records from Dr. Duran, Dr. Yarbrough also reviewed the records states that there is no definite reason to believe that her mitral valve regurgitation is severe. He would like for cardiology to reevaluate right heart catheter procedure probably on Monday. - Dr. San has seen the patient, she feels patient's CVP and pulm HTN have actually improved from prior. Anemia of chronic disease, present on admission She was given 1 dose of anaresp, 1 dose of IV iron of IV iron Hypothyroidism chronic stable -Continue levothyroxine Chronic pain chronic stable -Continue patient's OxyContin (~ 70mg Oxy daily) Chronic anxiety chronic stable -Continue patient's home medications chronic Depression stable- Continue home med Effexor GERD chronic stable -Continue patient's home medications Hypertension chronic stable -Medication as above Insomnia chronic stable - Continue Ambien home med CODE STATUS: Full code. POA: Son and Daughter Patient is admitted under inpatient status with expected length of stay greater than 2 midnights due to severity of presenting symptoms, risk of adverse event, and complexity of treatment plan. VTE Mechanical Devices: Venous Foot Pump Resuscitation Status: CPR: Attempt Resuscitation Mau Noble MD Nov 02, 2016 13:51
--- NOTE | 2016-11-02 13:54 | PCM.PNMED ---
Subjective Date of Service Nov 02, 2016 Subjective Pt reports improved SOB after IV Lasix yesterday, denies Dyspnea. >3L Urine output last 24hrs. Exam Vital Signs Vital Sign - Last Date Time Temp Pulse Resp B/P Pulse Ox O2 Delivery O2 Flow Rate FiO2 11/02/16 12:31 36.7 74 18 115/68 95 Room Air Intake and Output 11/01/16 11/01/16 11/02/16 Cumulative From/Thru 15:00 23:00 07:00 10/26/16 13:49 - 11/02/16 06:06 Intake Total 940 ml 268 ml 8673 ml Output Total 1875 ml 925 ml 08443 ml Balance -935 ml -657 ml -7052 ml Intake Oral 940 ml 268 ml 8613 ml IV Total 60 ml Output Urine Total 1875 ml 925 ml 36435 ml # Bowel Movements 1 Exam General: No acute distress, well-developed, well-nourished, appropriately interactive HEENT: Normocephalic, atraumatic. External ears without defect. Cardiovascular: Regular rate and rhythm with holosystolic murmur appreciated Pulmonary: left lobe lobar crackles. Normal respiratory effort with no use of accessory muscles. Abdomen: Bowel tones present. Soft, nontender, nondistended. No hepatosplenomegaly or masses appreciated. Extremities: No clubbing, cyanosis. Much improved bilateral lower extremity edema that is pitting. Associated stasis dermatitis. Negative for cellulitic changes and warmth and tenderness Skin: Normal temperature Neurological: No focal deficits Psychiatric: Normal mood and affect. Alert and oriented to person, place, and time. IVs and Medications Medications Reviewed: Medications were reviewed in detail Lab and Diagnostics Result Diagram: 11/01/1662411/01/16624 X-Rays, CTs and MRIs . X-RAY CHEST ONE VIEW, PORTABLE IMPRESSION: No acute pulmonary process. Dictated by: Myra Castro M.D US VENOUS LEG DUPLEX BILATERAL IMPRESSION: No DVT found. Dictated by: Valdo Nieto M.D. US RENAL SONOGRAM IMPRESSION: 1. Minimal renal cortical thinning involving the right kidney, otherwise grossly normal appearance of the kidneys. Dictated by: Foster RODRIGUEZ Interpreted: Jaden Ortiz MD US ABDOMEN, LIMITED IMPRESSION: No ascites. Dictated by: Foster RODRIGUEZ Interpreted: Jaden Ortiz MD US DUPLEX DOPPLER BILATERAL LEG ARTERIES IMPRESSION: Minimal plaque and no hemodynamically significant peripheral arterial stenosis. Dictated by: Foster [facility]ي [facility] Interpreted: Lillian Garcia MD Cardiac Echo Impressions Echocardiogram Report Interpretation Summary: The left ventricle is normal in size. Left ventricular systolic function is normal without focal wall motion abnormalities. The ejection fraction is estimated to be 65-70%. There is moderate tricuspid regurgitation. The right ventricular systolic pressure is estimated at 74 mmHg assuming a right atrial pressure of 8 mm Hg. Compared to the prior echo exam, there has been no change in the severity of pulmonary hypertension. Echocardiogram Report Interpretation Summary: The left ventricle is normal in size. Left ventricular systolic function is normal. The ejection fraction is estimated to be 60-65%. There has been no significant change since the previous study. Paradoxical septal motion is consistent with right ventricular volume overload. The right ventricle is mildly dilated. The right ventricular systolic function is normal. The right ventricular systolic pressure is estimated at 53 mmHg assuming a right atrial pressure of 8 mm Hg. Compared to the prior echo exam, there has been a decrease in the severity of pulmonary hypertension. The left atrium is moderately dilated. The right atrium is mildly dilated. There is moderate to severe mitral regurgitation. Compared to the prior echo study, there has been no change in the severity of mitral regurgitation. There is moderate tricuspid regurgitation. There is no other significant valvular heart disease. The ascending aorta is mild-moderately enlarged. Assessment & Plan Ms. Lindy Spencer is an 81 year old woman with past medical history significant for pulmonary hypertension, severe mitral regurgitation currently scheduled for Mitral clip 11/15 at [facility], diastolic heart failure who presented to the [facility] emergency department for CHF exacerbation. Acute on chronic HFpEF, present on admission, active - Likely complicated by patient's severe MR and Pulm HTN. Dr. Peck is patients independent consultant. - 80 IV Lasix received in the ED. She was on IV Lasix till 10/30 - Nephrology following for diuresis. - Cardiology consulted- -- Dr. San has seen the patient, she feels patient's CVP and pulm HTN have actually improved from prior. Discussed case w/ Dr. San 11/02. Inpatient cath not likely indicated. Given pt's clinical improvement will consider discharging and having rest of workup done as outpatient including possible RHC/LHC, plan Mitral Clip at [facility]. She will discuss w/ pt's [employer] Dr. Peck. - Pt has been updated on current plan. # Acute on chronic respiratory failure and Exertional dyspnea secondary to pulmonary hypertension, diastolic heart failure and mitral regurg, present admission, improving - Pulmonary Consulted- per 11/02 note- - Patient may discharge at any time from a pulmonary standpoint. - Will defer to cardiology team and Lety Traore regarding further work up with cardiac catheter procedure for evaluation of mitral regurg and pulmonary capillary wedge pressure cardiology. At this time use if vasodilator therapy with Sildenafil is not indicated as likely the origin of patients PAH is cardiac in origin and not pulmonary or vascular. And giving vasodilator therapy would likely worsen patients already existing diastolic heart failure. Acute Kidney Injury, present on admission. Resolved - Suspect early Cardiorenal, decreased urination, Creatnine on admission 1.59, baseline ~ 1.1. - Nephrology consulted, 11/02 Recs- -Stop IV Lasix -Restart torsemide at crease dose to 40 mg daily -Continue chlorthalidone 25 mg daily -Increase spironolactone to 50 mg daily -Continue with strict monitoring of urinary output Anemia of chronic disease, present on admission She was given 1 dose of anaresp, 1 dose of IV iron of IV iron Chronic issues, present remission, stable: Mitral regurgitation, present on admission, active - Under evaluation by [facility] for mitral clip, scheduled for November 15. - Obtained and reviewed records from Dr. Duran, Dr. Yarbrough also reviewed the records states that there is no definite reason to believe that her mitral valve regurgitation is severe. He would like for cardiology to reevaluate right heart catheter procedure probably on Monday. Hypothyroidism chronic stable -Continue levothyroxine Chronic pain chronic stable -Continue patient's OxyContin (~ 70mg Oxy daily) Chronic anxiety chronic stable -Continue patient's home medications chronic Depression stable- Continue home med Effexor GERD chronic stable -Continue patient's home medications Hypertension chronic stable -Medication as above Insomnia chronic stable - Continue Ambien home med CODE STATUS: Full code. POA: Son and Daughter Disposition: Per Cardiology, will coordinate with Cardiology to see if remaining workup for Pulm HTN and Mitral Clip can be done as outpatient. Once tolerating PO Diuresis may be ready for discharge. VTE Mechanical Devices: Venous Foot Pump Resuscitation Status: CPR: Attempt Resuscitation Mau Noble MD Nov 02, 2016 13:54
--- NOTE | 2016-11-02 15:47 | PCM.PNMED ---
Subjective Date of Service Nov 02, 2016 Subjective Pulmonary and critical care progress note Hospital day #8 Overnight: Patient continues to be diuresed with IV Lasix and voided greater then 3 L. Today patient switched to PO Torsemide 40 mg and Clorthaledone 25 mg as well as increased Spironolactone to 50 mg daily by nephrology for transition to out patient medications. Patient continues to improve her respiratory status and her exercise tolerance with removal of a cumulative 7 L of fluid since admission. Patient denies having to use supplemental oxygen during her hospitalization which is confirmed by a review of her medical record. Exam Vital Signs Vital Sign - Last Date Time Temp Pulse Resp B/P Pulse Ox O2 Delivery O2 Flow Rate FiO2 11/02/16 12:31 36.7 74 18 115/68 95 Room Air Intake and Output 11/01/16 11/01/16 11/02/16 Cumulative From/Thru 15:00 23:00 07:00 10/26/16 13:49 - 11/02/16 06:06 Intake Total 940 ml 268 ml 8673 ml Output Total 1875 ml 925 ml 10737 ml Balance -935 ml -657 ml -7052 ml Intake Oral 940 ml 268 ml 8613 ml IV Total 60 ml Output Urine Total 1875 ml 925 ml 29490 ml # Bowel Movements 1 Exam General: No acute distress, obese, appropriately interactive and pleasant in no acute distress, speaking in full sentences. HEENT: Normocephalic, atraumatic. External ears without defect. Neck: No JVD. No lymphadenopathy Cardiovascular: Regular rate and rhythm without murmur. Long: Left midlung field to base crackles heard, with reduced lung sounds compared to right. No wheezes, or rhonchi. Normal respiratory effort. Abdomen: Bowel tones present. Soft, nontender, nondistended. Extremities: No clubbing, cyanosis. Bilateral lower extremity edema, with evidence of significant stasis dermatitis. Skin: Normal temperature, turgor, and texture; rash present on the dorsal upper extremity digits, no evidence of subcutaneous nodules.. Neurological: Grossly neurologically intact,. Patient speaking in full sentences. Signs of neurological disorder Psychiatric: Normal mood and affect. Alert and oriented to person, place, and time. IVs and Medications Medications Reviewed: Medications were reviewed in detail Lab and Diagnostics Result Diagram: 11/01/1662411/01/16624 X-Rays, CTs and MRIs . X-RAY CHEST ONE VIEW, PORTABLE IMPRESSION: No acute pulmonary process. Dictated by: Myra Castro M.D US VENOUS LEG DUPLEX BILATERAL IMPRESSION: No DVT found. Dictated by: Valdo Nieto M.D. US RENAL SONOGRAM IMPRESSION: 1. Minimal renal cortical thinning involving the right kidney, otherwise grossly normal appearance of the kidneys. Dictated by: Foster RODRIGUEZ Interpreted: Jaden Ortiz MD US ABDOMEN, LIMITED IMPRESSION: No ascites. Dictated by: Foster RODRIGUEZ Interpreted: Jaden Ortiz MD US DUPLEX DOPPLER BILATERAL LEG ARTERIES IMPRESSION: Minimal plaque and no hemodynamically significant peripheral arterial stenosis. Dictated by: Foster RODRIGUEZ Interpreted: Lillian Garcia MD Cardiac Echo Impressions Echocardiogram Report Interpretation Summary: The left ventricle is normal in size. Left ventricular systolic function is normal without focal wall motion abnormalities. The ejection fraction is estimated to be 65-70%. There is moderate tricuspid regurgitation. The right ventricular systolic pressure is estimated at 74 mmHg assuming a right atrial pressure of 8 mm Hg. Compared to the prior echo exam, there has been no change in the severity of pulmonary hypertension. Echocardiogram Report Interpretation Summary: The left ventricle is normal in size. Left ventricular systolic function is normal. The ejection fraction is estimated to be 60-65%. There has been no significant change since the previous study. Paradoxical septal motion is consistent with right ventricular volume overload. The right ventricle is mildly dilated. The right ventricular systolic function is normal. The right ventricular systolic pressure is estimated at 53 mmHg assuming a right atrial pressure of 8 mm Hg. Compared to the prior echo exam, there has been a decrease in the severity of pulmonary hypertension. The left atrium is moderately dilated. The right atrium is mildly dilated. There is moderate to severe mitral regurgitation. Compared to the prior echo study, there has been no change in the severity of mitral regurgitation. There is moderate tricuspid regurgitation. There is no other significant valvular heart disease. The ascending aorta is mild-moderately enlarged. Assessment & Plan This is an 81 Y/O F with past medical history significant for pulmonary hypertension, severe mitral regurgitation currently scheduled for Mitral clip at [facility], diastolic heart failure who presented to the [facility] emergency department today for CHF exacerbation. # Acute on chronic respiratory failure and Exertional dyspnea secondary to pulmonary hypertension, diastolic heart failure and mitral regurg, present admission, improving - Patient was not on home oxygen and was not candidate for home oxygen per her O2 sats of 94% on a road test during her pulmonology visit 08/06/2016. - Patient has not required supplement O2 during this hospitalization. - Patient shortness of breath and dyspnea as well as LE edema has considerably improved on PO and IV diuretics. - Patient's white blood cell count is within normal limits and there is no left shift. There is no evidence of acute pulmonary infection. - Prior CT chest with contrast 06/13/[address] Angio 07/26/2016 negative for PE but showed evidence right upper lung lobe nodular consolidation consistent with atypical infectious (bacterial or fungal) process or neoplastic process. - PFTs on 06/23/2016 showed: FVC 61%, FEV1 65%, FEV1/FVC ratio 0.8, TLC 62, RV 62%, and DLCO 53 - Patient appears to have fully recovered from her respiratory distress at this time, with resolution of her severe SOB and exertional dyspnea for which she was initially admitted. From a pulmonary standpoint the patient has no indications of an acute infectious process given no leukocytosis and negative CXR. And it is unlikely that her chronic residual right upper lobe nodularity would be contributing to her current complaint given its small size and lack of change from prior CT in May 2016 by comparison. Her PFT's from July 2016 would indicate a chronic restrictive pattern which is sufficiently explained by her hx of left lower lobe segment-ectomy. Unfortunately we have no prior PFT's from before her surgery for comparison to confirm this. The patients exertional dyspnea is most likely secondary to her diastolic heart failure, given her rapid improvement with aggressive diuresis by the nephrology team. - The patient has undergone had a complete pulmonary workup and is being followed by oncology as an outpatient. - Patient may discharge at any time from a pulmonary standpoint. - Will defer to cardiology team and Leyt Traore regarding further work up with cardiac catheter procedure for evaluation of mitral regurg and pulmonary capillary wedge pressure cardiology. At this time use if vasodilator therapy with Sildenafil is not indicated as likely the origin of patients PAH is cardiac in origin and not pulmonary or vascular. And giving vasodilator therapy would likely worsen patients already existing diastolic heart failure. 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 Dean oncology was follow-up appointment end of October - Patient currently in remission and no chemotherapy is planned at this time. # Acute on chronic HFpEF, present on admission, active - Likely complicated by patient's severe MR. Dr. Peck is patients ingot supervisor. - Daily weights, strict I&O's, low-salt diet, fluid restriction to 2 L. patient is adequately diuresing based on ins and outs - 80 IV Lasix received in the ED. She was on IV Lasix till 10/30 - Nitro PRN - Holding home antihypertensives for now with the exception of coreg. - On Remote Telemetry - Echo on this admission showed LVEF of 65-70%, right ventricular pressures 53% , enlarged pulmonary artery - Will defer to cardiology team and Lety Traore regarding further work up with cardiac catheter procedure for evaluation of mitral regurg and pulmonary capillary wedge pressure cardiology. # Acute Kidney Injury, present on admission. Resolved - Suspect early Cardiorenal, decreased urination, Creatnine on admission 1.59, baseline ~ 1.1. - Will defer to nephrology team. Chronic issues, present remission, stable: # Mitral regurgitation, present on admission, active - Under evaluation by [facility] for mitral clip, scheduled for November 15. - Obtained and reviewed records from Dr. Duran, Dr. Yarbrough also reviewed the records states that there is no definite reason to believe that her mitral valve regurgitation is severe. He would like for cardiology to reevaluate right heart catheter procedure probably on Monday. - Dr. San has seen the patient, she feels patient's CVP and pulm HTN have actually improved from prior. VTE Mechanical Devices: Venous Foot Pump Resuscitation Status: CPR: Attempt Resuscitation Attending Statement I have seen and examined this patient with the resident physician. Vital signs , labs, imaging have been reviewed. I agree with the assessment and plan above. Please refer to my separately dictated progress note for any modifications to above. Maryellen Morales M.D. Pulmonary and Critical Care medicine Pager [phone] Jacinto Oden DO Nov 02, 2016 15:47 Maryellen Morales MD Nov 04, 2016 08:12 Jacinto Oden DO Nov 02, 2016 15:47
--- NOTE | 2016-11-02 17:12 | CONS ---
[address] [address] CONSULTATION REPORT PATIENT: JOHANN PETERSON : 1935 MR#: [id number] ADMIT: 10/26/2016 JOB ID: [id number] DATE OF SERVICE: 11/02/2016 The patient is an 81-year-old woman with prior history of stage IB lung cancer status post resection seen in consultation at the request of Dr. Velez for evaluation of dyspnea. The patient was seen and evaluated with resident physician, Dr. Jacinto Oden. Please refer to his separate detailed note for complete information. The following is a brief attending note. HISTORY OF PRESENT ILLNESS: Briefly, the patient is an 81-year-old woman who I have previously seen in outpatient Pulmonology Clinic once in July 2016. She had had recent history of left lower lobe cavitary malignancy for which she underwent a left lower lobe segmentectomy while living in [place] within the last year. She had not received any chemo or radiation and had moved to this area and came to [facility] care. At that visit, she had been complaining of dyspnea because of which she underwent an extensive workup including PFTs, CT chest, PE protocol, echocardiogram, etc. In the meantime, she has had two hospitalizations in the last few months for symptoms that have been attributed to CHF exacerbation from moderate to severe mitral regurgitation. She has responded well to diuretics during both admissions and is currently on three diuretic medications. She is on room air and she feels that overall her dyspnea is improved compared to a week ago when she 1st came in the hospital. PAST MEDICAL HISTORY/SOCIAL HISTORY/FAMILY HISTORY/REVIEW OF SYSTEMS: Per separate resident note. Please note that she is a never smoker. PHYSICAL EXAMINATION: Vital signs reviewed. She is satting in the 95-97 percent range on room air. General: Alert, elderly woman lying in bed, breathing comfortably. Chest is clear to auscultation. LABORATORIES: Reviewed. IMAGING: Reviewed. Most notably her CT chest from September 2016 shows patchy nodular/ground-glass opacity in the right upper lobe which has been present at least since May 2015, and is relatively stable compared to then. She has some bibasilar atelectasis but no other pulmonary parenchymal abnormalities and no evidence of pulmonary emboli. Pulmonary function tests from July 2016 reviewed and shows total lung capacity 62%. No airflow obstruction. DLCO 53%. Part of this restrictive pattern could be explained by prior partial left lower lobectomy. ASSESSMENT AND RECOMMENDATIONS: 1. Dyspnea. 2. Recurrent exacerbation of diastolic heart failure attributed to moderate to severe mitral regurgitation. 3. 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 4. Moderate pulmonary hypertension, most recent RVSP down to 53 mm. 5. Right upper lobe nodularity has been stable since 2016, being followed with imaging. This 81-year-old woman whom I have previously seen once in Pulmonology Clinic has been admitted twice now to [facility] with symptoms of congestive heart failure exacerbation, mitral regurgitation. We were asked to see the patient to evaluate for possible pulmonary etiology of her symptoms. She has had a recent thorough workup for pulmonary causes of dyspnea. With regards to her PFTs which show moderate restrictive pattern, this can be explained at least in part by prior lobectomy and could be exacerbated by her morbid obesity, BMI 35. Her chest CT shows no evidence of interstitial lung disease or pulmonary emboli. Her pulmonary hypertension is only moderate and has varied with the degree of CHF decompensation which would be more consistent with group 2 pulmonary hypertension, i.e. related to left heart dysfunction/diastolic dysfunction. In this case, there is no indication to treat it with pulmonary vasodilator therapy and the treatment would be treatment of the underlying heart disease. If we wanted to be absolutely certain that her pulmonary hypertension is not a primary pulmonary etiology, the next step would be to do a right heart catheterization, but, given the clinical history, I really do not think this is necessary in an 81-year-old. I explained all of this to the patient. She needs continued followup for her right upper lobe nodularity which has been present since 2016. This could be a very slowly growing malignancy, but at this point, if it is not causing problems I do not think this is an acute issue. It could very likely also be a focus of chronic infection or simply scar tissue. Pulmonary service is available for questions, if any, but will not plan on following the patient regularly. It appears she is scheduled for a transcatheter mitral valve repair procedure at the [facility] on November 15.
--- NOTE | 2016-11-02 18:13 | PROG NOTE ---
[address] [address] PROGRESS NOTE PATIENT: JOHANN PETERSON : 1935 MR#: [id number] ADMIT: 10/26/2016 JOB ID: [id number] DATE: 11/02/2016 CARDIOLOGY PROGRESS NOTE: CHIEF COMPLAINT: The patient came in with increased shortness of breath and edema. She has responded nicely to diuresis. There has been some confusion as to whether she is to have a right and left heart catheterization. However, in speaking with her, she says that she is going down to the [facility] for further assessment at the end of the month. Overall, she is doing better at this time. PHYSICAL EXAMINATION: Blood pressure 116/70, heart rate 63, sats are 96% on room air. Her I's and O's continue to remain negative. General: She is lying flat in bed, appearing in no acute distress. Her edema has improved considerably. LABORATORIES: Show an H and H 10.1 and 32.4. Chemistry shows sodium 132, potassium 2.8. Chloride and bicarb 92 and 24 respectively. BUN creatinine 32 and 0.92. IMPRESSION: The patient is doing better with diuresis. This certainly has reduced her left-sided filling pressures. I have been told that the feeling was that her mitral regurgitation was not severe by Dr. Yarbrough and Dr. Armas, however it does seem that she is going to the [facility] for further assessment. If that is the case, then I am certain they will do any evaluations including right heart that is necessary. We will keep her here for another day and hopefully Dr. Peck can gave me some more information in terms of the plan. Apparently he has not yet received communication from the [facility].
--- NOTE | 2016-11-02 18:30 | NUR ---
Pain/activity Patient reporting shoulder and back pain managed well with scheduled narcotic and PRN Tylenol. Patient ambulates independently with front wheeled walker to bathroom.
[2016-11-02] MEDS: oxyCODONE ER 10 mg ER12 Tablet PO SCH (20:33)
[2016-11-03] VITALS (10 sets, daily range): BP systolic 103–122; BP diastolic 68–74; PULSE 67–77; RESP 18–20; O2SAT 92–98
[2016-11-03] MEDS: Sodium Chloride LOK Flush 10 mL Syringe IVFLUSH SCH ×4 (02:26→22:04)
[2016-11-03] MEDS: Fluticasone-Salmeterol 500-50 Inhaler INHALATION SCH ×2 (07:57→20:33)
[2016-11-03] MEDS: Venlafaxine XR 75 mg ER24 Capsule PO SCH (08:01)
[2016-11-03] MEDS: oxyCODONE ER 40 mg ER12 Tablet PO SCH (08:02)
--- NOTE | 2016-11-03 12:45 | PCM.PNNEPH ---
Subjective Date of Service Nov 03, 2016 Subjective Feeling better today, good UOP with oral diuretics. C/o some sensitive skin on calf area. No cramps. (+) neuropathy. Exam Vital Signs Vital Sign - Last Date Time Temp Pulse Resp B/P Pulse Ox O2 Delivery O2 Flow Rate FiO2 11/03/16 11:05 71 11/03/16 10:43 20 92 Room Air 11/03/16 08:38 36.3 122/73 Intake and Output 11/02/16 11/02/16 11/03/16 Cumulative From/Thru 15:00 23:00 07:00 10/26/16 13:49 - 11/03/16 06:33 Intake Total 450 ml 1346 ml 05403 ml Output Total 2700 ml 550 ml 39504 ml Balance -2250 ml 796 ml -8506 ml Intake Oral 450 ml 1346 ml 24533 ml IV Total 60 ml Output Urine Total 2700 ml 550 ml 69512 ml # Bowel Movements 1 Exam General: Awake and alert laying in hospital bed, well-developed, well-nourished. HEENT: Normocephalic, atraumatic. Neck: Supple with full range of motion. No jugular venous distension. Cardiovascular: Regular rate and rhythm with soft systolic murmur Pulmonary: No rales, rhonchi, wheezing today. Good air entry. Abdomen: Obese. Soft, nontender, nondistended. Extremities: Chronic skin changes, wrinkled. trace edema. Lab and Diagnostics Result Diagram: 11/01/16 0625 11/03/16 0615 X-Rays, CTs and MRIs . X-RAY CHEST ONE VIEW, PORTABLE IMPRESSION: No acute pulmonary process. Dictated by: Myra Castro M.D US VENOUS LEG DUPLEX BILATERAL IMPRESSION: No DVT found. Dictated by: Valdo Nieto M.D. US RENAL SONOGRAM IMPRESSION: 1. Minimal renal cortical thinning involving the right kidney, otherwise grossly normal appearance of the kidneys. Dictated by: Foster RODRIGUEZ Interpreted: Jaden Ortiz MD US ABDOMEN, LIMITED IMPRESSION: No ascites. Dictated by: Foster RODRIGUEZ Interpreted: Jaden Ortiz MD US DUPLEX DOPPLER BILATERAL LEG ARTERIES IMPRESSION: Minimal plaque and no hemodynamically significant peripheral arterial stenosis. Dictated by: Foster RODRIGUEZ Interpreted: Lillian Garcia MD Cardiac Echo Impressions Echocardiogram Report Interpretation Summary: The left ventricle is normal in size. Left ventricular systolic function is normal without focal wall motion abnormalities. The ejection fraction is estimated to be 65-70%. There is moderate tricuspid regurgitation. The right ventricular systolic pressure is estimated at 74 mmHg assuming a right atrial pressure of 8 mm Hg. Compared to the prior echo exam, there has been no change in the severity of pulmonary hypertension. Echocardiogram Report Interpretation Summary: The left ventricle is normal in size. Left ventricular systolic function is normal. The ejection fraction is estimated to be 60-65%. There has been no significant change since the previous study. Paradoxical septal motion is consistent with right ventricular volume overload. The right ventricle is mildly dilated. The right ventricular systolic function is normal. The right ventricular systolic pressure is estimated at 53 mmHg assuming a right atrial pressure of 8 mm Hg. Compared to the prior echo exam, there has been a decrease in the severity of pulmonary hypertension. The left atrium is moderately dilated. The right atrium is mildly dilated. There is moderate to severe mitral regurgitation. Compared to the prior echo study, there has been no change in the severity of mitral regurgitation. There is moderate tricuspid regurgitation. There is no other significant valvular heart disease. The ascending aorta is mild-moderately enlarged. Plan Impression Acute kidney injury - Secondary to CRS. - BUN/cr slightly elevated today. She appears euvolemic. - We will continue triple diuretic regimen at the current dose for now. - If serum cr worsens, will readjust diuretic dose. - 2g Na diet. D/c fluid restriction. Mitral regurgitation, tricuspid regurgitation - CHF exacerbation, HFpEF - Pulmonary HTN likely related to VHD. -Cardiology following, awaiting recommendations -Currently scheduled for mitral valve clip procedure at the end of the month Anemia s/p aranesp injection Eunice Arriaza MD Nov 03, 2016 12:45
--- NOTE | 2016-11-03 14:24 | PCM.PNMED ---
Subjective Date of Service Nov 03, 2016 Subjective Pt has had good urine output last 24hs > 4L urine output. Denies current SOB. Exam Vital Signs Vital Sign - Last Date Time Temp Pulse Resp B/P Pulse Ox O2 Delivery O2 Flow Rate FiO2 11/03/16 12:44 36.5 67 18 103/68 94 Room Air Intake and Output 11/02/16 11/02/16 11/03/16 Cumulative From/Thru 15:00 23:00 07:00 10/26/16 13:49 - 11/03/16 06:33 Intake Total 450 ml 1346 ml 00716 ml Output Total 2700 ml 550 ml 48391 ml Balance -2250 ml 796 ml -8506 ml Intake Oral 450 ml 1346 ml 56003 ml IV Total 60 ml Output Urine Total 2700 ml 550 ml 81782 ml # Bowel Movements 1 Exam General: No acute distress, well-developed, well-nourished, appropriately interactive HEENT: Normocephalic, atraumatic. External ears without defect. Cardiovascular: Regular rate and rhythm with holosystolic murmur appreciated Pulmonary: left lobe lobar crackles. Normal respiratory effort with no use of accessory muscles. Abdomen: Bowel tones present. Soft, nontender, nondistended. No hepatosplenomegaly or masses appreciated. Extremities: No clubbing, cyanosis. Much improved bilateral lower extremity edema that is pitting. Associated stasis dermatitis. Negative for cellulitic changes and warmth and tenderness Skin: Normal temperature Neurological: No focal deficits Psychiatric: Normal mood and affect. Alert and oriented to person, place, and time. IVs and Medications Medications Reviewed: Medications were reviewed in detail Lab and Diagnostics Result Diagram: 11/01/1662411/03/1615 X-Rays, CTs and MRIs . X-RAY CHEST ONE VIEW, PORTABLE IMPRESSION: No acute pulmonary process. Dictated by: Myra Castro M.D US VENOUS LEG DUPLEX BILATERAL IMPRESSION: No DVT found. Dictated by: Valdo Nieto M.D. US RENAL SONOGRAM IMPRESSION: 1. Minimal renal cortical thinning involving the right kidney, otherwise grossly normal appearance of the kidneys. Dictated by: Foster RODRIGUEZ Interpreted: Jaden Ortiz MD US ABDOMEN, LIMITED IMPRESSION: No ascites. Dictated by: Foster RODRIGUEZ Interpreted: Jaden Ortiz MD US DUPLEX DOPPLER BILATERAL LEG ARTERIES IMPRESSION: Minimal plaque and no hemodynamically significant peripheral arterial stenosis. Dictated by: Foster [facility] Interpreted: Lillian Garcia MD Cardiac Echo Impressions Echocardiogram Report Interpretation Summary: The left ventricle is normal in size. Left ventricular systolic function is normal without focal wall motion abnormalities. The ejection fraction is estimated to be 65-70%. There is moderate tricuspid regurgitation. The right ventricular systolic pressure is estimated at 74 mmHg assuming a right atrial pressure of 8 mm Hg. Compared to the prior echo exam, there has been no change in the severity of pulmonary hypertension. Echocardiogram Report Interpretation Summary: The left ventricle is normal in size. Left ventricular systolic function is normal. The ejection fraction is estimated to be 60-65%. There has been no significant change since the previous study. Paradoxical septal motion is consistent with right ventricular volume overload. The right ventricle is mildly dilated. The right ventricular systolic function is normal. The right ventricular systolic pressure is estimated at 53 mmHg assuming a right atrial pressure of 8 mm Hg. Compared to the prior echo exam, there has been a decrease in the severity of pulmonary hypertension. The left atrium is moderately dilated. The right atrium is mildly dilated. There is moderate to severe mitral regurgitation. Compared to the prior echo study, there has been no change in the severity of mitral regurgitation. There is moderate tricuspid regurgitation. There is no other significant valvular heart disease. The ascending aorta is mild-moderately enlarged. Assessment & Plan Ms. Lindy Spencer is an 81 year old woman with past medical history significant for pulmonary hypertension, severe mitral regurgitation currently scheduled for Mitral clip 11/15 at [facility], diastolic heart failure who presented to the [facility] emergency department for CHF exacerbation. Acute on chronic HFpEF, present on admission, active - Likely complicated by patient's severe MR and Pulm HTN. Dr. Peck is patients retail coordinator. - 80 IV Lasix received in the ED. She was on IV Lasix till 10/30 - Nephrology following for diuresis. - Cardiology consulted- -- Dr. San has seen the patient, she feels patient's CVP and pulm HTN have actually improved from prior. Discussed case w/ Dr. San 11/02. Inpatient cath not indicated. Given pt's clinical improvement current plan to discharge and having rest of workup done as outpatient including possible LHC and Mitral Clip at [facility] for which she has appt Nov 15. She will discuss w/ pt's Host Coordinator Dr. Peck. # Acute on chronic respiratory failure and Exertional dyspnea secondary to pulmonary hypertension, diastolic heart failure and mitral regurg, present admission, improving - Pulmonary Consulted- per 11/02 note- - Patient may discharge at any time from a pulmonary standpoint. - Will defer to cardiology team and Lety Traore regarding further work up with cardiac catheter procedure for evaluation of mitral regurg and pulmonary capillary wedge pressure cardiology. At this time use if vasodilator therapy with Sildenafil is not indicated as likely the origin of patients PAH is cardiac in origin and not pulmonary or vascular. And giving vasodilator therapy would likely worsen patients already existing diastolic heart failure. Acute Kidney Injury, present on admission. Resolved - Suspect early Cardiorenal, decreased urination, Creatine on admission 1.59, baseline ~ 1.1. - Nephrology consulted, 11/02 Recs- - We will continue triple diuretic regimen at the current dose for now. Torsemide, Chlorthalidone, Spironolactone, - If serum cr worsens, will readjust diuretic dose. - 2g Na diet. D/c fluid restriction. Anemia of chronic disease, present on admission, stable. She was given 1 dose of anaresp, 1 dose of IV iron during admit. Chronic issues, present remission, stable: Mitral regurgitation, present on admission, active - Under evaluation by [facility] for mitral clip, scheduled for November 15. - Obtained and reviewed records from Dr. Duran, Dr. Yarbrough also reviewed the records states that there is no definite reason to believe that her mitral valve regurgitation is severe. He would like for cardiology to reevaluate right heart catheter procedure probably on Monday. Hypothyroidism chronic stable -Continue levothyroxine Chronic pain chronic stable -Continue patient's OxyContin (~ 70mg Oxy daily) Chronic anxiety chronic stable -Continue patient's home medications chronic Depression stable- Continue home med Effexor GERD chronic stable -Continue patient's home medications Hypertension chronic stable -Medication as above Insomnia chronic stable - Continue Ambien home med Disposition: will coordinate with Cardiology to see if remaining workup for Pulm HTN and Mitral Clip can be done as outpatient. Once tolerating PO Diuresis may be ready for discharge 11/04. VTE Mechanical Devices: Venous Foot Pump Resuscitation Status: CPR: Attempt Resuscitation Mau Noble MD Nov 03, 2016 14:24
--- NOTE | 2016-11-03 17:49 | NUR ---
Activity/fluids Pt amb to BR with FWW/SBA and tolerating activity well. Denies any dizziness with change of position. Fluid restriction dc'd this shift per nephrology. Bed in lowest, locked position and call light in reach.
[2016-11-03] MEDS: oxyCODONE ER 10 mg ER12 Tablet PO SCH (20:33)
[2016-11-04 01:03] VITALS: BP 118/78; PULSE 68; RESP 19; O2SAT 97
--- NOTE | 2016-11-04 04:00 | NUR ---
Pain Pt reporting generalized achy pain to shoulder and back 4/10. Medicated pt with scheduled oxycontin at HS, pt reports pain decreased to 2/10 after medication admin. Call light within reach, frequent rounding.
[2016-11-04 05:52] VITALS: BP 119/68; PULSE 74; RESP 19; O2SAT 97
[2016-11-04 06:04] VITALS: PULSE 72
[2016-11-04 06:30] VITALS: PULSE 74; RESP 20; O2SAT 92
[2016-11-04 08:55] VITALS: BP 105/69; PULSE 76; RESP 16; O2SAT 96
[2016-11-04] MEDS: Fluticasone-Salmeterol 500-50 Inhaler INHALATION SCH (09:02)
[2016-11-04] MEDS: Sodium Chloride LOK Flush 10 mL Syringe IVFLUSH SCH (09:03)
[2016-11-04] MEDS: Venlafaxine XR 75 mg ER24 Capsule PO SCH (09:05)
[2016-11-04] MEDS: oxyCODONE ER 40 mg ER12 Tablet PO SCH (09:06)
--- NOTE | 2016-11-04 10:18 | PCM.PNMED ---
Subjective Date of Service Nov 04, 2016 Subjective Pt reports resolved SOB and signif improved LE Edema. Exam Vital Signs Vital Sign - Last Date Time Temp Pulse Resp B/P Pulse Ox O2 Delivery O2 Flow Rate FiO2 11/04/16 08:55 36.8 76 16 105/69 96 Room Air Intake and Output 11/03/16 11/03/16 11/04/16 Cumulative From/Thru 15:00 23:00 07:00 10/26/16 13:49 - 11/04/16 05:54 Intake Total 1424 ml 520 ml 82519 ml Output Total 2925 ml 1600 ml 65769 ml Balance -1501 ml -1080 ml -07954 ml Intake Oral 1424 ml 520 ml 09661 ml IV Total 60 ml Output Urine Total 2925 ml 1600 ml 81466 ml # Voids 6 6 # Bowel Movements 1 Exam General: No acute distress, well-developed, well-nourished, appropriately interactive HEENT: Normocephalic, atraumatic. External ears without defect. Cardiovascular: Regular rate and rhythm with holosystolic murmur appreciated Pulmonary: CTAB. Normal respiratory effort with no use of accessory muscles. Abdomen: Bowel tones present. Soft, nontender, nondistended. No hepatosplenomegaly or masses appreciated. Extremities: No clubbing, cyanosis. LE Edema- Trace, improved. Associated stasis dermatitis. Skin: Normal temperature Neurological: No focal deficits Psychiatric: Normal mood and affect. Alert and oriented to person, place, and time. IVs and Medications Medications Reviewed: Medications were reviewed in detail Lab and Diagnostics Result Diagram: 11/01/1625 11/04/16 0627 X-Rays, CTs and MRIs . X-RAY CHEST ONE VIEW, PORTABLE IMPRESSION: No acute pulmonary process. Dictated by: Myra Castro M.D US VENOUS LEG DUPLEX BILATERAL IMPRESSION: No DVT found. Dictated by: Valdo Nieto M.D. US RENAL SONOGRAM IMPRESSION: 1. Minimal renal cortical thinning involving the right kidney, otherwise grossly normal appearance of the kidneys. Dictated by: Foster RODRIGUEZ Interpreted: Jaden Ortiz MD US ABDOMEN, LIMITED IMPRESSION: No ascites. Dictated by: Foster RODRIGUEZ Interpreted: Jaden Ortiz MD US DUPLEX DOPPLER BILATERAL LEG ARTERIES IMPRESSION: Minimal plaque and no hemodynamically significant peripheral arterial stenosis. Dictated by: Foster RODRIGUEZ Interpreted: Lillian Garcia MD Cardiac Echo Impressions Echocardiogram Report Interpretation Summary: The left ventricle is normal in size. Left ventricular systolic function is normal without focal wall motion abnormalities. The ejection fraction is estimated to be 65-70%. There is moderate tricuspid regurgitation. The right ventricular systolic pressure is estimated at 74 mmHg assuming a right atrial pressure of 8 mm Hg. Compared to the prior echo exam, there has been no change in the severity of pulmonary hypertension. Echocardiogram Report Interpretation Summary: The left ventricle is normal in size. Left ventricular systolic function is normal. The ejection fraction is estimated to be 60-65%. There has been no significant change since the previous study. Paradoxical septal motion is consistent with right ventricular volume overload. The right ventricle is mildly dilated. The right ventricular systolic function is normal. The right ventricular systolic pressure is estimated at 53 mmHg assuming a right atrial pressure of 8 mm Hg. Compared to the prior echo exam, there has been a decrease in the severity of pulmonary hypertension. The left atrium is moderately dilated. The right atrium is mildly dilated. There is moderate to severe mitral regurgitation. Compared to the prior echo study, there has been no change in the severity of mitral regurgitation. There is moderate tricuspid regurgitation. There is no other significant valvular heart disease. The ascending aorta is mild-moderately enlarged. Assessment & Plan Ms. Lindy Spencer is an 81 year old woman with past medical history significant for pulmonary hypertension, severe mitral regurgitation currently scheduled for Mitral clip 11/15 at [facility], diastolic heart failure who presented to the [facility] emergency department for CHF exacerbation. Acute on chronic HFpEF, present on admission, active - Likely complicated by patient's severe MR and Pulm HTN. Dr. Peck is patients environmental health safety engineer. - 80 IV Lasix received in the ED. She was on IV Lasix till 10/30 - Nephrology following for diuresis. - Cardiology consulted- -- Dr. San has seen the patient, she feels patient's CVP and pulm HTN have actually improved from prior. Discussed case w/ Dr. San 11/02. Inpatient cath not indicated. Given pt's clinical improvement current plan to discharge and having rest of workup done as outpatient including possible LHC and Mitral Clip at [facility] for which she has appt Nov 15. - Follow up with Wire Frame Maker, Dr. Peck and keep appointment at [facility] on November 15 as planned. # Acute on chronic respiratory failure and Exertional dyspnea secondary to pulmonary hypertension, diastolic heart failure and mitral regurg, present admission, improving - Pulmonary Consulted- per 11/02 note- - Will defer to cardiology team and Lety Traore regarding further work up with cardiac catheter procedure for evaluation of mitral regurg and pulmonary capillary wedge pressure cardiology. At this time use if vasodilator therapy with Sildenafil is not indicated as likely the origin of patients PAH is cardiac in origin and not pulmonary or vascular. And giving vasodilator therapy would likely worsen patients already existing diastolic heart failure. Acute Kidney Injury, present on admission. Resolved - Suspect early Cardiorenal, decreased urination, Creatine on admission 1.59, baseline ~ 1.1. - Nephrology, consulted, 11/03 Recs- - Continue triple diuretic regimen at the current dose of Torsemide, Chlorthalidone, Spironolactone - Recheck renal labs with PCP in 1 week, if worsens, can readjust diuretic dose. Anemia of chronic disease, present on admission, stable. She was given 1 dose of anaresp, 1 dose of IV iron during admit. Chronic issues, present remission, stable: Mitral regurgitation, present on admission, active - Under evaluation by [facility] for mitral clip, scheduled for November 15. - See plan above. Hypothyroidism chronic stable -Continue levothyroxine Chronic pain chronic stable -Continue patient's OxyContin (~ 70mg Oxy daily) Chronic anxiety chronic stable -Continue patient's home medications chronic Depression stable- Continue home med Effexor GERD chronic stable -Continue patient's home medications Hypertension chronic stable -Medication as above Insomnia chronic stable - Continue Ambien home med Disposition: Stable for discharge per Renal, Pulmonary, and Cardiology. - Continue triple diuretic regimen at the current dose of Torsemide, Chlorthalidone, Spironolactone - Recheck renal labs with PCP in 1 week, if worsens, can readjust diuretic dose. - Follow up with Wire Frame Maker, Dr. Peck and keep appointment at [facility] on November 15 as planned. Pain Evaluation: Adequate Pain Control VTE Mechanical Devices: Venous Foot Pump Resuscitation Status: CPR: Attempt Resuscitation Mau Noble MD Nov 04, 2016 10:18
--- NOTE | 2016-11-04 10:22 | PCM.DIMED ---
Discharge Instructions Date of Service Nov 04, 2016 Dates of Hospitalization Oct 26, 2016 at 15:08 Discharge Diagnosis Discharge Diagnosis Acute on chronic HFpEF, present on admission, active Acute on chronic respiratory failure and Exertional dyspnea secondary to pulmonary hypertension, diastolic heart failure and mitral regurg, present admission, improving Acute Kidney Injury, present on admission. Resolved Anemia of chronic disease, present on admission, stable. Mitral regurgitation, present on admission, active Chronic Issues- Chronic pain chronic stable Chronic anxiety chronic stable chronic Depression stable- Hypertension chronic stable Insomnia chronic stable Medication Instructions Additional med instructions - Continue triple diuretic regimen at the current dose of Torsemide, Chlorthalidone, Spironolactone Diet Discharge Diet: Low fat, Low Sodium Call your provider Call your provider for: Shortness of breath, Chest pain Patient Instructions Follow-up plan - Recheck renal labs with PCP in 1 week, if worsens, can readjust diuretic doses. - Follow up with Calibration Engineer, Dr. Peck and keep appointment at [facility] on November 15 as planned. Mau Noble MD Nov 04, 2016 10:22
[2016-11-04] MEDS ORDERED: TORS20TA PO (10:25)
[2016-11-04] MEDS ORDERED: HYG25 PO (10:25)
[2016-11-04] MEDS ORDERED: SPIR25TA PO (10:25)
[2016-11-04] MEDS ORDERED: CARV6.252 PO (10:25)
--- NOTE | 2016-11-04 10:36 | NUR ---
Social Work Note: Readiness For Discharge Data: EMR reviewed. Patient is on day 9 of hospitalization for CHF. Patient is medically stable for discharge. Patient is from [facility] and is independent. Patient has a caregiver 5 days a week. Patient discussed in morning rounds. Plan is for patient to discharge back home to [facility]. Transportation will be provided by family. Patient has no additional needs at this time. Assessment: Patient to discharge home with caregiver. Plan: Patient to discharge home today with transportation provided by family. Patient has no additional needs at this time. CARL Lancaster
--- NOTE | 2016-11-04 10:41 | PCM.DC.MED ---
Discharge Summary Date of Service Nov 04, 2016 Dates of Hospitalization Date of Hospital Admission Oct 26, 2016 at 15:08 Date of Discharge: Nov 04, 2016 Providers: Admitting Physician: Dee Velez DO Primary Care Physician: Enrique Muller DO Attending Physician: Jackson Noble MD Diagnosis at Time of Discharge Diagnosis at Time of Discharge Acute on chronic HFpEF, present on admission, active Acute on chronic respiratory failure and Exertional dyspnea secondary to pulmonary hypertension, diastolic heart failure and mitral regurg, present admission, improving Acute Kidney Injury, present on admission. Resolved Anemia of chronic disease, present on admission, stable. Mitral regurgitation, present on admission, active Chronic Issues- Chronic pain chronic stable Chronic anxiety chronic stable chronic Depression stable- Hypertension chronic stable Insomnia chronic stable Procedures XRay, CTs & MRIs . X-RAY CHEST ONE VIEW, PORTABLE IMPRESSION: No acute pulmonary process. Dictated by: Myra Castro M.D US VENOUS LEG DUPLEX BILATERAL IMPRESSION: No DVT found. Dictated by: Valdo Nieto M.D. US RENAL SONOGRAM IMPRESSION: 1. Minimal renal cortical thinning involving the right kidney, otherwise grossly normal appearance of the kidneys. Dictated by: Foster RODRIGUEZ Interpreted: Jaden Ortiz MD US ABDOMEN, LIMITED IMPRESSION: No ascites. Dictated by: Foster RODRIGUEZ Interpreted: Jaden Ortiz MD US DUPLEX DOPPLER BILATERAL LEG ARTERIES IMPRESSION: Minimal plaque and no hemodynamically significant peripheral arterial stenosis. Dictated by: Foster RODRIGUEZ Interpreted: Lillian Garcia MD Cardiac Echo Impression Echocardiogram Report Interpretation Summary: The left ventricle is normal in size. Left ventricular systolic function is normal without focal wall motion abnormalities. The ejection fraction is estimated to be 65-70%. There is moderate tricuspid regurgitation. The right ventricular systolic pressure is estimated at 74 mmHg assuming a right atrial pressure of 8 mm Hg. Compared to the prior echo exam, there has been no change in the severity of pulmonary hypertension. Echocardiogram Report Interpretation Summary: The left ventricle is normal in size. Left ventricular systolic function is normal. The ejection fraction is estimated to be 60-65%. There has been no significant change since the previous study. Paradoxical septal motion is consistent with right ventricular volume overload. The right ventricle is mildly dilated. The right ventricular systolic function is normal. The right ventricular systolic pressure is estimated at 53 mmHg assuming a right atrial pressure of 8 mm Hg. Compared to the prior echo exam, there has been a decrease in the severity of pulmonary hypertension. The left atrium is moderately dilated. The right atrium is mildly dilated. There is moderate to severe mitral regurgitation. Compared to the prior echo study, there has been no change in the severity of mitral regurgitation. There is moderate tricuspid regurgitation. There is no other significant valvular heart disease. The ascending aorta is mild-moderately enlarged. Brief History Per HPI by Dr. Lee on 10/26/16 Lindy Spencer is an 81 year old woman with past medical history significant for pulmonary hypertension, severe mitral regurgitation currently under evaluation at [facility] for a clip, HFpEF who presented to the [facility] emergency department at the advise of her caregiver, who reports increased lower extremity edema for the past week and increased fatigue and shortness of breath the last 3 days. Patient reports her blood pressure has been running low for the past week at 100's / 70's and was 80's / 50's today. She was recently seen in the ED for fluid retention and was admitted discharged with 30mg of Torsemide QD and spirolactone on 10/08. She reports some mild dizziness, increased lower extremity edema that is 2x normal size and difficulty putting on shoes for the past week, 13 lb weight gain since previous admission, and increased fatigue and mild decreased urination. She reports being fully compliant with medication regimen. She denies syncope, chest pain, cough, nausea, vomiting, fever, chills, abdominal pain, dysuria, constipation diarrhea. She currently resides at [facility] and has a coat operator. Patient and caregiver note that her Torsemide was adjusted to 30 mg QD following her discharge from the hosp last time. Pt felt better initially but her symptoms have gotten worse for the last one week or so. Vitals in the ED. She was given 80 mg of IV Lasix. Hospital Course Ms. Lindy Spencer is an 81 year old woman with past medical history significant for pulmonary hypertension, severe mitral regurgitation currently scheduled for Mitral clip 11/15 at [facility], diastolic heart failure who presented to the [facility] emergency department for CHF exacerbation. Acute on chronic HFpEF, present on admission, active - Likely complicated by patient's severe MR and Pulm HTN. Dr. Peck is patients oil sales and service rep. - 80 IV Lasix received in the ED. She was on IV Lasix till 10/30 - Nephrology following for diuresis. - Cardiology consulted- -- Dr. San has seen the patient, she feels patient's CVP and pulm HTN have actually improved from prior. Discussed case w/ Dr. San 11/02. Inpatient cath not indicated. Given pt's clinical improvement current plan to discharge and having rest of workup done as outpatient including possible LHC and Mitral Clip at [facility] for which she has appt Nov 15. - Follow up with Television And Radio Repairer, Dr. Peck and keep appointment at [facility] on November 15 as planned. # Acute on chronic respiratory failure and Exertional dyspnea secondary to pulmonary hypertension, diastolic heart failure and mitral regurg, present admission, improving - Pulmonary Consulted- per 11/02 note- - Will defer to cardiology team and Lety Traore regarding further work up with cardiac catheter procedure for evaluation of mitral regurg and pulmonary capillary wedge pressure cardiology. At this time use if vasodilator therapy with Sildenafil is not indicated as likely the origin of patients PAH is cardiac in origin and not pulmonary or vascular. And giving vasodilator therapy would likely worsen patients already existing diastolic heart failure. Acute Kidney Injury, present on admission. Resolved - Suspect early Cardiorenal, decreased urination, Creatine on admission 1.59, baseline ~ 1.1. - Nephrology, consulted, 11/03 Recs- - Continue triple diuretic regimen at the current dose of Torsemide, Chlorthalidone, Spironolactone - Recheck renal labs with PCP in 1 week, if worsens, can readjust diuretic dose. Anemia of chronic disease, present on admission, stable. She was given 1 dose of anaresp, 1 dose of IV iron during admit. Chronic issues, present remission, stable: Mitral regurgitation, present on admission, active - Under evaluation by [facility] for mitral clip, scheduled for November 15. - See plan above. Hypothyroidism chronic stable -Continue levothyroxine Chronic pain chronic stable -Continue patient's OxyContin (~ 70mg Oxy daily) Chronic anxiety chronic stable -Continue patient's home medications chronic Depression stable- Continue home med Effexor GERD chronic stable -Continue patient's home medications Hypertension chronic stable -Medication as above Insomnia chronic stable - Continue Ambien home med Disposition: Stable for discharge home per Renal, Pulmonary, and Cardiology. - Continue triple diuretic regimen at the current dose of Torsemide, Chlorthalidone, Spironolactone - Recheck renal labs with PCP in 1 week, if worsens, can readjust diuretic dose. - Follow up with Television And Radio Repairer, Dr. Peck and keep appointment at [facility] on November 15 as planned. Exam Vital Signs (Last) Date Time Temp Pulse Resp B/P Pulse Ox O2 Delivery O2 Flow Rate FiO2 11/04/16 08:55 36.8 76 16 105/69 96 Room Air Test 10/26/16 14:40 10/26/16 15:51 10/28/16 07:02 10/29/16 07:55 White Blood Count 6.3th/mm3 (3.8-10.1) Red Blood Count 3.50mil/mm3 (3.90-5.20) Mean Corpuscular Volume 84.0fL (81-100) Mean Corpuscular Hemoglobin 26.6pg (27.0-35.0) Mean Corpuscular Hemoglobin Concent 31.6% (32.0-37.0) Red Cell Distribution Width 16.6% (12.3-15.4) Platelet Count 243bil/L (150-400) Neutrophils (%) (Auto) 69.0% (40-74) Lymphocytes (%) (Auto) 16.4% (14-46) Monocytes (%) (Auto) 10.7% (4-12) Eosinophils (%) (Auto) 3.3% (0-5) Basophils (%) (Auto) 0.6% (0-3) Troponin T < 0.010ug/L (0.0-0.011) Pro-B-Type Natriuretic Peptide 1140pg/mL (0-738) Hold Bhakta Top Tube Received (Received) Urine Color Straw (YELLOW) Urine Appearance Clear (CLEAR,HAZY) Urine pH 5.5 (5.0-8.0) Urine Specific [place] <1.005 (1.003-1.035) Urine Protein Negativemg/dL (NEG,TRACE) Urine Glucose (UA) Negativemg/dL (NEGATIVE) Urine Ketones Negativemg/dL (NEGATIVE) Urine Occult Blood Negative (NEGATIVE) Urine Nitrite Negative (NEGATIVE) Urine Bilirubin Negative (NEGATIVE) Urine Urobilinogen Normalmg/dL (NORMAL) Urine Leukocyte Esterase Negative (NEGATIVE) Urine RBC 0-2/hpf (0-2) Urine WBC 0-5/hpf (0-5) Urine Epithelial Cells Occasional/hpf (NONE-MOD) Urine Crystals None seen (NONE SEEN) Urine Bacteria None/hpf (NONE-FEW) Urine Hyaline Casts None/lpf (NONE) Urine Granular Casts None seen (NONE SEEN) Urine Waxy Casts None seen (NONE SEEN) Urine Red Blood Cell Casts None seen (NONE SEEN) Urine White Blood Cell Casts None seen (NONE SEEN) Urine Mucus None seen (None Seen) Urine Trichomonas None seen (NONE SEEN) Urine Yeast None (NONE SEEN) Urinalysis Comment None Urine Culture Reflexed Not indicated Iron Level 26ug/dL (35-150) Total Iron Binding Capacity 492ug/dL (250-450) Percent Iron Saturation 5%sat (15-50) Unsaturated Iron Binding 465.7ug/dL Total Bilirubin 0.2mg/dL (0.0-1.2) Aspartate Amino Transf (AST/SGOT) 25U/L (0-50) Alanine Aminotransferase (ALT/SGPT) 14U/L (0-32) Alkaline Phosphatase 91U/L (25-165) Total Protein 7.9g/dL (6.4-8.4) Albumin 3.8g/dL (3.4-5.0) Test 10/30/16 07:55 11/01/16 06:25 11/04/16 06:27 Phosphorus Level 3.8mg/dL (2.5-4.9) Magnesium Level 2.1mg/dL (1.6-2.6) Hemoglobin 10.1g/dL (12.0-15.6) Hematocrit 32.4% (35.0-46.0) Sodium Level 135mEq/L (134-144) Potassium Level 3.9mEq/L (3.5-5.2) Chloride Level 93mEq/L (97-108) Carbon Dioxide Level 28mmol/L (18-29) Blood Urea Nitrogen 44mg/dL (8-27) Creatinine 1.16mg/dL (0.57-1.00) Estimat Glomerular Filtration Rate 64mL/min (>59) Glucose Level 115mg/dL (60-99) Calcium Level 9.0mg/dL (8.5-10.1) Discharge Medications Discharge Medications Budesonide/Formoterol 160-4.5 mcg Inh (Symbicort 160-4.5 mcg Inh) 120 Puff Inhaler 2 PUFF INHALATION BID (Reported) Carvedilol (Carvedilol) 6.25 Mg Tablet 6.25 MG PO BID Prescribed by: JACKSON NOBLE MD Chlorthalidone (Chlorthalidone) 25 Mg Tablet 25 MG PO DAILY Prescribed by: JACKSON NOBLE MD Estradiol (Estradiol) 1 Mg Tablet 1 MG PO QAM (Reported) Levothyroxine (Levothyroxine) 175 Mcg Tablet 175 MCG PO QAM (Reported) Olmesartan (Benicar) 20 Mg Tablet 20 MG PO DAILY (Reported) Omeprazole (Omeprazole) 20 Mg Capsule.dr 20 MG PO BID (Reported) Oxycodone ER (Oxycontin) 30 Mg Tab.er.12h 30 MG PO HS (Reported) Oxycodone ER (Oxycontin) 40 Mg Tab.er.12h 40 MG PO MORNING (Reported) Potassium Chloride (Potassium Chloride) 20 Meq Tab.er.prt 20 MEQ PO DAILY ( Reported) TAKE WITH FOOD Ranitidine (Zantac) 150 Mg Tablet 150 MG PO DAILYWD (Reported) Saccharomyces Boulardii (Digestive Probiotic) 250 Mg Capsule 250 MG PO BID ( Reported) Spironolactone (Aldactone) 25 Mg Tablet 50 MG PO DAILY Prescribed by: JACKSON NOBLE MD Torsemide (Demadex) 20 Mg Tablet 40 MG PO DAILY Prescribed by: JACKSON NOBLE MD Venlafaxine ER (Venlafaxine ER) 150 Mg Cap.er.24h 150 MG PO QAM (Reported) Zolpidem (Zolpidem) 5 Mg Tablet 5 MG PO HS (Reported) As needed Albuterol HFA (Proair HFA) 8.5 Gm Hfa.aer.ad 2 PUFFS INHALATION q4-6 hours PRN PRN For Shortness of Breath (Reported) Docusate Sodium (Docusate Sodium) 250 Mg Capsule 250 MG PO BID PRN PRN For Constipation (Reported) Hydrocortisone Acetate (Anucort-Hc) 25 Mg Supp.rect 25 MG IA BID PRN PRN HEMORRHOIDS (Reported) Polyethylene Glycol 3350 (Miralax) 17 Gm Powd.pack 17 GM PO DAILY PRN PRN For Constipation (Reported) Additional med instructions - Continue triple diuretic regimen at the current dose of Torsemide, Chlorthalidone, Spironolactone Followup Plan Disposition: Stable for discharge home per Renal, Pulmonary, and Cardiology. Follow-up plan - Recheck renal labs with PCP in 1 week, if worsens, can readjust diuretic doses. - Follow up with Television And Radio Repairer, Dr. Peck and keep appointment at [facility] on November 15 as planned. Discharge Diet: Low fat, Low Sodium Time spent Greater than 30 minutes was spent in preparation of discharge with greater than 50% of that time dedicated to patient counseling and coordination of care. Jackson Noble MD Nov 04, 2016 10:41
--- NOTE | 2016-11-04 11:45 | NUR ---
DISCHARGE Pt dc'd home this morning at 1130, off unit in w/c accompanied by caregiver, Sultana and LESVIA. Pt A&O, vitals stable, denies pain and in no apparent distress. IV dc'd intact and all belongings returned. All instructions for diet, activity, medications, prescriptions and follow up reviewed with pt and caregiver, who both report understanding.
[2016-11-09] MEDS ORDERED: HYG25 PO (14:20)
[2016-11-09] MEDS ORDERED: DIPH25CA6 PO (17:29)
== END 2016-11-04 11:30 | disposition home or self-care (01) | DRG 291 ==
LOC: SED 13:38 → MPC 15:08
PROVIDERS: ADMIT Family Medicine; ATTEND Family Medicine
DX: I50.33 Acute on chronic diastolic (congestive) heart failure (principal); J96.20 Acute and chronic respiratory failure, unspecified whether with hypoxia or hypercapnia; I13.0 Hypertensive heart and chronic kidney disease with heart failure and stage 1 through stage 4 chronic kidney disease, or unspecified chronic kidney disease; N17.9 Acute kidney failure, unspecified; N10 Acute pyelonephritis; F11.20 Opioid dependence, uncomplicated; N18.9 Chronic kidney disease, unspecified; E66.01 Morbid (severe) obesity due to excess calories; Z68.35 Body mass index [BMI] 35.0-35.9, adult; R60.1 Generalized edema; I34.0 Nonrheumatic mitral (valve) insufficiency; E03.9 Hypothyroidism, unspecified; G89.29 Other chronic pain; F41.9 Anxiety disorder, unspecified; F32.9 Major depressive disorder, single episode, unspecified; K21.9 Gastro-esophageal reflux disease without esophagitis; G47.00 Insomnia, unspecified; I36.1 Nonrheumatic tricuspid (valve) insufficiency; I27.2 Other secondary pulmonary hypertension; D63.8 Anemia in other chronic diseases classified elsewhere

== ENCOUNTER → 2016-11-15 | Day surgery (SDC) | payer MEDICARE ==
[~2016-11-15] VITALS: Ht 165.1 cm; Wt 97.0 kg
[2016-11-15] VITALS (11 sets, daily range): BP systolic 88–114; BP diastolic 53–71; PULSE 64–73; RESP 16–29; O2SAT 92–97
[~2016-11-15] MED LIST changes: +0.9% Sodium Chloride 1,000 ML IV SCH; +0.9% Sodium Chloride 50 ML ONE; +Atropine 1 mg/10 mL (Code) Syringe IVPUSH PRN; -CARV12.5 PO; +CARV6.252 PO; +DIPH25CA6 PO; +DOCU250C2 PO; -ESTR1TAB24 PO; +HYDR25SU10 PR; +HYDROcodone-APAP 5-325 mg Tablet PO PRN; +Heparin 1,000 Unit/mL 10 mL Inj ONE; +Heparin 1,000 Units/500 mL NS Premix IV ONE; +Heparin 10,000 Unit/1,000 mL NS Premix IV ONE; +Nitroglycerin 50,000 mcg/250 mL D5W Premix IV ONE; +Ondansetron 2 mg/mL 2 mL Inj IVPUSH PRN; +POLY17PO6 PO; +SPIR25TA PO; -TORS20TA3 PO; +ZYL100 PO; +fentaNYL-PF 50 mCg/mL 2 mL Inj ONE
[2016-11-15 12:02] LABS: BASOPHILS % (AUTO) 1.1 % (0-3); EOSINOPHILS % (AUTO) 5.5 % (0-5); MONOCYTES % (AUTO) 12.8 % (4-12); Mean Corpuscular Hemoglobin 27.4 pg (27.0-35.0); Mean Corpuscular Volume 86.7 fL (81-100); NEUTROPHILS % (AUTO) 58.7 % (40-74); Platelet Count 281 bil/L (150-400)
--- NOTE | 2016-11-15 12:37 | NUR ---
KAJAL - Patient ambulated to unit with walker and caregiver. NPO since 0500. Denies complaints. IV fluids started at ordered rate. Explained procedure and plan of care.
--- NOTE | 2016-11-15 15:15 | NUR ---
Post heart cath.- Patient returned to unit post procedure. Denies complaints. No bleeding or hematoma noted in right groin. Activity restrictions and bedrest explained to patient.
--- NOTE | 2016-11-15 15:47 | PCM.CVCATH ---
Cardiac Cath Report Date of Service Nov 15, 2016 Primary Indication 81-year-old female with history of mitral regurgitation and repetitive admissions for congestive heart failure. She has significant pulmonary hypertension in the setting of lung cancer as well. Cardiac catheterization has been ordered to further evaluate her mitral regurgitation as well as her pulmonary pressures and left ventricular filling pressures. Procedure 1. Right heart catheterization 2. Saturation runs 3. Left heart catheterization 4. Selective coronary angiogram 5. Left ventricular angiogram 6. Right femoral angiogram Vascular Access Common femoral vein and common femoral artery Procedure Details Compete heart catheterization details The patient was brought into the catheterization laboratory in nothing by mouth state. Time out was taken. Patient was explained about the risk and benefits of the procedure. The patient was prepped and sterilized in the usual and appropriate fashion. Lidocaine 1% was used to give local anesthetic to the right groin region. Using a slip tip needle with a syringe the right femoral vein was obtained and the short wire was used to insert the 8 [place] sheath. I then proceeded with the modified Seldinger technique and the right femoral artery was obtained and a 5 [place] sheath was inserted. Both sheaths were flushed with heparinized saline. A [place] catheter was then inserted in the right femoral vein and the right heart hemodynamics were recorded. Pulmonary wedge pressure was obtained. Thermodilution cardiac outputs were performed. Saturations were obtained within the main pulmonary artery as well as simultaneously obtaining the arterial saturation on room air. The right ventricular and right atrial saturations were also obtained. The [place] catheter was removed. A 5 [place] 4 diagnostic catheter was advanced and engaged into the left main. The left coronary angiography was performed in multiple views. The catheter was exchanged over the wire for a 5 [place] FR4 diagnostic catheter. The catheter was exchanged for a right coronary ostium and the right coronary angiography was performed in multiple views. The catheter was removed over the wire and exchanged for 5 [place] angle pigtail catheter. LV hemodynamics were recorded. Left ventricular angiography was performed at 12 mL/s for total 35 mL of contrast. LV pullback was performed. All catheters were removed. The right femoral angiogram was performed to evaluate for closure device. Hemostasis was obtained with Exoseal. The patient was transferred back to special observation unit for post procedural monitoring. There were no immediate complications. Total fluoroscopy time: 3.5 minutes Total fluoroscopy dosage: 512 mGy Estimated blood loss: 10 mL Total contrast: 60 mL Medications/Fluoro Time See procedure log Findings Complete heart catheterization findings: 1. Hemodynamics and cardiac outputs: A. Left ventricular systolic pressure: 108 mmHg B. Left ventricular end-diastolic pressure: 26 mmHg C. Systemic arterial pressure: 110/61 mmHg with a mean pressure of 81 mmHg. D. Pulmonary arterial pressure: 57/18 mmHg with a mean pressure of 33 mmHg. E. Right ventricular pressure: 53 over 5 mmHg with a right ventricular end- diastolic pressure of 11 mmHg. F. Right atrial pressure: 10 mmHg. G. Thermodilution cardiac output and cardiac index: 5.15 mL/min and 2.45 L/min/ m2. H. Erich cardiac output and cardiac index: 6.55 mL/min and 3.12 L/min/m2. I. Saturation runs: mix venous 64 %, right atrial 63 %, and arterial 96 %. On room air. J. Pulmonary wedge pressure: 23 mmHg K. Mitral regurgitation: Mitral regurgitation fraction 28%; 3+ MR Miscellaneous: Left ventricular end-diastolic volume is 142.2 mL and end- systolic volume is 42.1 mL. The stroke volume is 100.1 mm with a cardiac output of 7.0 L/m and a cardiac index of 3.3 L/m/m. 2. Selective coronary angiography: A. Left main: The artery has no evidence of significant disease. It bifurcates into the left anterior descending and left circumflex arteries. B. Left anterior descending artery: Normal coronary angiographically. C. Left circumflex artery: Normal coronary angiographically. D. Right coronary artery: Normal coronaries angiographically. This artery supplies the posterior descending artery which has no evidence of significant disease. 3. Left ventricular angiogram: The ejection fraction is around 70%. There is no appreciable LV wall motion abnormalities. 4. Right femoral angiogram: There is no evidence of significant disease. Summary 1 Normal coronaries angiographically. 2. Normal LV ejection fraction without any focal wall motion abnormalities. 3. At least moderately elevated left ventricular end-diastolic pressures as well as elevated pulmonary wedge pressures. 4. Moderate to severe pulmonary hypertension most likely secondary to left- sided heart failure. 5. Mild to moderate mitral regurgitation based on regurgitation fraction and angiogram. copies to: Jimmy Mitchell MD, Oscar J MD Nov 15, 2016 15:47
== END | disposition home or self-care (01) ==
LOC: SOUO 00:17
PROVIDERS: ATTEND Internal Medicine Cardiovascular Disease
DX: I34.0 Nonrheumatic mitral (valve) insufficiency (principal); I50.30 Unspecified diastolic (congestive) heart failure; I27.2 Other secondary pulmonary hypertension; I10 Essential (primary) hypertension; E03.9 Hypothyroidism, unspecified
CPT/HCPCS: 36415; 80048; 85025; 93005; 93460; 99152; 99153; C1769; J1200; J1644; J2060; J2250; J3010; J7030; Q9967